=== PATIENT | male | born 1960 | race Caucasian/White ===

== ENCOUNTER 2024-06-21 00:39 | Emergency (ER) | payer OTHER ==
--- OUTSIDE RECORDS SUMMARY | 2024-06-21 00:50 | XMS REPORT | Continuity of Care Document ---
Author Name Unknown Address [address] [facility]. [address] [place] [address] [facility] thconnect Address [address] [facility] [place] [address] Care Team Providers Care Night Shift Supervisor Name Role Phone PCP, PATIENT DOES NOT HAVE A Primary Care Physic jeevan Unavailable EDDOC, GENERIC FOR EDM Attending Clinician Unaelizabeth Spain, Cardiology - Clear Attending Clinician Jeanna vaGURWINDER Prieto Attending Clinician Unavailable Papo Mcfarlane DO Attending Clinician [phone] Jorge SCALES, Rosario Attending Clinician + [phone] Gurwinder Bosch MD Attending Clinician [phone] JOLIE MARQUEZ Attending Clinician Unavailkelsea Clarke MD, Crow Doyle Attending Clinician [phone] Reynold Rodas MD Attending Clinician [phone] Jolie Marquez MD Attending Clinician [phone] BRIE ECHOLS Attending Clinician Unavailab BRIE Melton Attending Clinician UnavailRupesh Montes MD Attending Clinician [phone] Jesus SCALES, Sergio Pedroza Attendin g Clinician JU, BLANE SANTACRUZ Attending Clinician Unavail able Ju TALAMANTESBS, Blane Santacruz Attending Clinician [phone] [facility], [facility] Cardiology Attending Clinician [phone] Obey SCALES, Afaq Attending Clinician [phone] RUPESH ELAINE Attending Clinician Unavailable Emelina SCALES, Julisas Lockett Attending Clinician + LAZARA GUERRERO [facility] Attending Clinician Jeanna ANNIE Yusuf Attending Clinician Unavailable ANNIE FLETCHER Attending Clinician Unavailable Mary SCALES, Jaime Leos Attending Clinician [phone] [facility], TAREQ Attending Clinician [facility]availa core[facility] Attending Clinician Unavaila Geo Aguilar MD Attending Clinician [phone] SERGIO LEE Attending C linician Unavailable Florentino Damon MD Attending Clinician [phone] Da Kidd MD Attending Clinician [phone] Physician, No Primary or Family Admitting Clinic jeevan Unavailable ChristianMARCELA, TARANNE Admitting Clinician Unavaila corey Patel MD, Rosario Admitting Clinician [phone] REYNOLD RODAS Admitting Clinician Unavailable Stephani SCALES, Reynold Admitting Clinician [phone] YOKO HEMBRIE CALDWELL Admitting Clinician Unavailab le JU, BLANE SANTACRUZ Admitting Clinician Unavail able Ju GRIMES, Blane Santacruz Admitting Clinician [phone] JULISSA TARANGO Admitting Clinician Unav ailANNIE Mercado Admitting Clinician Unavailable SERGIO LEE Admitting C linician Unavailable Jesus SCALES, Sergio Pedroza Admittin g Clinician Florentino Damon MD Admitting Clinician [phone] Payers Payer Name Policy Type Policy Number Effective Date Expirati on Date Source Problems Condition Name Condition Details Condition Category Status Onset Date Resolution Date Last Treatment Date Treating Clinician Comments Source Other chest pain Other chest pain Disease Active 4-14 00:00: 00 [facility] Chest pain, unspecifie d type Chest pain, unspecifie d type Disease Active 1-29 00:00: 00 [facility] Rib pain Rib pain Disease Active 10-12 00:00: 00 [facility] Injury of left hand Injury of left hand Disease Active 10-12 00:00: 00 [facility] Obesity (BMI 30-39.9) Obesity (BMI 30-39.9) Disease Active 10-29 00:00: 00 [facility] Unstable angina Unstable angina Disease Active 4 00:00: 00 [facility] Chest pain at rest Chest pain at rest Disease Active 2013-09 0 00:00: 00 [facility] Chest pain Chest pain Disease Active 4 00:00: 00 [facility] Essential hypertensi on Essential hypertensi on Disease Active 03-09 00:00: 00 Overview: Formattin g of this note might be different from the original. 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 [facility] Allergies, Adverse Reactions, Alerts Allergy Name Allergy Type Status Severity Reaction(s) Onset Date Inactive Date Treating Clinician Comments Source Isosorbi de Mononitr ate Propensi ty to adverse reaction s Active Other - See comments 10-12 00:00: 00 headache [facility] ISOSORBI DE MONONITR ATE DRUG INGREDI Active Other-Cmnt 10-12 00:00: 00 [facility] ACETAMIN OPHEN DRUG INGREDI Active N/V 10-29 00:00: 00 [facility] Acetamin ophen Propensi ty to adverse reaction s Active Nausea and/or Vomiting 0 2-24 00:00: 00 [facility] IODINE AND IODIDE CONTAINI NG PRODUCTS Drug Class Active ITCHING 12-11 00:00: 00 [facility] Iodine And Iodide Containi ng Products Propensi ty to adverse reaction s Active Shortness of Breath 12-11 00:00: 00 [facility] Iodine And Iodide Containi ng Products Propensi ty to adverse reaction s Active Shortness of Breath 12-11 00:00: 00 [facility] Social History Social Habit Start Date Stop Date Quantity Comments Source [facility] History of tobacco use Snuff User [facility] History SDOH Social Connections Get Together [facility] History SDOH Social Connections Restorationism [facility] History SDOH Social Connections Membership [facility] History SDOH Social Connections Meetings [facility] History of Social function 2023-12-26 00:00:00 2023-12-26 00:00:00 [facility] Alcohol intake 2023-12-25 00:00:00 2023-12-25 00:00:00 Ex-drinker (finding) [facility] Exposure to SARS-CoV-2 (event) 2022-12-07 00:00:00 2022-12-17 20:03:00 Not sure [facility] History SDOH Transport Non-Med 2022-10-25 00:00:00 2022-10-25 00:00:00 2 [facility] History SDOH Alcohol Frequency 2022-10-25 00:00:00 2022-10-25 00:00:00 1 [facility] History SDOH Alcohol Std Drinks 2022-10-25 00:00:00 2022-10-25 00:00:00 0 [facility] History SDOH Alcohol Binge 2022-10-25 00:00:00 2022-10-25 00:00:00 1 [facility] History SDOH Social Connections Phone 2022-10-25 00:00:00 2022-10-25 00:00:00 5 [facility] History SDOH Social Connections Living 2022-10-25 00:00:00 2022-10-25 00:00:00 7 [facility] History SDOH Physical Activity DPW 2022-10-25 00:00:00 2022-10-25 00:00:00 5 [facility] History SDOH Physical Activity MPS 2022-10-25 00:00:00 2022-10-25 00:00:00 3 [facility] History SDOH Financial 2022-10-25 00:00:00 2022-10-25 00:00:00 5 [facility] History SDOH Food Worry 2022-10-25 00:00:00 2022-10-25 00:00:00 1 [facility] History SDOH Food Scarcity 2022-10-25 00:00:00 2022-10-25 00:00:00 1 [facility] History SDOH Transport Med 2022-10-25 00:00:00 2022-10-25 00:00:00 2 [facility] Cigarettes smoked current (pack per day) - Reported 2021-04-28 00:00:00 2021-04-28 00:00:00 [facility] Cigarette pack-years 2021-04-28 00:00:00 2021-04-28 00:00:00 [facility] Tobacco use and exposure 2021-04-28 00:00:00 2021-04-28 00:00:00 User of smokeless tobacco [facility] Alcohol Comment 2021-04-28 00:00:00 2021-04-28 00:00:00 Quit 6 years ago (prior to this had about 18-20 drinks/week) [facility] Education - What is the highest level of school you have completed or the highest degree you have received? 2021-04-04 00:00:00 2021-04-04 00:00:00 Some college, no degree [facility] Tobacco Comment 2014-11-14 00:00:00 2014-11-14 00:00:00 smokes 4 to 5 cigars/month, 1/2 pack every 2 weeks and chews tobacco for the past 5 years, prior to that he was smoking 1.5 ppd for 15 years prior to that on and off [facility] Sex Assigned At 1960 00:00:00 1960 00:00:00 [facility] Smoking Status Start Date Stop Date Source Ex-smoker 2021-04-28 00:00:00 2021-04-28 [facility]00[facility]00 [facility] Current every day smoker 2015-09-08 00:00:00 [facility] Medications Ordered Medication Name Filled Medication Name Start Date Stop Date Current Medication? Ordering Clinician Indication Dosage Frequency Signature (SIG) Comments Components Source naloxone (NARCAN) 4 mg/actuatio n nasal spray 12-28 14:07: 35 Yes 1{spray } Use 1 [place] in each nostril as needed (opioid intoxicati on). [facility] methocarbam oL 750 mg tablet 12-28 14:07: 35 Yes 750mg Take 1 tablet by mouth 4 (four) times daily as needed for Pain (scale 1-3). [facility] furosemide (LASIX) tablet 60 mg 12-28 14:00: 00 Yes 60mg 60 mg, Oral, QAM+PM, First dose on [place] 12/29/23 at 0900, Until Discontinu ed, Routine [facility] magnesium oxide (MAG-OX 400) tablet 400 mg 12-28 01:00: 00 Yes 400mg 400 mg, Oral, BID, First dose on Tue12/28/23 at 1999, Until Discontinu ed, Routine [facility] KCL (KLOR-CON M20) tablet 20 mEq 12-28 01:00: 00 Yes 20meq 20 mEq, Oral, BID, First dose on Tue12/28/23 at 1999, Until Discontinu ed, Routine [facility] furosemide 20 mg tablet 12-28 00:00: 00 Yes [id number] 00 60mg Take 3 tablets by mouth every morning and evening. [facility] KCL 20 mEq tablet 12-28 00:00: 00 Yes [id number] 00 40meq Take 2 tablets by mouth in the morning. [facility] magnesium oxide 420 mg Tab 12-28 00:00: 00 Yes [id number] 00 400mg Take 400 mg by mouth in the morning and 400 mg in the evening. [facility] ranolazine 500 mg 12 hr tablet 12-28 00:00: 00 Yes [id number] 500mg Take 1 tablet by mouth every 12 (twelve) hours. [facility] rosuvastati n 40 mg tablet 12-28 00:00: 00 Yes [id number] 40mg Take 1 tablet by mouth at bedtime. [facility] bumetanide (BUMEX) tablet 2 mg 12-27 22:00: 00 12-28 13:38 :35 No 2mg 2 mg, Oral, QAM+PM, First dose (after last modificati on) on Tue12/28/23 at 1700, Until Discontinu ed, Routine [facility] furosemide (LASIX) injection 40 mg 12-27 12:15: 00 12-27 17:51 :00 No 40mg 40 mg, Slow IV Push, Q6H, 2 doses, First dose on Tue12/28/23 at 0715, Last dose on Tue12/28/23 at 1200, Routine [facility] magnesium oxide (MAG-OX 400) tablet 400 mg 12-27 12:00: 00 12-27 13:45 :00 No 400mg 400 mg, Oral, ONCE, 1 dose, On Tue12/28/23 at 0700, Routine [facility] KCL (KLOR-CON M20) tablet 40 mEq 12-27 12:00: 00 12-27 13:45 :00 No 40meq 40 mEq, Oral, ONCE, 1 dose, On Tue12/28/23 at 0700, Routine [facility] ranolazine (RANEXA) 12 hr tablet 500 mg 12-27 01:00: 00 Yes 500mg 500 mg, Oral, Q12H, First dose on Tue12/27/23 at 2000, Until Discontinu ed, Routine [facility] furosemide (LASIX) injection 40 mg 12-26 19:00: 00 12-27 01:23 :00 No 40mg 40 mg, Slow IV Push, TID, 2 doses, First dose (after last modificati on) on Tue12/27/23 at 1400, Last dose on Tue12/27/23 at 2000, Routine [facility] KCL (KLOR-CON M20) tablet 40 mEq 12-26 12:30: 00 12-26 13:44 :00 No 40meq 40 mEq, Oral, ONCE, 1 dose, On Tue12/27/23 at 0730, Routine [facility] magnesium sulfate in water 2 gram/50 mL (4 %) infusion 2 g 12-26 12:30: 00 12-26 14:44 :00 No 2g 2 g, IV Piggyback, Administer over 60 Minutes, ONCE, 1 dose, On Tue12/27/23 at 0730, Routine [facility] furosemide (LASIX) injection 40 mg 12-25 19:00: 00 12-26 14:06 :10 No 40mg 40 mg, Slow IV Push, TID, First dose (after last modificati on) on Tue12/26/23 at 1400, Until Discontinu ed, Routine [facility] magnesium oxide (MAG-OX 400) tablet 400 mg 12-25 12:15: 00 12-25 13:51 :00 No 400mg 400 mg, Oral, ONCE, 1 dose, On Tue12/26/23 at 0715, Routine [facility] KCL (KLOR-CON M20) tablet 20 mEq 12-25 12:15: 00 12-25 13:51 :00 No 20meq 20 mEq, Oral, ONCE, 1 dose, On Tue12/26/23 at 0715, Routine [facility] rosuvastati n (CRESTOR) tablet 40 mg 12-25 02:00: 00 Yes 40mg 40 mg, Oral, QHS, First dose on Tue12/25/23 at 2100, Until Discontinu ed, Routine [facility] furosemide (LASIX) injection 40 mg 12-25 01:00: 00 12-25 16:04 :43 No 40mg 40 mg, Slow IV Push, Q12H, First dose on 12/25/23 at 2000, Until Discontinu ed, Routine [facility] perflutren lipid microsphere s (DEFINITY) injection 2 mL 12-24 16:45: 00 12-24 16:45 :00 No [id number] 2mL 2 mL, IV Push, ONCE, 1 dose, On 12/25/23 at 1145, Routine [facility] polyethylen e glycol 3350 powder 17 g 12-24 14:00: 00 Yes 17g 17 g, Oral, DAILY, First dose on 12/25/23 at 0900, Until Discontinu ed, Routine [facility] metoprolol succinate XL (TOPROL XL) tablet 25 mg 12-24 14:00: 00 Yes 25mg 25 mg, Oral, DAILY, First dose on 12/25/23 at 0900, Until Discontinu ed, Routine [facility] lisinopriL (PRINIVIL,Z ESTRIL) tablet 10 mg 12-24 14:00: 00 Yes 10mg 10 mg, Oral, DAILY, First dose on 12/25/23 at 0900, Until Discontinu ed, Routine [facility] clopidogreL (PLAVIX) 75 mg tablet 75 mg 12-24 14:00: 00 Yes 75mg 75 mg, Oral, DAILY, First dose on 12/25/23 at 0900, Until Discontinu ed, Routine [facility] aspirin chewable tablet 81 mg 12-24 14:00: 00 Yes 81mg 81 mg, Oral, DAILY, First dose on 12/25/23 at 0900, Until Discontinu ed, Routine [facility] amLODIPine (NORVASC) tablet 10 mg 12-24 14:00: 00 Yes 10mg 10 mg, Oral, QAM, First dose on 12/25/23 at 0900, Until Discontinu ed, Routine [facility] KCL (KLOR-CON M20) tablet 40 mEq 12-24 14:00: 00 12-24 14:01 :00 No 40meq 40 mEq, Oral, ONCE, 1 dose, On Tue12/25/23 at 0900, Routine [facility] aspirin chewable tablet 324 mg 12-24 14:00: 00 12-24 09:14 :47 No 324mg 324 mg, Oral, DAILY, First dose on Tue12/25/23 at 0900, Until Discontinu ed, Routine [facility] furosemide (LASIX) injection 80 mg 12-24 13:00: 00 12-24 14:36 :51 No 80mg 80 mg, IV Push, Q12H, First dose (after last reorder) on Tue12/25/23 at 0800, Until Discontinu ed, STEPHENIE [facility] traMADoL (ULTRAM) tablet 50 mg 12-24 11:40: 09 Yes 50mg 50 mg, Oral, Q6HPRN, Starting on Tue12/25/23 at 0640, Until Discontinu ed, Routine, Pain (scale 7-10) [facility] glucagon (GLUCAGEN DIAGNOSTIC KIT) injection 1 mg 12-24 09:10: 01 Yes 1mg 1 mg, Intramuscu lar, PRN, Starting on Tue12/25/23 at 0410, Until Discontinu ed, STEPHENIE, Blood Glucose < or = 70 mg/dL and patient is NPO, unable to swallow or has mental changes. [facility] dextrose 50 % in water (D50W) injection 25 mL 12-24 09:10: 01 Yes 25mL 25 mL, Slow IV Push, PRN, Starting on Tue12/25/23 at 0410, Until Discontinu ed, STEPHENIE, Blood Glucose < or = 70 mg/dL and patient is NPO, unable to swallow or has mental status changes. [facility] hydrOXYzine 25 mg tablet 12-24 09:04: 50 Yes 25mg Take 1 tablet by mouth at bedtime as needed for Anxiety (sleep). [facility] HEPARIN SODIUM (PORCINE) 1,000 UNIT/ML BOLUS ACS ORDER SET 12-24 07:30: 00 12-24 09:10 :00 No 4000U 4,000 Units, IV Push, ONCE, 1 dose, On Tue12/25/23 at 0230, STEPHENIE [facility] heparin 25,000 Units/250 mL (Premixed Bag) in 0.45 % NS 12-24 07:25: 51 12-26 12:06 :50 No 0U/h 0-2,750 Units/hr (0-27.5 mL/hr), IV Infusion, TITRATE, Parameters in Admin. Instr., Starting on Tue12/25/23 at 0225
In itiate dosing:&nb sp; & nbsp;&nbsp ; -Patient 83 kg or under: 1,000 Units/hr (Calculate d dose at 12 units/kg/h r) &n bsp; &nbs p; -Patient over 83 k,000 units/hr&n bsp;DO NOT Exceed the MAXIMUM 1,000 units/hr for initiation of heparin drip.&nbsp ; CAU TION - If LMWH given in ER, AVOID bolus and start next dose/drip 12 hrs after ER dosage.&nb sp; M ust program rate using programmab le infusion pump.&nbsp ; Elizabeth ck with the ordering provider first prior to any administra tion should the patient be on existing/a dditional anticoagul ant therapy. Rang e, Dosing and Testing: &nbs p;FOR [facility], [facility], AND [facility] ONLY &nbs p; - aPTT < 35: & nbsp;Bolus 5000 units, increase rate 300 units/hr&n bsp; - aPTT 35-44:&nbs p; Arjun beatriz 3000 units, increase rate 200 units/hr&n bsp; - aPTT 45-54:&nbs p; In crease rate 100 units/hr&n bsp; - aPTT 55-85:&nbs p; NO CHANGE&nbs p; - aPTT 86-95:&nbs p; De crease rate 100 units/hr&n bsp; - aPTT 96-120:&nb sp; H old 30 minutes, decrease rate 150 units/hr&n bsp; - aPTT > 120: Hold 60 minutes, decrease rate 200 units/hr&n bsp; Check aPTT 6 hours after initiation , then Q6H after every change, aPTT Q12H once therapeuti c levels are reached.&n bsp; &nbs p; __ &n bsp;FOR [facility] ONLY - aPTT < 40: & nbsp;Bolus 5000 units, increase rate 300 units/hr&n bsp; - aPTT 40-49:&nbs p; Arjun beatriz 3000 units, increase rate 200 units/hr&n bsp; - aPTT 50-59:&nbs p; In crease rate 100 units/hr&n bsp; - aPTT 60-85:&nbs p; NO CHANGE&nbs p; - aPTT 86-95:&nbs p; De crease rate 100 units/hr&n bsp; - aPTT 96-120:&nb sp; H old 30 minutes, decrease rate 150 units/hr&n bsp; - aPTT > 120: Hold 60 minutes, decrease rate 200 units/hr&n bsp; Check aPTT 6 hours after initiation , then Q6H after every change, aPTT Q12H once therapeuti c levels are reached.&n bsp;&n bsp; DO NOT ADJUST INITIAL BOLUS OR INITIAL INFUSION RATE.
[facility] furosemide (LASIX) injection 80 mg 12-24 07:00: 00 12-24 07:12 :00 No 80mg 80 mg, IV Push, ONCE, 1 dose, On Tue12/25/23 at 0200, STEPHENIE [facility] ondansetron (ZOFRAN (PF)) injection 4 mg 12-24 07:00: 00 12-24 06:50 :00 No 4mg 4 mg, Slow IV Push, ONCE, 1 dose, On Tue12/25/23 at 0200, STEPHENIE [facility] morpHINE (2 mg/mL) injection 4 mg 12-24 06:45: 00 12-24 06:50 :00 No 4mg 4 mg, Slow IV Push, ONCE, 1 dose, On Tue12/25/23 at 0145, STAT [facility] metoprolol succinate XL 50 mg 24 hr tablet 2022-09 00:00: 00 Yes 25mg Take 0.5 tablets by mouth in the morning. [facility] amLODIPine 5 mg tablet 03-03 00:00: 00 Yes 10mg Take 2 tablets by mouth every morning. [facility] aspirin 81 mg chewable tablet 03-03 00:00: 00 Yes 81mg Take 1 tablet by mouth in the morning. [facility] clopidogreL 75 mg tablet 03-03 00:00: 00 Yes 75mg Take 1 tablet by mouth in the morning. [facility] glipiZIDE 5 mg tablet 03-03 00:00: 00 Yes 2.5mg Take 0.5 tablets by mouth in the morning. [facility] insulin glargine (LANTUS U-100) injection 8 Units 12-20 02:00: 00 Yes 8U 8 Units, Subcutaneo us, QHS, First dose on Sun 23 at 2100, Until Discontinu ed, Routine [facility] aspirin 81 mg chewable tablet 12-20 00:00: 00 04-20 04:59 :00 No [id number] 81mg Take 1 tablet by mouth in the morning for 120 days. [facility] pantoprazol e (PROTONIX) EC tablet 40 mg 12-19 14:00: 00 Yes 40mg 40 mg, Oral, DAILY, First dose on 12/19/22 at 0900, Until Discontinu ed, Routine [facility] aspirin chewable tablet 81 mg 12-19 14:00: 00 Yes 81mg 81 mg, Oral, DAILY, First dose on Tue12/19/22 at 0900, Until Discontinu ed, Routine [facility] insulin lispro (human) (HumaLOG U-100) injection 5 Units 12-19 13:00: 00 Yes 5U 5 Units, Subcutaneo us, TID MEALS, First dose on Tue12/19/22 at 0800, Until Discontinu ed, Routine [facility] KCL (KLOR-CON M20) tablet 40 mEq 12-19 11:00: 00 12-19 14:32 :00 No 40meq 40 mEq, Oral, Q2H, 2 doses, First dose on Tue12/19/22 at 0600, Last dose on Tue12/19/22 at 0800, Routine [facility] magnesium sulfate in water 4 gram/50 mL (8 %) IV Piggyback 4 g 12-19 09:45: 00 12-19 19:02 :00 No 4g 4 g, IV Piggyback, at 25 mL/hr Administer over 120 Minutes, ONCE, 1 dose, On Tue12/19/22 at 0445, Routine [facility] potassium chloride in water (KCL) 20 mEq/100 mL RTU IVPB 20 mEq 12-19 09:45: 00 12-19 12:41 :00 No 20meq 20 mEq, IV Piggyback, ONCE, 1 dose, On 4/16/23 at 0445, 100 mL [facility] rosuvastati n (CRESTOR) tablet 40 mg 16 02:00: 00 Yes 40mg 40 mg, Oral, QHS, First dose on 12/18/22 at 2100, Until Discontinu ed, Routine [facility] ranolazine (RANEXA) 12 hr tablet 1,000 mg 12-19 01:00: 00 Yes 1000mg 1,000 mg, Oral, Q12H, First dose (after last modificati on) on 12/18/22 at 2000, Until Discontinu ed, Routine [facility] furosemide (LASIX) injection 80 mg 12-19 01:00: 00 Yes 80mg 80 mg, IV Push, Q12H, First dose (after last modificati on) on 12/18/22 at 2000, Until Discontinu ed, Routine [facility] amLODIPine 5 mg tablet 12-19 00:00: 00 04-19 04:59 :00 No [id number] 5mg Take 1 tablet by mouth in the morning and 1 tablet in the evening. Do all this for 120 days. [facility] ranolazine 1,000 mg tablet 12-19 00:00: 00 04-19 04:59 :00 No [id number] 1000mg Take 1 tablet by mouth every 12 (twelve) hours for 120 days. [facility] glipiZIDE 5 mg tablet 12-19 00:00: 00 04-19 04:59 :00 No [id number] 5mg Take 1 tablet by mouth in the morning for 120 days. [facility] bumetanide 2 mg tablet 12-19 00:00: 00 04-19 04:59 :00 No [id number] 2mg Take 1 tablet by mouth in the morning and 1 tablet in the evening. Do all this for 120 days. [facility] KCL 20 mEq tablet 12-19 00:00: 00 12-19 00:00 :00 No [id number] 40meq Take 2 tablets by mouth in the morning and 2 tablets in the evening. Do all this for 30 days. [facility] oxyCODONE immediate release tablet 10 mg 12-18 17:45: 43 Yes 10mg 10 mg, Oral, Q6HPRN, Starting on 12/18/22 at 1245, Until Discontinu ed, Routine, Pain (scale 7-10)
F aculty member approving Restricted medication : DARA EDWARD [facility] Sliding Scale Insulin - Lispro (HumaLOG) + Fsbg Testing 12-18 17:00: 00 Yes Subcutaneo us, TID MEALS+HS, First dose on 12/18/22 at 1200, Until Discontinu ed, Routine [facility] enoxaparin (LOVENOX) injection 40 mg 12-18 14:00: 00 Yes 40mg 40 mg, Subcutaneo us, DAILY, First dose on 12/18/22 at 0900, Until Discontinu ed, Routine [facility] spironolact one (ALDACTONE) tablet 25 mg 12-18 14:00: 00 Yes 25mg 25 mg, Oral, DAILY, First dose on 12/18/22 at 0900, Until Discontinu ed, Routine [facility] metoprolol succinate XL (TOPROL XL) tablet 25 mg 12-18 14:00: 00 Yes 25mg 25 mg, Oral, DAILY, First dose on 12/18/22 at 0900, Until Discontinu ed, Routine [facility] losartan (COZAAR) tablet 100 mg 12-18 14:00: 00 Yes 100mg 100 mg, Oral, DAILY, First dose on 12/18/22 at 0900, Until Discontinu ed, Routine [facility] clopidogreL (PLAVIX) 75 mg tablet 75 mg 12-18 14:00: 00 Yes 75mg 75 mg, Oral, DAILY, First dose on 12/18/22 at 0900, Until Discontinu ed, Routine [facility] amLODIPine (NORVASC) tablet 5 mg 12-18 14:00: 00 Yes 5mg 5 mg, Oral, DAILY, First dose on 12/18/22 at 0900, Until Discontinu ed, Routine [facility] aspirin tablet 325 mg 12-18 14:00: 00 12-19 12:51 :05 No 325mg 325 mg, Oral, DAILY, First dose on 12/18/22 at 0900, Until Discontinu ed, Routine [facility] dextrose 10% (D10W) bolus infusion 250 mL 12-18 13:14: 39 Yes 250mL 250 mL, IV Infusion, PRN - SEE INSTRUCTIO NS, Administer over 60 Minutes, Other, If blood glucose is < or = 70 mg/dL and patient is unable to swallow or has mental status changes, Starting on 12/18/22 at 0814
If blood glucose is < or = 70 mg/dL and patient is unable to swallow or has mental status changes (Give glucagon order if patient needs fluid restrictio n): IF IV access available: Dextrose 10%. 1. 125 mL (? bag) of D10W IV infusion - equivalent to 12.5 g dextrose 2. Blood glucose - draw blood glucose 15 minutes after D10W Administra tion. 3. If blood glucose is < 80 mg/dL, repeat.
[facility] glucagon (GLUCAGEN DIAGNOSTIC KIT) injection 1 mg 12-18 13:14: 37 Yes 1mg 1 mg, Intramuscu lar, PRN, Starting on 12/18/22 at 0814, Until Discontinu ed, STEPHENIE, Blood Glucose < or = 70 mg/dL and patient is NPO, unable to swallow or has mental changes. [facility] furosemide (LASIX) injection 40 mg 12-18 13:00: 00 12-18 17:43 :56 No 40mg 40 mg, IV Push, Q12H, First dose on [facility] 12/18/22 at 0800, Until Discontinu ed, Routine [facility] ranolazine (RANEXA) 12 hr tablet 500 mg 12-18 13:00: 00 12-18 17:43 :56 No 500mg 500 mg, Oral, Q12H, First dose on 12/18/22 at 0800, Until Discontinu ed, Routine [facility] magnesium sulfate in water 4 gram/50 mL (8 %) IV Piggyback 4 g 12-18 08:45: 00 12-18 11:04 :00 No 4g 4 g, IV Piggyback, at 25 mL/hr Administer over 120 Minutes, ONCE, 1 dose, On 12/18/22 at 0345, Routine [facility] KCL (KLOR-CON M20) tablet 40 mEq 12-18 08:45: 00 12-18 08:57 :00 No 40meq 40 mEq, Oral, ONCE, 1 dose, On 12/18/22 at 0345, Routine [facility] HYDROcodone -acetaminop hen (NORCO) 10-325 mg tablet 1 tablet 12-18 07:52: 13 12-18 17:46 :06 No 1{tbl} 1 tablet, Oral, Q6HPRN, Starting on 12/18/22 at 0252, Until 12/18/22 at 1246, Routine, Pain (scale 7-10) [facility] morpHINE (4 mg/mL) injection 4 mg 12-18 02:30: 00 12-18 01:42 :00 No 4mg 4 mg, Slow IV Push, ONCE, 1 dose, On Tue12/17/22 at 2130, Routine [facility] furosemide (LASIX) injection 40 mg 12-18 01:45: 00 12-18 01:42 :00 No 40mg 40 mg, IV Push, ONCE, 1 dose, On Tue12/17/22 at 2045, STEPHENIE [facility] nitroglycer in (NITROSTAT) sublingual tablet 0.4 mg 12-18 01:33: 43 Yes .4mg 0.4 mg, Sublingual , Q5MIN PRN, 3 doses, Starting on Tue12/17/22 at 2033, Until Discontinu ed, STEPHENIE, Chest pain [facility] spironolact one 25 mg tablet 10-28 00:00: 00 01-27 04:59 :00 No [id number] 25mg Take 1 tablet by mouth in the morning for 90 days. [facility] clopidogreL 75 mg tablet 10-28 00:00: 00 01-27 04:59 :00 No [id number] 75mg Take 1 tablet by mouth in the morning for 90 days. [facility] amLODIPine 5 mg tablet 10-28 00:00: 00 12-19 00:00 :00 No [id number] 5mg Take 1 tablet by mouth in the morning for 90 days. [facility] clopidogreL 75 mg tablet 10-27 14:44: 58 10-27 00:00 :00 No 75mg Take 75 mg by mouth. [facility] rosuvastati n 40 mg tablet 10-27 14:44: 58 10-27 00:00 :00 No 40mg Take 40 mg by mouth in the morning. [facility] rosuvastati n 40 mg tablet 10-27 00:00: 00 01-26 04:59 :00 No [id number] 40mg Take 1 tablet by mouth at bedtime for 90 days. [facility] metoprolol succinate XL 25 mg 24 hr tablet 10-27 00:00: 00 01-26 04:59 :00 No [id number] 25mg Take 1 tablet by mouth in the morning for 90 days. [facility] furosemide (LASIX) tablet 40 mg 10-26 18:00: 00 Yes 40mg 40 mg, Oral, BID, First dose (after last modificati on) on Tue10/26/22 at 1200, Until Discontinu ed, Routine [facility] magnesium oxide (MAG-OX 400) tablet 400 mg 10-26 13:45: 00 10-26 15:49 :00 No 400mg 400 mg, Oral, ONCE, 1 dose, On Tue10/26/22 at 0745, Routine [facility] ranolazine 500 mg 12 hr tablet 10-26 00:00: 00 01-25 04:59 :00 No [id number] 500mg Take 1 tablet by mouth every 12 (twelve) hours for 90 days. [facility] furosemide 40 mg tablet 10-26 00:00: 00 01-25 04:59 :00 No [id number] 40mg Take 1 tablet by mouth in the morning and 1 tablet in the evening. Do all this for 90 days. [facility] perflutren lipid microsphere s (DEFINITY) injection 2 mL 10-25 17:30: 00 10-25 17:07 :00 No [id number] 2mL 2 mL, IV Push, ONCE, 1 dose, On Tue10/25/22 at 1130, Routine [facility] ranolazine (RANEXA) 12 hr tablet 500 mg 10-25 16:15: 00 Yes 500mg 500 mg, Oral, Q12H, First dose on Tue10/25/22 at 1015, Until Discontinu ed, Routine [facility] KCL (KLOR-CON M20) tablet 20 mEq 10-25 14:00: 00 10-25 14:46 :00 No 20meq 20 mEq, Oral, ONCE, 1 dose, On Tue10/25/22 at 0800, Routine [facility] magnesium oxide (MAG-OX 400) tablet 800 mg 10-25 14:00: 00 10-25 14:48 :00 No 800mg 800 mg, Oral, ONCE, 1 dose, On Tue10/25/22 at 0800, Routine [facility] sennosides (SENOKOT) tablet 8.6 mg 10-24 15:00: 00 Yes 8.6mg 8.6 mg, Oral, DAILY, First dose on Tue10/24/22 at 0900, Until Discontinu ed, Routine [facility] magnesium oxide (MAG-OX 400) tablet 400 mg 10-24 14:15: 00 10-24 15:10 :00 No 400mg 400 mg, Oral, ONCE, 1 dose, On 10/24/22 at 0815, Routine [facility] KCL (KLOR-CON M20) tablet 20 mEq 10-24 14:00: 00 10-24 19:48 :00 No 20meq 20 mEq, Oral, Q2H, 2 doses, First dose on 10/24/22 at 0800, Last dose on 10/24/22 at 1000, Routine [facility] metoprolol tartrate (LOPRESSOR) tablet 12.5 mg 10-24 02:00: 00 Yes 12.5mg 12.5 mg, Oral, BID, First dose (after last modificati on) on 10/23/22 at 2000, Until Discontinu ed, Routine [facility] enoxaparin (LOVENOX) injection 40 mg 10-23 23:00: 00 Yes 40mg 40 mg, Subcutaneo us, DAILY, First dose on 10/23/22 at 1700, Until Discontinu ed, Rout[facility] 40 mg 10-23 20:00: 00 10-26 15:14 :42 No 40mg 40 mg, Slow IV Push, Q8H, First dose (after last modificati on) on 10/23/22 at 1400, Until Discontinu ed, Routine [facility] Sliding Scale Insulin-Reg ular + Fsbg Testing 10-23 17:30: 00 Yes Subcutaneo us, AC+HS, First dose on 10/23/22 at 1130, Until Discontinu ed, Routine [facility] morphine IR (MSIR) tablet 15 mg 10-23 15:39: 51 Yes 15mg 15 mg, Oral, Q4HPRN, Starting on 10/23/22 at 0939, Until Discontinu ed, Routine, Pain (scale 7-10) [facility] clopidogreL (PLAVIX) 75 mg tablet 75 mg 10-23 15:00: 00 Yes 75mg 75 mg, Oral, DAILY, First dose on 10/23/22 at 0900, Until Discontinu ed, Routine [facility] spironolact one (ALDACTONE) tablet 25 mg 10-23 15:00: 00 Yes 25mg 25 mg, Oral, DAILY, First dose on 10/23/22 at 0900, Until Discontinu ed, Routine [facility] rosuvastati n (CRESTOR) tablet 40 mg 10-23 15:00: 00 Yes 40mg 40 mg, Oral, DAILY, First dose on 10/23/22 at 0900, Until Discontinu ed, Routine [facility] losartan (COZAAR) tablet 100 mg 10-23 15:00: 00 Yes 100mg 100 mg, Oral, DAILY, First dose on 10/23/22 at 0900, Until Discontinu ed, Routine [facility] aspirin chewable tablet 81 mg 10-23 15:00: 00 Yes 81mg 81 mg, Oral, DAILY, First dose on 10/23/22 at 0900, Until Discontinu ed, Routine [facility] amLODIPine (NORVASC) tablet 5 mg 10-23 15:00: 00 Yes 5mg 5 mg, Oral, DAILY, First dose on 10/23/22 at 0900, Until Discontinu ed, Routine [facility] magnesium sulfate in water 2 gram/50 mL (4 %) infusion 2 g 10-23 14:00: 00 10-23 16:45 :00 No 2g 2 g, IV Piggyback, Administer over 60 Minutes, Q1H, 2 doses, First dose on 10/23/22 at 0800, Last dose on 10/23/22 at 0900, Routine [facility] glucagon (GLUCAGEN DIAGNOSTIC KIT) injection 1 mg 10-23 13:31: 08 Yes 1mg 1 mg, Intramuscu lar, PRN, Starting on 10/23/22 at 0731, Until Discontinu ed, STEPHENIE, Blood Glucose < or = 70 mg/dL and patient is NPO, unable to swallow or has mental changes. [facility] morpHINE (2 mg/mL) injection 2 mg 10-23 09:00: 00 10-23 08:21 :00 No 2mg 2 mg, Slow IV Push, ONCE, 1 dose, On 10/23/22 at 0300, Routine [facility] acetaminoph en (TYLENOL) tablet 650 mg 10-23 07:08: 32 Yes 650mg 650 mg, Oral, Q6HPRN, Starting on 10/23/22 at 0108, Until Discontinu ed, Routine, Pain (scale 1-3) [facility] HYDROcodone -acetaminop hen (NORCO 5) 5-325 mg tablet 1 tablet 10-23 07:08: 28 10-25 07:07 :28 No 1{tbl} 1 tablet, Oral, Q6HPRN, Starting on 10/23/22 at 0108, Until 10/25/22 at 0107, Routine, Pain (scale 4-6) [facility] nitroglycer in (NITROSTAT) sublingual tablet 0.4 mg 10-23 07:06: 43 Yes .4mg 0.4 mg, Sublingual , Q5MIN PRN, Starting on 10/23/22 at 0106, Until Discontinu ed, Routine, Chest pain [facility] furosemide (LASIX) injection 40 mg 10-23 06:30: 00 10-23 17:06 :48 No 40mg 40 mg, Slow IV Push, Q12H, First dose on 10/23/22 at 0030, Until Discontinu ed, Routine [facility] clonazePAM (KLONOPIN) tablet 1 mg 10-23 06:30: 00 10-23 05:35 :00 No 1mg 1 mg, Oral, ONCE, 1 dose, On 10/23/22 at 0030, STEPHENIE [facility] aspirin tablet 325 mg 10-23 03:15: 00 10-23 03:15 :00 No 325mg 325 mg, Oral, ONCE, 1 dose, On Tue10/22/22 at 2115, STAT [facility] sodium chloride (NS) injection 5 mL 10-23 03:10: 38 Yes 5mL 5 mL, Intravenou s, PRN, Starting on Tue10/22/22 at 2110, Until Discontinu ed, Routine, IV line flushing [facility] Oxycodone 10 mg Tab 10-05 00:00: 00 Yes TAKE 1 TABLET BY MOUTH EVERY 6 HOURS NEEDED [facility] aspirin 81 mg chewable tablet 10-05 00:00: 00 11-05 05:59 :00 No [id number] 81mg Take 1 tablet by mouth in the morning for 30 days. [facility] spironolact one (ALDACTONE) tablet 25 mg 10-04 15:00: 00 Yes 25mg 25 mg, Oral, DAILY, First dose on Tue10/04/22 at 0900, Until Discontinu ed, Routine [facility] clopidogreL 75 mg tablet 10-04 14:41: 23 Yes 75mg Take 75 mg by mouth. [facility] rosuvastati n 40 mg tablet 10-04 14:41: 23 Yes 40mg Take 40 mg by mouth in the morning. [facility] magnesium sulfate in water 2 gram/50 mL (4 %) infusion 2 g 10-04 14:15: 00 10-04 15:32 :00 No 2g 2 g, IV Piggyback, Administer over 60 Minutes, ONCE, 1 dose, On Tue10/04/22 at 0815, Routine [facility] KCL (KLOR-CON M20) tablet 40 mEq 10-04 14:15: 10-04 16:24 :00 No 40meq 40 mEq, Oral, ONCE, 1 dose, On Tue10/04/22 at 0815, Routine [facility] metoprolol tartrate (LOPRESSOR) tablet 12.5 mg 10-04 13:30: 00 Yes 12.5mg 12.5 mg, Oral, BID, First dose on Tue10/04/22 at 0730, Until Discontinu ed, Routine [facility] KCL 20 mEq/15 mL solution 40 mEq 10-04 12:30: 00 10-04 14:20 :00 No 40meq 40 mEq, Oral, ONCE, 1 dose, On 10/04/22 at 0630, Routine [facility] morphine ER (MS CONTIN) 12 hr tablet 30 mg 10-04 03:45: 00 Yes 30mg 30 mg, Oral, Q12H, First dose on 10/03/22 at 2145, Until Discontinu ed, Routine [facility] nitroglycer in 0.4 mg sublingual tablet 10-04 00:00: [address] 1 tablet under the tongue every 5 (five) minutes as needed for Chest pain. [facility] insulin glargine 100 unit/mL injection 10-04 00:00: 00 12-19 00:00 :00 No [id number] 10U inject 10 Units under the skin at bedtime. [facility] metFORMIN 500 mg tablet 10-04 00:00: 11-04 05:59 :00 No [id number] 500mg Take 1 tablet by mouth in the morning and 1 tablet in the evening. Take with meals. Do all this for 30 days. [facility] metoprolol tartrate 25 mg tablet 10-04 00:00: 00 11-04 05:59 :00 No [id number] 12.5mg Take 0.5 tablets by mouth in the morning and 0.5 tablets in the evening. Do all this for 30 days. [facility] furosemide 40 mg tablet 10-04 00:00: 00 11-04 05:59 :00 No [id number] 40mg Take 1 tablet by mouth every morning and evening for 30 days. [facility] Sliding Scale Insulin - Lispro (HumaLOG) + Fsbg Testing 10-03 23:00: 00 Yes Subcutaneo us, TID MEALS+HS, First dose on 10/03/22 at 1700, Until Discontinu ed, [facility] (4 mg/mL) injection 4 mg 10-03 21:30: 00 2023- 01-29 22:12 :00 No 4mg 4 mg, Slow IV Push, ONCE, 1 dose, On Tue10/03/22 at 1530, STAT [facility] HEPARIN SODIUM (PORCINE) 1,000 UNIT/ML BOLUS ACS ORDER SET 10-03 21:00: 00 10-03 22:39 :00 No 4000U 4,000 Units, IV Push, ONCE, 1 dose, On Tue10/03/22 at 1500, STEPHENIE [facility] heparin 25,000 Units/250 mL (Premixed Bag) in 0.45 % NS 10-03 20:51: 41 Yes 0U/h 0-2,750 Units/hr (0-27.5 mL/hr), IV Infusion, TITRATE, Parameters in Admin. Instr., Starting on Tue10/03/22 at 1451
In itiate infusion at 12 units/kg/h r calculated as: 1,000 Units/hr (Maximum initial rate: 1,000 Units/hr, then adjust dose as needed per aPTT).&nbs p; CA UTION - If LMWH given in ER, AVOID bolus and start next dose/drip 12 hrs after ER dosage.&nb sp; M ust program rate using programmab le infusion pump.&nbsp ; Elizabeth ck with the ordering provider first prior to any administra tion should the patient be on existing/a dditional anticoagul ant therapy. Rang e, Dosing and Testing: &nbs p;FOR [facility], [facility], AND [facility] ONLY &nbs p; - aPTT < 35: & nbsp;Bolus 5000 units, increase rate 300 units/hr&n bsp; - aPTT 35-44:&nbs p; Arjun beatriz 3000 units, increase rate 200 units/hr&n bsp; - aPTT 45-54:&nbs p; In crease rate 100 units/hr&n bsp; - aPTT 55-85:&nbs p; NO CHANGE&nbs p; - aPTT 86-95:&nbs p; De crease rate 100 units/hr&n bsp; - aPTT 96-120:&nb sp; H old 30 minutes, decrease rate 150 units/hr&n bsp; - aPTT > 120: Hold 60 minutes, decrease rate 200 units/hr&n bsp; Check aPTT 6 hours after initiation , then Q6H after every change, aPTT Q12H once therapeuti c levels are reached.&n bsp;
&nbs p;FOR [facility] ONLY - aPTT < 40: & nbsp;Bolus 5000 units, increase rate 300 units/hr&n bsp; - aPTT 40-49:&nbs p; Arjun beatriz 3000 units, increase rate 200 units/hr&n bsp; - aPTT 50-59:&nbs p; In crease rate 100 units/hr&n bsp; - aPTT 60-85:&nbs p; NO CHANGE&nbs p; - aPTT 86-95:&nbs p; De crease rate 100 units/hr&n bsp; - aPTT 96-120:&nb sp; H old 30 minutes, decrease rate 150 units/hr&n bsp; - aPTT > 120: Hold 60 minutes, decrease rate 200 units/hr&n bsp;&n bsp;Check aPTT 6 hours after initiation , then Q6H after every change, aPTT Q12H once therapeuti c levels are reached.&n bsp; DO NOT ADJUST INITIAL BOLUS OR INITIAL INFUSION RATE.
[facility] heparin (1,000 unit/mL, 10 mL vial) for Rebolusing 10-03 20:51: 23 Yes 3000U FOR REBOLUSING , Starting on Tue10/03/22 at 1451, Until Discontinu ed, Routine
Dosing based on aPPT testing parameters (refer to continuous heparin drip order).
[facility] dextrose 10% (D10W) bolus infusion 250 mL 10-03 19:44: 34 Yes 250mL 250 mL, IV Infusion, PRN - SEE INSTRUCTIO NS, Administer over 60 Minutes, Other, If blood glucose is < or = 70 mg/dL and patient is unable to swallow or has mental status changes, Starting on Tue10/03/22 at 1344
If blood glucose is < or = 70 mg/dL and patient is unable to swallow or has mental status changes (Give glucagon order if patient needs fluid restrictio n): IF IV access available: Dextrose 10%. 1. 125 mL (? bag) of D10W IV infusion - equivalent to 12.5 g dextrose 2. Blood glucose - draw blood glucose 15 minutes after D10W Administra tion. 3. If blood glucose is < 80 mg/dL, repeat.
[facility] glucagon (GLUCAGEN DIAGNOSTIC KIT) injection 1 mg 10-03 19:44: 29 Yes 1mg 1 mg, Intramuscu lar, PRN, Starting on Tue10/03/22 at 1344, Until Discontinu ed, STEPHENIE, Blood Glucose < or = 70 mg/dL and patient is NPO, unable to swallow or has mental changes. [facility] rosuvastati n (CRESTOR) tablet 40 mg 10-03 18:30: 00 Yes 40mg 40 mg, Oral, DAILY, First dose (after last modificati on) on Tue10/03/22 at 1230, Until Discontinu ed, Routine [facility] pantoprazol e (PROTONIX) EC tablet 40 mg 10-03 18:30: 00 Yes 40mg 40 mg, Oral, DAILY, First dose (after last modificati on) on 10/03/22 at 1230, Until Discontinu ed, Routine [facility] clopidogreL (PLAVIX) 75 mg tablet 75 mg 10-03 18:30: 00 Yes 75mg 75 mg, Oral, DAILY, First dose (after last modificati on) on 10/03/22 at 1230, Until Discontinu ed, Routine [facility] losartan (COZAAR) tablet 100 mg 10-03 18:30: 00 Yes 100mg 100 mg, Oral, DAILY, First dose (after last modificati on) on 10/03/22 at 1230, Until Discontinu ed, Routine [facility] furosemide (LASIX) injection 40 mg 10-03 18:15: 00 Yes 40mg 40 mg, Slow IV Push, Q12H, First dose on 10/03/22 at 1215, Until Discontinu ed, Routine [facility] aspirin chewable tablet 81 mg 10-03 18:15: 00 Yes 81mg 81 mg, Oral, DAILY, First dose on 10/03/22 at 1215, Until Discontinu ed, Routine [facility] metFORMIN (GLUCOPHAGE ) tablet 500 mg 10-03 15:45: 00 10-03 15:53 :00 No 500mg 500 mg, Oral, ONCE, 1 dose, On 10/03/22 at 0945, Routine [facility] morpHINE (4 mg/mL) injection 4 mg 10-03 15:30: 00 10-03 15:53 :00 No 4mg 4 mg, Slow IV Push, ONCE, 1 dose, On 10/03/22 at 0930, STAT [facility] clonazePAM (KLONOPIN) tablet 0.5 mg 10-03 15:00: 00 10-03 14:58 :00 No .5mg 0.5 mg, Oral, ONCE, 1 dose, On 10/03/22 at 0900, STEPHENIE [facility] furosemide (LASIX) injection 40 mg 10-03 14:30: 00 10-03 14:58 :00 No 40mg 40 mg, IV Push, ONCE, 1 dose, On 10/03/22 at 0830, STEPHENIE [facility] metformin HCl (METFORMIN ORAL) 10-03 12:07: 18 10-03 00:00 :00 No Take by mouth. [facility] lisinopriL 10 mg tablet 10-03 12:01: 32 10-03 00:00 :00 No 10mg Take 1 tablet by mouth in the morning. [facility] amLODIPine 5 mg tablet 06-03 00:00: 00 06-04 04:59 :00 No 5mg Take 5 mg by mouth. [facility] spironolact one 25 mg tablet 06-03 00:00: 00 06-04 04:59 :00 No 25mg Take 25 mg by mouth. [facility] losartan 100 mg tablet 06-03 00:00: 00 06-04 04:59 :00 No 100mg Take 1 tablet by mouth. [facility] nitroglycer in 0.4 mg sublingual tablet 06-02 00:00: 00 10-04 00:00 :[address] 0.4 mg under the tongue. [facility] furosemide 40 mg tablet 05-22 00:00: 00 10-04 00:00 :00 No 40mg Take 40 mg by mouth. [facility] ondansetron (ZOFRAN (PF)) injection 4 mg 03-29 04:30: 00 03-29 04:42 :00 No 4mg 4 mg, Slow IV Push, ONCE, 1 dose, On 03/28/22 at 2330, STEPHENIE [facility] morpHINE (2 mg/mL) injection 6 mg 03-29 04:30: 00 03-29 04:42 :00 No 6mg 6 mg, Slow IV Push, ONCE, 1 dose, On Sun 22 at 2330, Routine [facility] magnesium oxide (MAG-OX 400) tablet 400 mg 01-27 14:00: 00 Yes 400mg 400 mg, Oral, DAILY, First dose on Tue01/27/22 at 0900, Until Discontinu ed, Routine [facility] rosuvastati n (CRESTOR) tablet 40 mg 01-27 02:00: 00 Yes 40mg 40 mg, Oral, QHS, First dose on Tue01/26/22 at 2100, Until Discontinu ed, Routine [facility] aspirin 81 mg chewable tablet 01-27 00:00: 00 02-27 04:59 :00 No [id number] 81mg Take 1 tablet by mouth daily for 30 days. [facility] chlorthalid one 25 mg tablet 01-27 00:00: 00 02-27 04:59 :00 No [id number] 12.5mg Take 0.5 tablets by mouth daily for 30 days. [facility] clopidogreL 75 mg tablet 01-27 00:00: 00 02-27 04:59 :00 No [id number] 75mg Take 1 tablet by mouth daily for 30 days. [facility] ketorolac (TORADOL) tablet 10 mg 01-26 23:30: 00 01-26 23:14 :00 No 10mg 10 mg, Oral, ONCE, 1 dose, On Tue01/26/22 at 1830, Routine [facility] enoxaparin (LOVENOX) injection 40 mg 01-26 22:00: 00 Yes 40mg 40 mg, Subcutaneo us, DAILY, First dose on Tue01/26/22 at 1700, Until Discontinu ed, Routine [facility] lisinopriL 10 mg tablet 01-26 21:08: 45 Yes 10mg Take 10 mg by mouth daily. [facility] metformin HCl (METFORMIN ORAL) 01-26 21:08: 45 Yes Take by mouth. [facility] perflutren protein-A microsphr (OPTISON) injection 3 mL 01-26 19:45: 00 01-26 18:59 :00 No [id number] 3mL 3 mL, IV Push, ONCE, 1 dose, On Tue01/26/22 at 1445, Routine [facility] metoprolol succinate XL (TOPROL XL) tablet 100 mg 01-26 16:00: 00 Yes 100mg 100 mg, Oral, QAM, First dose (after last modificati on) on Tue01/26/22 at 1100, Until Discontinu ed, Routine [facility] chlorthalid one (HYGROTON) tablet 12.5 mg 01-26 15:45: 00 Yes 12.5mg 12.5 mg, Oral, DAILY, First dose on Tue01/26/22 at 1045, Until Discontinu ed, Routine [facility] clopidogreL (PLAVIX) 75 mg tablet 75 mg 01-26 14:00: 00 Yes 75mg 75 mg, Oral, DAILY, First dose on Tue01/26/22 at 0900, Until Discontinu ed, Routine [facility] aspirin chewable tablet 81 mg 01-26 14:00: 00 Yes 81mg 81 mg, Oral, DAILY, First dose on Tue01/26/22 at 0900, Until Discontinu ed, Routine [facility] lisinopriL (PRINIVIL,Z ESTRIL) tablet 10 mg 01-26 14:00: 00 Yes 10mg 10 mg, Oral, DAILY, First dose on Tue01/26/22 at 0900, Until Discontinu ed, Routine [facility] Sliding Scale Insulin - Lispro (HumaLOG) + Fsbg Testing 01-26 13:00: 00 Yes Subcutaneo us, TID MEALS+HS, First dose on Tue01/26/22 at 0800, Until Discontinu ed, Routine [facility] morphine ER (MS CONTIN) 12 hr tablet 30 mg 01-26 13:00: 00 Yes 30mg 30 mg, Oral, Q12H, First dose on Tue01/26/22 at 0800, Until Discontinu ed, Routine [facility] ranolazine (RANEXA) 12 hr tablet 500 mg 01-26 13:00: 00 01-26 15:32 :40 No 500mg 500 mg, Oral, Q12H, First dose on Tue01/26/22 at 0800, Until Discontinu ed, Routine [facility] furosemide (LASIX) injection 40 mg 01-26 12:45: 00 01-26 13:25 :00 No 40mg 40 mg, Slow IV Push, ONCE, 1 dose, On Tue01/26/22 at 0745, Routine [facility] nitroglycer in (NITROSTAT) sublingual tablet 0.4 mg 01-26 11:19: 07 Yes .4mg 0.4 mg, Sublingual , Q5MIN PRN, Starting on Tue01/26/22 at 0619, Until Discontinu ed, Routine, Chest pain [facility] glucagon (GLUCAGEN DIAGNOSTIC KIT) injection 1 mg 01-26 11:18: 19 Yes 1mg 1 mg, Intramuscu lar, PRN, Starting on Tue01/26/22 at 0618, Until Discontinu ed, STEPHENIE, Blood Glucose < or = 70 mg/dL and patient is unable to swallow or has mental changes. [facility] dextrose 50 % in water (D50W) injection 25 mL 01-26 11:18: 19 Yes 25mL 25 mL, Slow IV Push, PRN, Starting on Tue01/26/22 at 0618, Until Discontinu ed, STEPHENIE, Blood Glucose < or = 70 mg/dL and patient is unable to swallow or has mental status changes. [facility] morpHINE (4 mg/mL) injection 4 mg 01-26 11:00: 00 01-26 10:05 :00 No 4mg 4 mg, Slow IV Push, ONCE, 1 dose, On Tue01/26/22 at 0600, STAT [facility] LORazepam (ATIVAN) injection 1 mg 01-26 09:15: 00 01-26 08:16 :00 No 1mg 1 mg, Slow IV Push, ONCE, 1 dose, On Tue01/26/22 at 0415, STAT [facility] cloNIDine (CATAPRES) tablet 0.1 mg 01-26 08:15: 00 01-26 07:15 :00 No .1mg 0.1 mg, Oral, ONCE, 1 dose, On Tue01/26/22 at 0315, STAT [facility] morpHINE (4 mg/mL) injection 4 mg 01-26 08:15: 00 01-26 07:15 :00 No 4mg 4 mg, Slow IV Push, ONCE, 1 dose, On Tue01/26/22 at 0315, [place] rosuvastati n 40 mg tablet 01-26 00:00: 00 02-26 04:59 :00 No [id number] 40mg Take 1 tablet by mouth at bedtime for 30 days. [facility] Sliding Scale Insulin - Lispro (HumaLOG) + Fsbg Testing 12-02 17:00: 00 Yes Subcutaneo us, TID MEALS+HS, First dose on Tue12/02/21 at 1200, Until Discontinu ed, Routine [facility] dextrose 10% (D10W) bolus infusion 250 mL 12-02 13:15: 00 Yes 250mL 250 mL, IV Infusion, PRN - SEE INSTRUCTIO NS, hypoglycem ia tx, Starting on Tue12/02/21 at 0815
De xtrose 10% 250 mL bag contains:& nbsp;10 gm = 100 mL 20 gm = 200 mL 25 gm = 250 mL (whole bag) The maximum rate at which dextrose can be infused without producing glycosuria is 0.5 g/kg/hour. &nbs p;BUD: If wrapper is open bag is good for 30 days at room temperatur e. <b r> [facility] glucagon (GLUCAGEN DIAGNOSTIC KIT) injection 1 mg 12-02 13:14: 51 Yes 1mg 1 mg, Intramuscu lar, PRN, Starting on Tue12/02/21 at 0814, Until Discontinu ed, STEPHENIE, Blood Glucose < or = 70 mg/dL and patient is unable to swallow or has mental changes. [facility] melatonin (MELATIN) tablet 3 mg 12-02 02:00: 00 Yes 3mg 3 mg, Oral, QHS, First dose on Tue12/01/21 at 2100, Until Discontinu ed, Routine [facility] rosuvastati n (CRESTOR) tablet 40 mg 12-02 02:00: 00 Yes 40mg 40 mg, Oral, QHS, First dose on Tue12/01/21 at 2100, Until Discontinu ed, Routine [facility] loratadine (CLARITIN) tablet 10 mg 12-02 02:00: 00 12-02 02:10 :00 No 10mg 10 mg, Oral, ONCE NOW, 1 dose, On Tue12/01/21 at 2100, Routine [facility] morphine ER (MS CONTIN) 12 hr tablet 30 mg 12-02 01:00: 00 Yes 30mg 30 mg, Oral, Q12H, First dose on Tue12/01/21 at 2000, Until Discontinu ed, Routine [facility] ranolazine 500 mg 12 hr tablet 12-02 00:00: 00 10-03 00:00 :00 No [id number] 500mg Take 1 tablet by mouth every 12 (twelve) hours. [facility] empaglifloz in (JARDIANCE) 10 mg 12-02 00:00: 00 10-03 00:00 :00 No [id number] 10mg Take 1 tablet by mouth daily. [facility] nicotine polacrilex 2 mg gum 12-02 00:00: 00 10-03 00:00 :00 No [id number] 2mg Apply 1 Each as directed as needed (breakthro ugh cravings). [facility] predniSONE (DELTASONE) tablet 50 mg 12-01 23:00: 00 12-02 10:47 :00 No 50mg 50 mg, Oral, Q6H, 3 doses, First dose on Tue12/01/21 at 1800, Last dose on Tue12/02/21 at 0600, Routine [facility] morpHINE injection 4 mg 12-01 16:54: 20 Yes 4mg 4 mg, Slow IV Push, Q6HPRN, Starting on Tue12/01/21 at 1154, Until Discontinu ed, Routine, Pain (scale 7-10), breakthrou gh pain [facility] metoprolol tartrate (LOPRESSOR) tablet 25 mg 12-01 16:00: 00 Yes 25mg 25 mg, Oral, BID, First dose (after last modificati on) on Tue12/01/21 at 1100, Until Discontinu ed, Routine [facility] morpHINE injection 4 mg 12-01 15:57: 56 12-01 16:54 :34 No 4mg 4 mg, Slow IV Push, Q6HPRN, Starting on Tue12/01/21 at 1057, Until Tue12/01/21 at 1154, Routine, Pain (scale 7-10) [facility] diphenhydrA MINE (BENADRYL) tablet 50 mg 12-01 15:52: 43 Yes 50mg 50 mg, Oral, SEE-INSTRU CTIONS, 1 dose, Starting on Tue12/01/21 at 1052, Until Discontinu ed, Routine [facility] nitroglycer in (NITROSTAT) sublingual tablet 0.4 mg 12-01 15:49: 07 Yes .4mg 0.4 mg, Sublingual , Q5MIN PRN, Starting on Tue12/01/21 at 1049, Until Discontinu ed, Routine, Chest pain [facility] ranolazine (RANEXA) 12 hr tablet 500 mg 12-01 15:45: 00 Yes 500mg 500 mg, Oral, Q12H, First dose on Tue12/01/21 at 1045, Until Discontinu ed, Routine [facility] furosemide (LASIX) tablet 40 mg 12-01 14:00: 00 Yes 40mg 40 mg, Oral, QAM+PM, First dose on Tue12/01/21 at 0900, Until Discontinu ed, Routine [facility] aspirin tablet 325 mg 12-01 14:00: 00 Yes 325mg 325 mg, Oral, DAILY, First dose on Tue12/01/21 at 0900, Until Discontinu ed, Routine [facility] lisinopriL (PRINIVIL,Z ESTRIL) tablet 20 mg 12-01 14:00: 00 Yes 20mg 20 mg, Oral, DAILY, First dose on Tue12/01/21 at 0900, Until Discontinu ed, Routine [facility] clopidogreL (PLAVIX) 75 mg tablet 75 mg 12-01 14:00: 00 Yes 75mg 75 mg, Oral, DAILY, First dose on Tue12/01/21 at 0900, Until Discontinu ed, Routine [facility] nicotine polacrilex (NICORETTE) gum 2 mg 12-01 13:32: 45 Yes 2mg 2 mg, Mucous Membrane, PRN, Starting on Tue12/01/21 at 0832, Until Discontinu ed, Routine, Patient request [facility] heparin (porcine) injection 5,000 Units 12-01 13:00: 00 Yes 5000U 5,000 Units, Subcutaneo us, Q12H, First dose on Tue12/01/21 at 0800, Until Discontinu ed, [facility] in [facility] 2 gram/50 mL (4 %) infusion 2 g 12-01 11:00: 00 12-01 12:15 :00 No 2g 2 g, IV Piggyback, Administer over 60 Minutes, ONCE, 1 dose, On Tue12/01/21 at 0600, [facility]ine [facility] 4 mg 12-01 09:00: 00 12-01 09:24 :00 No 4mg 4 mg, Slow IV Push, ONCE, 1 dose, On Tue12/01/21 at 0400, Routine [facility] polyethylen e glycol 3350 powder 17 g 12-01 08:53: 32 Yes 17g 17 g, Oral, [id number], Starting on Tue12/01/21 at 0353, Until Discontinu ed, Routine, Constipati on [facility] NaCl 0.9% (NS) bolus infusion 500 mL 12-01 08:45: 00 12-01 09:24 :00 No 500mL at 999 mL/hr, 500 mL, IV Infusion, ONCE, 1 dose, On Tue12/01/21 at 0345, STEPHENIE [facility] sennosides- docusate sodium (SENOKOT-S) 8.6-50 mg per tablet 1 tablet 12-01 08:29: 54 Yes 1{tbl} 1 tablet, Oral, PRN, Starting on Tue12/01/21 at 0329, Until Discontinu ed, Routine, Constipati on [facility] morpHINE injection 4 mg 12-01 03:45: 00 12-01 04:26 :00 No 4mg 4 mg, Slow IV Push, ONCE, 1 dose, On Tue11/30/21 at 2245, STAT [facility] LORazepam (ATIVAN) injection 1 mg 12-01 01:15: 00 12-01 01:01 :00 No 1mg 1 mg, Slow IV Push, ONCE, 1 dose, On Tue11/30/21 at 2015, STAT [facility] ondansetron (ZOFRAN (PF)) injection 4 mg 12-01 00:45: 00 11-30 23:53 :00 No 4mg 4 mg, Slow IV Push, ONCE, 1 dose, On Tue11/30/21 at 1945, STEPHENIE [facility] morpHINE injection 4 mg 12-01 00:45: 00 11-30 23:53 :00 No 4mg 4 mg, Slow IV Push, ONCE, 1 dose, On Tue11/30/21 at 1945, STAT [facility] nitroglycer in (NITROSTAT) sublingual tablet 0.4 mg 12-01 00:30: 00 11-30 23:27 :00 No .4mg 0.4 mg, Sublingual , ONCE, 1 dose, On Tue11/30/21 at 1930, STEPHENIE [facility] aspirin chewable tablet 324 mg 11-30 23:45: 00 11-30 23:18 :00 No 324mg 324 mg, Oral, ONCE, 1 dose, On Tue11/30/21 at 1845, STEHPENIE [facility] metoprolol succinate XL 100 mg 24 hr tablet 11-10 00:00: 00 10-03 00:00 :00 No 100mg Take 100 mg by mouth every morning. [facility] rosuvastati n (CRESTOR) tablet 40 mg 10-15 03:00: 00 Yes 40mg 40 mg, Oral, QHS, First dose (after last modificati on) on Tue10/14/21 at 2100, Until Discontinu ed, Routine [facility] aspirin 325 mg tablet 10-14 11:55: 49 10-14 00:00 :00 No 325mg Take 325 mg by mouth. [facility] rosuvastati n 40 mg tablet 10-14 00:00: 00 01-13 04:59 :00 No [id number] 40mg Take 1 tablet by mouth at bedtime for 90 days. [facility] lisinopriL 20 mg tablet 10-14 00:00: 00 01-13 04:59 :00 No [id number] 20mg Take 1 tablet by mouth daily for 90 days. [facility] nitroglycer in 0.4 mg sublingual tablet 10-14 00:00: 00 01-13 04:59 :[id number] 1 tablet under the tongue every 5 (five) minutes as needed for Chest pain for up to 90 days. [facility] aspirin 325 mg tablet 10-14 00:00: 00 01-13 04:59 :00 No [id number] 325mg Take 1 tablet by mouth daily for 90 doses. [facility] clopidogreL 75 mg tablet 10-14 00:00: 00 01-13 04:59 :00 No [id number] 75mg Take 1 tablet by mouth daily for 90 doses. [facility] metoprolol tartrate 25 mg tablet 10-14 00:00: 00 01-13 04:59 :00 No [id number] 25mg Take 1 tablet by mouth 2 (two) times daily for 90 days. [facility] iopamidol (ISOVUE-370 ) injection 10-13 23:56: 53 10-13 23:56 :53 No Intravenou s, TITRATE - FOR PROCEDURE USE, 1 dose, Starting on Tue10/13/21 at 1756, Until Tue10/13/21 at 1756, Routine [facility] FENTanyl PF (SUBLIMAZE (PF)) injection 10-13 23:44: 02 10-13 23:44 :02 No Slow IV Push, TITRATE - FOR PROCEDURE USE, 1 dose, Starting on Tue10/13/21 at 1744, Until Tue10/13/21 at 1744, Routine [facility] FENTanyl PF (SUBLIMAZE (PF)) injection 10-13 23:39: 49 10-13 23:39 :49 No Slow IV Push, TITRATE - FOR PROCEDURE USE, 1 dose, Starting on Tue10/13/21 at 1739, Until Tue10/13/21 at 1739, Routine [facility] adenosine 6 mg/1000 mL INTRACORONA RY injection for [employer] 10-13 23:38: 35 10-13 23:38 :35 No Intra-ridge rial, TITRATE - FOR PROCEDURE USE, 1 dose, Starting on Tue10/13/21 at 1738, Until Tue10/13/21 at 1738, Routine [facility] adenosine diagnostic (ADENOSCAN) injection 10-13 23:16: 29 10-13 23:19 :08 No Intravenou s, CONTINUOUS PRN, Starting on Tue10/13/21 at 1716, Until 10/13/21 at 1719, Routine [facility] FENTanyl PF (SUBLIMAZE (PF)) injection 10-13 23:14: 52 10-13 23:14 :52 No Slow IV Push, TITRATE - FOR PROCEDURE USE, 1 dose, Starting on 10/13/21 at 1714, Until 10/13/21 at 1714, Routine [facility] midazolam (VERSED) injection 10-13 23:14: 47 10-13 23:14 :47 No IV Push, TITRATE - FOR PROCEDURE USE, 1 dose, Starting on 10/13/21 at 1714, Until 10/13/21 at 1714, Routine [facility] nitroglycer in (TRIDIL) 2 mg in 10 mL D5W for Cardiac Cath 10-13 23:14: 27 10-13 23:14 :27 No TITRATE - FOR PROCEDURE USE, 1 dose, Starting on 10/13/21 at 1714, Until 10/13/21 at 1714, Routine [facility] adenosine diagnostic (ADENOSCAN) injection 10-13 23:07: 39 10-13 23:08 :55 No Intravenou s, CONTINUOUS PRN, Starting on 10/13/21 at 1707, Until Discontinu ed, Routine [facility] heparin 1,000 unit/mL injection 10-13 23:05: 11 10-13 23:05 :11 No TITRATE - FOR PROCEDURE USE, 1 dose, Starting on 10/13/21 at 1705, Until 10/13/21 at 1705, [facility] nitroglycer in (TRIDIL) 2 mg in 10 mL D5W for Cardiac Cath 10-13 23:04: 18 10-13 23:04 :18 No TITRATE - FOR PROCEDURE USE, 1 dose, Starting on 10/13/21 at 1704, Until 10/13/21 at 1704, Routine [facility] heparin 1,000 unit/mL injection 10-13 22:54: 22 10-13 22:54 :22 No TITRATE - FOR PROCEDURE USE, 1 dose, Starting on Tue10/13/21 at 1654, Until Tue10/13/21 at 1654, Routine [facility] heparin 1,000 unit/mL injection 10-13 22:39: 56 10-13 22:39 :56 No TITRATE - FOR PROCEDURE USE, 1 dose, Starting on Tue10/13/21 at 1639, Until Tue10/13/21 at 1639, Routine [facility] NaCl 0.9% (NS) bolus infusion 10-13 22:23: 27 10-13 22:23 :27 No IV Infusion, CONTINUOUS PRN, Starting on Tue10/13/21 at 1623, Until Discontinu ed, STAT [facility] lidocaine 1% (PF) (XYLOCAINE) injection 10-13 21:57: 39 10-13 21:57 :39 No Infiltrati on, TITRATE - FOR PROCEDURE USE, 1 dose, Starting on Tue10/13/21 at 1557, Until Tue10/13/21 at 1557, Routine [facility] FENTanyl PF (SUBLIMAZE (PF)) injection 10-13 21:57: 30 10-13 21:57 :30 No Slow IV Push, TITRATE - FOR PROCEDURE USE, 1 dose, Starting on Tue10/13/21 at 1557, Until Tue10/13/21 at 1557, Routine [facility] midazolam (VERSED) injection 10-13 21:57: 26 10-13 21:57 :26 No IV Push, TITRATE - FOR PROCEDURE USE, 1 dose, Starting on Tue10/13/21 at 1557, Until Tu10/13/21 at 1557, Routine [facility] dexamethaso ne (DECADRON PHOSPHATE) injection 10-13 21:51: 51 10-13 21:51 :51 No IV Push, TITRATE - FOR PROCEDURE USE, 1 dose, Starting on 10/13/21 at 1551, Until 10/13/21 at 1551, Routine [facility] diphenhydrA MINE (BENADRYL) injection 10-13 21:43: 49 10-13 21:43 :49 No Slow IV Push, TITRATE - FOR PROCEDURE USE, 1 dose, Starting on 10/13/21 at 1543, Until 10/13/21 at 1543, Routine [facility] lidocaine 1% (PF) (XYLOCAINE) injection 10-13 21:42: 01 10-13 21:42 :01 No Infiltrati on, TITRATE - FOR PROCEDURE USE, 1 dose, Starting on 10/13/21 at 1542, Until 10/13/21 at 1542, Routine [facility] FENTanyl PF (SUBLIMAZE (PF)) injection 10-13 21:41: 06 10-13 21:41 :06 No Slow IV Push, TITRATE - FOR PROCEDURE USE, 1 dose, Starting on 10/13/21 at 1541, Until 10/13/21 at 1541, Routine [facility] midazolam (VERSED) injection 10-13 21:40: 59 10-13 21:40 :59 No IV Push, TITRATE - FOR PROCEDURE USE, 1 dose, Starting on 10/13/21 at 1540, Until 10/13/21 at 1540, Routine [facility] FENTanyl PF (SUBLIMAZE (PF)) injection 10-13 21:34: 08 10-13 21:34 :08 No Slow IV Push, TITRATE - FOR PROCEDURE USE, 1 dose, Starting on 10/13/21 at 1534, Until 10/13/21 at 1534, Routine [facility] midazolam (VERSED) injection 10-13 21:34: 03 10-13 21:34 :03 No IV Push, TITRATE - FOR PROCEDURE USE, 1 dose, Starting on 10/13/21 at 1534, Until 10/13/21 at 1534, Routine [facility] pantoprazol e (PROTONIX) EC tablet 40 mg 10-13 15:00: 00 Yes 40mg 40 mg, Oral, DAILY, First dose on Tue10/13/21 at 0900, Until Discontinu ed, Routine [facility] aspirin chewable tablet 81 mg 10-13 15:00: 00 Yes 81mg 81 mg, Oral, DAILY, First dose on Tue10/13/21 at 0900, Until Discontinu ed, Routine [facility] clopidogreL (PLAVIX) tablet 75 mg 10-13 15:00: 00 Yes 75mg 75 mg, Oral, DAILY, First dose on Tue10/13/21 at 0900, Until Discontinu ed, Routine [facility] ezetimibe (ZETIA) tablet 10 mg 10-13 15:00: 00 10-14 13:06 :24 No 10mg 10 mg, Oral, DAILY, First dose on Tue10/13/21 at 0900, Until Discontinu ed, Routine [facility] furosemide (LASIX) tablet 40 mg 10-13 14:00: 00 Yes 40mg 40 mg, Oral, BID, First dose on Tue10/13/21 at 0800, Until Discontinu ed, Routine [facility] aspirin tablet 325 mg 10-13 13:12: 35 Yes 325mg 325 mg, Oral, PRE-PROCED URE ONCE, 1 dose, Starting on Tue10/13/21 at 0712, Until Discontinu ed, Routine, Surgery/Pr ocedure [facility] Sliding Scale Insulin - Lispro (HumaLOG) + Fsbg Testing 10-13 10:45: 00 Yes Subcutaneo us, TID MEALS+HS, First dose on Tue10/13/21 at 0445, Until Discontinu ed, Routine [facility] magnesium sulfate in water 4 gram/50 mL (8 %) IV Piggyback 4 g 10-13 05:30: 00 10-13 05:41 :00 No 4g 4 g, IV Piggyback, ONCE, 1 dose, On Tue10/12/21 at 2330, Routine [facility] oxyCODONE immediate release tablet 10 mg 10-13 05:09: 09 Yes 10mg 10 mg, Oral, [id number], Starting on Tue10/12/21 at 2309, Until Discontinu ed, Routine, Pain (scale 7-10)
F aculty member approving Restricted medication : SERGIO LEE [facility] rosuvastati n (CRESTOR) tablet 20 mg 10-13 03:00: 00 10-14 13:00 :03 No 20mg 20 mg, Oral, QHS, First dose on Tue10/12/21 at 2100, Until Discontinu ed, Routine [facility] heparin (porcine) injection 5,000 Units 10-13 02:00: 00 Yes 5000U 5,000 Units, Subcutaneo us, Q12H, First dose on Tue10/12/21 at 2000, Until Discontinu ed, Routine [facility] morphine ER (MS CONTIN) 12 hr tablet 30 mg 10-13 02:00: 00 Yes 30mg 30 mg, Oral, Q12H, First dose on Tue10/12/21 at 2000, Until Discontinu ed, Routine [facility] metoprolol tartrate (LOPRESSOR) tablet 25 mg 10-13 02:00: 00 Yes 25mg 25 mg, Oral, BID, First dose on Tue10/12/21 at 2000, Until Discontinu ed, Routine [facility] furosemide (LASIX) injection 40 mg 10-13 02:00: 00 10-13 13:23 :02 No 40mg 40 mg, Slow IV Push, Q12H, First dose on Tue10/12/21 at 1999, Until Discontinu ed, Routine [facility] LORazepam (ATIVAN) tablet 0.5 mg 10-13 00:45: 00 10-13 01:13 :00 No .5mg 0.5 mg, Oral, ONCE, 1 dose, On Tue10/12/21 at 1845, STEPHENIE [facility] hydrOXYzine (ATARAX) tablet 10 mg 10-13 00:45: 00 10-13 03:15 :00 No 10mg 10 mg, Oral, ONCE, 1 dose, On Tue10/12/21 at 1845, Routine [facility] lisinopriL (PRINIVIL,Z ESTRIL) tablet 20 mg 10-13 00:00: 00 Yes 20mg 20 mg, Oral, DAILY, First dose (after last modificati on) on Tue10/12/21 at 1800, Until Discontinu ed, Routine [facility] predniSONE (DELTASONE) tablet 50 mg 10-13 00:00: 00 10-13 11:23 :00 No 50mg 50 mg, Oral, Q6H, 3 doses, First dose on Tue10/12/21 at 1800, Last dose on Tue10/13/21 at 0600, Routine [facility] sennosides- docusate sodium (SENOKOT-S) 8.6-50 mg per tablet 1 tablet 10-12 23:55: 11 Yes 1{tbl} 1 tablet, Oral, PRN, Starting on Tue10/12/21 at 1755, Until Discontinu ed, Routine, Constipati on [facility] diazePAM (VALIUM) tablet 5 mg 10-12 23:52: 57 Yes 5mg 5 mg, Oral, Q8HPRN, Starting on Tue10/12/21 at 1752, Until Discontinu ed, Routine, anxiety [facility] diphenhydrA MINE (BENADRYL) tablet 50 mg 10-12 23:50: 42 Yes 50mg 50 mg, Oral, SEE-INSTRU CTIONS, 1 dose, Starting on Tue10/12/21 at 1750, Until Discontinu ed, Routine [facility] ondansetron (ZOFRAN (PF)) injection 4 mg 10-12 23:30: 00 10-12 22:25 :00 No 4mg 4 mg, Slow IV Push, ONCE, 1 dose, On Tue10/12/21 at 1730, STEPHENIE [facility] FENTanyl PF (SUBLIMAZE (PF)) injection 50 mcg 10-12 23:30: 00 10-12 22:26 :00 No 50ug 50 mcg, Slow IV Push, ONCE, 1 dose, On Tue10/12/21 at 1730, Routine [facility] LORazepam (ATIVAN) injection 0.5 mg 10-12 20:15: 00 10-12 19:48 :00 No .5mg 0.5 mg, Slow IV Push, ONCE, 1 dose, On Tue10/12/21 at 1415, STAT [facility] ondansetron (ZOFRAN (PF)) injection 4 mg 10-12 20:00: 00 10-12 19:58 :00 No 4mg 4 mg, Slow IV Push, ONCE, 1 dose, On Tue10/12/21 at 1400, [facility] FENTanyl PF (SUBLIMAZE (PF)) injection 50 mcg 10-12 20:00: 00 10-12 19:48 :00 No 50ug 50 mcg, Slow IV Push, ONCE, 1 dose, On Tue10/12/21 at 1400, Routine [facility] aspirin tablet 325 mg 10-12 20:00: 00 10-12 19:49 :00 No 325mg 325 mg, Oral, ONCE, 1 dose, On Tue10/12/21 at 1400, STAT [facility] diazePAM 10 mg tablet 2020-09 00:00: 00 Yes 5mg Take 5 mg by mouth. [facility] morphine ER 30 mg 12 hr tablet 2020-09 00:00: 00 10-03 00:00 :00 No 30mg Take 30 mg by mouth. [facility] Oxycodone 10 mg Tab 2020-09 00:00: 00 Yes Take by mouth. [facility] nitroglycer in 0.4 mg sublingual tablet 2020-09 00:00: 00 10-14 00:00 :[address] 0.4 mg under the tongue. [facility] rosuvastati n 10 mg tablet 2020-09 00:00: 00 10-14 00:00 :00 No 10mg Take 10 mg by mouth. [facility] lisinopriL (PRINIVIL,Z ESTRIL) tablet 20 mg 05-01 14:00: 00 Yes 20mg 20 mg, Oral, DAILY, First dose (after last modificati on) on Tue05/01/21 at 0900, Until Discontinu ed, [facility] (LAS[facility] 40 mg 04-30 14:15: 00 Yes 40mg 40 mg, Oral, QAM+PM, First dose (after last modificati on) on Tue04/30/21 at 0915, Until Discontinu ed, Routine [facility] furosemide (LASIX) tablet 40 mg 04-30 14:00: 00 04-30 14:00 :13 No 40mg 40 mg, Oral, DAILY, First dose on Tue04/30/21 at 0900, Until Discontinu ed, Routine [facility] atorvastati n (LIPITOR) tablet 80 mg 04-30 02:00: 00 Yes 80mg 80 mg, Oral, QHS, First dose on Tue04/29/21 at 2100, Until Discontinu ed, Routine [facility] clonazePAM (KLONOPIN) tablet 2 mg 04-30 01:00: 00 Yes 2mg 2 mg, Oral, TID, First dose on Tue04/29/21 at 2000, Until Discontinu ed, Routine [facility] furosemide 40 mg tablet 04-30 00:00: 00 12-28 00:00 :00 No [id number] 40mg Take 1 tablet by mouth 2 (two) times daily as needed (swelling) . [facility] clonazePAM (KLONOPIN) 2 mg tablet 04-29 22:23: 44 04-29 00:00 :00 No 2mg Take 2 mg by mouth 3 (three) times daily. [facility] oxyCODONE 5 mg capsule 04-29 22:23: 44 04-29 00:00 :00 No 10mg Take 10 mg by mouth. [facility] morphine ER 30 mg 12 hr tablet 04-29 22:23: 44 04-29 00:00 :00 No 30mg Take 30 mg by mouth 2 (two) times daily. [facility] sulfur hexafluorid e microsphr (LUMASON) injection 5 mL 04-29 19:00: 00 04-29 19:00 :00 No [id number] 5mL 5 mL, Intravenou s, ONCE, 1 dose, Tue04/29/21 at 1400, Routine
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 Restricted medication : WILLIAM MEJIA [facility] tc 99m-tetrofo smin (MYOVIEW) injection 42.1 millicurie 04-29 17:00: 00 04-29 16:50 :00 No [id number] 42.1mCi 42.1 millicurie , Intravenou s, ONCE, 1 dose, Tue04/29/21 at 1200, Routine [facility] magnesium sulfate in water 2 gram/50 mL (4 %) infusion 2 g 04-29 15:15: 00 04-29 15:03 :00 No 2g 2 g, IV Piggyback, ONCE, 1 dose, Tue04/29/21 at 1015, Routine [facility] Potassium Bicarb-Citr ic Acid (EFFER-K) effervescen t tablet 40 mEq 04-29 14:15: 00 04-29 15:03 :00 No 40meq 40 mEq, Oral, Q4H, 2 doses, First dose on Tue04/29/21 at 0915, Last dose on Tue04/29/21 at 1200, Routine [facility] aspirin chewable tablet 81 mg 04-29 14:00: 00 Yes 81mg 81 mg, Oral, DAILY, First dose on Tue04/29/21 at 0900, Until Discontinu ed, Routine [facility] lisinopriL (PRINIVIL,Z ESTRIL) tablet 20 mg 04-29 14:00: 00 04-30 13:53 :36 No 20mg 20 mg, Oral, DAILY, First dose on Tue04/29/21 at 0900, Until Discontinu ed, Routine [facility] metoprolol tartrate (LOPRESSOR) tablet 25 mg 04-29 13:00: 00 Yes 25mg 25 mg, Oral, BID, First dose on Tue04/29/21 at 0800, Until Discontinu ed, Routine [facility] morphine ER (MS CONTIN) 12 hr tablet 30 mg 04-29 13:00: 00 Yes 30mg 30 mg, Oral, Q12H, First dose on Tue04/29/21 at 0800, Until Discontinu ed, Routine [facility] heparin 25,000 Units/250 mL (Premixed Bag) in 0.45 % NS 04-29 12:13: 21 04-30 11:50 :17 No 1000U/h 1,000 Units/hr (10 mL/hr), IV Infusion, TITRATE, Parameters in Admin. Instr., Starting Tue04/29/21 at 0713
CA UTION - If LMWH given in ER, AVOID bolus and start next dose/drip 12 hrs after ER dosage.&nb sp; M ust program rate using programmab le infusion pump.&nbsp ; Elizabeth ck with the ordering provider first prior to any administra tion should the patient be on existing/a dditional anticoagul ant therapy.&n bsp; Range, Dosing and Testing&nb sp; - aPTT < 40: & nbsp;Bolus 3000 units, increase rate 100 units/hr.& nbsp;- aPTT 40-49:&nbs p; In crease rate 50 units/hr. - aPTT 50-70:&nbs p; NO CHANGE.&nb sp;- aPTT 71-85:&nbs p; De crease rate 50 units/hr.& nbsp;- aPTT 86-100:&nb sp; H old 30 minutes, decrease rate 100 units/hr.& nbsp;- aPTT 101-150:&n bsp;&n bsp;Hold 60 minutes, decrease rate 150 units/hr.& nbsp;- aPTT > 150: Hold 60 minutes, decrease rate 300 units/hr.& nbsp;&nbsp ;Check aPTT 6 hours after initiation , then Q6H after every change, aPTT Q12H once therapeuti c levels are reached.&n bsp; DO NOT ADJUST INITIAL BOLUS OR INITIAL INFUSION RATE.
[facility] KCL (KLOR-CON M20) tablet 40 mEq 04-29 10:00: 00 04-29 15:03 :00 No 40meq 40 mEq, Oral, Q4H, 2 doses, First dose on Tue04/29/21 at 0500, Last dose on Tue04/29/21 at 0800, Routine [facility] morpHINE injection 2 mg 04-29 07:33: 21 Yes 2mg 2 mg, Slow IV Push, Q6HPRN, Starting Tue04/29/21 at 0233, Until Discontinu ed, Routine, breakthrou gh pain [facility] LORazepam (ATIVAN) injection 2 mg 04-29 07:00: 00 04-29 06:03 :00 No 2mg 2 mg, Slow IV Push, ONCE, 1 dose, Tue04/29/21 at 0200, Routine [facility] clopidogreL (PLAVIX) tablet 600 mg 04-29 07:00: 00 04-29 06:04 :00 No 600mg 600 mg, Oral, ONCE, 1 dose, Tue04/29/21 at 0200, Routine [facility] furosemide (LASIX) injection 40 mg 04-29 07:00: 00 04-29 06:04 :00 No 40mg 40 mg, Slow IV Push, ONCE, 1 dose, Tue04/29/21 at 0200, Routine [facility] metoclopram jeet HCl (REGLAN) 5 mg/5 mL solution 10 mg 04-29 06:00: 00 04-29 06:03 :00 No 10mg 10 mg, Oral, ONCE, 1 dose, Tue04/29/21 at 0100, Routine [facility] morpHINE injection 4 mg 04-29 04:52: 29 04-29 07:36 :54 No 4mg 4 mg, Slow IV Push, Q6HPRN, Starting Tue04/28/21 at 2352, Until Tue04/29/21 at 0236, Routine, CP [facility] acetaminoph en (TYLENOL) tablet 650 mg 04-29 04:46: 48 Yes 650mg 650 mg, Oral, Q6HPRN, Starting Tue04/28/21 at 2346, Until Discontinu ed, Routine, Pain (scale 1-3) [facility] morpHINE injection 4 mg 04-29 01:30: 00 04-29 00:23 :00 No 4mg 4 mg, Slow IV Push, ONCE, 1 dose, Tue04/28/21 at 2030, STAT [facility] atorvastati n 80 mg tablet 04-29 00:00: 00 Yes [id number] 80mg Take 1 tablet by mouth at bedtime. [facility] COVID-19 vaccine,mRN A,PF, injection 04-29 00:00: 00 04-30 04:59 :00 No [id number] .3mL 0.3 mL by Intramuscu lar route once now for 1 dose. [facility] furosemide 40 mg tablet 04-29 00:00: 00 04-30 00:00 :00 No [id number] 40mg Take 1 tablet by mouth daily. [facility] furosemide 80 mg tablet 04-29 00:00: 00 04-29 00:00 :00 No [id number] 80mg Take 1 tablet by mouth every morning and evening. [facility] lisinopril 20 mg tablet 04-09 19:03: 36 04-09 00:00 :00 No 20mg Take 20 mg by mouth daily. [facility] lisinopriL 20 mg tablet 04-09 00:00: 00 10-14 00:00 :00 No 20mg Take 1 tablet by mouth daily. [facility] metoprolol tartrate 25 mg tablet 04-09 00:00: 00 10-14 00:00 :00 No 12.5mg Take 0.5 tablets by mouth 2 (two) times daily. [facility] aspirin 81 mg chewable tablet 04-09 00:00: 00 10-12 00:00 :00 No 81mg Take 1 tablet by mouth daily. [facility] amLODIPine 10 mg tablet 04-09 00:00: 00 04-28 00:00 :00 No 10mg Take 1 tablet by mouth daily. [facility] lisinopril 20 mg tablet 04-07 20:50: 07 Yes 20mg Take 20 mg by mouth daily. [facility] clonazePAM (KLONOPIN) 2 mg tablet 04-07 20:50: 07 Yes 2mg Take 2 mg by mouth 3 (three) times daily. [facility] morphine ER 15 mg 12 hr tablet 04-07 19:41: 15 04-07 00:00 :00 No 15mg Take 15 mg by mouth every 12 (twelve) hours. [facility] magnesium oxide (MAG-OX 400) tablet 400 mg 04-07 13:00: 00 Yes 400mg 400 mg, Oral, BID, First dose on Tue04/07/21 at 0800, Until Discontinu ed, Routine [facility] KCL (KLOR-CON M20) tablet 40 mEq 04-07 13:00: 00 Yes 40meq 40 mEq, Oral, BID, First dose on Tue04/07/21 at 0800, Until Discontinu ed, Routine [facility] LORazepam (ATIVAN) injection 1 mg 04-07 04:00: 00 04-07 04:05 :00 No 1mg 1 mg, Slow IV Push, ONCE, 1 dose, Tue04/06/21 at 2300, Routine [facility] NaCl 0.9% (NS) IV infusion 250 mL 04-06 22:00: 00 Yes [id number] 250mL at 50 mL/hr, IV Infusion, CONTINUOUS , Starting Tue04/06/21 at 1700, Until Discontinu ed, Routine
To keep vein open
[facility] perflutren lipid microsphere s (DEFINITY) injection 2 mL 04-06 22:00: 00 04-06 21:01 :00 No [id number] 2mL 2 mL, IV Push, ONCE, 1 dose, Tue04/06/21 at 1700, Routine [facility] COVID-19 vaccine,mRN A(PF) (PFIZER (EUA)) 30 mcg/0.3 mL injection 0.3 mL 04-06 21:21: 37 Yes 1{each} 0.3 mL (1 Each), Intramuscu lar, ONCE-PRIOR TO DISCHARGE, 1 dose, Starting Tue04/06/21 at 1621, Until Discontinu ed, STEPHENIE, Give vaccine prior to discharge [facility] DOBUTamine (DOBUTREX) 500 mg in 250 mL (Fixed Dose) D5W infusion RTU 04-06 20:47: 11 Yes [id number] 5ug/kg/ min 5 mcg/kg/min ?103.2 kg (15.48 mL/hr), IV Infusion, TITRATE, MAP Goal > or = 65 mmHg, Titrate per admin instructio ns, Starting Tue04/06/21 at 1547
No te and document the precise time that this is 3. ac complished . Begin the count with the EKG system's DSE applicatio n program. This is time zero.&nbsp ; At 2 minutes and 30 seconds after beginning the initial dosing, acquire parasterna l long axis and parasterna l short axis view at papillary level, apical 4 chamber, 2 chamber and apical long axis view, and BP At the 3 minute interval, simultaneo usly obtain a 12 lead EKG, heart rate and 02 saturation and increase the Dobutamine infusion to 10 mcg/kg/min . At the 5 minutes and 30 second interval, acquire parasterna l long axis and parasterna l short&nbsp ;axis view at papillary level, apical 4 chamber, 2 chamber and apical long axis view and measure BP. At the 6 minute interval, simultaneo usly obtain a 12 lead EKG, heart rate and 02saturati on an d increase the Dobutamine infusion to 20 mcg/kg/min . At the 8 minutes and 30 second interval, acquire parasterna l long axis and parasterna l short&nbsp ;axis view at papillary level, apical 4 chamber, 2 chamber and apical long axis view and measure BP. At the 9 minute interval, simultaneo usly obtain a 12 lead EKG, heart rate and 02 saturation and increase the Dobutamine infusion to 30 mcg/kg/min . (see Adjunctive Therapy)&n bsp; At the 11 minutes and 30 second interval, acquire parasterna l long axis and parasterna l short&nbsp ;axis view at papillary level, apical 4 chamber, 2 chamber and apical long axis view and m easure BP. At the 12 minute interval, simultaneo usly obtain a 12 lead EKG, heart rate and 02 saturation and increase the Dobutamine infusion to 40 mcg/kg/min . (see Adjunctive Therapy&nb sp; At the 14 minutes and 30 second interval, acquire parasterna l long axis and parasterna l short&nbsp ;axis view at papillary level, apical 4 chamber, 2 chamber and apical long axis view and m easure BP. At the 15 minute interval, simultaneo usly obtain a 12 lead EKG, heart rate and 02 saturation and terminate the Dobutamine infusion. (see Adjunctive Therapy)<b r> [facility] tc 99m-albumin (DRAXIMAGE MAA) injection 4.8 millicurie 04-06 14:02: 00 04-06 14:02 :00 No [id number] 4.8mCi 4.8 millicurie , Intravenou s, ONCE, 1 dose, Tue04/06/21 at 0915, Routine [facility] LORazepam (ATIVAN) injection 1 mg 04-06 04:45: 00 04-06 05:08 :00 No 1mg 1 mg, Slow IV Push, ONCE, 1 dose, [place] 04/05/21 at 2345, Routine [facility] metoprolol succinate XL (TOPROL XL) tablet 12.5 mg 04-06 01:00: 00 04-06 14:38 :22 No 12.5mg 12.5 mg, Oral, BID, First dose on [place] 04/05/21 at 2000, Until Discontinu ed, Routine [facility] bisacodyL (DULCOLAX) tablet 5 mg 04-05 15:18: 04 Yes 5mg 5 mg, Oral, QDAILYPRN, Starting 04/05/21 at 1018, Until Discontinu ed, Routine, Constipati on [facility] aspirin chewable tablet 81 mg 04-05 14:00: 00 Yes 81mg 81 mg, Oral, DAILY, First dose on 04/05/21 at 0900, Until Discontinu ed, Routine [facility] amLODIPine (NORVASC) tablet 10 mg 04-05 14:00: 00 Yes 10mg 10 mg, Oral, DAILY, First dose on 04/05/21 at 0900, Until Discontinu ed, Routine [facility] atorvastati n (LIPITOR) tablet 80 mg 04-05 02:00: 00 Yes 80mg 80 mg, Oral, QHS, First dose on Tue04/04/21 at 2100, Until Discontinu ed, Routine [facility] heparin (porcine) injection 5,000 Units 8 01:00: 00 Yes 5000U 5,000 Units, Subcutaneo us, Q12H, First dose on [facility] 04/04/21 at 2000, Until Discontinu ed, Routine [facility] morphine ER (MS CONTIN) 12 hr tablet 15 mg 04-05 01:00: 00 Yes 15mg 15 mg, Oral, Q12H, First dose on [facility] 04/04/21 at 2000, Until Discontinu ed, Routine [facility] Sliding Scale Insulin - Lispro (HumaLOG) + Fsbg Testing 04-04 22:00: 00 Yes Subcutaneo us, TID MEALS+HS, First dose on [facility] 04/04/21 at 1700, Until Discontinu ed, Routine [facility] clonazePAM (KLONOPIN) tablet 2 mg 04-04 19:00: 00 Yes 2mg 2 mg, Oral, TID, First dose on [facility] 04/04/21 at 1400, Until Discontinu ed, Routine [facility] furosemide (LASIX) injection 40 mg 04-04 16:45: 00 Yes 40mg 40 mg, Slow IV Push, Q12H, First dose on [facility] 04/04/21 at 1145, Until Discontinu ed, Routine [facility] sennosides- docusate sodium (SENOKOT-S) 8.6-50 mg per tablet 1 tablet 04-04 16:21: 45 Yes 1{tbl} 1 tablet, Oral, PRN, Starting 04/04/21 at 1121, Until Discontinu ed, Routine, Constipati on [facility] nitroglycer in (NITROSTAT) sublingual tablet 0.4 mg 04-04 16:21: 30 Yes .4mg 0.4 mg, Sublingual , Q5MIN PRN, Starting 04/04/21 at 1121, Until Discontinu ed, Routine, Chest pain [facility] ondansetron (ZOFRAN (PF)) injection 4 mg 04-04 14:15: 00 04-04 13:35 :00 No 4mg 4 mg, Slow IV Push, ONCE, 1 dose, 04/04/21 at 0915, STEPHENIE [facility] morpHINE injection 4 mg 04-04 14:15: 00 04-04 13:35 :00 No 4mg 4 mg, Slow IV Push, ONCE, 1 dose, 04/04/21 at 0915, STAT [facility] amLODIPine 10 mg tablet 02-21 00:00: 00 Yes 10mg Take 10 mg by mouth. [facility] nitroglycer in 0.4 mg sublingual tablet 02-19 00:00: 00 04-30 00:00 :[address] 0.4 mg under the tongue. [facility] atorvastati n 40 mg tablet 02-19 00:00: 00 04-07 00:00 :00 No 40mg Take 40 mg by mouth. [facility] clopidogreL 75 mg tablet 01-20 00:00: 00 10-14 00:00 :00 No 75mg Take 75 mg by mouth. [facility] rosuvastati n (CRESTOR) tablet 40 mg 10-31 15:00: 00 Yes 40mg 40 mg, Oral, DAILY, First dose on Tue10/31/19 at 0900, Until Discontinu ed, Routine [facility] lisinopril 20 mg tablet 10-30 23:52: 38 Yes 20mg Take 20 mg by mouth daily. [facility] morphine ER 15 mg 12 hr tablet 10-30 23:52: 38 Yes 15mg Take 15 mg by mouth every 12 (twelve) hours. [facility] clonazePAM (KLONOPIN) 2 mg tablet 10-30 23:52: 38 Yes 2mg Take 2 mg by mouth 3 (three) times daily. [facility] Oxycodone 10 mg Tab 10-30 17:10: 41 10-30 00:00 :00 No 1{tbl} Take 1 tablet by mouth every 12 (twelve) hours as needed for Pain (scale 7-10). [facility] rosuvastati n (CRESTOR) 5 mg tablet 10-30 17:10: 41 10-30 00:00 :00 No 5mg Take 5 mg by mouth daily. [facility] clonazePAM (KLONOPIN) tablet 2 mg 10-30 16:38: 00 10-30 16:45 :00 No 2mg 2 mg, Oral, ONCE NOW, 1 dose, 10/30/19 at 1045, Routine [facility] FENTanyl PF (SUBLIMAZE (PF)) injection 10-30 15:06: 56 10-30 15:06 :56 No Slow IV Push, TITRATE - FOR PROCEDURE USE, 1 dose, Starting 10/30/19 at 0906, Until 10/30/19 at 0906, Routine [facility] midazolam (VERSED) injection 10-30 15:06: 51 10-30 15:06 :51 No IV Push, TITRATE - FOR PROCEDURE USE, 1 dose, Starting 10/30/19 at 0906, Until 10/30/19 at 0906, Routine [facility] aspirin chewable tablet 81 mg 10-30 15:00: 00 Yes 81mg 81 mg, Oral, DAILY, First dose on 10/30/19 at 0900, Until Discontinu ed, Routine [facility] FENTanyl PF (SUBLIMAZE (PF)) injection 10-30 14:53: 50 10-30 14:53 :50 No Slow IV Push, TITRATE - FOR PROCEDURE USE, 1 dose, Starting 10/30/19 at 0853, Until 10/30/19 at 0853, Routine [facility] midazolam (VERSED) injection 10-30 14:53: 42 10-30 14:53 :42 No IV Push, TITRATE - FOR PROCEDURE USE, 1 dose, Starting 10/30/19 at 0853, Until 10/30/19 at 0853, Routine [facility] FENTanyl PF (SUBLIMAZE (PF)) injection 10-30 14:30: 55 10-30 14:30 :55 No Slow IV Push, TITRATE - FOR PROCEDURE USE, 1 dose, Starting Tue10/30/19 at 0830, Until Tue10/30/19 at 0830, Routine [facility] midazolam (VERSED) injection 10-30 14:30: 44 10-30 14:30 :44 No IV Push, TITRATE - FOR PROCEDURE USE, 1 dose, Starting Tue10/30/19 at 0830, Until Tue10/30/19 at 0830, Routine [facility] Sliding Scale Insulin - Aspart (NOVOLOG) + Fsbg Testing 10-30 12:00: 00 Yes Subcutaneo us, Q6H, First dose on Tue10/30/19 at 0600, Until Discontinu ed, Routine [facility] ALPRAZolam (XANAX) tablet 1 mg 10-30 06:00: 00 10-30 06:11 :00 No 1mg 1 mg, Oral, ONCE, 1 dose, Tue10/30/19 at 0000, Routine [facility] metoprolol tartrate (LOPRESSOR) half tablet 12.5 mg 10-30 02:00: 00 Yes 12.5mg 12.5 mg, Oral, BID, First dose on Tue10/29/19 at 1999, Until Discontinu ed, Routine [facility] morphine ER (MS CONTIN) 12 hr tablet 15 mg 10-30 02:00: 00 10-30 22:32 :48 No 15mg 15 mg, Oral, Q12H, First dose on Tue10/29/19 at 1999, Until Discontinu ed, Routine [facility] rosuvastati n (CRESTOR) 5 mg tablet 10-30 00:00: 00 Yes 20mg Take 4 tablets by mouth daily. [facility] diphenhydrA MINE (BENADRYL) capsule 50 mg 10-30 00:00: 00 10-30 17:59 :00 No 50mg 50 mg, Oral, Q6H, 3 doses, First dose on Tue10/29/19 at 1800, Last dose on Tue10/30/19 at 0600, Routine [facility] predniSONE (DELTASONE) tablet 40 mg 10-30 00:00: 00 10-30 17:59 :00 No 40mg 40 mg, Oral, Q6H ABX, 3 doses, First dose on Tue10/29/19 at 1800, Last dose on Tue10/30/19 at 0600, Routine [facility] diphenhydrA MINE (BENADRYL) capsule 50 mg 10-29 22:04: 00 10-29 22:30 :00 No 50mg 50 mg, Oral, ONCE, 1 dose, Tue10/29/19 at 1615, Routine [facility] predniSONE (DELTASONE) tablet 40 mg 10-29 22:04: 10-29 22:30 :00 No 40mg 40 mg, Oral, DAILY, 1 dose, First dose on Tue10/29/19 at 1615, Routine [facility] heparin 25,000 unit/250 mL (Premixed Bag) in NaCl 0.45 % weight based dosing ACS protocol 10-29 20:45: 00 Yes 1000U/h 1,000 Units/hr (10 mL/hr), IV Infusion, CONTINUOUS , Starting Tue10/29/19 at 1445, Until Discontinu ed [facility] dextrose 10% (D10W) bolus infusion 250 mL 10-29 20:41: 05 Yes 250mL 250 mL, IV Infusion, PRN - SEE INSTRUCTIO NS, Hypoglycem ia Protocol, Starting Tue10/29/19 at 1441
De xtrose 10% 250 mL bag contains:& nbsp;10 gm = 100 mL 20 gm = 200 mL 25 gm = 250 mL (whole bag) The maximum rate at which dextrose can be infused without producing glycosuria is 0.5 g/kg/hour. &nbs p;BUD: If wrapper is open bag is good for 30 days at room temperatur e. <b r> [facility] glucagon (GLUCAGEN DIAGNOSTIC KIT) injection 1 mg 10-29 20:41: 02 Yes 1mg 1 mg, Intramuscu lar, PRN, Starting Tue10/29/19 at 1441, Until Discontinu ed, STEPHENIE, Blood Glucose < or = 70 mg/dL and patient is unable to swallow or has mental changes. [facility] clopidogreL (PLAVIX) tablet 75 mg 10-29 20:00: 00 10-30 17:06 :14 No 75mg 75 mg, Oral, DAILY, First dose on Tue10/29/19 at 1400, Until Discontinu ed, [facility] 2 gram/50 mL (4 %) infusion 2 g 10-29 20:00: 00 10-29 21:35 :00 No 2g 2 g, IV Piggyback, ONCE, 1 dose, Tue10/29/19 at 1415, [facility]ine [facility] mor[facility]INE [facility] 2 mg 10-29 19:53: 19 Yes 2mg 2 mg, Slow IV Push, Q4HPRN, Starting Tue10/29/19 at 1353, Until Discontinu ed, Routine, Pain (scale 7-10) [facility] rosuvastati n (CRESTOR) tablet 20 mg 10-29 19:45: 00 10-30 17:06 :14 No 20mg 20 mg, Oral, DAILY, First dose on Tue10/29/19 at 1345, Until Discontinu ed, Routine [facility] heparin 1000 unit/mL injection Soln 4,000 Units 10-29 19:45: 00 10-29 21:33 :00 No 4000U 4,000 Units, IV Push, ONCE, 1 dose, Tue10/29/19 at 1345, [facility]ine [facility] nitroglycer in (NITROSTAT) sublingual tablet 0.4 mg 10-29 19:44: 14 Yes .4mg 0.4 mg, Sublingual , Q5MIN PRN, Starting Tue10/29/19 at 1344, Until Discontinu ed, Routine, Chest pain [facility] heparin (1,000 unit/mL, 10 mL vial) for Rebolusing 10-29 19:43: 14 Yes 3000U FOR REBOLUSING , Starting Tue10/29/19 at 1343, Until Discontinu ed, Routine
Dosing based on aPTT testing parameters (refer to continuous heparin drip order).
[facility] HYDROcodone -acetaminop hen (NORCO) 10-325 mg tablet 10-29 19:33: 05 10-29 00:00 :00 No 1{tbl} Take 1 Tab by mouth every 6 (six) hours as needed for Pain (scale 4-6). [facility] tc 99m-albumin (DRAXIMAGE MAA) injection 4 millicurie 10-29 18:00: 00 10-29 18:00 :00 No 4mCi 4 millicurie , Intravenou s, ONCE, 1 dose, Tue10/29/19 at 1200, Routine [facility] xenon - 133 (XENON) inhalation 20 millicurie 10-29 17:45: 00 10-29 17:40 :00 No 20mCi 20 millicurie , Inhalation , ONCE, 1 dose, Tue10/29/19 at 1145, Routine [facility] morpHINE injection 4 mg 10-29 16:30: 00 10-29 15:41 :00 No 4mg 4 mg, Slow IV Push, ONCE, 1 dose, Tue10/29/19 at 1030, STAT [facility] NaCl 0.9% (NS) bolus infusion 1,000 mL 10-29 15:15: 00 10-29 14:35 :00 No 1000mL at 999 mL/hr, 1,000 mL, IV Infusion, ONCE, 1 dose, Tue10/29/19 at 0915, STAT [facility] morpHINE injection 4 mg 10-29 12:30: 00 10-29 11:37 :00 No 4mg 4 mg, Slow IV Push, ONCE, 1 dose, Tue10/29/19 at 0630, STAT [facility] aspirin tablet 325 mg 10-29 12:30: 10-29 20:09 :00 No 325mg 325 mg, Oral, ONCE, 1 dose, Tue10/29/19 at 0630, STAT [facility] sennosides- docusate sodium (SENOKOT S) 8.6-50 mg per tablet 12-15 00:00: 00 10-03 00:00 :00 No 1{tbl} Take 1 Tab by mouth as needed for Constipati on. [facility] metoprolol tartrate (LOPRESSOR) 25 mg tablet 12-15 00:00: 00 04-09 00:00 :00 No 12.5mg Take 0.5 Tabs by mouth 2 (two) times daily. [facility] clopidogrel (PLAVIX) 75 mg tablet 12-15 00:00: 00 10-30 00:00 :00 No 75mg Take 1 Tab by mouth daily. [facility] atorvastati n (LIPITOR) 80 mg tablet 12-15 00:00: 10-29 00:00 :00 No 80mg Take 1 Tab by mouth at bedtime. [facility] enalapril (VASOTEC) 5 mg tablet 12-15 00:00: 00 10-29 00:00 :00 No 5mg Take 1 Tab by mouth 2 (two) times daily. [facility] acetaminoph en-codeine (TYLENOL #3) 300-30 mg tablet 12-15 00:00: 00 10-29 00:00 :00 No 1{tbl} Take 1 Tab by mouth every 4 (four) hours as needed for Pain (scale 4-6) or Pain (scale 7-10). [facility] nitroglycer in (NITROSTAT) 0.4 mg sublingual tablet 09-09 00:00: [address] 1 Tab under the tongue every 5 (five) minutes as needed for Chest pain. [facility] amLODIPine (NORVASC) 10 mg tablet 09-09 00:00: 00 10-29 00:00 :00 No 10mg Take 1 Tab by mouth daily. [facility] gemfibrozil (LOPID) 600 mg tablet 2016-0 1-05 00:00: 00 10-29 00:00 :00 No 600mg Take 1 Tab by mouth 2 (two) times daily before breakfast and dinner. [facility] aspirin 81 mg chewable tablet 4-16 00:00: 00 04-09 00:00 :00 No 81mg Take 1 Tab by mouth daily. [facility] Immunizations Ordered Immunization Name Filled Immunization Name Date Status Comments Source TDAP 2021-10-12 00:00:00 Completed [facility] TDAP 2021-10-12 00:00:00 Completed [facility] TDAP 2021-10-12 00:00:00 Completed [facility] TDAP 2021-10-12 00:00:00 Completed [facility] TDAP 2021-10-12 00:00:00 Completed [facility] TDAP 2021-10-12 00:00:00 Completed [facility] TDAP 2021-10-12 00:00:00 Completed [facility] TDAP 2021-10-12 00:00:00 Completed [facility] TDAP 2021-10-12 00:00:00 Completed [facility] TDAP 2021-10-12 00:00:00 Completed [facility] TDAP 2021-10-12 00:00:00 Completed [facility] TDAP 2021-10-12 00:00:00 Completed [facility] SARS-COV-2 COVID-19 PFIZER VACCINE 2021-04-30 00:00:00 Completed [facility] SARS-COV-2 COVID-19 PFIZER VACCINE 2021-04-30 00:00:00 Completed [facility] SARS-COV-2 COVID-19 PFIZER VACCINE 2021-04-30 00:00:00 Completed [facility] SARS-COV-2 COVID-19 PFIZER VACCINE 2021-04-30 00:00:00 Completed [facility] SARS-COV-2 COVID-19 PFIZER VACCINE 2021-04-30 00:00:00 Completed [facility] SARS-COV-2 COVID-19 PFIZER VACCINE 2021-04-30 00:00:00 Completed [facility] SARS-COV-2 COVID-19 PFIZER VACCINE 2021-04-30 00:00:00 Completed [facility] SARS-COV-2 COVID-19 PFIZER VACCINE 2021-04-30 00:00:00 Completed [facility] SARS-COV-2 COVID-19 PFIZER VACCINE 2021-04-30 00:00:00 Completed [facility] SARS-COV-2 COVID-19 PFIZER VACCINE 2021-04-30 00:00:00 Completed [facility] SARS-COV-2 COVID-19 PFIZER VACCINE 2021-04-30 00:00:00 Completed [facility] SARS-COV-2 COVID-19 PFIZER VACCINE 2021-04-30 00:00:00 Completed [facility] SARS-COV-2 COVID-19 PFIZER VACCINE 2021-04-30 00:00:00 Completed [facility] Pfizer COVID-19 Vaccine Pfizer COVID-19 Vaccine 2021-04-30 00:00:00 Completed SARS-COV-2 COVID-19 PFIZER VACCINE Unknown Completed [facility] TDAP Unknown Completed [facility] SARS-COV-2 COVID-19 PFIZER VACCINE Unknown Completed [facility] TDAP Unknown Completed [facility] Vital Signs Vital Name Observation Time Observation Value Comments S ource Systolic blood pressure 2023-12-29 13:36:00 124 mm[Hg] [facility] Diastolic blood pressure 2023-12-29 13:36:00 71 mm[Hg] [facility] Heart rate 2023-12-29 13:36:00 50 /min [facility] Body temperature 2023-12-29 13:36:00 36.22 Caro [facility] Respiratory rate 2023-12-29 13:36:00 16 /min [facility] Oxygen saturation in Arterial blood by Pulse oximetry 2023-12-29 13:36:00 96 /min [facility] Body weight 2023-12-29 12:00:00 106.414 kg [facility] BMI 2023-12-29 12:00:00 36.73 kg/m2 [facility] Body height 2023-12-25 10:35:00 170.2 cm [facility] Systolic blood pressure 2022-12-19 20:44:00 137 mm[Hg] [facility] Diastolic blood pressure 2022-12-19 20:44:00 113 mm[Hg] [facility] Heart rate 2022-12-19 20:44:00 88 /min [facility] Body temperature 2022-12-19 20:44:00 37 Caro [facility] Respiratory rate 2022-12-19 20:44:00 16 /min [facility] Oxygen saturation in Arterial blood by Pulse oximetry 2022-12-19 20:44:00 96 /min [facility] Body weight 2022-12-18 03:28:00 103.874 kg [facility] BMI 2022-12-18 03:28:00 35.87 kg/m2 [facility] Systolic blood pressure 2022-10-27 17:47:00 106 mm[Hg] [facility] Diastolic blood pressure 2022-10-27 17:47:00 71 mm[Hg] [facility] Heart rate 2022-10-27 17:47:00 71 /min [facility] Body temperature 2022-10-27 17:47:00 36.83 Caro [facility] Respiratory rate 2022-10-27 17:47:00 18 /min [facility] Oxygen saturation in Arterial blood by Pulse oximetry 2022-10-27 17:47:00 96 /min [facility] Body weight 2022-10-27 09:52:00 104.237 kg [facility] BMI 2022-10-27 09:52:00 35.99 kg/m2 [facility] Body height 2022-10-26 11:54:00 170.2 cm [facility] Systolic blood pressure 2022-10-04 18:16:00 125 mm[Hg] [facility] Diastolic blood pressure 2022-10-04 18:16:00 64 mm[Hg] [facility] Heart rate 2022-10-04 18:16:00 60 /min [facility] Body temperature 2022-10-04 18:16:00 35.94 Caro [facility] Respiratory rate 2022-10-04 18:16:00 18 /min [facility] Oxygen saturation in Arterial blood by Pulse oximetry 2022-10-04 18:16:00 97 /min [facility] Body height 2022-10-04 01:30:00 170.2 cm [facility] Body weight 2022-10-04 01:30:00 108.727 kg actual wt on the regular scale [facility] BMI 2022-10-04 01:30:00 37.54 kg/m2 [facility] Systolic blood pressure 2022-03-29 06:00:00 141 mm[Hg] [facility] Diastolic blood pressure 2022-03-29 06:00:00 84 mm[Hg] [facility] Heart rate 2022-03-29 06:00:00 54 /min [facility] Respiratory rate 2022-03-29 06:00:00 23 /min [facility] Oxygen saturation in Arterial blood by Pulse oximetry 2022-03-29 06:00:00 98 /min [facility] Body temperature 2022-03-29 02:42:00 36.83 Caro [facility] Body weight 2022-03-29 02:42:00 108.863 kg [facility] BMI 2022-03-29 02:42:00 36.49 kg/m2 [facility] Systolic blood pressure 2022-01-26 22:17:00 149 mm[Hg] [facility] Diastolic blood pressure 2022-01-26 22:17:00 95 mm[Hg] [facility] Heart rate 2022-01-26 22:17:00 68 /min [facility] Respiratory rate 2022-01-26 20:21:00 18 /min [facility] Oxygen saturation in Arterial blood by Pulse oximetry 2022-01-26 20:21:00 97 /min [facility] Body height 2022-01-26 19:32:00 172.7 cm [facility] Body weight 2022-01-26 19:32:00 108.41 kg [facility] BMI 2022-01-26 19:32:00 36.34 kg/m2 [facility] Body temperature 2022-01-26 12:17:00 36.06 Caro [facility] Systolic blood pressure 2021-12-02 12:21:00 136 mm[Hg] [facility] Diastolic blood pressure 2021-12-02 12:21:00 71 mm[Hg] [facility] Heart rate 2021-12-02 12:21:00 74 /min [facility] Body temperature 2021-12-02 12:21:00 36.78 Caro [facility] Respiratory rate 2021-12-02 12:21:00 17 /min [facility] Oxygen saturation in Arterial blood by Pulse oximetry 2021-12-02 12:21:00 95 /min [facility] Body weight 2021-12-02 10:17:00 103.828 kg [facility] BMI 2021-12-02 10:17:00 35.85 kg/m2 [facility] Heart rate 2021-10-14 18:44:00 76 /min [facility] Respiratory rate 2021-10-14 18:44:00 20 /min [facility] Oxygen saturation in Arterial blood by Pulse oximetry 2021-10-14 18:44:00 98 /min [facility] Systolic blood pressure 2021-10-14 17:25:00 156 mm[Hg] [facility] Diastolic blood pressure 2021-10-14 17:25:00 90 mm[Hg] [facility] Body temperature 2021-10-14 17:25:00 36.44 Caro [facility] Body weight 2021-10-14 11:37:00 105.28 kg [facility] BMI 2021-10-14 11:37:00 36.35 kg/m2 [facility] Systolic blood pressure 2021-04-30 16:47:00 160 mm[Hg] [facility] Diastolic blood pressure 2021-04-30 16:47:00 91 mm[Hg] [facility] Heart rate 2021-04-30 16:47:00 67 /min [facility] Body temperature 2021-04-30 16:47:00 35.83 Caro [facility] Respiratory rate 2021-04-30 16:47:00 18 /min [facility] Oxygen saturation in Arterial blood by Pulse oximetry 2021-04-30 16:47:00 99 /min [facility] Body height 2021-04-29 05:11:00 170.2 cm [facility] Body weight 2021-04-29 05:11:00 106.369 kg [facility] BMI 2021-04-29 05:11:00 36.73 kg/m2 [facility] Body temperature 2021-04-07 12:43:00 35.61 Caro [facility] Systolic blood pressure 2021-04-07 12:42:00 114 mm[Hg] [facility] Diastolic blood pressure 2021-04-07 12:42:00 72 mm[Hg] [facility] Heart rate 2021-04-07 12:42:00 73 /min [facility] Respiratory rate 2021-04-07 12:42:00 18 /min [facility] Oxygen saturation in Arterial blood by Pulse oximetry 2021-04-07 12:42:00 99 /min [facility] Body weight 2021-04-07 09:55:00 102.74 kg [facility] BMI 2021-04-07 09:55:00 35.47 kg/m2 [facility] Body height 2021-04-06 20:43:00 170.2 cm [facility] Systolic blood pressure 2019-10-30 18:21:00 127 mm[Hg] [facility] Diastolic blood pressure 2019-10-30 18:21:00 75 mm[Hg] [facility] Heart rate 2019-10-30 18:21:00 70 /min [facility] Body temperature 2019-10-30 18:21:00 35.39 Caro [facility] Respiratory rate 2019-10-30 18:21:00 18 /min [facility] Oxygen saturation in Arterial blood by Pulse oximetry 2019-10-30 18:21:00 94 /min [facility] Body height 2019-10-30 13:55:00 167.6 cm [facility] Body weight 2019-10-30 13:55:00 99.791 kg [facility] BMI 2019-10-30 13:55:00 35.51 kg/m2 [facility] Procedures Procedure Date / Time Performed Performing Clinician Source POCT GLUCOSE (AUTOMATED) 2023-12-29 13:38:00 Antonio eddy [facility] MAGNESIUM 2023-12-29 09:22:[address] [facility] BASIC METABOLIC PANEL (NA, K, CL, CO2, GLUCOSE, BUN, CREATININE, CA) 2023-12-29 09:22:[address] [facility] CBC WITHOUT DIFF 2023-12-29 09:22:[address] [facility] POCT GLUCOSE (AUTOMATED) 2023-12-28 17:16:00 Abu-Hanna eddy [facility] POCT GLUCOSE (AUTOMATED) 2023-12-28 13:40:00 Antonio eddy [facility] MAGNESIUM 2023-12-28 09:33:[address] [facility] BASIC METABOLIC PANEL (NA, K, CL, CO2, GLUCOSE, BUN, CREATININE, CA) 2023-12-28 09:33:[address] [facility] CBC WITHOUT DIFF 2023-12-28 09:33:[address] [facility] POCT GLUCOSE (AUTOMATED) 2023-12-28 01:23:00 Charline-Hanna eddy [facility] POCT GLUCOSE (AUTOMATED) 2023-12-27 20:16:00 Charline-Hanna eddy [facility] POCT GLUCOSE (AUTOMATED) 2023-12-27 16:12:00 Antonio eddy [facility] HB ECG ROUTINE & RHYTHM STRIP 2023-12-27 13:13:41 Sanam Mckeon [facility] POCT GLUCOSE (AUTOMATED) 2023-12-27 12:33:00 Abu-Hanna eddy [facility] MAGNESIUM 2023-12-27 10:01:[address] [facility] BASIC METABOLIC PANEL (NA, K, CL, CO2, GLUCOSE, BUN, CREATININE, CA) 2023-12-27 10:01:[address] [facility] CBC WITHOUT DIFF 2023-12-27 10:01:[address] [facility] PROTHROMBIN TIME / INR 2023-12-27 10:01:[address] [facility] ACTIVATED PARTIAL THRMPLAS HENNY 2023-12-27 10:01:00 Denys [facility] ACTIVATED PARTIAL THRMPLAS HENNY 2023-12-27 03:46:00 Denys [facility] ACTIVATED PARTIAL THRMPLAS HENNY 2023-12-26 20:54:00 Papo Mcfarlane [facility] HB ECG ROUTINE & RHYTHM STRIP 2023-12-26 13:14:14 Sanam Mckeon [facility] MAGNESIUM 2023-12-26 09:31:00 Sanam Mckeon [facility] BASIC METABOLIC PANEL (NA, K, CL, CO2, GLUCOSE, BUN, CREATININE, CA) 2023-12-26 09:31:00 Sanam Mckeon [facility] CBC WITH DIFF 2023-12-26 09:31:00 Sanam Mckeon [facility] ACTIVATED PARTIAL THRMPLAS HENNY 2023-12-26 09:31:00 Denys [facility] ACTIVATED PARTIAL THRMPLAS HENNY 2023-12-26 01:42:00 Denys [facility] POCT GLUCOSE (AUTOMATED) 2023-12-26 01:41:00 Abu-Hanna salinas [facility] POCT GLUCOSE (AUTOMATED) 2023-12-25 22:03:00 Abu-Hanna eddy [facility] TRANSTHORACIC ECHO (TTE) COMPLETE W/ CONTRAST 2023-12-25 16:30:02 Sanam Mckeon [facility] TROPONIN I 2023-12-25 12:36:00 Sanam Mckeon [facility] ACTIVATED PARTIAL THRMPLAS HENNY 2023-12-25 12:36:00 Denys [facility] URINE DRUG (IMMUNOASSAY) - COMPREHENSIVE DRUG SCREEN 2023-12-25 09:50:00 Sanam Mckeon [facility] URINALYSIS 2023-12-25 09:50:00 Sanam Mckeon [facility] EKG-12 LEAD 2023-12-25 09:40:01 Papo Mcfarlane [facility] ACTIVATED PARTIAL THRMPLAS HENNY 2023-12-25 07:47:00 [facility] 2023-12-25 07:47:00 [facility]W 2023-12-25 06:54:00 Papo Mcfarlane [facility] MAGNESIUM 2023-12-25 06:40:00 Sanam Mckeon [facility] TROPONIN I 2023-12-25 06:40:00 Papo Mcfarlane [facility] THYROID STIMULATING HORMONE 2023-12-25 06:40:00 Sanam Mckeon [facility] COMP. METABOLIC PANEL (35741) 2023-12-25 06:40:00 [facility] LIPID PANEL ([id number])(TOTAL CHOLESTEROL, TRIGLYCERIDES, HDL) 2023-12-25 06:40:00 Sanam Mckeon [facility] CBC WITH DIFF 2023-12-25 06:40:[address] [facility] GLYCOSYLATED HEMOGLOBIN (A1C) 2023-12-25 06:40:00 Sanam Mckeon [facility] N-TERMINAL PRO-BNP 2023-12-25 06:40:00 Papo Mcfarlane [facility] POCT GLUCOSE (AUTOMATED) 2022-12-19 17:25:00 Anusha Rodas [facility] POCT GLUCOSE (AUTOMATED) 2022-12-19 16:29:00 Stephani, Anusha [facility] POCT GLUCOSE (AUTOMATED) 2022-12-19 14:26:00 Anusha Rodas [facility] MAGNESIUM 2022-12-19 08:12:00 Serena Sutton [facility] TROPONIN I 2022-12-19 08:12:00 Nigel Aguirre [facility] BASIC METABOLIC PANEL (NA, K, CL, CO2, GLUCOSE, BUN, CREATININE, CA) 2022-12-19 08:12:00 Serena Sutton [facility] POCT GLUCOSE (AUTOMATED) 2022-12-19 03:42:00 Anusha Rodas [facility] TROPONIN I 2022-12-18 23:49:00 Carla [facility] POCT GLUCOSE (AUTOMATED) 2022-12-18 23:20:00 Stephani Anusha [facility] POCT GLUCOSE (AUTOMATED) 2022-12-18 21:27:00 Stephani Anusha [facility] POCT GLUCOSE (AUTOMATED) 2022-12-18 18:17:00 Stephani Anusha [facility] MAGNESIUM 2022-12-18 06:14:00 [facility]22-12-18 06:14:00 Serena Sutton [facility] TROPONIN I 2022-12-18 06:14:00 [facility]IC MET[facility]OLIC PANEL (NA, K, CL, CO2, GLUCOSE, BUN, CREATININE, CA) 2022-12-18 06:14:00 Carla [facility] LIPID PANEL ([id number])(TOTAL CHOLESTEROL, TRIGLYCERIDES, HDL) 2022-12-18 06:14:00 Carla [facility] CBC WITH DIFF 2022-12-18 06:14:00 [facility] 2022-12-18 02:09:12 [facility] 2022-12-18 01:42:00 Crow Clarke [facility] THYROID STIMULATING HORMONE 2022-12-18 01:42:00 Carla [facility] COMP. METABOLIC PANEL ([id number]) 2022-12-18 01:42:00 Crow Clarke [facility] IRON PANEL 2022-12-18 01:42:00 Serena Sutton [facility] CBC WITH DIFF 2022-12-18 01:42:00 Crow [facility] GLYCOSYLATED HEMOGLOBIN (A1C) 2022-12-18 01:42:00 Nigel Aguirre [facility] N-TERMINAL PRO-BNP 2022-12-18 01:42:00 Crow Clarke [facility] CONSENT/REFUSAL FOR DIAGNOSIS AND TREATMENT 2022-12-18 00:55:57 Doctor Unassigned, Ciales [facility] POCT GLUCOSE (AUTOMATED) 2022-10-27 17:45:00 Brie Weber i [facility] POCT GLUCOSE (AUTOMATED) 2022-10-27 14:34:00 Brie Weber i [facility] MAGNESIUM 2022-10-27 10:03:00 Oscar Vega [facility] BASIC METABOLIC PANEL (NA, K, CL, CO2, GLUCOSE, BUN, CREATININE, CA) 2022-10-27 10:03:00 [facility] CBC WITH DIFF 2022-10-27 10:03:00 Oscar Vega [facility] POCT GLUCOSE (AUTOMATED) 2022-10-27 03:03:00 Brie Weber i [facility] POCT GLUCOSE (AUTOMATED) 2022-10-26 23:21:00 [facility] POCT GLUCOSE (AUTOMATED) 2022-10-26 19:35:00 Sergio Catherine [facility] POCT GLUCOSE (AUTOMATED) 2022-10-26 15:31:00 Sergio Catherine [facility] MAGNESIUM 2022-10-26 10:33:00 Greta Craft [facility] BASIC METABOLIC PANEL (NA, K, CL, CO2, GLUCOSE, BUN, CREATININE, CA) 2022-10-26 10:33:00 [facility] POCT GLUCOSE (AUTOMATED) 2022-10-26 03:22:00 Sergio Catherine [facility] POCT GLUCOSE (AUTOMATED) 2022-10-25 22:12:00 Yossi ojeda ga Andry Leonardopat [facility] POCT GLUCOSE (AUTOMATED) 2022-10-25 18:32:00 Sergio Catherine [facility] TRANSTHORACIC ECHO (TTE) COMPLETE W/ CONTRAST 2022-10-25 17:09:00 Farrukh Dennis [facility] POCT GLUCOSE (AUTOMATED) 2022-10-25 14:51:00 Sergio Catherine [facility] MAGNESIUM 2022-10-25 09:52:00 Venancio [facility] BASIC METABOLIC PANEL (NA, K, CL, CO2, GLUCOSE, BUN, CREATININE, CA) 2022-10-25 09:52:00 Venancio [facility] POCT GLUCOSE (AUTOMATED) 2022-10-25 03:12:00 Sergio Catherine pat [facility] POCT GLUCOSE (AUTOMATED) 2022-10-25 00:43:00 Sergio Catherine pat [facility] POCT GLUCOSE (AUTOMATED) 2022-10-24 23:24:00 Sergio Catherine pat [facility] POCT GLUCOSE (AUTOMATED) 2022-10-24 19:42:00 Sergio Catherine pat [facility] POCT GLUCOSE (AUTOMATED) 2022-10-24 15:03:00 Sergio Catherine [facility] MAGNESIUM 2022-10-24 08:46:00 Venancio [facility] BASIC METABOLIC PANEL (NA, K, CL, CO2, GLUCOSE, BUN, CREATININE, CA) 2022-10-24 08:46:00 Venancio [facility] POCT GLUCOSE (AUTOMATED) 2022-10-24 03:17:00 Sergio Catherine [facility] POCT GLUCOSE (AUTOMATED) 2022-10-23 23:16:00 Sergio Catherine Ahmed [facility] POCT GLUCOSE (AUTOMATED) 2022-10-23 18:27:00 Yossi ojeda Sergio Vazquez [facility] DUPLEX VENOUS LEGS BILATERAL - BY VASCULAR LAB 2022-10-23 17:47:00 Jeannie [facility] TROPONIN I 2022-10-23 15:47:00 Farrukh Dennis [facility] POCT GLUCOSE (AUTOMATED) 2022-10-23 14:40:00 Yossi ojedaMostga Vazquez [facility] COVID-19 (ID NOW RAPID TESTING) 2022-10-23 08:30:00 Mandie [facility] LAB ONLY COVID INTERPRETATION 2022-10-23 08:30:[address] [facility] MAGNESIUM 2022-10-23 08:10:00 Farrukh Dennis [facility] TROPONIN I 2022-10-23 08:10:00 Farrukh Dennis [facility] BASIC METABOLIC PANEL (NA, K, CL, CO2, GLUCOSE, BUN, CREATININE, CA) 2022-10-23 08:10:00 Jeannie [facility] LIPID PANEL ([id number])(TOTAL CHOLESTEROL, TRIGLYCERIDES, HDL) 2022-10-23 08:10:00 Jeannie [facility] CBC WITH DIFF 2022-10-23 08:10:00 Farrukh Dennis [facility] GLYCOSYLATED HEMOGLOBIN (A1C) 2022-10-23 08:10:00 Jeannie [facility] EKG-12 LEAD 2022-10-23 06:23:02 [facility] 2022-10-23 04:30:00 Edmond Sandra [facility] TROPONIN I 2022-10-23 04:30:00 [facility] COMP. METABOLIC PANEL ([id number]) 2022-10-23 04:30:00 Edmond Sandra [facility] CBC WITH DIFF 2022-10-23 04:30:00 Edmond Sandra [facility] N-TERMINAL PRO-BNP 2022-10-23 04:30:00 Kenan Elaine [facility] POCT GLUCOSE (AUTOMATED) 2022-10-23 04:11:00 Rupesh Elaine [facility] XR CHEST 2 VW 2022-10-23 03:35:00 Edmond Sandra [facility] CONSENT/REFUSAL FOR DIAGNOSIS AND TREATMENT 2022-10-23 02:17:00 Doctor Unassigned, Ciales [facility] POCT GLUCOSE (AUTOMATED) 2022-10-04 18:17:00 Ju[facility] THRMPLAS HENNY 2022-10-04 17:38[facility] 2022-10-04 14:30:00 Ju[facility] 2022-10-04 10:11:00 [facility] MET[facility]OLIC PANEL (NA, K, CL, CO2, GLUCOSE, BUN, CREATININE, CA) 2022-10-04 10:11:00 Kell [facility] CBC WITH DIFF 2022-10-04 10:11:00 [facility]22-10-04 04:20[facility]00 [facility] PARTIAL THRMPLAS HENNY 2022-10-04 04:20:00 Kell [facility] POCT GLUCOSE (AUTOMATED) 2022-10-04 02:19:00 Ju[facility] PO[facility] GLUCOSE (AUTOMATED) 2022-10-03 23:10:00 Ju, Yara [facility] TROPONIN I 2022-10-03 22:11:00 [facility]IV[facility] PARTIAL THRMPLAS HENNY 2022-10-03 22:11:00 [facility] VENOUS BLOOD GAS 2022-10-03 15:53:00 Argentina [facility] XR CHEST 1 VW 2022-10-03 14:37:00 Rupesh Elaine [facility] MAGNESIUM 2022-10-03 14:22:00 Argentina [facility] BETA HYDROXY-BUTYRATE 2022-10-03 14:22:00 Rafaela Elaine [facility] TROPONIN I 2022-10-03 14:22:00 Argentina [facility] THYROID STIMULATING HORMONE 2022-10-03 14:22:00 Kell [facility] COMP. METABOLIC PANEL (72682) 2022-10-03 14:22:00 Argentina [facility] LIPID PANEL ([id number])(TOTAL CHOLESTEROL, TRIGLYCERIDES, HDL) 2022-10-03 14:22:00 Kell [facility] CBC WITH DIFF 2022-10-03 14:22:00 Rupesh Elaine [facility] GLYCOSYLATED HEMOGLOBIN (A1C) 2022-10-03 14:22:00 Argentina [facility] PROTHROMBIN TIME / INR 2022-10-03 14:22:00 Kelly Elaine [facility] D-DIMER 2022-10-03 14:22:00 Argentina [facility] N-TERMINAL PRO-BNP 2022-10-03 14:22:00 Kenan Elaine [facility] COVID-19 (ID NOW RAPID TESTING) 2022-10-03 14:22:00 Argentina [facility] LAB ONLY COVID INTERPRETATION 2022-10-03 14:22:00 Argentina [facility] HB ECG ROUTINE & RHYTHM STRIP 2022-10-03 13:39:56 Argentina [facility] CBC WITH DIFF 2022-03-29 04:43:00 Julissa Tarango [facility] TROPONIN I 2022-03-29 04:09:00 Julissa Tarango [facility] COMP. METABOLIC PANEL ([id number]) 2022-03-29 04:09:00 Julissa Tarango [facility] N-TERMINAL PRO-BNP 2022-03-29 04:09:00 Julissa Gregg [facility] EXTRA TUBE LAV 2022-03-29 04:09:00 Julissa Tarango [facility] EXTRA TUBE ORANGE 2022-03-29 04:09:00 Julissa Sen [facility] XR CHEST 2 VW 2022-03-29 03:33:00 Julissa Tarango [facility] CONSENT/REFUSAL FOR DIAGNOSIS AND TREATMENT 2022-03-29 02:44:09 Doctor Unassigned, Ciales [facility] POCT GLUCOSE (AUTOMATED) 2022-01-26 23:18:00 Annie Fletcher [facility] POCT GLUCOSE (AUTOMATED) 2022-01-26 19:34:00 Annie Fletcher [facility] TRANSTHORACIC ECHO (TTE) COMPLETE W/ CONTRAST 2022-01-26 19:03:00 Markus Byrnes [facility] POCT GLUCOSE (AUTOMATED) 2022-01-26 14:56:00 Annie Fletcher [facility] PROTHROMBIN TIME / INR 2022-01-26 09:23:00 Noé Hernandez am [facility] D-DIMER 2022-01-26 09:23:00 Sweta Mccurdy [facility] ACTIVATED PARTIAL THRMPLAS HENNY 2022-01-26 09:23:00 Jaime Hernandez [facility] XR CHEST 2 VW 2022-01-26 08:39:00 Jaime Hernandez [facility] PHOSPHORUS 2022-01-26 07:11:00 Jaime Hernandez [facility] MAGNESIUM 2022-01-26 07:11:00 Jaime Hernandez [facility] TROPONIN I 2022-01-26 07:11:00 Jaime Hernandez [facility] COMP. METABOLIC PANEL ([id number]) 2022-01-26 07:11:00 Jaime Hernandez [facility] CBC WITH DIFF 2022-01-26 07:11:00 Jaime Hernandez [facility] N-TERMINAL PRO-BNP 2022-01-26 07:11:00 Jaime Hernandez [facility] CONSENT/REFUSAL FOR DIAGNOSIS AND TREATMENT 2022-01-26 06:54:46 Doctor Unassigned, Ciales [facility] POCT GLUCOSE (AUTOMATED) 2021-12-02 12:33:00 Antonio eddy [facility] PHOSPHORUS 2021-12-02 10:46:00 Clement [facility] MAGNESIUM 2021-12-02 10:46:00 Clement [facility] BASIC METABOLIC PANEL (NA, K, CL, CO2, GLUCOSE, BUN, CREATININE, CA) 2021-12-02 10:46:00 Clement [facility] CBC WITH DIFF 2021-12-02 10:46:00 Solomon Vaughan [facility] POCT GLUCOSE (AUTOMATED) 2021-12-01 22:56:00 [facility] MAGNESIUM 2021-12-01 09:31:[address] [facility] BASIC METABOLIC PANEL (NA, K, CL, CO2, GLUCOSE, BUN, CREATININE, CA) 2021-12-01 09:31:[address] [facility] PROTHROMBIN TIME / INR 2021-12-01 09:31:[address] [facility] ACTIVATED PARTIAL THRMPLAS HENNY 2021-12-01 09:31:[address] [facility] EKG-12 LEAD 2021-12-01 07:48:32 Sammy Cleveland [facility] TROPONIN I 2021-12-01 06:00:00 Geo Valdez [facility] TROPONIN I 2021-12-01 01:53:00 Geo Valdez [facility] COVID-19 (ID NOW RAPID TESTING) 2021-11-30 23:52:00 Sammy Cleveland [facility] LAB ONLY COVID INTERPRETATION 2021-11-30 23:52:00 Sammy Cleveland [facility] TROPONIN I 2021-11-30 23:18:00 Sammy Cleveland [facility] COMP. METABOLIC PANEL ([id number]) 2021-11-30 23:18:00 Sammy Cleveland [facility] CBC WITH DIFF 2021-11-30 23:18:00 Sammy Cleveland [facility] N-TERMINAL PRO-BNP 2021-11-30 23:18:00 Sammy Cleveland [facility] XR CHEST 2 VW 2021-11-30 23:03:00 Sammy Cleveland [facility] CONSENT/REFUSAL FOR DIAGNOSIS AND TREATMENT 2021-11-30 22:57:23 Doctor Unassigned, Ciales [facility] POCT GLUCOSE (AUTOMATED) 2021-10-14 17:11:00 [facility] POCT GLUCOSE (AUTOMATED) 2021-10-14 14:34:00 Sergio Catherine [facility] MAGNESIUM 2021-10-14 11:29:00 Joanna Walker [facility] BASIC METABOLIC PANEL (NA, K, CL, CO2, GLUCOSE, BUN, CREATININE, CA) 2021-10-14 11:29:00 [facility] 2021-10-14 11:29:00 Joanna Walker [facility] POCT GLUCOSE (AUTOMATED) 2021-10-14 02:18:00 Sergio Catherine [facility] POCT ACT LOW RANGE 2021-10-13 22:55:00 Sergio Lee [facility] POCT GLUCOSE (AUTOMATED) 2021-10-13 19:23:00 Sergio Catherine [facility] POCT GLUCOSE (AUTOMATED) 2021-10-13 15:36:00 Sergio Catherine [facility] POCT GLUCOSE (AUTOMATED) 2021-10-13 14:28:00 Sergio Catherine [facility] POCT GLUCOSE (AUTOMATED) 2021-10-13 11:12:00 Sergio Catherine [facility] MAGNESIUM 2021-10-13 09:40:00 Blake Foster [facility] TROPONIN I 2021-10-13 09:40:00 Blake Foster [facility] BASIC METABOLIC PANEL (NA, K, CL, CO2, GLUCOSE, BUN, CREATININE, CA) 2021-10-13 09:40:00 Blake Foster [facility] LIPID PANEL ([id number])(TOTAL CHOLESTEROL, TRIGLYCERIDES, HDL) 2021-10-13 09:40:00 Blake Foster [facility] TROPONIN I 2021-10-13 01:02:00 Blake Foster [facility] PROTHROMBIN TIME / INR 2021-10-13 01:02:00 Yuniel Foster [facility] ACTIVATED PARTIAL THRMPLAS HENNY 2021-10-13 01:02:00 Blake Foster [facility] XR HAND 3+ VW LEFT 2021-10-13 00:31:00 Lance Foster [facility] XR RIBS 3 VW LEFT 2021-10-13 00:31:00 Blake Foster [facility] XR WRIST 3+ VW LEFT 2021-10-13 00:31:00 Shorty Foster [facility] COVID-19 (ID NOW RAPID TESTING) 2021-10-12 23:13:00 Zachary Saucedo [facility] LAB ONLY COVID INTERPRETATION 2021-10-12 23:13:00 Zachary Saucedo [facility] XR CHEST 2 VW 2021-10-12 19:31:00 Julissa Tarango [facility] MAGNESIUM 2021-10-12 18:59:00 Blake Fosetr [facility] TROPONIN I 2021-10-12 18:59:00 Julissa Tarango [facility] THYROID STIMULATING HORMONE 2021-10-12 18:59:00 Blake Foster [facility] COMP. METABOLIC PANEL ([id number]) 2021-10-12 18:59:00 Julissa Tarango [facility] CBC WITH DIFF 2021-10-12 18:59:00 Julissa Tarango [facility] GLYCOSYLATED HEMOGLOBIN (A1C) 2021-10-12 18:59:00 Blake Foster [facility] N-TERMINAL PRO-BNP 2021-10-12 18:59:00 Julissa Gregg [facility] HB ECG ROUTINE & RHYTHM STRIP 2021-10-12 18:41:00 Julissa Tarango [facility] CONSENT/REFUSAL FOR DIAGNOSIS AND TREATMENT 2021-10-12 18:34:27 Doctor Unassigned, Ciales [facility] GLYCOSYLATED HEMOGLOBIN (A1C) 2021-04-30 13:12:00 Lazara Mercedes [facility] BASIC METABOLIC PANEL (NA, K, CL, CO2, GLUCOSE, BUN, CREATININE, CA) 2021-04-30 13:05:00 Lazara Mercedes [facility] ACTIVATED PARTIAL THRMPLAS HENNY 2021-04-30 02:25:00 Kapil Sharma [facility] ACTIVATED PARTIAL THRMPLAS HENNY 2021-04-29 19:20:00 [facility] COMPLETE W/ CONTRAST 2021-04-29 19:05:00 Kapil Sharma [facility] NM MYOCARDIUM PERFUSION STRESS ONLY 2021-04-29 17:38:43 Jim Nj [facility] MAGNESIUM 2021-04-29 08:03:00 [facility] 2021-04-29 08:03:00 [facility] BASIC METABOLIC PANEL (NA, K, CL, CO2, GLUCOSE, BUN, CREATININE, CA) 2021-04-29 08:03:00 Kapil Sharma [facility] XR CHEST 2 VW 2021-04-29 00:57:38 [facility] 2021-04-29 00:23:00 Crow Clarke Uni [facility] THYROID STIMULATING HORMONE 2021-04-29 00:23:00 Kapil Sharma [facility] COMP. METABOLIC PANEL (34402) 2021-04-29 00:23:00 Crow Clarke [facility] CBC WITH DIFF 2021-04-29 00:23:00 Crow [facility] N-TERMINAL PRO-BNP 2021-04-29 00:23:00 Crow Clarke [facility] COVID-19 (ID NOW RAPID TESTING) 2021-04-29 00:23:00 Crow Clarke [facility] LAB ONLY COVID INTERPRETATION 2021-04-29 00:23:00 Crow Clarke [facility] CONSENT/REFUSAL FOR DIAGNOSIS AND TREATMENT 2021-04-29 00:02:08 Doctor Unassigned, Ciales [facility] POCT GLUCOSE (AUTOMATED) 2021-04-07 14:41:00 JuYara [facility] MAGNESIUM 2021-04-07 09:38:00 Allen Mccoy [facility] BASIC METABOLIC PANEL (NA, K, CL, CO2, GLUCOSE, BUN, CREATININE, CA) 2021-04-07 09:38:00 Allen Mccoy [facility] CBC WITH DIFF 2021-04-07 09:38:00 Heidi Giles [facility] PROTHROMBIN TIME / INR 2021-04-07 09:38:00 Sa deyvi Giles [facility] POCT GLUCOSE (AUTOMATED) 2021-04-07 01:58:00 Yara Martinez Chava [facility] POCT GLUCOSE (AUTOMATED) 2021-04-06 22:34:00 Yara Martinez [facility] COMPLETE ECHOCARDIOGRAM DOBUTAMINE STRESS TEST W CONTRAST 2021-04-06 21:40:00 Dara Kong [facility] POCT GLUCOSE (AUTOMATED) 2021-04-06 18:26:00 [facility]UNG VENTILATION AND PERFUSION 2021-04-06 14:26:47 Da Kidd [facility] HB ECG ROUTINE & RHYTHM STRIP 2021-04-06 12:25:39 Chan [facility] MAGNESIUM 2021-04-06 10:14:00 [facility] TROPONIN I 2021-04-06 10:14:00 [facility] BASIC METABOLIC PANEL (NA, K, CL, CO2, GLUCOSE, BUN, CREATININE, CA) 2021-04-06 10:14:00 [facility] POCT GLUCOSE (AUTOMATED) 2021-04-05 23:29:00 Ju, Yara [facility] TROPONIN I 2021-04-05 22:05:00 [facility] HB ECG ROUTINE & RHYTHM STRIP 2021-04-05 21:49:58 Buzz [facility] POCT GLUCOSE (AUTOMATED) 2021-04-05 17:56:00 Ju, [facility] POCT GLUCOSE (AUTOMATED) 2021-04-05 13:54:00 Ju, Yara [facility] HB ECG ROUTINE & RHYTHM STRIP 2021-04-05 12:48:17 Chan [facility] TROPONIN I 2021-04-05 08:57:00 [facility]idi [facility]iles [facility] BASIC METABOLIC PANEL (NA, K, CL, CO2, GLUCOSE, BUN, CREATININE, CA) 2021-04-05 08:57:00 Chan [facility] LIPID PANEL (00860)(TOTAL CHOLESTEROL, TRIGLYCERIDES, HDL) 2021-04-05 08:57:00 Chan [facility] CBC WITH DIFF 2021-04-05 08:57:00 Chan [facility] URINE DRUG (IMMUNOASSAY) - COMPREHENSIVE DRUG SCREEN 2021-04-05 02:38:00 Da Kidd [facility] URINE DRUG (LCMSMS) - SYNTHETIC OPIATES PANEL 2021-04-05 02:38:00 Da Kidd [facility] POCT GLUCOSE (AUTOMATED) 2021-04-05 02:05:00 Yara Martinez [facility] TROPONIN I 2021-04-04 22:50:00 Heidi Giles [facility] POCT GLUCOSE (AUTOMATED) 2021-04-04 22:38:00 Yara Martinez [facility] XR CHEST 2 VW 2021-04-04 12:46:40 Sergio [facility] LIPASE 2021-04-04 11:54:00 Sergio Paredes [facility] TROPONIN I 2021-04-04 11:54:00 Sergio Paredes [facility] COMP. METABOLIC PANEL (75301) 2021-04-04 11:54:00 Sergio Paredes [facility] ETHANOL 2021-04-04 11:54:00 Da Kidd [facility] CBC WITH DIFF 2021-04-04 11:54:00 Sergio Paredes [facility] GLYCOSYLATED HEMOGLOBIN (A1C) 2021-04-04 11:54:00 Heidi Giles [facility] PROTHROMBIN TIME / INR 2021-04-04 11:54:00 Indra Paredes [facility] D-DIMER 2021-04-04 11:54:00 Da Kidd [facility] ACTIVATED PARTIAL THRMPLAS HENNY 2021-04-04 11:54:00 Sergio Paredes [facility] N-TERMINAL PRO-BNP 2021-04-04 11:54:00 [facility] (ID NOW RAPID TESTING) 2021-04-04 11:54:00 Sergio Paredes [facility] LAB ONLY COVID INTERPRETATION 2021-04-04 11:54:00 Sergio Paredes [facility] EKG-12 LEAD 2021-04-04 11:35:54 Doctor Unass igned, Ciales [facility] CONSENT/REFUSAL FOR DIAGNOSIS AND TREATMENT 2021-04-04 11:27:50 Doctor Unassigned, Ciales [facility] POCT GLUCOSE (AUTOMATED) 2019-10-30 18:22:00 Abu-Hanna rita, [facility] POCT GLUCOSE (AUTOMATED) 2019-10-30 14:11:00 Abu-Hanna rita, [facility] POCT GLUCOSE (AUTOMATED) 2019-10-30 12:00:00 Abu-Hanna rita [facility] MAGNESIUM 2019-10-30 11:49:00 [facility] BASIC METABOLIC PANEL (NA, K, CL, CO2, GLUCOSE, BUN, CREATININE, CA) 2019-10-30 11:49:00 Tyler Armstrong [facility] CBC WITH DIFFERENTIAL 2019-10-30 11:49:00 Avinash stevens [facility] ACTIVATED PARTIAL THRMPLAS HENNY 2019-10-30 11:49:00 [facility] POCT GLUCOSE (AUTOMATED) 2019-10-30 06:19:00 Abu-Hanna salinas [facility] ACTIVATED PARTIAL THRMPLAS HENNY 2019-10-30 03:48:00 [facility] GALV/CLC ONLY - URINE DRUG (IMMUNOASSAY) - COMPREHENSIVE DRUG SCREEN 2019-10-30 02:07:00 Shayan [facility] URINALYSIS 2019-10-30 02:07:00 Ermelinda Dowenyjoyce [facility] POCT GLUCOSE (AUTOMATED) 2019-10-30 01:59:00 Abu-Hanna salinas [facility] TROPONIN I 2019-10-29 21:32:00 Shayan [facility] THYROID STIMULATING HORMONE 2019-10-29 21:32:00 Shayan [facility] LIPID PANEL (99993)(TOTAL CHOLESTEROL, TRIGLYCERIDES, HDL) 2019-10-29 21:32:00 Shayan [facility] PROTHROMBIN TIME / INR 2019-10-29 21:32:00 Srika nthan, Jeyanthan [facility] ACTIVATED PARTIAL THRMPLAS HENNY 2019-10-29 21:32:00 Ermelinda Downeyjoyce [facility] POCT GLUCOSE (AUTOMATED) 2019-10-29 18:55:00 Rosario Anderson [facility] NM LUNG VENTILATION AND PERFUSION 2019-10-29 18:40:39 Jaime Hernandez [facility] LIPASE 2019-10-29 15:23:00 [facility] TROPONIN I 2019-10-29 15:23:00 Da Kidd [facility] THYROID STIMULATING HORMONE 2019-10-29 15:23:00 Tyler Armstrong [facility] LIPID PANEL (11331)(TOTAL CHOLESTEROL, TRIGLYCERIDES, HDL) 2019-10-29 15:23:00 Shayan cindyjoyce [facility] N-TERMINAL PRO-BNP 2019-10-29 15:23:00 Mylene kuhn [facility] PROTHROMBIN TIME / INR 2019-10-29 12:26:00 Flores Armstrong [facility] D-DIMER 2019-10-29 12:26:00 Jaime [facility] XR CHEST 2 VW 2019-10-29 11:55:26 Jaime Hernandez [facility] PHOSPHORUS 2019-10-29 11:32:00 Jaime Hernandez [facility] MAGNESIUM 2019-10-29 11:32:00 Jaime Hernandez [facility] TROPONIN I 2019-10-29 11:32:00 Jaime Hernandez [facility] COMP. METABOLIC PANEL (96790) 2019-10-29 11:32:00 Jaime Hernandez [facility] CBC WITH DIFFERENTIAL 2019-10-29 11:32:00 Abhinav Hernandez [facility] GLYCOSYLATED HEMOGLOBIN (A1C) 2019-10-29 11:32:00 [facility] E[facility]-12 LEAD 2019-10-29 11:30:16 Jaime Hernandez [facility] EKG-12 LEAD 2019-10-29 11:21:10 Jaime [facility] Encounters Start Date/Time End Date/Time Encounter Type Admission Type Attending Clinicians Care Facility Care Department Encounter ID Source 2022-01-27 12:11:00 Inpatient EM EDDOC, GENERIC HCAMN MICHEL [id number] 20 [facility] 2024-01-03 00:00:00 2024-01-03 00:00:00 Letter (Out) [place], [facility] MEDICAL OFFICE BUILDING 1.2.840.114 350.1.13.10 4.2.7.2.686 [id number] [id number] [facility] 2023-12-25 01:20:00 2023-12-29 13:40:00 Inpatient X [facility] [id number] [facility] 2023-12-25 01:20:00 2023-12-29 13:40:00 Hospital Encounter Papo Mcfarlane[facility] 1..840.114 350.1.13.10 4.2.7.2.686 [id number] [facility] 2022-12-17 20:08:00 2022-12-19 18:22:00 Outpatient X JOLIE MARQUEZ [facility] [id number] [facility] 2022-12-17 20:08:00 2022-12-19 18:22:00 Emergency Crow Clarke [facility] 1..840.114 350.1.13.10 4.2.7.2.686 [id number] [facility] 2022-10-22 20:50:00 2022-10-27 15:02:00 Outpatient X BRIE ECHOLS BASHAR [facility] [id number] [facility] 2022-10-22 20:50:00 2022-10-27 15:02:00 [facility] 1.2.840.114 350.1.13.10 4.2.7.2.686 [id number] [facility] 2022-10-03 07:40:00 2022-10-04 14:05:00 [facility] [id number] [facility] 2022-10-03 07:40:00 2022-10-04 14:05:00 [facility] 1.2.840.114 350.1.13.10 4.2.7.2.686 [id number] [facility] 2022-06-14 00:00:00 2022-06-14 00:00:00 Letter (Out) Clinic, [facility] Cardiology [facility] MEDICAL OFFICE BUILDING 1.2.840.114 350.1.13.10 4.2.7.2.686 [id number] [facility] 2022-06-14 00:00:00 2022-06-14 00:00:00 Telephone Obey, Yeyo [facility] MEDICAL OFFICE BUILDING 1.2.840.114 350.1.13.10 4.2.7.2.686 [id number] [facility] 2022-03-28 21:50:00 2022-03-29 02:33:00 Emergency X RUPESH ELAINE CHARLES [facility] ERT [id number] [facility] 2022-03-28 21:50:00 2022-03-29 02:33:00 Emergency AuJulissa van [facility] 1.2.840.114 350.1.13.10 4.2.7.2.686 [id number] [facility] 2022-02-10 00:00:00 2022-02-10 00:00:00 Letter (Out) [facility] MEDICAL OFFICE BUILDING 1.2.840.114 350.1.13.10 4.2.7.2.686 [id number] [facility] 2022-02-09 00:00:00 2022-02-09 00:00:00 Telephone [facility] 1.2.840.114 350.1.13.10 4.2.7.2.686 [id number] [facility] 2022-01-27 12:44:00 2022-01-27 15:03:00 Emergency E LAZARA GUERRERO [facility] 2022-01-26 01:55:00 2022-01-26 21:07:00 [facility] [id number] [facility] 2022-01-26 01:55:00 2022-01-26 21:07:00 [facility] 1.2.840.114 350.1.13.10 4.2.7.2.686 [id number] [facility] 2022-01-25 00:00:00 2022-01-25 00:00:00 Telephone [facility] 1.2.840.114 350.1.13.10 4.2.7.2.686 [id number] [facility] 2021-11-30 17:39:00 2021-12-02 13:31:00 Outpatient X ROSARIO HANNON TAREQ [facility] [id number] [facility] 2021-11-30 17:39:00 2021-12-02 13:31:00 Emergency Geo Valdez, [facility] 1.2.840.114 350.1.13.10 4.2.7.2.686 [id number] [facility] 2021-10-12 12:48:00 2021-10-14 13:47:00 Outpatient X SERGIO LEE [facility] [id number] [facility] 2021-10-12 12:48:00 2021-10-14 13:47:[address] [facility] Andry Ah[facility] 1.2.840.114 350.1.13.10 4.2.7.2.686 [id number] [facility] 2021-04-28 19:06:00 2021-04-30 14:06:00 Emergency Crow Clarke [facility] 1.2.840.114 350.1.13.10 4.2.7.2.686 [id number] [facility] 2021-04-30 00:00:00 2021-04-30 00:00:00 Outpatient GCCOVIDV GCCOVIDV [id number] [facility] V 2021-04-28 18:59:00 2021-04-28 18:59:00 Emergency X [facility] [id number] [facility] 2021-04-09 00:00:00 2021-04-09 00:00:00 Telephone Ju [facility] 1.2.840.114 350.1.13.10 4.2.7.2.686 [id number] [facility] 2021-04-04 06:28:00 2021-04-07 12:27:00 Emergency Da Kidd [facility] 1.2.840.114 350.1.13.10 4.2.7.2.686 [id number] [facility] 2021-04-04 06:24:00 2021-04-04 06:24:00 Emergency X [facility] ERT [id number] [facility] 2019-10-29 05:17:40 2019-10-30 17:00:00 Emergency [facility] 1.2.840.114 350.1.13.10 4.2.7.2.686 [id number] [facility] 2019-10-29 05:17:40 2019-10-30 17:00:00 Outpatient X CHARLINE-ERICIFE H, ROSARIO [facility]BU[facility]SHAR[facility], [facility] [id number] [facility] Results Test Description Test Time Test Comments Results Result Co mments Source [facility] (NA, K, CL, CO2, GLUCOSE, BUN, CREATININE, CA)2023-12-29 10:27:42* Test Item Value Reference Range Interpretation Comme nts NA (test code = 5995123045) 131 mmol/L 135-145 L K (test code = 3294435420) 4.3 mmol/L 3.5-5.0 CL (test code = 8228355233) 98 mmol/L 98-108 CO2 TOTAL (test code = 5586070543) 29 mmol/L 23-31 AGAP (test code = 0791119402) 4 2-16 BUN (test code = 7600581378) 28 mg/dL 7-23 H GLUCOSE (test code = 8314974466) 125 mg/dL 70-110 H CREATININE (test code = 2160-0) 1.00 mg/dL 0.60-1.25 CALCIUM (test code = 2117449580) 8.5 mg/dL 8.6-10.6 L eGFR (test code = 32490-1) 85.1 mL/min/1.73m2 CKD-EPI eGFR (2020). Assuming creatinine has been stable day-to-day for at least three months, the eGFR indicates Category G2 (60 - 89 mL/min/1.73 m2) Lab Interpretation (test code = 54275-2) Abnormal [facility] 10:27:42* Test Item Value Reference Range Interpretation Comme nts MAGNESIUM (test code = 8854905040) 2.0 mg/dL 1.7-2.4 Lab Interpretation (test cod e = 79840-1) Normal [facility] without [id number] 10:00:40* Test Item Value Reference Range Interpretation Comme nts WBC (test code = 6690-2) 9.31 4.20-10.70 RBC (test code = 789-8) 4.54 4.26-5.52 HGB (test code = 718-7) 13.5 g/dL 12.2-16.4 HCT (test code = 4544-3) 38.7 % 38.4-49.3 MCH (test code = 785-6) 29.7 pg 26.1-32.7 MCV (test code = 787-2) 85.2 fL 81.7-95.6 MCHC (test code = 786-4) 34.9 g/dL 31.2-35.0 PLT (test code = 777-3) 158 150-328 MPV (test code = 21313-1) 10.3 fL 9.8-13.0 RDW-CV (test code = 788-0) 12.6 % 12.1-15.4 RDW-SD (test code = 16459-3) 38.5 fL 38.5-51.6 NRBC x10^3 (test code = 9517729154) See_Comment [Automated me ssage] The system which generated this result transmitted reference range: 10*3/?L. The reference range was not used to interpret this result as normal/abnormal. NRBC/100 WBC (test code = 5217291847) 0.0 0.0-10.0 IPF % (test code = 4977487843) [facility] GLUCOSE (AUTOMATED)2023-12-28 17:17:34* Test Item Value Reference Range Interpretation Comme nts POCT GLU (test code = 6991690341) 148 mg/dL 70-110 H Lab Interpretation (test cod e = 62976-4) Abnormal [facility] GLUCOSE (AUTOMATED)2023-12-28 13:41:22* Test Item Value Reference Range Interpretation Comme nts POCT GLU (test code = 9814579839) 165 mg/dL 70-110 H Lab Interpretation (test cod e = 62101-5) Abnormal [facility] Metabolic Panel (NA, K, CL, CO2, GLUCOSE, BUN, CREATININE, CA)2023-12-28 10:40:24* Test Item Value Reference Range Interpretation Comme nts NA (test code = 7638366130) 131 mmol/L 135-145 L K (test code = 3616625897) 3.8 mmol/L 3.5-5.0 CL (test code = 8299097170) 99 mmol/L 98-108 CO2 TOTAL (test code = 2389392759) 27 mmol/L 23-31 AGAP (test code = 8450086529) 5 2-16 BUN (test code = 2599375650) 23 mg/dL 7-23 GLUCOSE (test code = 0700442665) 149 mg/dL 70-110 H CREATININE (test code = 2160-0) 1.06 mg/dL 0.60-1.25 CALCIUM (test code = 7104138211) 8.8 mg/dL 8.6-10.6 eGFR (test code = 03111-0) 79.4 mL/min/1.73m2 CKD-EPI eGFR (2020). Assuming creatinine has been stable day-to-day for at least three months, the eGFR indicates Category G2 (60 - 89 mL/min/1.73 m2) Lab Interpretation (test code = 78692-3) Abnormal [facility] 10:40:24* Test Item Value Reference Range Interpretation Comme nts MAGNESIUM (test code = 1966886969) 1.9 mg/dL 1.7-2.4 Lab Interpretation (test cod e = 20383-8) Normal [facility] without [id number] 10:23:23* Test Item Value Reference Range Interpretation Comme nts WBC (test code = 6690-2) 7.93 4.20-10.70 RBC (test code = 789-8) 4.74 4.26-5.52 HGB (test code = 718-7) 13.9 g/dL 12.2-16.4 HCT (test code = 4544-3) 40.1 % 38.4-49.3 MCH (test code = 785-6) 29.3 pg 26.1-32.7 MCV (test code = 787-2) 84.6 fL 81.7-95.6 MCHC (test code = 786-4) 34.7 g/dL 31.2-35.0 PLT (test code = 777-3) 175 150-328 MPV (test code = 38771-8) 10.8 fL 9.8-13.0 RDW-CV (test code = 788-0) 12.6 % 12.1-15.4 RDW-SD (test code = 87795-6) 38.7 fL 38.5-51.6 NRBC x10^3 (test code = 5328420532) See_Comment [Automated me ssage] The system which generated this result transmitted reference range: 10*3/?L. The reference range was not used to interpret this result as normal/abnormal. NRBC/100 WBC (test code = 9892107735) 0.0 0.0-10.0 IPF % (test code = 6287046797) [facility] GLUCOSE (AUTOMATED)2023-12-28 01:24:25* Test Item Value Reference Range Interpretation Comme nts POCT GLU (test code = 1472681077) 148 mg/dL 70-110 H Lab Interpretation (test cod e = 18177-1) Abnormal [facility] GLUCOSE (AUTOMATED)2023-12-27 20:17:47* Test Item Value Reference Range Interpretation Comme nts POCT GLU (test code = 1924891257) 143 mg/dL 70-110 H Notified Provide r Lab Interpretation (test code = 81458-0) Abnormal [facility] GLUCOSE (AUTOMATED)2023-12-27 16:14:00* Test Item Value Reference Range Interpretation Comme nts POCT GLU (test code = 1398062651) 165 mg/dL 70-110 H Notified Provide r Lab Interpretation (test code = 15749-3) Abnormal [facility] GLUCOSE (AUTOMATED)2023-12-27 12:34:34* Test Item Value Reference Range Interpretation Comme nts POCT GLU (test code = 6157872203) 150 mg/dL 70-110 H Notified Provide r Lab Interpretation (test code = 11193-6) Abnormal [facility] 11:26:47* Test Item Value Reference Range Interpretation Comme [facility] MAGNESIUM (test code = 2776056818) 1.8 mg/dL 1.7-2.4 Lab Interpretation (test cod e = 33063-9) [facility] (NA, K, CL, CO2, GLUCOSE, BUN, CREATININE, CA)2023-12-27 11:26:47* Test Item Value Reference Range Interpretation Comme [facility] NA (test code = 1740590622) 133 mmol/L 135-145 L K (test code = 4987171348) 3.6 mmol/L 3.5-5.0 CL (test code = 6098913140) 101 mmol/L 98-108 CO2 TOTAL (test code = 3623754019) 26 mmol/L 23-31 AGAP (test code = 1987540396) 6 2-16 BUN (test code = 8872100739) 18 mg/dL 7-23 GLUCOSE (test code = 7207334185) 137 mg/dL 70-110 H CREATININE (test code = 2160-0) 0.97 mg/dL 0.60-1.25 CALCIUM (test code = 9346938213) 8.2 mg/dL 8.6-10.6 L eGFR (test code = 43375-1) 88.3 mL/min/1.73m2 CKD-EPI eGFR (2020). Assuming creatinine has been stable day-to-day for at least three months, the eGFR indicates Category G2 (60 - 89 mL/min/1.73 m2) Lab Interpretation (test code = 06304-6) Abnormal [facility] use with [facility]arin Infusion)2023-12-27 10:27:20* Test Item Value Reference Range Interpretation Comme [facility] APTT Patient (test code = 3173-2) 52 26-36 H Lab Interpretation (test cod e = 29203-4) Abnormal [facility] / [id number] 10:27:20* Test Item Value Reference Range Interpretation Comme nts PROTIME PATIENT (test code = 5964-2) 11.8 10.1-12.6 INR (test code = 6301-6) 1.1 Normal INR <1.1; Warfarin Therapeutic range 2.0 to 3.0 or 2.5 to 3.5, depending upon the indications. Lab Interpretation (test code = 19219-1) Normal [facility] without [id number] 10:22:40* Test Item Value Reference Range Interpretation Comme [facility] WBC (test code = 6690-2) 8.95 4.20-10.70 RBC (test code = 789-8) 4.28 4.26-5.52 HGB (test code = 718-7) 12.7 g/dL 12.2-16.4 HCT (test code = 4544-3) 36.8 % 38.4-49.3 L MCH (test code = 785-6) 29.7 pg 26.1-32.7 MCV (test code = 787-2) 86.0 fL 81.7-95.6 MCHC (test code = 786-4) 34.5 g/dL 31.2-35.0 PLT (test code = 777-3) 156 150-328 MPV (test code = 21520-7) 10.5 fL 9.8-13.0 RDW-CV (test code = 788-0) 12.5 % 12.1-15.4 RDW-SD (test code = 61181-4) 39.0 fL 38.5-51.6 NRBC x10^3 (test code = 5021360219) See_Comment [Automated [employer] ge] The system which generated this result transmitted reference range: 10*3/?L. The reference range was not used to interpret this result as normal/abnormal. NRBC/100 WBC (test code = 5090507692) 0.0 0.0-10.0 IPF % (test code = 0118634051) Lab Interpretation (test code = 30782-8) Abnormal [facility] Infusion[facility]2023-12-27 04:02:45* Test Item Value Reference Range Interpretation Comme [facility] APTT Patient (test code = 3173-2) 47 26-36 H Lab Interpretation (test cod e = 47188-2) Abnormal [facility]fusion[facility]2023-12-26 21:16:00* Test Item Value Reference Range Interpretation Comme nts APTT Patient (test code = 3173-2) 50 26-36 H Lab Interpretation (test cod e = 50530-2) Abnormal [facility] Metabolic Panel (NA, K, CL, CO2, GLUCOSE, BUN, CREATININE, CA)2023-12-26 10:25:41* Test Item Value Reference Range Interpretation Comme nts NA (test code = 8748236332) 133 mmol/L 135-145 L K (test code = 5922470785) 3.9 mmol/L 3.5-5.0 CL (test code = 5696202928) 101 mmol/L 98-108 CO2 TOTAL (test code = 0419703348) 29 mmol/L 23-31 AGAP (test code = 6787199360) 3 2-16 BUN (test code = 4572564756) 18 mg/dL 7-23 GLUCOSE (test code = 0830362211) 136 mg/dL 70-110 H CREATININE (test code = 2160-0) 1.06 mg/dL 0.60-1.25 CALCIUM (test code = 0826153457) 8.4 mg/dL 8.6-10.6 L eGFR (test code = 06245-8) 79.4 mL/min/1.73m2 CKD-EPI eGFR (2020). Assuming creatinine has been stable day-to-day for at least three months, the eGFR indicates Category G2 (60 - 89 mL/min/1.73 m2) Lab Interpretation (test code = 32971-1) [facility]* Test Item Value Reference Range Interpretation Comme nts MAGNESIUM (test code = 0660447642) 1.8 mg/dL 1.7-2.4 Lab Interpretation (test cod e = 99981-4) [facility]2023-12-26 10:00:42* Test Item Value Reference Range Interpretation Comme [facility] Patient (test code = 3173-2) 55 26-36 H Lab Interpretation (test cod e = 06250-9) Abnormal [facility] with Osqolyoavqye1787-45-06 09:55:02* Test Item Value Reference Range Interpretation Comme nts WBC (test code = 6690-2) 8.77 4.20-10.70 RBC (test code = 789-8) 4.55 4.26-5.52 HGB (test code = 718-7) 13.4 g/dL 12.2-16.4 HCT (test code = 4544-3) 38.9 % 38.4-49.3 MCV (test code = 787-2) 85.5 fL 81.7-95.6 MCH (test code = 785-6) 29.5 pg 26.1-32.7 MCHC (test code = 786-4) 34.4 g/dL 31.2-35.0 RDW-SD (test code = 26943-7) 39.5 fL 38.5-51.6 RDW-CV (test code = 788-0) 12.8 % 12.1-15.4 PLT (test code = 777-3) 163 150-328 MPV (test code = 72021-9) 10.3 fL 9.8-13.0 NRBC/100 WBC (test code = 8420927829) 0.0 0.0-10.0 NRBC x10^3 (test code = 9446993389) See_Comment [Automated me ssage] The system which generated this result transmitted reference range: 10*3/?L. The reference range was not used to interpret this result as normal/abnormal. GRAN MAT (NEUT) % (test code = 770-8) 58.8 % IMM GRAN % (test code = 4478226789) 0.50 % LYMPH % (test code = 736-9) 30.1 % MONO % (test code = 5905-5) 6.6 % EOS % (test code = 713-8) 3.2 % BASO % (test code = 706-2) 0.8 % GRAN MAT x10^3(ANC) (test code = 2421636707) 5.16 10*3/uL 1.99-6.95 IMM GRAN x10^3 (test code = 6928003229) 0.04 10*3/uL 0.00-0.06 LYMPH x10^3 (test code = 731-0) 2.64 10*3/uL 1.09-3.23 MONO x10^3 (test code = 742-7) 0.58 10*3/uL 0.36-1.02 EOS x10^3 (test code = 711-2) 0.28 10*3/uL 0.06-0.53 BASO x10^3 (test code = 704-7) 0.07 10*3/uL 0.01-0.09 [facility] 03:52:46* Test Item Value Reference Range Interpretation Comme nts Height (test code = 3166982626) 67 in Weight (test code = 9689267445) 240 lbs Systolic BP (test code = 4385378332) 123 mmHg Diastolic BP (test code = 1081342026) 69 mmHg Heart Rate (test code = 1043221914) 64 bpm BSA (test code = 3155021532) 2.18 m2 LVOT diameter (test code = 5137122407) 2.15 cm LVOT area (test code = 0627167808) 3.60 cm2 Ao root diam (test code = 2545771669) 2.80 cm Aortic root (test code = 7944691568) 2.8 cm Ao root annulus (test code = 4240388383) 2.8 cm LA size (test code = 7547145292) 3.1 cm E wave decelartion time (test code = 5035216620) 0.20 s MV Peak A Delisa (test code = 6193509433) 59.7 cm/s MV Peak E Delisa (test code = 3873723635) 70.7 cm/s E/A ratio (test code = 8870030517) 1.18 ratio MV Prop V (test code = 8119820469) 58.00 cm/s LAV(MOD-sp4) (test code = 2785005218) 49.70 mL Tapse (test code = 7134309271) 1.78 cm LVOT stroke volume (test code = 8122489128) 70.50 cm3 LVOT peak delisa (test code = 1492914972) 88.0 cm/s LVOT mn grad (test code = 9858539486) 1.6 mmHg AV LVOT peak gradient (test code = 5640443003) 3.1 mmHg LVOT peak VTI (test code = 6749244244) 19.4 cm LV V1 mean (test code = 3843782327) 59.30 cm/s LA Volume Index (BP) (test code = 3811763720) 23.8 mL/m2 LA volume (BP) (test code = 0432399475) 52.0 mL LAV(MOD-sp2) (test code = 3580298351) 49.70 mL LVIDD (test code = 2954398263) 3.70 cm Left Ventricular End Diastolic Volume by Teichholz Method (test code = 3727264) 59.8 mL IVS (test code = 0399288039) 0.86 cm Interventricular Septum Diastolic Thickness by 2D (test code = 2696835) 0.86 cm LVPWD (test code = 4725048293) 0.85 cm PW (test code = 8933748585) 0.85 cm 0.6-1.1 EF(Teich) (test code = 1853515566) 50.20 % LVIDS (test code = 7732693303) 2.80 cm Left Ventricular End Systolic Volume by Teichholz Method (test code = 7979091) 29.8 mL FS (test code = 2625590119) 25 % EF - 2D (test code = 73360432) 50.20 % Radiology Study observation (narrative) (test code = 22650-4) NATANAEL (test code = NATANAEL) ?Left?Ventricle: Left ventricle size is normal. Normal wall thickness. Normal wall motion. Normal systolic function with a visually estimated EF of 55 - 60%. Normal diastolic function. ?Right?Ventricle: Right ventricle size is normal. Normal systolic function. ?Left?Atrium: Left atrium size is normal. Left atrium volume index is 23.8 mL/m2. ?Tricuspid?Valve: There is trivial tricuspid regurgitation.RA pressure is 0-5 mmHg. Left VentricleLeft ventricle size is normal. Normal wall thickness. Normal wall motion. Normal systolic function with a visually estimated EF of 55 - 60%. Normal diastolic function.Right VentricleRight ventricle size is normal. Normal systolic function.Left AtriumLeft atrium size is normal. Left atrium volume index is 23.8 mL/m2.Right AtriumRight atrium size is normal.IVC/SVCIVC was not well visualized.Mitral ValveMild mitral annular calcification.Tricusp id ValveTricuspid valve structure is normal. There is trivial tricuspid regurgitation.RA pressure is 0-5 mmHg.Aortic ValveAortic valve structure is normal.Pulmonic ValveNot well visualized.Ascending AortaNormal sized sinus of Valsalva.PericardiumT he pericardium is normal. No pericardial effusion.Study DetailsA complete echocardiogram was performed using 2D, color flow Doppler and spectral Doppler. 2 mL of Definity ultrasound enhancing agent used. [facility]26 02:11:43* Test Item Value Reference Range Interpretation Comme nts APTT Patient (test code = 3173-2) 50 26-36 H Lab Interpretation (test cod e = 49114-6) Abnormal [facility] GLUCOSE (AUTOMATED)2023-12-26 01:43:23* Test Item Value Reference Range Interpretation Comme [facility] POCT GLU (test code = 5502987510) 159 mg/dL 70-110 H Lab Interpretation (test cod e = 73395-1) Abnormal [facility] GLUCOSE (AUTOMATED)2023-12-25 22:05:51* Test Item Value Reference Range Interpretation Comme [facility] POCT GLU (test code = 0519909497) 128 mg/dL 70-110 H Lab Interpretation (test cod e = 54312-9) Abnormal [facility] HospitalTroponin [id number] 13:33:01* Test Item Value Reference Range Interpretation Comme [facility] TROPONIN I (test code = 9973627450) 0.004 ng/mL <=0.034 NATANAEL (test code = NATANAEL) Reference (Normal) Range (defined by the 99th percentile reference limit): <= 0.034 ng/mL Note: Cardiac troponin begins to rise 3-4 hours after the onset of ischemia. Repeat in 4-6 hours if the sample was drawn within 3-4 hours of the onset of the symptom and found normal. Diagnosis of myocardial injury is made with acute changes in cTn concentrations with at least one serial sample above the 99th percentile upper reference limit (URL), taken together with the patient's clinical presentation. Biotin has been reported to cause a negative bias, interpret results relative to patient's use of biotin. Lab Interpretation (test code = 56736-6) Normal [facility]2023-12-25 13:07:07* Test Item Value Reference Range Interpretation Comme [facility] APTT Patient (test code = 3173-2) 70 26-36 H Lab Interpretation (test cod e = 93164-5) Abnormal [facility] HospitalThyroid Stimulating Lbjgnoy0224-10-20 10:17:30 * Test Item Value Reference Range Interpretation Comme nts TSH (test code = 8854524114) 3.88 0.45-4.70 Lab Interpretation (test cod e = 91488-5) Normal [facility] HospitalGlycosylated Hemoglobin [id number] 10:01:05 * Test Item Value Reference Range Interpretation Comme [facility] HGB A1C (test code = 4548-4) 7.7 % 4.0-5.7 H NATANAEL (test code = NATANAEL) Reference RangesNormal: <5.7%Prediabetes: 5.7 - 6.4%Diabetes: > 6.5% Lab Interpretation (test code = 98321-6) Abnormal [facility] HospitalLip[facility](48514)(Total Cholesterol, Triglycerides, HDL)2023-12-25 09:44:11* Test Item Value Reference Range Interpretation Comme nts CHOL (test code = 8427102923) 142 mg/dL 120-200 HDL (test code = 7890968397) 27 mg/dL >=40 L HDLC RATIO (test code = 7115273890) 5.3 <=5.0 H TRIG (test code = 0349106593) 214 mg/dL 30-170 H LDL CHOL (test code = 26101-9) 72 mg/dL <=160 VLDL (test code = 3677038928) 43 mg/dL 5-60 Lab Interpretation (test cod e = 64131-3) Abnormal [facility]Magnesium2024-04-21 09:44:11* Test Item Value Reference Range Interpretation Comme [facility] MAGNESIUM (test code = 0829163308) 1.8 mg/dL 1.7-2.4 Lab Interpretation (test cod e = 85371-8) Normal [facility] HospitalProthrombin Time (PT) / [id number] 08:00:24 * Test Item Value Reference Range Interpretation Comme [facility] PROTIME PATIENT (test code = 5964-2) 11.0 10.1-12.6 INR (test code = 6301-6) 1.0 Normal INR <1.1; Warfarin Therapeutic range 2.0 to 3.0 or 2.5 to 3.5, depending upon the indications. Lab Interpretation (test code = 27964-9) Normal [facility]2024-[facility] 08:00:24* Test Item Value Reference Range Interpretation Comme [facility] APTT Patient (test code = 3173-2) 21 26-36 L Lab Interpretation (test cod e = 33559-8) Abnormal [facility] HospitalXR CHEST 2 [id number] 07:37:32ORDERING PHYSICIAN: PALLAVI MCFARLANE CLINICAL HISTORY: Chest pain TECHNIQUE: Two views of the chest COMPARISON: 12/17/2022 FINDINGS: The cardiac silhouette is within normal limits. Lungs are clear. Osseous structures are normal.[facility] HospitalN-TERMINAL [id number] 07:21:02* Test Item Value Reference Range Interpretation Comme [facility] NT-proBNP (test code = 68756-6) <=125 Lab Interpretation (test cod e = 31431-8) Normal [facility] HospitalTROPONIN [id number] 07:14:41* Test Item Value Reference Range Interpretation Comme [facility] TROPONIN I (test code = 2988761409) 0.004 ng/mL <=0.034 NATANAEL (test code = NATANAEL) Reference (Normal) Range (defined by the 99th percentile reference limit): <= 0.034 ng/mL Note: Cardiac troponin begins to rise 3-4 hours after the onset of ischemia. Repeat in 4-6 hours if the sample was drawn within 3-4 hours of the onset of the symptom and found normal. Diagnosis of myocardial injury is made with acute changes in cTn concentrations with at least one serial sample above the 99th percentile upper reference limit (URL), taken together with the patient's clinical presentation. Biotin has been reported to cause a negative bias, interpret results relative to patient's use of biotin. Lab Interpretation (test code = 73750-2) Normal [facility]COMP[facility] METABOLIC PANEL (25290)2023-12-25 07:02:59* Test Item Value Reference Range Interpretation Comme nts NA (test code = 7808471164) 136 mmol/L 135-145 K (test code = 5806361482) 3.8 mmol/L 3.5-5.0 CL (test code = 9715149148) 103 mmol/L 98-108 CO2 TOTAL (test code = 3671449412) 27 mmol/L 23-31 AGAP (test code = 4914599005) 6 2-16 BUN (test code = 2468951386) 10 mg/dL 7-23 GLUCOSE (test code = 2659386589) 138 mg/dL 70-110 H CREATININE (test code = 2160-0) 0.88 mg/dL 0.60-1.25 TOTAL BILI (test code = 3120030208) 0.7 mg/dL 0.1-1.1 CALCIUM (test code = 8347221315) 8.8 mg/dL 8.6-10.6 T PROTEIN (test code = 3590195981) 6.6 g/dL 6.3-8.2 ALBUMIN (test code = 4195844951) 4.0 g/dL 3.5-5.0 ALK PHOS (test code = 7031196566) 67 U/L 34-122 ALTv (test code = 1742-6) 18 U/L 5-50 AST(SGOT) (test code = 5380636175) 22 U/L 13-40 eGFR (test code = 27922-9) 97.2 mL/min/1.73m2 CKD-EPI eGFR (2020). Assuming creatinine has been stable day-to-day for at least three months, the eGFR indicates Category G1 (>= 90 mL/min/1.73 m2) Lab Interpretation (test code = 17000-8) Abnormal [facility] WITH [id number] 06:52:41* Test Item Value Reference Range Interpretation Comme nts WBC (test code = 6690-2) 8.20 4.20-10.70 RBC (test code = 789-8) 4.53 4.26-5.52 HGB (test code = 718-7) 13.5 g/dL 12.2-16.4 HCT (test code = 4544-3) 38.3 % 38.4-49.3 L MCV (test code = 787-2) 84.5 fL 81.7-95.6 MCH (test code = 785-6) 29.8 pg 26.1-32.7 MCHC (test code = 786-4) 35.2 g/dL 31.2-35.0 H RDW-SD (test code = 53379-4) 38.3 fL 38.5-51.6 L RDW-CV (test code = 788-0) 12.7 % 12.1-15.4 PLT (test code = 777-3) 167 150-328 MPV (test code = 36414-6) 10.1 fL 9.8-13.0 NRBC/100 WBC (test code = 3733326708) 0.0 0.0-10.0 NRBC x10^3 (test code = 6876006240) See_Comment [Automated messa ge] The system which generated this result transmitted reference range: 10*3/?L. The reference range was not used to interpret this result as normal/abnormal. GRAN MAT (NEUT) % (test code = 770-8) 53.1 % IMM GRAN % (test code = 4397681640) 0.20 % LYMPH % (test code = 736-9) 35.1 % MONO % (test code = 5905-5) 8.3 % EOS % (test code = 713-8) 2.4 % BASO % (test code = 706-2) 0.9 % GRAN MAT x10^3(ANC) (test code = 8646914319) 4.35 10*3/uL 1.99-6.95 IMM GRAN x10^3 (test code = 5334584199) 0.00-0.06 LYMPH x10^3 (test code = 731-0) 2.88 10*3/uL 1.09-3.23 MONO x10^3 (test code = 742-7) 0.68 10*3/uL 0.36-1.02 EOS x10^3 (test code = 711-2) 0.20 10*3/uL 0.06-0.53 BASO x10^3 (test code = 704-7) 0.07 10*3/uL 0.01-0.09 Lab Interpretation (test code = 31302-0) Abnormal [facility] GLUCOSE (AUTOMATED)2022-12-19 17:26:46* Test Item Value Reference Range Interpretation Comme nts POCT GLU (test code = 0088425130) 286 mg/dL 70-110 H Lab Interpretation (test cod e = 58810-8) Abnormal [facility] GLUCOSE (AUTOMATED)2022-12-19 16:30:27* Test Item Value Reference Range Interpretation Comme nts POCT GLU (test code = 2467664098) 300 mg/dL 70-110 H Lab Interpretation (test cod e = 39203-9) Abnormal [facility] GLUCOSE (AUTOMATED)2022-12-19 14:28:07* Test Item Value Reference Range Interpretation Comme nts POCT GLU (test code = 2174382472) 207 mg/dL 70-110 H Lab Interpretation (test cod e = 68839-9) Abnormal [facility] GLUCOSE (AUTOMATED)2022-12-19 03:43:36* Test Item Value Reference Range Interpretation Comme nts POCT GLU (test code = 4723566073) 273 mg/dL 70-110 H Lab Interpretation (test cod e = 78021-6) Abnormal [facility] GLUCOSE (AUTOMATED)2022-12-18 23:21:29* Test Item Value Reference Range Interpretation Comme nts POCT GLU (test code = 2674335347) 269 mg/dL 70-110 H Lab Interpretation (test cod e = 35109-7) Abnormal [facility] HospitalIRON [id number] 22:51:28* Test Item Value Reference Range Interpretation Comme nts IRON (test code = 5314457032) 61 ug/dL 50-160 TIBC (test code = 5562021557) 353 ug/dL 250-410 % FE SAT (test code = 2061025507) 17 % 20-50 L Lab Interpretation (test cod e = 24717-7) Abnormal [facility] HospitalFERRITIN [id number] 22:46:46* Test Item Value Reference Range Interpretation Comme nts FERRITIN (test code = 9627292011) 105.0 ng/mL 18.0-464.0 NATANAEL (test code = NATANAEL) Biotin has been reported to cause a negative bias, interpret results relative to patient's use of biotin. Lab Interpretation (test code = 06810-6) Normal [facility] GLUCOSE (AUTOMATED)2022-12-18 21:27:59* Test Item Value Reference Range Interpretation Comme nts POCT GLU (test code = 6651516282) 304 mg/dL 70-110 H Lab Interpretation (test cod e = 01305-7) Abnormal [facility] GLUCOSE (AUTOMATED)2022-12-18 18:18:00* Test Item Value Reference Range Interpretation Comme nts POCT GLU (test code = 8019896502) 396 mg/dL 70-110 H Lab Interpretation (test cod e = 47355-4) Abnormal [facility] HospitalTroponin [id number] 06:52:09* Test Item Value Reference Range Interpretation Comme nts TROPONIN I (test code = 0064093751) 0.004 ng/mL <=0.034 NATANAEL (test code = NATANAEL) Reference (Normal) Range (defined by the 99th percentile reference limit): <= 0.034 ng/mL Note: Cardiac troponin begins to rise 3-4 hours after the onset of ischemia. Repeat in 4-6 hours if the sample was drawn within 3-4 hours of the onset of the symptom and found normal. Diagnosis of myocardial injury is made with acute changes in cTn concentrations with at least one serial sample above the 99th percentile upper reference limit (URL), taken together with the patient's clinical presentation. Biotin has been reported to cause a negative bias, interpret results relative to patient's use of biotin. Lab Interpretation (test code = 48824-3) Normal [facility] Metabolic Panel (NA, K, CL, CO2, GLUCOSE, BUN, CREATININE, CA)2022-12-18 06:37:27* Test Item Value Reference Range Interpretation Comme nts NA (test code = 1788197831) 132 mmol/L 135-145 L K (test code = 4889366089) 3.5 mmol/L 3.5-5.0 CL (test code = 4786182211) 99 mmol/L 98-108 CO2 TOTAL (test code = 6719429609) 27 mmol/L 23-31 AGAP (test code = 6166111961) 6 2-16 BUN (test code = 1721391742) 9 mg/dL 7-23 GLUCOSE (test code = 9475246165) 303 mg/dL 70-110 H CREATININE (test code = 8494656915) 0.77 mg/dL 0.60-1.25 CALCIUM (test code = 0058459693) 8.2 mg/dL 8.6-10.6 L eGFR (test code = 7408005035) 102.7 mL/min/1.73m2 NATANAEL (test code = NATANAEL) Association of Glomerular Filtration Rate (GFR) and Staging of Kidney Disease* + --+ --+ ------+| GFR (mL/min/1.73 m2) ?| With Kidney Damage ?| ?Without Kidney Damage+ --------+ --------+ +| ?>90 ?| ?Stage one ?| ? Normal ?+ ---+ ---+ -------+| ?60-89 ?| ?Stage two ?| ? Decreased GFR ? + --+ --+ ------+| ?30-59 ?| ?Stage three ?| ? Stage three ? + --+ --+ ------+| ?15-29 ?| ?Stage four ? | ? Stage four ?+ ---+ ---+ -------+| ?<15 (or dialysis) ? ?| ?Stage five ? | ? Stage five ?+ ---+ ---+ -------+ *Each stage assumes the associated GFR level has been in effect for at least three months. ?Stages 1 to 5, with or without kidney disease, indicate chronic kidney disease. Notes: Determination of stages one and two (with eGFR >59mL/min/1.73 m2) requires estimation of kidney damage for at least three months as defined by structural or functional abnormalities of the kidney, manifested by either:Pathological abnormalities or Markers of kidney damage (including abnormalities in the composition of the blood or urine or abnormalities in imaging tests). Lab Interpretation (test code = 53851-2) Abnormal [facility] HospitalMagnesium [id number] 06:37:27* Test Item Value Reference Range Interpretation Comme nts MAGNESIUM (test code = 6384008531) 1.7 mg/dL 1.7-2.4 Lab Interpretation (test cod e = 96706-3) Normal [facility] (Total Cholesterol, Triglycerides, HDL)2022-12-18 06:37:27* Test Item Value Reference Range Interpretation Comme nts CHOL (test code = 3851478802) 141 mg/dL 120-200 HDL (test code = 5717629191) 22 mg/dL >=40 L HDLC RATIO (test code = 4314451424) 6.4 <=5.0 H TRIG (test code = 8966050823) 237 mg/dL 30-170 H LDL CHOL (test code = 00744-4) 72 mg/dL <=160 VLDL (test code = 0817526063) 47 mg/dL 5-60 Lab Interpretation (test cod e = 24165-4) Abnormal [facility] with [id number] 06:31:45* Test Item Value Reference Range Interpretation Comme nts WBC (test code = 6690-2) 9.75 See_Comment [Automated [employer]] The system which generated this result transmitted reference range: 4.20 - 10.70 10*3/?L. The reference range was not used to interpret this result as normal/abnormal. RBC (test code = 789-8) 4.38 See_Comment [Automated [employer]] The system which generated this result transmitted reference range: 4.26 - 5.52 10*6/?L. The reference range was not used to interpret this result as normal/abnormal. HGB (test code = 718-7) 12.8 g/dL 12.2-16.4 HCT (test code = 4544-3) 35.8 % 38.4-49.3 L MCV (test code = 787-2) 81.7 fL 81.7-95.6 MCH (test code = 785-6) 29.2 pg 26.1-32.7 MCHC (test code = 786-4) 35.8 g/dL 31.2-35.0 H RDW-SD (test code = 74431-0) 38.7 fL 38.5-51.6 RDW-CV (test code = 788-0) 13.1 % 12.1-15.4 PLT (test code = 777-3) 183 See_Comment [Automated [employer]] The system which generated this result transmitted reference range: 150 - 328 10*3/?L. The reference range was not used to interpret this result as normal/abnormal. MPV (test code = 62148-6) 10.3 fL 9.8-13.0 NRBC/100 WBC (test code = 1360393890) 0.0 See_Comment [Automated me ssage] The system which generated this result transmitted reference range: 0.0 - 10.0 /100 WBCs. The reference range was not used to interpret this result as normal/abnormal. NRBC x10^3 (test code = 8982599258) See_Comment [Automated messa ge] The system which generated this result transmitted reference range: 10*3/?L. The reference range was not used to interpret this result as normal/abnormal. GRAN MAT (NEUT) % (test code = 770-8) 56.2 % IMM GRAN % (test code = 0011692884) 0.50 % LYMPH % (test code = 736-9) 32.7 % MONO % (test code = 5905-5) 6.3 % EOS % (test code = 713-8) 3.1 % BASO % (test code = 706-2) 1.2 % GRAN MAT x10^3(ANC) (test code = 6502801926) 5.48 10*3/uL 1.99-6.95 IMM GRAN x10^3 (test code = 3423339953) 0.05 10*3/uL 0.00-0.06 LYMPH x10^3 (test code = 731-0) 3.19 10*3/uL 1.09-3.23 MONO x10^3 (test code = 742-7) 0.61 10*3/uL 0.36-1.02 EOS x10^3 (test code = 711-2) 0.30 10*3/uL 0.06-0.53 BASO x10^3 (test code = 704-7) 0.12 10*3/uL 0.01-0.09 H Lab Interpretation (test code = 79893-0) Abnormal [facility] HospitalGlycosylated Hemoglobin (A1C)2022-12-18 06:29:54* Test Item Value Reference Range Interpretation Comme nts HGB A1C (test code = 4548-4) 8.9 % 4.0-5.7 H NATANAEL (test code = NATANAEL) Reference RangesNormal: <5.7%Prediabetes: 5.7 - 6.4%Diabetes: > 6.5% Lab Interpretation (test code = 99919-2) Abnormal [facility] HospitalThyroid Stimulating Hormone (TSH)2022-12-18 04:22:58* Test Item Value Reference Range Interpretation Comme nts TSH (test code = 3018255280) 1.27 See_Comment Biotin has been reported to cause a negative bias, interpret results relative to patient's use of biotin. [Automated message] The system which generated this result transmitted reference range: 0.45 - 4.70 mIU/L. The reference range was not used to interpret this result as normal/abnormal. Lab Interpretation (test code = 24990-7) Normal [facility]TROP[facility]IN [id number] 02:20:00* Test Item Value Reference Range Interpretation Comme nts TROPONIN I (test code = 8506822016) 0.004 ng/mL <=0.034 NATANAEL (test code = NATANAEL) Reference (Normal) Range (defined by the 99th percentile reference limit): <= 0.034 ng/mL Note: Cardiac troponin begins to rise 3-4 hours after the onset of ischemia. Repeat in 4-6 hours if the sample was drawn within 3-4 hours of the onset of the symptom and found normal. Diagnosis of myocardial injury is made with acute changes in cTn concentrations with at least one serial sample above the 99th percentile upper reference limit (URL), taken together with the patient's clinical presentation. Biotin has been reported to cause a negative bias, interpret results relative to patient's use of biotin. Lab Interpretation (test code = 38050-0) Normal [facility]MINAL [id number] 02:20:00* Test Item Value Reference Range Interpretation Comme nts NT-proBNP (test code = 9296710891) 23 pg/mL <=125 NATANAEL (test code = NATANAEL) Biotin has been reported to cause a negative bias, interpret results relative to patient's use of biotin. Lab Interpretation (test code = 90882-1) Normal [facility]OLIC PANEL (84823)2022-12-18 02:07:36* Test Item Value Reference Range Interpretation Comme nts NA (test code = 6753424396) 132 mmol/L 135-145 L K (test code = 9901794838) 4.0 mmol/L 3.5-5.0 CL (test code = 3193897208) 99 mmol/L 98-108 CO2 TOTAL (test code = 9502717564) 26 mmol/L 23-31 AGAP (test code = 1246076639) 7 2-16 BUN (test code = 4150871131) 9 mg/dL 7-23 GLUCOSE (test code = 6380578023) 369 mg/dL 70-110 H CREATININE (test code = 3541001837) 0.73 mg/dL 0.60-1.25 TOTAL BILI (test code = 8143652936) 0.4 mg/dL 0.1-1.1 CALCIUM (test code = 0502069500) 8.6 mg/dL 8.6-10.6 T PROTEIN (test code = 4212514002) 6.3 g/dL 6.3-8.2 ALBUMIN (test code = 2372821788) 3.8 g/dL 3.5-5.0 ALK PHOS (test code = 1622030743) 80 U/L 34-122 ALTv (test code = 1742-6) 24 U/L 5-50 AST(SGOT) (test code = 4743171892) 25 U/L 13-40 eGFR (test code = 4489548256) 109.2 mL/min/1.73m2 NATANAEL (test code = NATANAEL) Association of Glomerular Filtration Rate (GFR) and Staging of Kidney Disease* + --+ --+ ------+| GFR (mL/min/1.73 m2) ?| With Kidney Damage ?| ?Without Kidney Damage+ --------+ --------+ +| ?>90 ?| ?Stage one ?| ? Normal ?+ ---+ ---+ -------+| ?60-89 ?| ?Stage two ?| ? Decreased GFR ? + --+ --+ ------+| ?30-59 ?| ?Stage three ?| ? Stage three ? + --+ --+ ------+| ?15-29 ?| ?Stage four ? | ? Stage four ?+ ---+ ---+ -------+| ?<15 (or dialysis) ? ?| ?Stage five ? | ? Stage five ?+ ---+ ---+ -------+ *Each stage assumes the associated GFR level has been in effect for at least three months. ?Stages 1 to 5, with or without kidney disease, indicate chronic kidney disease. Notes: Determination of stages one and two (with eGFR >59mL/min/1.73 m2) requires estimation of kidney damage for at least three months as defined by structural or functional abnormalities of the kidney, manifested by either:Pathological abnormalities or Markers of kidney damage (including abnormalities in the composition of the blood or urine or abnormalities in imaging tests). Lab Interpretation (test code = 45345-4) Abnormal [facility] WITH [id number] 01:55:56* Test Item Value Reference Range Interpretation Comme nts WBC (test code = 6690-2) 8.85 See_Comment [Automated [employer]] The system which generated this result transmitted reference range: 4.20 - 10.70 10*3/?L. The reference range was not used to interpret this result as normal/abnormal. RBC (test code = 789-8) 4.46 See_Comment [Automated [employer]] The system which generated this result transmitted reference range: 4.26 - 5.52 10*6/?L. The reference range was not used to interpret this result as normal/abnormal. HGB (test code = 718-7) 13.0 g/dL 12.2-16.4 HCT (test code = 4544-3) 36.6 % 38.4-49.3 L MCV (test code = 787-2) 82.1 fL 81.7-95.6 MCH (test code = 785-6) 29.1 pg 26.1-32.7 MCHC (test code = 786-4) 35.5 g/dL 31.2-35.0 H RDW-SD (test code = 66881-0) 38.8 fL 38.5-51.6 RDW-CV (test code = 788-0) 13.0 % 12.1-15.4 PLT (test code = 777-3) 187 See_Comment [Automated [employer]] The system which generated this result transmitted reference range: 150 - 328 10*3/?L. The reference range was not used to interpret this result as normal/abnormal. MPV (test code = 64376-0) 10.5 fL 9.8-13.0 NRBC/100 WBC (test code = 7501268092) 0.0 See_Comment [Automated me ssage] The system which generated this result transmitted reference range: 0.0 - 10.0 /100 WBCs. The reference range was not used to interpret this result as normal/abnormal. NRBC x10^3 (test code = 7714579347) See_Comment [Automated messa ge] The system which generated this result transmitted reference range: 10*3/?L. The reference range was not used to interpret this result as normal/abnormal. GRAN MAT (NEUT) % (test code = 770-8) 62.6 % IMM GRAN % (test code = 8893327882) 0.70 % LYMPH % (test code = 736-9) 28.2 % MONO % (test code = 5905-5) 5.8 % EOS % (test code = 713-8) 2.0 % BASO % (test code = 706-2) 0.7 % GRAN MAT x10^3(ANC) (test code = 3279606558) 5.54 10*3/uL 1.99-6.95 IMM GRAN x10^3 (test code = 2721876165) 0.06 10*3/uL 0.00-0.06 LYMPH x10^3 (test code = 731-0) 2.50 10*3/uL 1.09-3.23 MONO x10^3 (test code = 742-7) 0.51 10*3/uL 0.36-1.02 EOS x10^3 (test code = 711-2) 0.18 10*3/uL 0.06-0.53 BASO x10^3 (test code = 704-7) 0.06 10*3/uL 0.01-0.09 Lab Interpretation (test code = 79285-0) Abnormal [facility] GLUCOSE (AUTOMATED)2022-10-27 18:01:52* Test Item Value Reference Range Interpretation Comme nts POCT GLU (test code = 9699215274) 251 mg/dL 70-110 H Lab Interpretation (test cod e = 38844-9) Abnormal [facility] GLUCOSE (AUTOMATED)2022-10-27 14:35:24* Test Item Value Reference Range Interpretation Comme nts POCT GLU (test code = 6972342773) 205 mg/dL 70-110 H Lab Interpretation (test cod e = 84082-6) Abnormal [facility] GLUCOSE (AUTOMATED)2022-10-27 03:04:29* Test Item Value Reference Range Interpretation Comme nts POCT GLU (test code = 4608844680) 178 mg/dL 70-110 H Lab Interpretation (test cod e = 17922-1) Abnormal [facility] GLUCOSE (AUTOMATED)2022-10-26 23:23:05* Test Item Value Reference Range Interpretation Comme nts POCT GLU (test code = 8854891207) 178 mg/dL 70-110 H Lab Interpretation (test cod e = 47532-3) Abnormal [facility] GLUCOSE (AUTOMATED)2022-10-26 19:37:45* Test Item Value Reference Range Interpretation Comme nts POCT GLU (test code = 5774082597) 196 mg/dL 70-110 H Lab Interpretation (test cod e = 06080-8) Abnormal [facility] GLUCOSE (AUTOMATED)2022-10-26 15:41:33* Test Item Value Reference Range Interpretation Comme nts POCT GLU (test code = 0261100136) 185 mg/dL 70-110 H Lab Interpretation (test cod e = 31755-3) Abnormal [facility] GLUCOSE (AUTOMATED)2022-10-26 03:23:14* Test Item Value Reference Range Interpretation Comme nts POCT GLU (test code = 8106736145) 186 mg/dL 70-110 H Lab Interpretation (test cod e = 90145-3) Abnormal [facility] GLUCOSE (AUTOMATED)2022-10-25 22:13:59* Test Item Value Reference Range Interpretation Comme nts POCT GLU (test code = 5367411459) 196 mg/dL 70-110 H Lab Interpretation (test cod e = 27856-6) Abnormal [facility] GLUCOSE (AUTOMATED)2022-10-25 18:34:25* Test Item Value Reference Range Interpretation Comme nts POCT GLU (test code = 5396103791) 241 mg/dL 70-110 H Lab Interpretation (test cod e = 45396-8) Abnormal [facility] GLUCOSE (AUTOMATED)2022-10-25 15:02:07* Test Item Value Reference Range Interpretation Comme nts POCT GLU (test code = 1293544085) 340 mg/dL 70-110 H Lab Interpretation (test cod e = 01637-5) [facility] 03:13:54* Test Item Value Reference Range Interpretation Comme nts POCT GLU (test code = 5281230778) 209 mg/dL 70-110 H Lab Interpretation (test cod e = 09023-0) [facility] 00:47:11* Test Item Value Reference Range Interpretation Comme nts POCT GLU (test code = 4756715533) 228 mg/dL 70-110 H Lab Interpretation (test cod e = 62166-4) Abnormal [facility] GLUCOSE (AUTOMATED)2022-10-24 23:24:54* Test Item Value Reference Range Interpretation Comme nts POCT GLU (test code = 6201853243) 218 mg/dL 70-110 H Lab Interpretation (test cod e = 52683-9) Abnormal [facility] GLUCOSE (AUTOMATED)2022-10-24 19:43:42* Test Item Value Reference Range Interpretation Comme nts POCT GLU (test code = 0012848811) 226 mg/dL 70-110 H Lab Interpretation (test cod e = 39488-3) Abnormal [facility] GLUCOSE (AUTOMATED)2022-10-24 15:05:19* Test Item Value Reference Range Interpretation Comme nts POCT GLU (test code = 2196225474) 214 mg/dL 70-110 H Lab Interpretation (test cod e = 89395-0) Abnormal [facility] GLUCOSE (AUTOMATED)2022-10-24 03:18:49* Test Item Value Reference Range Interpretation Comme nts POCT GLU (test code = 7401407481) 251 mg/dL 70-110 H Lab Interpretation (test cod e = 69428-1) Abnormal [facility] GLUCOSE (AUTOMATED)2022-10-23 23:23:01* Test Item Value Reference Range Interpretation Comme nts POCT GLU (test code = 2392534308) 229 mg/dL 70-110 H Lab Interpretation (test cod e = 41892-3) Abnormal [facility] GLUCOSE (AUTOMATED)2022-10-23 18:28:23* Test Item Value Reference Range Interpretation Comme nts POCT GLU (test code = 3702892529) 167 mg/dL 70-110 H Lab Interpretation (test cod e = 29465-1) Abnormal [facility] GLUCOSE (AUTOMATED)2022-10-23 14:51:51* Test Item Value Reference Range Interpretation Comme nts POCT GLU (test code = 4264094622) 176 mg/dL 70-110 H Lab Interpretation (test cod e = 02213-5) [id number]:09:24* Test Item Value Reference Range Interpretation Comme nts TROPONIN I (test code = 3620627387) 0.001 ng/mL <=0.034 NATANAEL (test code = NATANAEL) Reference (Normal) Range (defined by the 99th percentile reference limit): <= 0.034 ng/mL Note: Cardiac troponin begins to rise 3-4 hours after the onset of ischemia. Repeat in 4-6 hours if the sample was drawn within 3-4 hours of the onset of the symptom and found normal. Diagnosis of myocardial injury is made with acute changes in cTn concentrations with at least one serial sample above the 99th percentile upper reference limit (URL), taken together with the patient's clinical presentation. Biotin has been reported to cause a negative bias, interpret results relative to patient's use of biotin. Lab Interpretation (test code = 13496-5) [id number] 05:05:43* Test Item Value Reference Range Interpretation Comme nts NT-proBNP (test code = 9715044422) 142 pg/mL <=125 H NATANAEL (test code = NATANAEL) Biotin has been reported to cause a negative bias, interpret results relative to patient's use of biotin. Lab Interpretation (test code = 37230-5) [facility] [id number] 04:58:12* Test Item Value Reference Range Interpretation Comme nts LIPASE (test code = 7490877089) 0-220 Lab Interpretation (test cod e = 35894-6) [facility] (27097)2022-10-23 04:57:06* Test Item Value Reference Range Interpretation Comme nts NA (test code = 4374708663) 137 mmol/L 135-145 K (test code = 0882763979) 3.9 mmol/L 3.5-5.0 CL (test code = 6082777970) 103 mmol/L 98-108 CO2 TOTAL (test code = 5153583835) 30 mmol/L 23-31 AGAP (test code = 6343200050) 4 2-16 BUN (test code = 6924588974) 11 mg/dL 7-23 GLUCOSE (test code = 3628600437) 217 mg/dL 70-110 H CREATININE (test code = 8422017486) 0.86 mg/dL 0.60-1.25 TOTAL BILI (test code = 8803820509) 0.3 mg/dL 0.1-1.1 CALCIUM (test code = 8796835970) 8.5 mg/dL 8.6-10.6 L T PROTEIN (test code = 7794847938) 6.1 g/dL 6.3-8.2 L ALBUMIN (test code = 4745697004) 3.7 g/dL 3.5-5.0 ALK PHOS (test code = 1510672695) 80 U/L 34-122 ALTv (test code = 1742-6) 21 U/L 5-50 AST(SGOT) (test code = 5158776217) 20 U/L 13-40 eGFR (test code = 0766452240) 90.4 mL/min/1.73m2 NATANAEL (test code = NATANAEL) Association of Glomerular Filtration Rate (GFR) and Staging of Kidney Disease* + --+ --+ ------+| GFR (mL/min/1.73 m2) ?| With Kidney Damage ?| ?Without Kidney Damage+ --------+ --------+ +| ?>90 ?| ?Stage one ?| ? Normal ?+ ---+ ---+ -------+| ?60-89 ?| ?Stage two ?| ? Decreased GFR ? + --+ --+ ------+| ?30-59 ?| ?Stage three ?| ? Stage three ? + --+ --+ ------+| ?15-29 ?| ?Stage four ? | ? Stage four ?+ ---+ ---+ -------+| ?<15 (or dialysis) ? ?| ?Stage five ? | ? Stage five ?+ ---+ ---+ -------+ *Each stage assumes the associated GFR level has been in effect for at least three months. ?Stages 1 to 5, with or without kidney disease, indicate chronic kidney disease. Notes: Determination of stages one and two (with eGFR >59mL/min/1.73 m2) requires estimation of kidney damage for at least three months as defined by structural or functional abnormalities of the kidney, manifested by either:Pathological abnormalities or Markers of kidney damage (including abnormalities in the composition of the blood or urine or abnormalities in imaging tests). Lab Interpretation (test code = 66672-0) Abnormal [facility] WITH [id number] 04:50:02* Test Item Value Reference Range Interpretation Comme nts WBC (test code = 6690-2) 9.75 See_Comment [[employer]] The system which generated this result transmitted reference range: 4.20 - 10.70 10*3/?L. The reference range was not used to interpret this result as normal/abnormal. RBC (test code = 789-8) 4.76 See_Comment [[employer]] The system which generated this result transmitted reference range: 4.26 - 5.52 10*6/?L. The reference range was not used to interpret this result as normal/abnormal. HGB (test code = 718-7) 13.8 g/dL 12.2-16.4 HCT (test code = 4544-3) 39.2 % 38.4-49.3 MCV (test code = 787-2) 82.4 fL 81.7-95.6 MCH (test code = 785-6) 29.0 pg 26.1-32.7 MCHC (test code = 786-4) 35.2 g/dL 31.2-35.0 H RDW-SD (test code = 97855-3) 37.4 fL 38.5-51.6 L RDW-CV (test code = 788-0) 12.5 % 12.1-15.4 PLT (test code = 777-3) 166 See_Comment [Automated messa ge] The system which generated this result transmitted reference range: 150 - 328 10*3/?L. The reference range was not used to interpret this result as normal/abnormal. MPV (test code = 48244-8) 10.6 fL 9.8-13.0 NRBC/100 WBC (test code = 3519096341) 0.0 See_Comment [Automated me ssage] The system which generated this result transmitted reference range: 0.0 - 10.0 /100 WBCs. The reference range was not used to interpret this result as normal/abnormal. NRBC x10^3 (test code = 7060891800) See_Comment [Automated messa ge] The system which generated this result transmitted reference range: 10*3/?L. The reference range was not used to interpret this result as normal/abnormal. GRAN MAT (NEUT) % (test code = 770-8) 61.0 % IMM GRAN % (test code = 1649488229) 0.30 % LYMPH % (test code = 736-9) 28.9 % MONO % (test code = 5905-5) 6.5 % EOS % (test code = 713-8) 2.5 % BASO % (test code = 706-2) 0.8 % GRAN MAT x10^3(ANC) (test code = 3825878118) 5.95 10*3/uL 1.99-6.95 IMM GRAN x10^3 (test code = 8440496608) 0.03 10*3/uL 0.00-0.06 LYMPH x10^3 (test code = 731-0) 2.82 10*3/uL 1.09-3.23 MONO x10^3 (test code = 742-7) 0.63 10*3/uL 0.36-1.02 EOS x10^3 (test code = 711-2) 0.24 10*3/uL 0.06-0.53 BASO x10^3 (test code = 704-7) 0.08 10*3/uL 0.01-0.09 Lab Interpretation (test code = 65930-7) Abnormal [facility] GLUCOSE (AUTOMATED)2022-10-23 04:13:01* Test Item Value Reference Range Interpretation Comme nts POCT GLU (test code = 5581576924) 216 mg/dL 70-110 H Lab Interpretation (test cod e = 90615-7) Abnormal [facility] GLUCOSE (AUTOMATED)2022-10-04 18:34:25* Test Item Value Reference Range Interpretation Comme nts POCT GLU (test code = 6841411276) 233 mg/dL 70-110 H Lab Interpretation (test cod e = 73246-3) Abnormal [facility] GLUCOSE (AUTOMATED)2022-10-04 14:41:39* Test Item Value Reference Range Interpretation Comme nts POCT GLU (test code = 1300341163) 228 mg/dL 70-110 H Lab Interpretation (test cod e = 65516-3) Abnormal [facility] GLUCOSE (AUTOMATED)2022-10-04 02:29:46* Test Item Value Reference Range Interpretation Comme nts POCT GLU (test code = 9849895048) 211 mg/dL 70-110 H Lab Interpretation (test cod e = 59756-5) Abnormal [facility] GLUCOSE (AUTOMATED)2022-10-03 23:11:18* Test Item Value Reference Range Interpretation Comme nts POCT GLU (test code = 4072528225) 227 mg/dL 70-110 H Lab Interpretation (test cod e = 24443-5) [facility] [id number] 22:55:18* Test Item Value Reference Range Interpretation Comments TROPONIN I (test code = 7209910908) 0.002 ng/mL See_Comment [Automated message] The system which generated this result transmitted reference range: <=0.034. The reference range was not used to interpret this result as normal/abnormal. NATANAEL (test code = NATANAEL) Reference (Normal) Range (defined by the 99th percentile reference limit): <= 0.034 ng/mL Note: Cardiac troponin begins to rise 3-4 hours after the onset of ischemia. Repeat in 4-6 hours if the sample was drawn within 3-4 hours of the onset of the symptom and found normal. Diagnosis of myocardial injury is made with acute changes in cTn concentrations with at least one serial sample above the 99th percentile upper reference limit (URL), taken together with the patient's clinical presentation. Biotin has been reported to cause a negative bias, interpret results relative to patient's use of biotin. Lab Interpretation (test code = 72884-8) [facility] 22:39:32* Test Item Value Reference Range Interpretation Comme nts APTT Patient (test code = 3173-2) See_Comment [Automated [employer]] The system which generated this result transmitted reference range: 26 - 36 Seconds. The reference range was not used to interpret this result as normal/abnormal. Lab Interpretation (test code = 05430-9) Normal [facility]yroid [facility]ulating Hormone (TSH)2022-10-03 18:19:37* Test Item Value Reference Range Interpretation Comme nts TSH (test code = 6033829791) See_Comment Biotin has been reported to cause a negative bias, interpret results relative to patient's use of biotin. [Automated message] The system which generated this result transmitted reference range: 0.45 - 4.70 mIU/L. The reference range was not used to interpret this result as normal/abnormal. Lab Interpretation (test code = 58338-3) Normal [facility] (Total Cholesterol, Triglycerides, HDL)2022-10-03 17:39:04* Test Item Value Reference Range Interpretation Comme nts CHOL (test code = 1221599643) 157 mg/dL 120-200 HDL (test code = 1628792852) 31 mg/dL See_Comment L [Automated [employer]] The system which generated this result transmitted reference range: >=40. The reference range was not used to interpret this result as normal/abnormal. HDLC RATIO (test code = 9152804418) See_Comment H [Automated [employer]] The system which generated this result transmitted reference range: <=5.0. The reference range was not used to interpret this result as normal/abnormal. TRIG (test code = 0639718308) 233 mg/dL 30-170 H LDL CHOL (test code = 80191-5) 79 mg/dL See_Comment [Automated messa ge] The system which generated this result transmitted reference range: <=160. The reference range was not used to interpret this result as normal/abnormal. VLDL (test code = 2839189810) 47 mg/dL 5-60 Lab Interpretation (test code = 16776-9) Abnormal [facility]ATED [facility]EM[facility]GLOBIN (A1C)2022-10-03 17:00:46* Test Item Value Reference Range Interpretation Comme nts HGB A1C (test code = 4548-4) 8.7 % 4.0-5.7 H NATANAEL (test code = NATANAEL) Reference RangesNormal: <5.7%Prediabetes: 5.7 - 6.4%Diabetes: > 6.5% Lab Interpretation (test code = 38271-7) Abnormal [facility]D-[id number] 16:17:37* Test Item Value Reference Range Interpretation Comments D-DIMER (test code = 0124450995) See_Comment H [Automated message] The system which generated this result transmitted reference range: <0.50 ?g/mL (FEU). The reference range was not used to interpret this result as normal/abnormal. NATANAEL (test code = NATANAEL) This test may be used in conjunction with a clinical pretest probability (PTP) assessment model to exclude venous thromboembolism (VTE) in patients suspected of deep venous thrombosis (DVT) and pulmonary embolism (PE) A D-Dimer value less than 0.50 ?g/ml (FEU) has a negative predicative value of 96 to 100% (95% CI)and 97 to 100% (95% CI) as an aid in the diagnosis of deep vein thrombosis (DVT) and pulmonary embolism when there is low or moderate pretest probability of PE or DVT. D-Dimer values are expressed in initial fibrinogen equivalent units (FEU)" The assay results should be used with other information, including the clinical context, in forming a diagnosis. Lab Interpretation (test code = 63595-9) Abnormal [facility] CARE VENOUS BLOOD [id number] 16:13:55 * Test Item Value Reference Range Interpretation Comme nts PH (test code = 3091278838) 7.32-7.42 PCO2 TAZ (test code = 2157051200) See_Comment [Automated [employer]] The system which generated this result transmitted reference range: 41 - 51 mmHg. The reference range was not used to interpret this result as normal/abnormal. PO2 TAZ (test code = 3905905622) See_Comment [Automated [employer]] The system which generated this result transmitted reference range: 25 - 40 mmHg. The reference range was not used to interpret this result as normal/abnormal. HCO3 TAZ (test code = 6759490323) See_Comment [Automated messa ge] The system which generated this result transmitted reference range: 24 - 28 mEq/L. The reference range was not used to interpret this result as normal/abnormal. AC VBE(BEAKER) (test code = 9240067337) mEq/L [facility]ETA [id number] 15:21:56* Test Item Value Reference Range Interpretation Comme nts BOH (test code = 7701066905) 0.1 mmol/L NATANAEL (test code = NATANAEL) Normal Ranges: ? ? Nonfasting ? Less than 0.1 mmol/L ? ? Overnight Fast ? ? ? Less than 0.4 mmol/L ? ? Fasting (1-2 weeks) ?6-8 mmol/L Test developed and characteristics determined by [facility] Services. [facility]TROP[facility]IN [id number] 15:00:34* Test Item Value Reference Range Interpretation Comments TROPONIN I (test code = 0920024610) 0.001 ng/mL See_Comment [Automated message] The system which generated this result transmitted reference range: <=0.034. The reference range was not used to interpret this result as normal/abnormal. NATANAEL (test code = NATANAEL) Reference (Normal) Range (defined by the 99th percentile reference limit): <= 0.034 ng/mL Note: Cardiac troponin begins to rise 3-4 hours after the onset of ischemia. Repeat in 4-6 hours if the sample was drawn within 3-4 hours of the onset of the symptom and found normal. Diagnosis of myocardial injury is made with acute changes in cTn concentrations with at least one serial sample above the 99th percentile upper reference limit (URL), taken together with the patient's clinical presentation. Biotin has been reported to cause a negative bias, interpret results relative to patient's use of biotin. Lab Interpretation (test code = 70973-4) Normal [facility]AL [id number] 15:00:34* Test Item Value Reference Range Interpretation Comme nts NT-proBNP (test code = 2365726334) 39 pg/mL See_Comment [Automated message] The system which generated this result transmitted reference range: <=125. The reference range was not used to interpret this result as normal/abnormal. NATANAEL (test code = NATANAEL) Biotin has been reported to cause a negative bias, interpret results relative to patient's use of biotin. Lab Interpretation (test code = 10525-5) Normal [facility] METABOLIC PANEL (34952)2022-10-03 14:48:59* Test Item Value Reference Range Interpretation Comme nts NA (test code = 1389568543) 135 mmol/L 135-145 K (test code = 1545595819) 4.0 mmol/L 3.5-5.0 CL (test code = 5191680565) 103 mmol/L 98-108 CO2 TOTAL (test code = 7540546646) 26 mmol/L 23-31 AGAP (test code = 0937086496) 2-16 BUN (test code = 6555739133) 6 mg/dL 7-23 L GLUCOSE (test code = 7297247008) 326 mg/dL 70-110 H CREATININE (test code = 4544217745) 0.80 mg/dL 0.60-1.25 TOTAL BILI (test code = 4810567141) 0.5 mg/dL 0.1-1.1 CALCIUM (test code = 9946855564) 8.2 mg/dL 8.6-10.6 L T PROTEIN (test code = 0946568147) 6.2 g/dL 6.3-8.2 L ALBUMIN (test code = 4189658204) 3.7 g/dL 3.5-5.0 ALK PHOS (test code = 7099446835) 93 U/L 34-122 ALTv (test code = 1742-6) 22 U/L 5-50 AST(SGOT) (test code = 0518762696) 23 U/L 13-40 eGFR (test code = 6821234996) mL/min/1.73m2 NATANAEL (test code = NATANAEL) Association of Glomerular Filtration Rate (GFR) and Staging of Kidney Disease* + --+ --+ ------+| GFR (mL/min/1.73 m2) ?| With Kidney Damage ?| ?Without Kidney Damage+ --------+ --------+ +| ?>90 ?| ?Stage one ?| ? Normal ?+ ---+ ---+ -------+| ?60-89 ?| ?Stage two ?| ? Decreased GFR ? + --+ --+ ------+| ?30-59 ?| ?Stage three ?| ? Stage three ? + --+ --+ ------+| ?15-29 ?| ?Stage four ? | ? Stage four ?+ ---+ ---+ -------+| ?<15 (or dialysis) ? ?| ?Stage five ? | ? Stage five ?+ ---+ ---+ -------+ *Each stage assumes the associated GFR level has been in effect for at least three months. ?Stages 1 to 5, with or without kidney disease, indicate chronic kidney disease. Notes: Determination of stages one and two (with eGFR >59mL/min/1.73 m2) requires estimation of kidney damage for at least three months as defined by structural or functional abnormalities of the kidney, manifested by either:Pathological abnormalities or Markers of kidney damage (including abnormalities in the composition of the blood or urine or abnormalities in imaging tests). Lab Interpretation (test code = 09120-3) [facility]normal [facility] 14:48:59* Test Item Value Reference Range Interpretation Comme nts MAGNESIUM (test code = 5540971142) 1.8 mg/dL 1.7-2.4 Lab Interpretation (test cod e = 05766-4) Normal [facility] HospitalPROTHROMBIN [facility] / [id number] 14:48:38* Test Item Value Reference Range Interpretation Comme nts PROTIME PATIENT (test code = 5964-2) See_Comment [iWOPI] The system which generated this result transmitted reference range: 10.1 - 12.6 Seconds. The reference range was not used to interpret this result as normal/abnormal. INR (test code = 6301-6) Normal INR <1.1; Warfarin Therapeutic range 2.0 to 3.0 or 2.5 to 3.5, depending upon the indications. Lab Interpretation (test code = 01809-3) Normal [facility] HospitalCB WITH [id number] 14:42:36* Test Item Value Reference Range Interpretation Comme nts WBC (test code = 6690-2) See_Comment [iWOPI] The system which generated this result transmitted reference range: 4.20 - 10.70 10*3/?L. The reference range was not used to interpret this result as normal/abnormal. RBC (test code = 789-8) See_Comment [Automated [employer]] The system which generated this result transmitted reference range: 4.26 - 5.52 10*6/?L. The reference range was not used to interpret this result as normal/abnormal. HGB (test code = 718-7) 13.5 g/dL 12.2-16.4 HCT (test code = 4544-3) 39.6 % 38.4-49.3 MCV (test code = 787-2) 84.3 fL 81.7-95.6 MCH (test code = 785-6) 28.7 pg 26.1-32.7 MCHC (test code = 786-4) 34.1 g/dL 31.2-35.0 RDW-SD (test code = 07740-0) 40.4 fL 38.5-51.6 RDW-CV (test code = 788-0) 13.1 % 12.1-15.4 PLT (test code = 777-3) See_Comment [Automated [employer]] The system which generated this result transmitted reference range: 150 - 328 10*3/?L. The reference range was not used to interpret this result as normal/abnormal. MPV (test code = 40963-4) 10.5 fL 9.8-13.0 NRBC/100 WBC (test code = 0077122552) See_Comment [Automated [employer] ssage] The system which generated this result transmitted reference range: 0.0 - 10.0 /100 WBCs. The reference range was not used to interpret this result as normal/abnormal. NRBC x10^3 (test code = 3274486887) See_Comment [Automated [employer] ssage] The system which generated this result transmitted reference range: 10*3/?L. The reference range was not used to interpret this result as normal/abnormal. GRAN MAT (NEUT) % (test code = 770-8) 59.4 % IMM GRAN % (test code = 6826752008) 0.40 % LYMPH % (test code = 736-9) 27.1 % MONO % (test code = 5905-5) 8.0 % EOS % (test code = 713-8) 4.3 % BASO % (test code = 706-2) 0.8 % GRAN MAT x10^3(ANC) (test code = 2969957753) 3.03 10*3/uL 1.99-6.95 IMM GRAN x10^3 (test code = 5384457581) 0.00-0.06 LYMPH x10^3 (test code = 731-0) 1.38 10*3/uL 1.09-3.23 MONO x10^3 (test code = 742-7) 0.41 10*3/uL 0.36-1.02 EOS x10^3 (test code = 711-2) 0.22 10*3/uL 0.06-0.53 BASO x10^3 (test code = 704-7) 0.04 10*3/uL 0.01-0.09 [facility] WITH [id number] 05:26:50* Test Item Value Reference Range Interpretation Comme nts WBC (test code = 6690-2) See_Comment [Automated messa ge] The system which generated this result transmitted reference range: 4.20 - 10.70 10*3/?L. The reference range was not used to interpret this result as normal/abnormal. RBC (test code = 789-8) See_Comment [Automated messa ge] The system which generated this result transmitted reference range: 4.26 - 5.52 10*6/?L. The reference range was not used to interpret this result as normal/abnormal. HGB (test code = 718-7) 13.8 g/dL 12.2-16.4 HCT (test code = 4544-3) 39.9 % 38.4-49.3 MCV (test code = 787-2) 85.3 fL 81.7-95.6 MCH (test code = 785-6) 29.5 pg 26.1-32.7 MCHC (test code = 786-4) 34.6 g/dL 31.2-35 RDW-SD (test code = 79369-8) 38.1 fL 38.5-51.6 L RDW-CV (test code = 788-0) 12.4 % 12.1-15.4 PLT (test code = 777-3) See_Comment [Automated messa ge] The system which generated this result transmitted reference range: 150 - 328 10*3/?L. The reference range was not used to interpret this result as normal/abnormal. MPV (test code = 04185-7) 10.6 fL 9.8-13 NRBC/100 WBC (test code = 0714525405) See_Comment [Automated [employer] ssage] The system which generated this result transmitted reference range: 0.0 - 10.0 /100 WBCs. The reference range was not used to interpret this result as normal/abnormal. NRBC x10^3 (test code = 1172521215) See_Comment [Automated [employer] ge] The system which generated this result transmitted reference range: 10*3/?L. The reference range was not used to interpret this result as normal/abnormal. GRAN MAT (NEUT) % (test code = 770-8) 52.6 % IMM GRAN % (test code = 7403196326) 0.70 % LYMPH % (test code = 736-9) 32.5 % MONO % (test code = 5905-5) 7.7 % EOS % (test code = 713-8) 5.5 % BASO % (test code = 706-2) 1.0 % GRAN MAT x10^3(ANC) (test code = 5521193006) 4.00 10*3/uL 1.99-6.95 IMM GRAN x10^3 (test code = 0850846816) 0.05 10*3/uL 0-0.06 LYMPH x10^3 (test code = 731-0) 2.48 10*3/uL 1.09-3.23 MONO x10^3 (test code = 742-7) 0.59 10*3/uL 0.36-1.02 EOS x10^3 (test code = 711-2) 0.42 10*3/uL 0.06-0.53 BASO x10^3 (test code = 704-7) 0.08 10*3/uL 0.01-0.09 Lab Interpretation (test code = 08089-2) [id number] 04:49:27* Test Item Value Reference Range Interpretation Comme nts NT-proBNP (test code = 6475205600) 56 pg/mL See_Comment [Automated message] The system which generated this result transmitted reference range: <=125. The reference range was not used to interpret this result as normal/abnormal. NATANAEL (test code = NATANAEL) Biotin has been reported to cause a negative bias, interpret results relative to patient's use of biotin. Lab Interpretation (test code = 53336-5) [facility] [id number] 04:49:27* Test Item Value Reference Range Interpretation Comments TROPONIN I (test code = 7323101807) 0.002 ng/mL See_Comment [Automated message] The system which generated this result transmitted reference range: <=0.034. The reference range was not used to interpret this result as normal/abnormal. NATANAEL (test code = NATANAEL) Reference (Normal) Range (defined by the 99th percentile reference limit): <= 0.034 ng/mL Note: Cardiac troponin begins to rise 3-4 hours after the onset of ischemia. Repeat in 4-6 hours if the sample was drawn within 3-4 hours of the onset of the symptom and found normal. Diagnosis of myocardial injury is made with acute changes in cTn concentrations with at least one serial sample above the 99th percentile upper reference limit (URL), taken together with the patient's clinical presentation. Biotin has been reported to cause a negative bias, interpret results relative to patient's use of biotin. Lab Interpretation (test code = 70603-2) Normal [facility] METABOLIC PANEL ([id number])2022-03-29 04:34:44* Test Item Value Reference Range Interpretation Comme nts NA (test code = 1153592394) 136 mmol/L 135-145 K (test code = 7326213519) 4.8 mmol/L 3.5-5 CL (test code = 3800286223) 103 mmol/L 98-108 CO2 TOTAL (test code = 9302194718) 25 mmol/L 23-31 AGAP (test code = 3591762523) 2-16 BUN (test code = 8279683028) 23 mg/dL 7-23 GLUCOSE (test code = 1989395789) 235 mg/dL 70-110 H CREATININE (test code = 8358388931) 1.17 mg/dL 0.6-1.25 TOTAL BILI (test code = 6731986249) 0.5 mg/dL 0.1-1.1 CALCIUM (test code = 1683017833) 8.8 mg/dL 8.6-10.6 T PROTEIN (test code = 5871996429) 7.0 g/dL 6.3-8.2 ALBUMIN (test code = 0456834637) 4.0 g/dL 3.5-5 ALK PHOS (test code = 4713979616) 69 U/L 34-122 ALTv (test code = 1742-6) 25 U/L 5-50 AST(SGOT) (test code = 7404767968) 27 U/L 13-40 eGFR (test code = 5840939456) mL/min/1.73m2 NATANAEL (test code = NATANAEL) Association of Glomerular Filtration Rate (GFR) and Staging of Kidney Disease* + --+ --+ ------+| GFR (mL/min/1.73 m2) ?| With Kidney Damage ?| ?Without Kidney Damage+ --------+ --------+ +| ?>90 ?| ?Stage one ?| ? Normal ?+ ---+ ---+ -------+| ?60-89 ?| ?Stage two ?| ? Decreased GFR ? + --+ --+ ------+| ?30-59 ?| ?Stage three ?| ? Stage three ? + --+ --+ ------+| ?15-29 ?| ?Stage four ? | ? Stage four ?+ ---+ ---+ -------+| ?<15 (or dialysis) ? ?| ?Stage five ? | ? Stage five ?+ ---+ ---+ -------+ *Each stage assumes the associated GFR level has been in effect for at least three months. ?Stages 1 to 5, with or without kidney disease, indicate chronic kidney disease. Notes: Determination of stages one and two (with eGFR >59mL/min/1.73 m2) requires estimation of kidney damage for at least three months as defined by structural or functional abnormalities of the kidney, manifested by either:Pathological abnormalities or Markers of kidney damage (including abnormalities in the composition of the blood or urine or abnormalities in imaging tests). Lab Interpretation (test code = 21390-0) [facility] 00:07:25* Test Item Value Reference Range Interpretation Comme nts LVOT stroke volume (test code = 9133705343) 80.40 cm3 EF(Teich) (test code = 9589723073) 66.60 % LVIDD (test code = 0275064963) 4.20 cm LVIDS (test code = 7856472561) 2.70 cm IVS (test code = 3481534567) 1.00 cm LVPWD (test code = 7885887542) 1.02 cm LVOT diameter (test code = 6214646792) 2.11 cm FS (test code = 5100473593) 37 % MV Peak E Delisa (test code = 4445265276) 56.1 cm/s MV Peak A Delisa (test code = 8845698047) 64.3 cm/s E/A ratio (test code = 8409857250) ratio E wave decelartion time (test code = 1842191254) 0.27 s LA Volume Index (BP) (test code = 0698616740) 24.9 mL/m2 LA volume (BP) (test code = 9693824076) 54.8 mL LVOT peak delisa (test code = 0120911850) 105.4 cm/s LVOT mn grad (test code = 6020132426) mmHg LA size (test code = 2344290234) 3.1 cm LAV(MOD-sp2) (test code = 8163599532) 52.00 mL LAV(MOD-sp4) (test code = 6197741098) 55.00 mL Tapse (test code = 5013570152) 1.47 cm Ao peak delisa (test code = 0644006733) 114.0 cm/s AV LVOT peak gradient (test code = 0461036134) mmHg LVOT peak VTI (test code = 0725793284) 23.0 cm AV area peak delisa (test code = 9542603647) 3.2 cm2 LV V1 mean (test code = 3572073354) 82.80 cm/s Ao max PG (test code = 3594595822) 5.20 mm[Hg] MV Prop V (test code = 8809168440) 53.00 cm/s Ao root annulus (test code = 3860427934) 3.3 cm Ao root diam (test code = 1600979765) 3.30 cm AV peak gradient (test code = 8497138897) mmHg Aortic root (test code = 2749751991) 3.3 cm PW (test code = 6238344725) 1.02 cm 0.6-1.1 EF - 2D (test code = 54171397) 66.60 % Interventricular Septum Diastolic Thickness by 2D (test code = 3919389) 1.00 cm Radiology Study observation (narrative) (test code = 99339-1) NATANAEL (test code = NATANAEL) ?Left?Ventricle: Left ventricle size is normal. There is concentric remodeling. Normal wall motion. Hyperdynamic systolic function with a visually estimated EF of greater than 65%. Normal diastolic function. ?Right?Ventricle: Right ventricle is normal in size and function. ?Tricuspid?Valve: Insufficient regurgant jet to estimate RVSP. Yaron Guerrero DO [facility] Weight BSA (Calculated - sq m) BP Pulse 5' 8" (1.727 m) 239 lb (108.4 kg) 2.28 sq meters 135/80 66 [facility] GLUCOSE (AUTOMATED)2022-01-26 23:20:02* Test Item Value Reference Range Interpretation Comme nts POCT GLU (test code = 8638636887) 228 mg/dL 70-110 H Lab Interpretation (test cod e = 55098-0) Abnormal [facility] GLUCOSE (AUTOMATED)2022-01-26 19:37:06* Test Item Value Reference Range Interpretation Comme nts POCT GLU (test code = 3800018436) 216 mg/dL 70-110 H Lab Interpretation (test cod e = 94600-4) Abnormal [facility] GLUCOSE (AUTOMATED)2022-01-26 15:00:13* Test Item Value Reference Range Interpretation Comme nts POCT GLU (test code = 5510875329) 192 mg/dL 70-110 H Lab Interpretation (test cod e = 55397-3) Abnormal [id number] 10:30:52* Test Item Value Reference Range Interpretation Comments D-DIMER (test code = 1690830472) See_Comment H [Automated message] The system which generated this result transmitted reference range: <0.50 ?g/mL (FEU). The reference range was not used to interpret this result as normal/abnormal. NATANAEL (test code = NATANAEL) This test may be used in conjunction with a clinical pretest probability (PTP) assessment model to exclude venous thromboembolism (VTE) in patients suspected of deep venous thrombosis (DVT) and pulmonary embolism (PE) A D-Dimer value less than 0.50 ?g/ml (FEU) has a negative predicative value of 96 to 100% (95% CI)and 97 to 100% (95% CI) as an aid in the diagnosis of deep vein thrombosis (DVT) and pulmonary embolism when there is low or moderate pretest probability of PE or DVT. D-Dimer values are expressed in initial fibrinogen equivalent units (FEU)" The assay results should be used with other information, including the clinical context, in forming a diagnosis. Lab Interpretation (test code = 56560-1) Abnormal [facility] ([facility] / [id number] 09:49:52* Test Item Value Reference Range Interpretation Comme [facility] PROTIME PATIENT (test code = 5964-2) See_Comment [iWOPI] The system which generated this result transmitted reference range: 10.1 - 12.6 Seconds. The reference range was not used to interpret this result as normal/abnormal. INR (test code = 6301-6) Normal INR <1.1; Warfarin Therapeutic range 2.0 to 3.0 or 2.5 to 3.5, depending upon the indications. Lab Interpretation (test code = 97383-7) Normal [facility] THRMPLAS [id number] 09:49:52* Test Item Value Reference Range Interpretation Comme [facility] APTT Patient (test code = 3173-2) See_Comment [Automated [employer]] The system which generated this result transmitted reference range: 26 - 36 Seconds. The reference range was not used to interpret this result as normal/abnormal. Lab Interpretation (test code = 86070-8) [facility] [id number] 08:02:58* Test Item Value Reference Range Interpretation Comments TROPONIN I (test code = 7353589523) 0.004 ng/mL See_Comment [Automated message] The system which generated this result transmitted reference range: <=0.034. The reference range was not used to interpret this result as normal/abnormal. NATANAEL (test code = NATANAEL) Reference (Normal) Range (defined by the 99th percentile reference limit): <= 0.034 ng/mL Note: Cardiac troponin begins to rise 3-4 hours after the onset of ischemia. Repeat in 4-6 hours if the sample was drawn within 3-4 hours of the onset of the symptom and found normal. Diagnosis of myocardial injury is made with acute changes in cTn concentrations with at least one serial sample above the 99th percentile upper reference limit (URL), taken together with the patient's clinical presentation. Biotin has been reported to cause a negative bias, interpret results relative to patient's use of biotin. Lab Interpretation (test code = 12391-5) Normal [facility]AL [id number] 08:02:58* Test Item Value Reference Range Interpretation Comme nts NT-proBNP (test code = 9374051053) 73 pg/mL See_Comment [Automated message] The system which generated this result transmitted reference range: <=125. The reference range was not used to interpret this result as normal/abnormal. NATANAEL (test code = NATANAEL) Biotin has been reported to cause a negative bias, interpret results relative to patient's use of biotin. Lab Interpretation (test code = 41265-2) [facility]. METABOLIC PANEL (49022)2022-01-26 07:46:33* Test Item Value Reference Range Interpretation Comme nts NA (test code = 5416481151) 137 mmol/L 135-145 K (test code = 9639823653) 4.5 mmol/L 3.5-5.0 CL (test code = 2655050956) 105 mmol/L 98-108 CO2 TOTAL (test code = 7611804364) 22 mmol/L 23-31 L AGAP (test code = 9586319174) 2-16 BUN (test code = 2310746601) 19 mg/dL 7-23 GLUCOSE (test code = 7643458578) 190 mg/dL 70-110 H CREATININE (test code = 8953534796) 1.01 mg/dL 0.60-1.25 TOTAL BILI (test code = 1438148492) 0.5 mg/dL 0.1-1.1 CALCIUM (test code = 8670707651) 8.9 mg/dL 8.6-10.6 T PROTEIN (test code = 9751232776) 6.9 g/dL 6.3-8.2 ALBUMIN (test code = 8832924909) 4.2 g/dL 3.5-5.0 ALK PHOS (test code = 4750343924) 67 U/L 34-122 ALTv (test code = 1742-6) 23 U/L 5-50 AST(SGOT) (test code = 8902749360) 28 U/L 13-40 eGFR (test code = 8768743860) mL/min/1.73m2 NATANAEL (test code = NATANAEL) Association of Glomerular Filtration Rate (GFR) and Staging of Kidney Disease* + --+ --+ ------+| GFR (mL/min/1.73 m2) ?| With Kidney Damage ?| ?Without Kidney Damage+ --------+ --------+ +| ?>90 ?| ?Stage one ?| ? Normal ?+ ---+ ---+ -------+| ?60-89 ?| ?Stage two ?| ? Decreased GFR ? + --+ --+ ------+| ?30-59 ?| ?Stage three ?| ? Stage three ? + --+ --+ ------+| ?15-29 ?| ?Stage four ? | ? Stage four ?+ ---+ ---+ -------+| ?<15 (or dialysis) ? ?| ?Stage five ? | ? Stage five ?+ ---+ ---+ -------+ *Each stage assumes the associated GFR level has been in effect for at least three months. ?Stages 1 to 5, with or without kidney disease, indicate chronic kidney disease. Notes: Determination of stages one and two (with eGFR >59mL/min/1.73 m2) requires estimation of kidney damage for at least three months as defined by structural or functional abnormalities of the kidney, manifested by either:Pathological abnormalities or Markers of kidney damage (including abnormalities in the composition of the blood or urine or abnormalities in imaging tests). Lab Interpretation (test code = 96922-8) Abnormal [facility]2022-[facility] 07:46:33* Test Item Value Reference Range Interpretation Comme nts PHOSPHORUS (test code = 3848387959) 3.4 mg/dL 2.5-5.0 Lab Interpretation (test cod e = 32589-3) Normal [facility]2022-[facility]-24 07:46:33* Test Item Value Reference Range Interpretation Comme nts MAGNESIUM (test code = 3495629395) 1.8 mg/dL 1.7-2.4 Lab Interpretation (test cod e = 80124-9) Normal [facility] HospitalCB WITH [id number] 07:28:49* Test Item Value Reference Range Interpretation Comme nts WBC (test code = 6690-2) See_Comment [Automated messa ge] The system which generated this result transmitted reference range: 4.20 - 10.70 10*3/?L. The reference range was not used to interpret this result as normal/abnormal. RBC (test code = 789-8) See_Comment [Automated messa ge] The system which generated this result transmitted reference range: 4.26 - 5.52 10*6/?L. The reference range was not used to interpret this result as normal/abnormal. HGB (test code = 718-7) 14.9 g/dL 12.2-16.4 HCT (test code = 4544-3) 41.0 % 38.4-49.3 MCV (test code = 787-2) 81.7 fL 81.7-95.6 MCH (test code = 785-6) 29.7 pg 26.1-32.7 MCHC (test code = 786-4) 36.3 g/dL 31.2-35.0 H RDW-SD (test code = 73669-2) 38.1 fL 38.5-51.6 L RDW-CV (test code = 788-0) 12.8 % 12.1-15.4 PLT (test code = 777-3) See_Comment [Automated messa ge] The system which generated this result transmitted reference range: 150 - 328 10*3/?L. The reference range was not used to interpret this result as normal/abnormal. MPV (test code = 59101-7) 10.5 fL 9.8-13.0 NRBC/100 WBC (test code = 6956617331) See_Comment [Automated [employer] ssage] The system which generated this result transmitted reference range: 0.0 - 10.0 /100 WBCs. The reference range was not used to interpret this result as normal/abnormal. NRBC x10^3 (test code = 8639894360) <0.01 See_Comment [Automated messa ge] The system which generated this result transmitted reference range: 10*3/?L. The reference range was not used to interpret this result as normal/abnormal. GRAN MAT (NEUT) % (test code = 770-8) 63.8 % IMM GRAN % (test code = 7485410958) 0.80 % LYMPH % (test code = 736-9) 26.2 % MONO % (test code = 5905-5) 6.2 % EOS % (test code = 713-8) 2.4 % BASO % (test code = 706-2) 0.6 % GRAN MAT x10^3(ANC) (test code = 2902463556) 5.93 10*3/uL 1.99-6.95 IMM GRAN x10^3 (test code = 6475052477) 0.07 10*3/uL 0.00-0.06 H LYMPH x10^3 (test code = 731-0) 2.43 10*3/uL 1.09-3.23 MONO x10^3 (test code = 742-7) 0.58 10*3/uL 0.36-1.02 EOS x10^3 (test code = 711-2) 0.22 10*3/uL 0.06-0.53 BASO x10^3 (test code = 704-7) 0.06 10*3/uL 0.01-0.09 Lab Interpretation (test code = 25086-7) [facility]2021-12-02 12:36:39* Test Item Value Reference Range Interpretation Comme nts POCT GLU (test code = 8659232724) 348 mg/dL 70-110 H Lab Interpretation (test cod e = 40678-0) Abnormal [facility] METABOLIC PANEL (NA, K, CL, CO2, GLUCOSE, BUN, CREATININE, CA)2021-12-02 12:04:28* Test Item Value Reference Range Interpretation Comme nts NA (test code = 6657105058) 130 mmol/L 135-145 L K (test code = 5694444381) 5.0 mmol/L 3.5-5.0 CL (test code = 7432532699) 99 mmol/L 98-108 CO2 TOTAL (test code = 5318353902) 21 mmol/L 23-31 L AGAP (test code = 9623626668) 2-16 BUN (test code = 7535774432) 26 mg/dL 7-23 H GLUCOSE (test code = 0821395575) 318 mg/dL 70-110 H CREATININE (test code = 9006034345) 1.15 mg/dL 0.60-1.25 CALCIUM (test code = 1494135647) 8.8 mg/dL 8.6-10.6 eGFR (test code = 1558058843) mL/min/1.73m2 NATANAEL (test code = NATANAEL) Association of Glomerular Filtration Rate (GFR) and Staging of Kidney Disease* + --+ --+ ------+| GFR (mL/min/1.73 m2) ?| With Kidney Damage ?| ?Without Kidney Damage+ --------+ --------+ +| ?>90 ?| ?Stage one ?| ? Normal ?+ ---+ ---+ -------+| ?60-89 ?| ?Stage two ?| ? Decreased GFR ? + --+ --+ ------+| ?30-59 ?| ?Stage three ?| ? Stage three ? + --+ --+ ------+| ?15-29 ?| ?Stage four ? | ? Stage four ?+ ---+ ---+ -------+| ?<15 (or dialysis) ? ?| ?Stage five ? | ? Stage five ?+ ---+ ---+ -------+ *Each stage assumes the associated GFR level has been in effect for at least three months. ?Stages 1 to 5, with or without kidney disease, indicate chronic kidney disease. Notes: Determination of stages one and two (with eGFR >59mL/min/1.73 m2) requires estimation of kidney damage for at least three months as defined by structural or functional abnormalities of the kidney, manifested by either:Pathological abnormalities or Markers of kidney damage (including abnormalities in the composition of the blood or urine or abnormalities in imaging tests). Lab Interpretation (test code = 25811-9) [facility] 12:04:28* Test Item Value Reference Range Interpretation Comme nts MAGNESIUM (test code = 4894095840) 2.0 mg/dL 1.7-2.4 Lab Interpretation (test cod e = 04645-9) [facility] 12:04:28* Test Item Value Reference Range Interpretation Comme nts PHOSPHORUS (test code = 0183962310) 2.4 mg/dL 2.5-5.0 L Lab Interpretation (test cod e = 83352-9) [facility] WITH [id number] 11:05:18* Test Item Value Reference Range Interpretation Comme nts WBC (test code = 6690-2) See_Comment H [Automated [employer]] The system which generated this result transmitted reference range: 4.20 - 10.70 10*3/?L. The reference range was not used to interpret this result as normal/abnormal. RBC (test code = 789-8) See_Comment [Automated [employer]] The system which generated this result transmitted reference range: 4.26 - 5.52 10*6/?L. The reference range was not used to interpret this result as normal/abnormal. HGB (test code = 718-7) 14.7 g/dL 12.2-16.4 HCT (test code = 4544-3) 42.9 % 38.4-49.3 MCV (test code = 787-2) 82.5 fL 81.7-95.6 MCH (test code = 785-6) 28.3 pg 26.1-32.7 MCHC (test code = 786-4) 34.3 g/dL 31.2-35.0 RDW-SD (test code = 71458-1) 38.4 fL 38.5-51.6 L RDW-CV (test code = 788-0) 12.8 % 12.1-15.4 PLT (test code = 777-3) See_Comment [Automated [employer]] The system which generated this result transmitted reference range: 150 - 328 10*3/?L. The reference range was not used to interpret this result as normal/abnormal. MPV (test code = 41631-7) 10.9 fL 9.8-13.0 NRBC/100 WBC (test code = 8481826697) See_Comment [Automated me ssage] The system which generated this result transmitted reference range: 0.0 - 10.0 /100 WBCs. The reference range was not used to interpret this result as normal/abnormal. NRBC x10^3 (test code = 3572848604) <0.01 See_Comment [Automated messa ge] The system which generated this result transmitted reference range: 10*3/?L. The reference range was not used to interpret this result as normal/abnormal. GRAN MAT (NEUT) % (test code = 770-8) 88.3 % IMM GRAN % (test code = 2466558689) 0.50 % LYMPH % (test code = 736-9) 9.6 % MONO % (test code = 5905-5) 1.5 % EOS % (test code = 713-8) 0.0 % BASO % (test code = 706-2) 0.1 % GRAN MAT x10^3(ANC) (test code = 8575069624) 9.65 10*3/uL 1.99-6.95 H IMM GRAN x10^3 (test code = 6804398299) 0.06 10*3/uL 0.00-0.06 LYMPH x10^3 (test code = 731-0) 1.05 10*3/uL 1.09-3.23 L MONO x10^3 (test code = 742-7) 0.16 10*3/uL 0.36-1.02 L EOS x10^3 (test code = 711-2) <0.03 0.06-0.53 L BASO x10^3 (test code = 704-7) <0.03 0.01-0.09 Lab Interpretation (test code = 14923-0) [facility]21-[facility] 22:57:16* Test Item Value Reference Range Interpretation Comme nts POCT GLU (test code = 9705976562) 145 mg/dL 70-110 H Lab Interpretation (test cod e = 85111-0) Abnormal [facility] Metabolic Panel (NA, K, CL, CO2, GLUCOSE, BUN, CREATININE, CA)2021-12-01 10:26:10* Test Item Value Reference Range Interpretation Comme nts NA (test code = 7991810630) 135 mmol/L 135-145 K (test code = 6218129818) 4.3 mmol/L 3.5-5.0 CL (test code = 5848712098) 103 mmol/L 98-108 CO2 TOTAL (test code = 0895376848) 26 mmol/L 23-31 AGAP (test code = 7188407320) 2-16 BUN (test code = 1083234491) 18 mg/dL 7-23 GLUCOSE (test code = 9996721873) 178 mg/dL 70-110 H CREATININE (test code = 8537824895) 1.02 mg/dL 0.60-1.25 CALCIUM (test code = 0555729801) 8.6 mg/dL 8.6-10.6 eGFR (test code = 5549756529) mL/min/1.73m2 NATANAEL (test code = NATANAEL) Association of Glomerular Filtration Rate (GFR) and Staging of Kidney Disease* + --+ --+ ------+| GFR (mL/min/1.73 m2) ?| With Kidney Damage ?| ?Without Kidney Damage+ --------+ --------+ +| ?>90 ?| ?Stage one ?| ? Normal ?+ ---+ ---+ -------+| ?60-89 ?| ?Stage two ?| ? Decreased GFR ? + --+ --+ ------+| ?30-59 ?| ?Stage three ?| ? Stage three ? + --+ --+ ------+| ?15-29 ?| ?Stage four ? | ? Stage four ?+ ---+ ---+ -------+| ?<15 (or dialysis) ? ?| ?Stage five ? | ? Stage five ?+ ---+ ---+ -------+ *Each stage assumes the associated GFR level has been in effect for at least three months. ?Stages 1 to 5, with or without kidney disease, indicate chronic kidney disease. Notes: Determination of stages one and two (with eGFR >59mL/min/1.73 m2) requires estimation of kidney damage for at least three months as defined by structural or functional abnormalities of the kidney, manifested by either:Pathological abnormalities or Markers of kidney damage (including abnormalities in the composition of the blood or urine or abnormalities in imaging tests). Lab Interpretation (test code = 69051-2) [facility] [id number] 10:26:10* Test Item Value Reference Range Interpretation Comme [facility] MAGNESIUM (test code = 6610042446) 1.8 mg/dL 1.7-2.4 Lab Interpretation (test cod e = 10470-5) [facility] 09:57:07* Test Item Value Reference Range Interpretation Comme nts APTT Patient (test code = 3173-2) See_Comment [Automated [employer]] The system which generated this result transmitted reference range: 26 - 36 Seconds. The reference range was not used to interpret this result as normal/abnormal. Lab Interpretation (test code = 69191-9) [facility] / [id number] 09:57:07* Test Item Value Reference Range Interpretation Comme [facility] PROTIME PATIENT (test code = 5964-2) See_Comment [Automated [employer]] The system which generated this result transmitted reference range: 10.1 - 12.6 Seconds. The reference range was not used to interpret this result as normal/abnormal. INR (test code = 6301-6) Normal INR <1.1; Warfarin Therapeutic range 2.0 to 3.0 or 2.5 to 3.5, depending upon the indications. Lab Interpretation (test code = 82081-8) [facility] [id number] 07:15:45* Test Item Value Reference Range Interpretation Comments TROPONIN I (test code = 7640364218) 0.003 ng/mL See_Comment [Automated message] The system which generated this result transmitted reference range: <=0.034. The reference range was not used to interpret this result as normal/abnormal. NATANAEL (test code = NATANAEL) Reference (Normal) Range (defined by the 99th percentile reference limit): <= 0.034 ng/mL Note: Cardiac troponin begins to rise 3-4 hours after the onset of ischemia. Repeat in 4-6 hours if the sample was drawn within 3-4 hours of the onset of the symptom and found normal. Diagnosis of myocardial injury is made with acute changes in cTn concentrations with at least one serial sample above the 99th percentile upper reference limit (URL), taken together with the patient's clinical presentation. Biotin has been reported to cause a negative bias, interpret results relative to patient's use of biotin. Lab Interpretation (test code = 25864-8) Normal [facility]SALMA [id number] 02:53:14* Test Item Value Reference Range Interpretation Comments TROPONIN I (test code = 4878216698) 0.000 ng/mL See_Comment [Automated message] The system which generated this result transmitted reference range: <=0.034. The reference range was not used to interpret this result as normal/abnormal. NATANAEL (test code = NATANAEL) Reference (Normal) Range (defined by the 99th percentile reference limit): <= 0.034 ng/mL Note: Cardiac troponin begins to rise 3-4 hours after the onset of ischemia. Repeat in 4-6 hours if the sample was drawn within 3-4 hours of the onset of the symptom and found normal. Diagnosis of myocardial injury is made with acute changes in cTn concentrations with at least one serial sample above the 99th percentile upper reference limit (URL), taken together with the patient's clinical presentation. Biotin has been reported to cause a negative bias, interpret results relative to patient's use of biotin. Lab Interpretation (test code = 21077-9) Normal [facility] GLUCOSE (AUTOMATED)2021-10-14 17:13:28* Test Item Value Reference Range Interpretation Comme [facility] POCT GLU (test code = 0723279841) 316 mg/dL 70-110 H Lab Interpretation (test cod e = 40998-9) Abnormal [facility] GLUCOSE (AUTOMATED)2021-10-14 14:41:58* Test Item Value Reference Range Interpretation Comme [facility] POCT GLU (test code = 5506037330) 474 mg/dL 70-110 HH Lab Interpretation (test cod e = 65435-6) Abnormal [facility] METABOLIC PANEL (NA, K, CL, CO2, GLUCOSE, BUN, CREATININE, CA)2021-10-14 12:25:01* Test Item Value Reference Range Interpretation Comme [facility] NA (test code = 1640423563) 132 mmol/L 135-145 L K (test code = 6314031843) 4.7 mmol/L 3.5-5.0 CL (test code = 8961280747) 104 mmol/L 98-108 CO2 TOTAL (test code = 1828805092) 23 mmol/L 23-31 AGAP (test code = 3841313476) 2-16 BUN (test code = 1610104144) 24 mg/dL 7-23 H GLUCOSE (test code = 0516050770) 334 mg/dL 70-110 H CREATININE (test code = 3646366388) 1.09 mg/dL 0.60-1.25 CALCIUM (test code = 4361973815) 7.9 mg/dL 8.6-10.6 L eGFR (test code = 4097856270) mL/min/1.73m2 NATANAEL (test code = NATANAEL) Association of Glomerular Filtration Rate (GFR) and Staging of Kidney Disease* + --+ --+ ------+| GFR (mL/min/1.73 m2) ?| With Kidney Damage ?| ?Without Kidney Damage+ --------+ --------+ +| ?>90 ?| ?Stage one ?| ? Normal ?+ ---+ ---+ -------+| ?60-89 ?| ?Stage two ?| ? Decreased GFR ? + --+ --+ ------+| ?30-59 ?| ?Stage three ?| ? Stage three ? + --+ --+ ------+| ?15-29 ?| ?Stage four ? | ? Stage four ?+ ---+ ---+ -------+| ?<15 (or dialysis) ? ?| ?Stage five ? | ? Stage five ?+ ---+ ---+ -------+ *Each stage assumes the associated GFR level has been in effect for at least three months. ?Stages 1 to 5, with or without kidney disease, indicate chronic kidney disease. Notes: Determination of stages one and two (with eGFR >59mL/min/1.73 m2) requires estimation of kidney damage for at least three months as defined by structural or functional abnormalities of the kidney, manifested by either:Pathological abnormalities or Markers of kidney damage (including abnormalities in the composition of the blood or urine or abnormalities in imaging tests). Lab Interpretation (test code = 65646-7) [facility] 12:25[facility]* Test Item Value Reference Range Interpretation Comme nts MAGNESIUM (test code = 6283812023) 2.2 mg/dL 1.7-2.4 Lab Interpretation (test cod e = 35327-8) Normal [facility] WITH [id number] 11:53:49* Test Item Value Reference Range Interpretation Comme nts WBC (test code = 6690-2) See_Comment H [Automated message] The system which generated this result transmitted reference range: 4.20 - 10.70 10*3/?L. The reference range was not used to interpret this result as normal/abnormal. RBC (test code = 789-8) See_Comment [Automated message] The system which generated this result transmitted reference range: 4.26 - 5.52 10*6/?L. The reference range was not used to interpret this result as normal/abnormal. HGB (test code = 718-7) 12.7 g/dL 12.2-16.4 HCT (test code = 4544-3) 36.6 % 38.4-49.3 L MCV (test code = 787-2) 83.4 fL 81.7-95.6 MCH (test code = 785-6) 28.9 pg 26.1-32.7 MCHC (test code = 786-4) 34.7 g/dL 31.2-35.0 RDW-SD (test code = 81955-3) 39.0 fL 38.5-51.6 RDW-CV (test code = 788-0) 12.9 % 12.1-15.4 PLT (test code = 777-3) See_Comment [Automated message] The system which generated this result transmitted reference range: 150 - 328 10*3/?L. The reference range was not used to interpret this result as normal/abnormal. MPV (test code = 79528-0) 10.9 fL 9.8-13.0 NRBC/100 WBC (test code = 8151509140) See_Comment [Automated message] The system which generated this result transmitted reference range: 0.0 - 10.0 /100 WBCs. The reference range was not used to interpret this result as normal/abnormal. NRBC x10^3 (test code = 8927886076) <0.01 See_Comment [Automated message] The system which generated this result transmitted reference range: 10*3/?L. The reference range was not used to interpret this result as normal/abnormal. GRAN MAT (NEUT) % (test code = 770-8) 87.5 % IMM GRAN % (test code = 3474404099) 0.70 % LYMPH % (test code = 736-9) 8.2 % MONO % (test code = 5905-5) 3.5 % EOS % (test code = 713-8) 0.0 % BASO % (test code = 706-2) 0.1 % GRAN MAT x10^3(ANC) (test code = 1337213075) 13.23 10*3/uL 1.99-6.95 H IMM GRAN x10^3 (test code = 7356232613) 0.10 10*3/uL 0.00-0.06 H LYMPH x10^3 (test code = 731-0) 1.24 10*3/uL 1.09-3.23 MONO x10^3 (test code = 742-7) 0.53 10*3/uL 0.36-1.02 EOS x10^3 (test code = 711-2) <0.03 0.06-0.53 L BASO x10^3 (test code = 704-7) <0.03 0.01-0.09 Lab Interpretation (test code = 76454-3) Abnormal [facility] GLUCOSE (AUTOMATED)2021-10-14 02:18:49* Test Item Value Reference Range Interpretation Comme nts POCT GLU (test code = 4535942357) 324 mg/dL 70-110 H Lab Interpretation (test cod e = 58770-4) Abnormal [facility] ACT LOW [id number] 23:04:24* Test Item Value Reference Range Interpretation Comme nts ACTLR (test code = 1862040112) See_Comment H [Automated messa ge] The system which generated this result transmitted reference range: 89 - 169 Seconds. The reference range was not used to interpret this result as normal/abnormal. Lab Interpretation (test code = 40375-7) Abnormal [facility] GLUCOSE (AUTOMATED)2021-10-13 19:25:15* Test Item Value Reference Range Interpretation Comme nts POCT GLU (test code = 1520032616) 288 mg/dL 70-110 H Lab Interpretation (test cod e = 85434-0) Abnormal [facility] GLUCOSE (AUTOMATED)2021-10-13 15:38:40* Test Item Value Reference Range Interpretation Comme nts POCT GLU (test code = 7955116669) 270 mg/dL 70-110 H Lab Interpretation (test cod e = 45068-2) Abnormal [facility] GLUCOSE (AUTOMATED)2021-10-13 14:29:37* Test Item Value Reference Range Interpretation Comme nts POCT GLU (test code = 0846169020) 316 mg/dL 70-110 H Lab Interpretation (test cod e = 08616-0) [facility] [id number] 11:36:47* Test Item Value Reference Range Interpretation Comments TROPONIN I (test code = 9701692107) 0.002 ng/mL See_Comment [Automated message] The system which generated this result transmitted reference range: <=0.034. The reference range was not used to interpret this result as normal/abnormal. NATANAEL (test code = NATANAEL) Reference (Normal) Range (defined by the 99th percentile reference limit): <= 0.034 ng/mL Note: Cardiac troponin begins to rise 3-4 hours after the onset of ischemia. Repeat in 4-6 hours if the sample was drawn within 3-4 hours of the onset of the symptom and found normal. Diagnosis of myocardial injury is made with acute changes in cTn concentrations with at least one serial sample above the 99th percentile upper reference limit (URL), taken together with the patient's clinical presentation. Biotin has been reported to cause a negative bias, interpret results relative to patient's use of biotin. Lab Interpretation (test code = 37133-6) Normal [facility] GLUCOSE (AUTOMATED)2021-10-13 11:16:25* Test Item Value Reference Range Interpretation Comme nts POCT GLU (test code = 4793447186) 281 mg/dL 70-110 H Lab Interpretation (test cod e = 16984-3) Abnormal [facility] HospitalLIPID PANEL (85092)(TOTAL CHOLESTEROL, TRIGLYCERIDES, HDL)2021-10-13 10:23:37* Test Item Value Reference Range Interpretation Comme nts CHOL (test code = 9486595487) 185 mg/dL 120-200 HDL (test code = 4684262536) 37 mg/dL >40 L HDLC RATIO (test code = 0702665886) See_Comment [[employer]] The system which generated this result transmitted reference range: <=5.0. The reference range was not used to interpret this result as normal/abnormal. TRIG (test code = 6197392705) 112 mg/dL 30-170 LDL CHOL (test code = 25869-8) 126 mg/dL See_Comment [[employer]] The system which generated this result transmitted reference range: <=160. The reference range was not used to interpret this result as normal/abnormal. VLDL (test code = 2636747413) 22 mg/dL 5-60 Lab Interpretation (test code = 40823-7) Abnormal [facility] Metabolic Panel (NA, K, CL, CO2, GLUCOSE, BUN, CREATININE, CA)2021-10-13 10:23:37* Test Item Value Reference Range Interpretation Comme nts NA (test code = 4542990109) 136 mmol/L 135-145 K (test code = 6532905268) 4.8 mmol/L 3.5-5.0 CL (test code = 2873238687) 103 mmol/L 98-108 CO2 TOTAL (test code = 0563870404) 24 mmol/L 23-31 AGAP (test code = 5757078095) 2-16 BUN (test code = 6277402041) 16 mg/dL 7-23 GLUCOSE (test code = 5573236554) 316 mg/dL 70-110 H CREATININE (test code = 8699583311) 1.15 mg/dL 0.60-1.25 CALCIUM (test code = 0017261130) 8.7 mg/dL 8.6-10.6 eGFR (test code = 9245940267) mL/min/1.73m2 NATANAEL (test code = NATANAEL) Association of Glomerular Filtration Rate (GFR) and Staging of Kidney Disease* + --+ --+ ------+| GFR (mL/min/1.73 m2) ?| With Kidney Damage ?| ?Without Kidney Damage+ --------+ --------+ +| ?>90 ?| ?Stage one ?| ? Normal ?+ ---+ ---+ -------+| ?60-89 ?| ?Stage two ?| ? Decreased GFR ? + --+ --+ ------+| ?30-59 ?| ?Stage three ?| ? Stage three ? + --+ --+ ------+| ?15-29 ?| ?Stage four ? | ? Stage four ?+ ---+ ---+ -------+| ?<15 (or dialysis) ? ?| ?Stage five ? | ? Stage five ?+ ---+ ---+ -------+ *Each stage assumes the associated GFR level has been in effect for at least three months. ?Stages 1 to 5, with or without kidney disease, indicate chronic kidney disease. Notes: Determination of stages one and two (with eGFR >59mL/min/1.73 m2) requires estimation of kidney damage for at least three months as defined by structural or functional abnormalities of the kidney, manifested by either:Pathological abnormalities or Markers of kidney damage (including abnormalities in the composition of the blood or urine or abnormalities in imaging tests). Lab Interpretation (test code = 38095-2) [facility] [id number] 10:23:37* Test Item Value Reference Range Interpretation Comme nts MAGNESIUM (test code = 7964705867) 2.8 mg/dL 1.7-2.4 H Lab Interpretation (test cod e = 36339-9) [facility]normal [facility] [id number] 01:56:15* Test Item Value Reference Range Interpretation Comments TROPONIN I (test code = 1329881940) 0.006 ng/mL See_Comment [Automated message] The system which generated this result transmitted reference range: <=0.034. The reference range was not used to interpret this result as normal/abnormal. NATANAEL (test code = NATANAEL) Reference (Normal) Range (defined by the 99th percentile reference limit): <= 0.034 ng/mL Note: Cardiac troponin begins to rise 3-4 hours after the onset of ischemia. Repeat in 4-6 hours if the sample was drawn within 3-4 hours of the onset of the symptom and found normal. Diagnosis of myocardial injury is made with acute changes in cTn concentrations with at least one serial sample above the 99th percentile upper reference limit (URL), taken together with the patient's clinical presentation. Biotin has been reported to cause a negative bias, interpret results relative to patient's use of biotin. Lab Interpretation (test code = 20154-6) Normal [facility] HospitalPROTHROMBIN TIME / [id number] 01:34:11* Test Item Value Reference Range Interpretation Comme nts PROTIME PATIENT (test code = 5964-2) See_Comment [Automated [employer]] The system which generated this result transmitted reference range: 10.1 - 12.6 Seconds. The reference range was not used to interpret this result as normal/abnormal. INR (test code = 6301-6) Normal INR <1.1; Warfarin Therapeutic range 2.0 to 3.0 or 2.5 to 3.5, depending upon the indications. Lab Interpretation (test code = 03149-8) Normal [facility]ACT[facility]IAL THRMPLAS [id number] 01:34:11* Test Item Value Reference Range Interpretation Comme [facility] APTT Patient (test code = 3173-2) See_Comment [Automated [employer]] The system which generated this result transmitted reference range: 26 - 36 Seconds. The reference range was not used to interpret this result as normal/abnormal. Lab Interpretation (test code = 12166-4) Normal [facility] HospitalThyroid Stimulating Hormone (TSH)2021-10-13 01:27:32* Test Item Value Reference Range Interpretation Comme [facility] TSH (test code = 0131017167) See_Comment [Automated [employer]] The system which generated this result transmitted reference range: 0.45 - 4.70 mIU/L. The reference range was not used to interpret this result as normal/abnormal. Lab Interpretation (test code = 35146-3) [facility]2022-[facility] 00:52:59* Test Item Value Reference Range Interpretation Comme [facility] MAGNESIUM (test code = 2831763690) 1.6 mg/dL 1.7-2.4 L Lab Interpretation (test cod e = 71608-0) Abnormal [facility]GLYCOSYLATED HEMOGLOBIN (A1C)2021-10-13 00:48:00* Test Item Value Reference Range Interpretation Comme [facility] HGB A1C (test code = 4548-4) 7.3 % 4.0-5.7 H NATANAEL (test code = NATANAEL) Reference RangesNormal: <5.7%Prediabetes: 5.7 - 6.4%Diabetes: > 6.5% Lab Interpretation (test code = 16379-5) [facility]normal [facility]TR[facility] [id number] 19:42:01* Test Item Value Reference Range Interpretation Comments TROPONIN I (test code = 6176412399) 0.002 ng/mL See_Comment [Automated message] The system which generated this result transmitted reference range: <=0.034. The reference range was not used to interpret this result as normal/abnormal. NATANAEL (test code = NATANAEL) Reference (Normal) Range (defined by the 99th percentile reference limit): <= 0.034 ng/mL Note: Cardiac troponin begins to rise 3-4 hours after the onset of ischemia. Repeat in 4-6 hours if the sample was drawn within 3-4 hours of the onset of the symptom and found normal. Diagnosis of myocardial injury is made with acute changes in cTn concentrations with at least one serial sample above the 99th percentile upper reference limit (URL), taken together with the patient's clinical presentation. Biotin has been reported to cause a negative bias, interpret results relative to patient's use of biotin. Lab Interpretation (test code = 30143-6) Normal [facility] Hospital[facility]-TERMINAL [id number] 19:42:01* Test Item Value Reference Range Interpretation Comme nts NT-proBNP (test code = 6047299100) 66 pg/mL See_Comment [Automated message] The system which generated this result transmitted reference range: <=125. The reference range was not used to interpret this result as normal/abnormal. NATANAEL (test code = NATANAEL) Biotin has been reported to cause a negative bias, interpret results relative to patient's use of biotin. Lab Interpretation (test code = 18689-0) [facility] METABOLIC PANEL (27149)2021-10-12 19:28:38* Test Item Value Reference Range Interpretation Comme nts NA (test code = 3045025215) 136 mmol/L 135-145 K (test code = 6182460749) 4.5 mmol/L 3.5-5.0 CL (test code = 8602404810) 104 mmol/L 98-108 CO2 TOTAL (test code = 3653429856) 24 mmol/L 23-31 AGAP (test code = 7190315708) 2-16 BUN (test code = 4009579442) 15 mg/dL 7-23 GLUCOSE (test code = 1341787029) 224 mg/dL 70-110 H CREATININE (test code = 4015858839) 0.99 mg/dL 0.60-1.25 TOTAL BILI (test code = 0287684875) 0.3 mg/dL 0.1-1.1 CALCIUM (test code = 6490928711) 8.5 mg/dL 8.6-10.6 L T PROTEIN (test code = 8699554039) 6.6 g/dL 6.3-8.2 ALBUMIN (test code = 2819057204) 3.8 g/dL 3.5-5.0 ALK PHOS (test code = 0585200702) 71 U/L 34-122 ALTv (test code = 1742-6) 20 U/L 5-50 AST(SGOT) (test code = 2689263759) 25 U/L 13-40 eGFR (test code = 4740636740) mL/min/1.73m2 NATANAEL (test code = NATANAEL) Association of Glomerular Filtration Rate (GFR) and Staging of Kidney Disease* + --+ --+ ------+| GFR (mL/min/1.73 m2) ?| With Kidney Damage ?| ?Without Kidney Damage+ --------+ --------+ +| ?>90 ?| ?Stage one ?| ? Normal ?+ ---+ ---+ -------+| ?60-89 ?| ?Stage two ?| ? Decreased GFR ? + --+ --+ ------+| ?30-59 ?| ?Stage three ?| ? Stage three ? + --+ --+ ------+| ?15-29 ?| ?Stage four ? | ? Stage four ?+ ---+ ---+ -------+| ?<15 (or dialysis) ? ?| ?Stage five ? | ? Stage five ?+ ---+ ---+ -------+ *Each stage assumes the associated GFR level has been in effect for at least three months. ?Stages 1 to 5, with or without kidney disease, indicate chronic kidney disease. Notes: Determination of stages one and two (with eGFR >59mL/min/1.73 m2) requires estimation of kidney damage for at least three months as defined by structural or functional abnormalities of the kidney, manifested by either:Pathological abnormalities or Markers of kidney damage (including abnormalities in the composition of the blood or urine or abnormalities in imaging tests). Lab Interpretation (test code = 12352-8) Abnormal [facility] WITH [id number] 19:13:57* Test Item Value Reference Range Interpretation Comme nts WBC (test code = 6690-2) See_Comment [Automated [employer]] The system which generated this result transmitted reference range: 4.20 - 10.70 10*3/?L. The reference range was not used to interpret this result as normal/abnormal. RBC (test code = 789-8) See_Comment [Automated [employer]] The system which generated this result transmitted reference range: 4.26 - 5.52 10*6/?L. The reference range was not used to interpret this result as normal/abnormal. HGB (test code = 718-7) 13.8 g/dL 12.2-16.4 HCT (test code = 4544-3) 39.3 % 38.4-49.3 MCV (test code = 787-2) 82.9 fL 81.7-95.6 MCH (test code = 785-6) 29.1 pg 26.1-32.7 MCHC (test code = 786-4) 35.1 g/dL 31.2-35.0 H RDW-SD (test code = 57284-6) 38.2 fL 38.5-51.6 L RDW-CV (test code = 788-0) 12.7 % 12.1-15.4 PLT (test code = 777-3) See_Comment [Automated [employer]] The system which generated this result transmitted reference range: 150 - 328 10*3/?L. The reference range was not used to interpret this result as normal/abnormal. MPV (test code = 09059-7) 10.4 fL 9.8-13.0 NRBC/100 WBC (test code = 8147643017) See_Comment [Automated [employer]] The system which generated this result transmitted reference range: 0.0 - 10.0 /100 WBCs. The reference range was not used to interpret this result as normal/abnormal. NRBC x10^3 (test code = 0168784806) <0.01 See_Comment [Automated messa ge] The system which generated this result transmitted reference range: 10*3/?L. The reference range was not used to interpret this result as normal/abnormal. GRAN MAT (NEUT) % (test code = 770-8) 62.6 % IMM GRAN % (test code = 1859294238) 0.50 % LYMPH % (test code = 736-9) 26.5 % MONO % (test code = 5905-5) 6.5 % EOS % (test code = 713-8) 3.0 % BASO % (test code = 706-2) 0.9 % GRAN MAT x10^3(ANC) (test code = 5849210065) 4.13 10*3/uL 1.99-6.95 IMM GRAN x10^3 (test code = 5621146692) 0.03 10*3/uL 0.00-0.06 LYMPH x10^3 (test code = 731-0) 1.75 10*3/uL 1.09-3.23 MONO x10^3 (test code = 742-7) 0.43 10*3/uL 0.36-1.02 EOS x10^3 (test code = 711-2) 0.20 10*3/uL 0.06-0.53 BASO x10^3 (test code = 704-7) 0.06 10*3/uL 0.01-0.09 Lab Interpretation (test code = 45228-8) [facility]normal [facility] (A1C)2021-04-30 13:58:15* Test Item Value Reference Range Interpretation Comme nts HGB A1C (test code = 4548-4) 6.6 % 4.0-5.7 H NATANAEL (test code = NATANAEL) Reference RangesNormal: <5.7%Prediabetes: 5.7 - 6.4%Diabetes: > 6.5% Lab Interpretation (test code = 58585-2) Abnormal [facility] (A1C)2021-04-30 13:58:15* Test Item Value Reference Range Interpretation Comme nts HGB A1C (test code = 4548-4) 6.6 % 4.0-5.7 H NATANAEL (test code = NATANAEL) Lab Interpretation (test cod e = 95434-8) Abnormal [facility] METABOLIC PANEL (NA, K, CL, CO2, GLUCOSE, BUN, CREATININE, CA)2021-04-30 13:53:30* Test Item Value Reference Range Interpretation Comme nts NA (test code = 5223434001) 134 mmol/L 135-145 L K (test code = 9896658982) 4.3 mmol/L 3.5-5.0 CL (test code = 1652397797) 104 mmol/L 98-108 CO2 TOTAL (test code = 9887350304) 27 mmol/L 23-31 AGAP (test code = 1395123272) 2-16 BUN (test code = 8925678308) 14 mg/dL 7-23 GLUCOSE (test code = 1873107213) 170 mg/dL 70-110 H CREATININE (test code = 8794083268) 0.83 mg/dL 0.60-1.25 CALCIUM (test code = 3787129834) 7.9 mg/dL 8.6-10.6 L eGFR (test code = 8601345709) mL/min/1.73m2 NATANAEL (test code = NATANAEL) Association of Glomerular Filtration Rate (GFR) and Staging of Kidney Disease* + --+ --+ ------+| GFR (mL/min/1.73 m2) ?| With Kidney Damage ?| ?Without Kidney Damage+ --------+ --------+ +| ?>90 ?| ?Stage one ?| ? Normal ?+ ---+ ---+ -------+| ?60-89 ?| ?Stage two ?| ? Decreased GFR ? + --+ --+ ------+| ?30-59 ?| ?Stage three ?| ? Stage three ? + --+ --+ ------+| ?15-29 ?| ?Stage four ? | ? Stage four ?+ ---+ ---+ -------+| ?<15 (or dialysis) ? ?| ?Stage five ? | ? Stage five ?+ ---+ ---+ -------+ *Each stage assumes the associated GFR level has been in effect for at least three months. ?Stages 1 to 5, with or without kidney disease, indicate chronic kidney disease. Notes: Determination of stages one and two (with eGFR >59mL/min/1.73 m2) requires estimation of kidney damage for at least three months as defined by structural or functional abnormalities of the kidney, manifested by either:Pathological abnormalities or Markers of kidney damage (including abnormalities in the composition of the blood or urine or abnormalities in imaging tests). Lab Interpretation (test code = 11933-1) Abnormal [facility] METABOLIC PANEL (NA, K, CL, CO2, GLUCOSE, BUN, CREATININE, CA)2021-04-30 13:53:30* Test Item Value Reference Range Interpretation Comme [facility] NA (test code = 0524954782) 134 mmol/L 135-145 L K (test code = 2260603251) 4.3 mmol/L 3.5-5.0 CL (test code = 8786097699) 104 mmol/L 98-108 CO2 TOTAL (test code = 8992173026) 27 mmol/L 23-31 AGAP (test code = 2590351220) 2-16 BUN (test code = 2218539302) 14 mg/dL 7-23 GLUCOSE (test code = 6538024694) 170 mg/dL 70-110 H CREATININE (test code = 5548442292) 0.83 mg/dL 0.60-1.25 CALCIUM (test code = 2043897433) 7.9 mg/dL 8.6-10.6 L eGFR (test code = 3562137122) mL/min/1.73m2 NATANAEL (test code = NATANAEL) Lab Interpretation (test cod e = 72018-4) Abnormal [facility] (for use with Heparin Drip)2021-04-30 02:44:55* Test Item Value Reference Range Interpretation Comme [facility] APTT Patient (test code = 3173-2) See_Comment H [Automated [employer] ge] The system which generated this result transmitted reference range: 26 - 36 Seconds. The reference range was not used to interpret this result as normal/abnormal. Lab Interpretation (test code = 09073-0) Abnormal [facility] (for use with Heparin Drip)2021-04-30 02:44:55* Test Item Value Reference Range Interpretation Comme nts APTT Patient (test code = 3173-2) See_Comment H [Automated [employer] ge] The system which generated this result transmitted reference range: 26 - 36 Seconds. The reference range was not used to interpret this result as normal/abnormal. Lab Interpretation (test code = 45181-4) Abnormal [facility] ONLY COVID [id number] 22:28:35COVID DMT InterpretationInterpretation/Recommendations:Molecular NAAT Tests for Active Infection with the SARS-CoV-2 Virus:The patient has currently tested negative for the SARS-CoV-2 virus that causes COVID-19 illness. This most likely indicates that the patient does not have an active infection with the SARS-CoV-2 virus. However, infection is not completely ruled out as the false negative rate for molecular NAAT testing using a nasopharyngeal sample can be up to 30%, mostly dependent on the timing of sample collection in relation to illness onset and any deficiencies in sampling techniques.If the patient has symptoms concerning for COVID-19 illness, a repeat NAAT test (PCR, Rapid ID Now, etc.) should be performed, at which time the SARS-CoV-2 virus if present may have reached adetectable viral load (usually peaking by the end of the first week of symptoms). Tests for IgM and/or IgG Antibodies to the SARS-CoV-2 Virus:Testing for IgM and IgG antibodies approximately 3 weeks after illness onset will likely indicate if the patient has produced antibodies to the SARS-CoV-2 virus. However, some patients may take longer to develop detectable antibodies, while others infected with SARS-CoV-2 may never develop antibodies, particularly those who have had mild or asymptomatic illness. Of note, if the patient has been vaccinated earlier than 1-2 weeks prior to antibody testing, any positive SARS-CoV-2 IgG antibody result is likely due to vaccination. The specific duration and strength of immunity from SARS-CoV-2 IgG antibodies is highly variable between individuals and is dependent on a variety of factors, including infection vs. vaccination response, initial infection severity, the strength of the patient's own immune system, and the variants to which the patient has been exposed. ? Interpretation Result Comments:These interpretation comments are based upon all COVID-19 testing the patient has had at [facility], including molecular NAAT testing (more commonly known as PCR testing and Rapid ID Nowtesting) and antibody testing. It does not take into account any testing that a patient has had outs jeet of the [facility] medical record. [facility] LABORATORY SERVICESCOVID DmmafxmPAJA-PmN-4 Rapid ID NOW (no units) ? ? Date ? Value ? 04/28/2021 ? Not Detected ? ? ? 04/04/2021 ? Not Detected ? [facility] [id number] 22:28:35COVID DMT InterpretationInterpretation/Recommendations:Molecular NAAT Tests for Active Infection with the SARS-CoV-2 Virus:The patient has currently tested negative for the SARS-CoV-2 virus that causes COVID-19 illness. This most likely indicates that the patient does not have an active infection with the SARS-CoV-2 virus. However, infection is not completely ruled out as the false negative rate for molecular NAAT testing using a nasopharyngeal sample can be up to 30%, mostly dependent on the timing of sample collection in relation to illness onset and any deficiencies in sampling techniques.If the patient has symptoms concerning for COVID-19 illness, a repeat NAAT test (PCR, Rapid ID Now,etc.) should be performed, at which time the SARS-CoV-2 virus if present may have reached adetectable viral load (usually peaking by the end of the first week of symptoms). Tests for IgM and/or IgG Antibodies to the SARS-CoV-2 Virus:Testing for IgM and IgG antibodies approximately 3 weeks after illness onset will likely indicate if the patient has produced antibodies to the SARS-CoV-2 virus. However, some patients may take longer to develop detectable antibodies, while others infected with SARS-CoV-2 may never develop antibodies, particularly those who have had mild or asymptomatic illness. Of note, if the patient has been vaccinated earlier than 1-2 weeks prior to antibody testing, any positive SARS-CoV-2 IgG antibody result is likely due to vaccination. The specific duration and strength of immunity from SARS-CoV-2 IgG antibodies is highly variable between individuals and is dependent on a variety of factors, including infection vs. vaccination response, initial infection severity, the strength of the patient's own immune system, and the variants to which the patient has been exposed. ? Interpretation Result Comments:These interpretation comments are based upon all COVID-19 testing the patient has had at [facility], including molecular NAAT testing (more commonly known as PCR testing and Rapid ID Nowtesting) and antibody testing. It does not take into account any testing that a patient has had outs jeet of the [facility] medical record. [facility] LABORATORY SERVICESCOVID RvkgrnjKHRL-JpU-1 Rapid ID NOW (no units) ? ? Date ? Value ? 04/28/2021 ? Not Detected ? ? ? 04/04/2021 ? Not Detected ? [facility] with Heparin Drip[facility]2021-04-29 19:54:57* Test Item Value Reference Range Interpretation Comme [facility] APTT Patient (test code = 3173-2) See_Comment H [Automated [employer]] The system which generated this result transmitted reference range: 26 - 36 Seconds. The reference range was not used to interpret this result as normal/abnormal. Lab Interpretation (test code = 92858-1) [facility]2021-04-29 19:54:57* Test Item Value Reference Range Interpretation Comme [facility] APTT Patient (test code = 3173-2) See_Comment H [Automated [employer]] The system which generated this result transmitted reference range: 26 - 36 Seconds. The reference range was not used to interpret this result as normal/abnormal. Lab Interpretation (test code = 91586-7) [facility] [id number] 15:10:51Mild pulmonary vascular congestion with left basilar atelectasis. Preliminary Report Dictated by Resident: Alverto Oliver MD., have reviewed this study and agree with theabove report.EXAM: XR CHEST 2 VW CLINICAL INDICATION: cp COMPARISON: 04/04/2021 FINDINGS: The lungs are well-expanded and clear without focal consolidation, pleuraleffusion, or pneumothorax. Streaky atelectatic changes are seen at the leftlung base. Mild pulmonary vascular congestion. The cardiac silhouette is normal in size. No acute osseous abnormality. Remote left third posterior rib fracture. [facility], Radiant Results Inft User - 04/29/2021 10:12 AM CDT EXAM: XR CHEST 2 VWCLINICAL INDICATION: cp COMPARISON: 04/04/2021FINDINGS:The lungs are well-expanded and clear without focal consolidation, pleuraleffusion, or pneumothorax. Streaky atelectatic changes are seen at the leftlung base. Mild pulmonary vascular congestion.The cardiac silhouette is normal in size. No acute osseous abnormality. Remote left third posterior rib fracture.IMPRESSIONMild pulmonary vascular congestion with left basilar atelectasis.Preliminary Report Dictated by Resident: Alverto Marie MD., have reviewed this study and agree with theabove report.[facility] [id number] 15:10:51Mild pulmonary vascular congestion with left basilar atelectasis. Preliminary Report Dictated by Resident: Alverto Oliver MD., have reviewed this study and agree with theabove r eport.EXAM: XR CHEST 2 VW CLINICAL INDICATION: cp COMPARISON: 04/04/2021 FINDINGS: The lungs are well-expanded and clear without focal consolidation, pleuraleffusion, or pneumothorax. Streaky atelectatic changes are seen at the leftlung base. Mild pulmonary vascular congestion. The cardiac silhouette is normal in size. No acute osseous abnormality. Remote left third posterior rib fracture. [facility], Radiant Results Inft User - 04/29/2021 10:12 AM CDT EXAM: XR CHEST 2 VWCLINICAL INDICATION: cp COMPARISON: 04/04/2021FINDINGS:The lungs are well-expanded and clear without focal consolidation, pleuraleffusion, or pneumothorax. Streaky atelectatic changes are seen at the leftlung base. Mild pulmonary vascular congestion.The cardiac silhouette is normal in size. No acute osseous abnormality. Remote left third posterior rib fracture.IMPRESSIONMild pulmonary vascular congestion with left basilar atelectasis.Preliminary Report Dictated by Resident: Geo Alberto, Alverto Connolly MD., have reviewed this study and agree with theabove report.[facility] I 2021-04-29 09:18:42* Test Item Value Reference Range Interpretation Comments TROPONIN I (test code = 1374848430) 0.003 ng/mL See_Comment [Automated message] The system which generated this result transmitted reference range: <=0.034. The reference range was not used to interpret this result as normal/abnormal. NATANAEL (test code = NATANAEL) Reference (Normal) Range (defined by the 99th percentile reference limit): <= 0.034 ng/mL Note: Cardiac troponin begins to rise 3-4 hours after the onset of ischemia. Repeat in 4-6 hours if the sample was drawn within 3-4 hours of the onset of the symptom and found normal. Diagnosis of myocardial injury is made with acute changes in cTn concentrations with at least one serial sample above the 99th percentile upper reference limit (URL), taken together with the patient's clinical presentation. Biotin has been reported to cause a negative bias, interpret results relative to patient's use of biotin. Lab Interpretation (test code = 10303-5) Normal [facility] [id number] 09:18:42* Test Item Value Reference Range Interpretation Comme nts TROPONIN I (test code = 0559488658) 0.003 ng/mL See_Comment [Automated [employer]] The system which generated this result transmitted reference range: <=0.034. The reference range was not used to interpret this result as normal/abnormal. NATANAEL (test code = NATANAEL) Lab Interpretation (test code = 85342-8) [facility] (NA, K, CL, CO2, GLUCOSE, BUN, CREATININE, CA)2021-04-29 09:02:38* Test Item Value Reference Range Interpretation Comme nts NA (test code = 9770949640) 138 mmol/L 135-145 K (test code = 6839052517) 3.4 mmol/L 3.5-5.0 L CL (test code = 2558735098) 106 mmol/L 98-108 CO2 TOTAL (test code = 0014927038) 24 mmol/L 23-31 AGAP (test code = 6491870947) 2-16 BUN (test code = 4099899420) 12 mg/dL 7-23 GLUCOSE (test code = 0077053683) 187 mg/dL 70-110 H CREATININE (test code = 1490297778) 0.86 mg/dL 0.60-1.25 CALCIUM (test code = 8147274091) 8.7 mg/dL 8.6-10.6 eGFR (test code = 0885171148) mL/min/1.73m2 NATANAEL (test code = NATANAEL) Association of Glomerular Filtration Rate (GFR) and Staging of Kidney Disease* + --+ --+ ------+| GFR (mL/min/1.73 m2) ?| With Kidney Damage ?| ?Without Kidney Damage+ --------+ --------+ +| ?>90 ?| ?Stage one ?| ? Normal ?+ ---+ ---+ -------+| ?60-89 ?| ?Stage two ?| ? Decreased GFR ? + --+ --+ ------+| ?30-59 ?| ?Stage three ?| ? Stage three ? + --+ --+ ------+| ?15-29 ?| ?Stage four ? | ? Stage four ?+ ---+ ---+ -------+| ?<15 (or dialysis) ? ?| ?Stage five ? | ? Stage five ?+ ---+ ---+ -------+ *Each stage assumes the associated GFR level has been in effect for at least three months. ?Stages 1 to 5, with or without kidney disease, indicate chronic kidney disease. Notes: Determination of stages one and two (with eGFR >59mL/min/1.73 m2) requires estimation of kidney damage for at least three months as defined by structural or functional abnormalities of the kidney, manifested by either:Pathological abnormalities or Markers of kidney damage (including abnormalities in the composition of the blood or urine or abnormalities in imaging tests). Lab Interpretation (test code = 31020-0) Abnormal [facility] [id number] 09:02:38* Test Item Value Reference Range Interpretation Comme nts MAGNESIUM (test code = 7683070930) 1.8 mg/dL 1.7-2.4 Lab Interpretation (test cod e = 28399-0) Normal [facility] Metabolic Panel (NA, K, CL, CO2, GLUCOSE, BUN, CREATININE, CA)2021-04-29 09:02:38* Test Item Value Reference Range Interpretation Comme nts NA (test code = 3027712118) 138 mmol/L 135-145 K (test code = 4015388697) 3.4 mmol/L 3.5-5.0 L CL (test code = 4398301664) 106 mmol/L 98-108 CO2 TOTAL (test code = 7909062529) 24 mmol/L 23-31 AGAP (test code = 7523428901) 2-16 BUN (test code = 4589221371) 12 mg/dL 7-23 GLUCOSE (test code = 9419368851) 187 mg/dL 70-110 H CREATININE (test code = 8591565628) 0.86 mg/dL 0.60-1.25 CALCIUM (test code = 3195705372) 8.7 mg/dL 8.6-10.6 eGFR (test code = 5070674720) mL/min/1.73m2 NATANAEL (test code = NATANAEL) Lab Interpretation (test cod e = 04167-7) Abnormal [facility] [id number] 09:02:38* Test Item Value Reference Range Interpretation Comme nts MAGNESIUM (test code = 6143021569) 1.8 mg/dL 1.7-2.4 Lab Interpretation (test cod e = 37449-7) [facility] [id number] 08:38:18 * Test Item Value Reference Range Interpretation Comme nts TSH (test code = 6678635545) See_Comment Biotin has been reported to cause a negative bias, interpret results relative to patient's use of biotin. [Automated message] The system which generated this result transmitted reference range: 0.45 - 4.70 mIU/L. The reference range was not used to interpret this result as normal/abnormal. Lab Interpretation (test code = 76087-5) Normal [facility] [id number] 08:38:18 * Test Item Value Reference Range Interpretation Comme nts TSH (test code = 5217687012) See_Comment [Automated messa ge] The system which generated this result transmitted reference range: 0.45 - 4.70 mIU/L. The reference range was not used to interpret this result as normal/abnormal. Lab Interpretation (test code = 76217-9) Normal [facility] [id number] 01:06:50* Test Item Value Reference Range Interpretation Comments TROPONIN I (test code = 2921935458) 0.002 ng/mL See_Comment [Automated message] The system which generated this result transmitted reference range: <=0.034. The reference range was not used to interpret this result as normal/abnormal. NATANAEL (test code = NATANAEL) Reference (Normal) Range (defined by the 99th percentile reference limit): <= 0.034 ng/mL Note: Cardiac troponin begins to rise 3-4 hours after the onset of ischemia. Repeat in 4-6 hours if the sample was drawn within 3-4 hours of the onset of the symptom and found normal. Diagnosis of myocardial injury is made with acute changes in cTn concentrations with at least one serial sample above the 99th percentile upper reference limit (URL), taken together with the patient's clinical presentation. Biotin has been reported to cause a negative bias, interpret results relative to patient's use of biotin. Lab Interpretation (test code = 44634-8) Normal [facility]AL [id number] 01:06:50* Test Item Value Reference Range Interpretation Comme nts NT-proBNP (test code = 0124787809) 193 pg/mL See_Comment H [Automated message] The system which generated this result transmitted reference range: <=125. The reference range was not used to interpret this result as normal/abnormal. NATANAEL (test code = NATANAEL) Biotin has been reported to cause a negative bias, interpret results relative to patient's use of biotin. Lab Interpretation (test code = 06935-6) Abnormal [facility] [id number] 01:06:50* Test Item Value Reference Range Interpretation Comme nts TROPONIN I (test code = 6726783008) 0.002 ng/mL See_Comment [Automated messa ge] The system which generated this result transmitted reference range: <=0.034. The reference range was not used to interpret this result as normal/abnormal. NATANAEL (test code = NATANAEL) Lab Interpretation (test code = 73248-2) Normal [facility]AL [id number] 01:06:50* Test Item Value Reference Range Interpretation Comme nts NT-proBNP (test code = 4220998539) 193 pg/mL See_Comment H [Automated messa [employer]] The system which generated this result transmitted reference range: <=125. The reference range was not used to interpret this result as normal/abnormal. NATANAEL (test code = NATANAEL) Lab Interpretation (test code = 21277-1) Abnormal [facility] METABOLIC PAN[facility] (56381)2021-04-29 00:52:13* Test Item Value Reference Range Interpretation Comme nts NA (test code = 2987365132) 138 mmol/L 135-145 K (test code = 8491222177) 4.2 mmol/L 3.5-5.0 CL (test code = 2875827600) 106 mmol/L 98-108 CO2 TOTAL (test code = 0825214451) 25 mmol/L 23-31 AGAP (test code = 1108982214) 2-16 BUN (test code = 9921574423) 12 mg/dL 7-23 GLUCOSE (test code = 1733902732) 123 mg/dL 70-110 H CREATININE (test code = 2593858272) 0.92 mg/dL 0.60-1.25 TOTAL BILI (test code = 0655847951) 0.2 mg/dL 0.1-1.1 CALCIUM (test code = 0322165212) 9.1 mg/dL 8.6-10.6 T PROTEIN (test code = 3649983272) 6.6 g/dL 6.3-8.2 ALBUMIN (test code = 7770824849) 3.8 g/dL 3.5-5.0 ALK PHOS (test code = 0347045927) 66 U/L 34-122 ALTv (test code = 1742-6) 25 U/L 5-50 AST(SGOT) (test code = 4051455613) 25 U/L 13-40 eGFR (test code = 0618487120) mL/min/1.73m2 NATANAEL (test code = NATANAEL) Association of Glomerular Filtration Rate (GFR) and Staging of Kidney Disease* + --+ --+ ------+| GFR (mL/min/1.73 m2) ?| With Kidney Damage ?| ?Without Kidney Damage+ --------+ --------+ +| ?>90 ?| ?Stage one ?| ? Normal ?+ ---+ ---+ -------+| ?60-89 ?| ?Stage two ?| ? Decreased GFR ? + --+ --+ ------+| ?30-59 ?| ?Stage three ?| ? Stage three ? + --+ --+ ------+| ?15-29 ?| ?Stage four ? | ? Stage four ?+ ---+ ---+ -------+| ?<15 (or dialysis) ? ?| ?Stage five ? | ? Stage five ?+ ---+ ---+ -------+ *Each stage assumes the associated GFR level has been in effect for at least three months. ?Stages 1 to 5, with or without kidney disease, indicate chronic kidney disease. Notes: Determination of stages one and two (with eGFR >59mL/min/1.73 m2) requires estimation of kidney damage for at least three months as defined by structural or functional abnormalities of the kidney, manifested by either:Pathological abnormalities or Markers of kidney damage (including abnormalities in the composition of the blood or urine or abnormalities in imaging tests). Lab Interpretation (test code = 88155-3) Abnormal [facility] METABOLIC PANEL (62015)2021-04-29 00:52:13* Test Item Value Reference Range Interpretation Comme nts NA (test code = 3756072775) 138 mmol/L 135-145 K (test code = 3359108205) 4.2 mmol/L 3.5-5.0 CL (test code = 4439319270) 106 mmol/L 98-108 CO2 TOTAL (test code = 6592150403) 25 mmol/L 23-31 AGAP (test code = 5289612054) 2-16 BUN (test code = 8992859582) 12 mg/dL 7-23 GLUCOSE (test code = 4826939063) 123 mg/dL 70-110 H CREATININE (test code = 8498111776) 0.92 mg/dL 0.60-1.25 TOTAL BILI (test code = 1844146067) 0.2 mg/dL 0.1-1.1 CALCIUM (test code = 1469245242) 9.1 mg/dL 8.6-10.6 T PROTEIN (test code = 7300867192) 6.6 g/dL 6.3-8.2 ALBUMIN (test code = 6636790672) 3.8 g/dL 3.5-5.0 ALK PHOS (test code = 3554043257) 66 U/L 34-122 ALTv (test code = 1742-6) 25 U/L 5-50 AST(SGOT) (test code = 2756394014) 25 U/L 13-40 eGFR (test code = 1312330176) mL/min/1.73m2 NATANAEL (test code = NATANAEL) Lab Interpretation (test cod e = 91137-2) [facility]normal [facility]ID NOW RAPID TESTING)2021-04-29 00:50:47* Test Item Value Reference Range Interpretation Comme nts SARS-CoV-2 Rapid ID NOW (test code = 01074-3) Not Detected Not Detected NATANAEL (test code = NATANAEL) ID NOW COVID-19 As say is an isothermal nucleic acid amplification test intended for the qualitative detection of nucleic acid from SARS-CoV-2 viral RNA in nasopharyngeal (COMPUTER SCIENCES PROFESSOR) specimens. It is used under Emergency Use Authorization (EUA) by FDA. The limit of detection (LOD) of the assay is 125 Genome Equivalents/mL. A positive result is indicative of the presence of SARS-CoV-2 RNA. ?Clinical correlation with patient history and other diagnostic information is necessary to determine patient infection status. A negative (Not Detected) result does not preclude SARS-CoV-2 infection. In patients with clinical symptoms and other tests that are consistent with SARS-CoV-2 infection, negative results should be treated as presumptive negative and a new specimen should be tested with alternative PCR molecular test. Invalid: Please collect a new specimen for repeat patient testing if clinically indicated. Lab Interpretation (test code = 55471-5) Normal [facility] RAPID TESTING)2021-04-29 00:50:47* Test Item Value Reference Range Interpretation Comme nts SARS-CoV-2 Rapid ID NOW (linnea t code = 93272-0) Not Detected Not Detected NATANAEL (test code = NATANAEL) Lab Interpretation (test cod e = 19550-8) Normal [facility] WITH [id number] 00:35:47* Test Item Value Reference Range Interpretation Comme nts WBC (test code = 6690-2) See_Comment [Automated [employer]] The system which generated this result transmitted reference range: 4.20 - 10.70 10*3/?L. The reference range was not used to interpret this result as normal/abnormal. RBC (test code = 789-8) See_Comment [Automated [employer]] The system which generated this result transmitted reference range: 4.26 - 5.52 10*6/?L. The reference range was not used to interpret this result as normal/abnormal. HGB (test code = 718-7) 13.3 g/dL 12.2-16.4 HCT (test code = 4544-3) 38.3 % 38.4-49.3 L MCV (test code = 787-2) 85.1 fL 81.7-95.6 MCH (test code = 785-6) 29.6 pg 26.1-32.7 MCHC (test code = 786-4) 34.7 g/dL 31.2-35.0 RDW-SD (test code = 55921-2) 38.2 fL 38.5-51.6 L RDW-CV (test code = 788-0) 12.4 % 12.1-15.4 PLT (test code = 777-3) See_Comment [Automated [employer] ge] The system which generated this result transmitted reference range: 150 - 328 10*3/?L. The reference range was not used to interpret this result as normal/abnormal. MPV (test code = 62146-9) 10.6 fL 9.8-13.0 NRBC/100 WBC (test code = 6811493249) See_Comment [Automated [employer] ssage] The system which generated this result transmitted reference range: 0.0 - 10.0 /100 WBCs. The reference range was not used to interpret this result as normal/abnormal. NRBC x10^3 (test code = 8278725766) <0.01 See_Comment [Automated messa ge] The system which generated this result transmitted reference range: 10*3/?L. The reference range was not used to interpret this result as normal/abnormal. GRAN MAT (NEUT) % (test code = 770-8) 69.4 % IMM GRAN % (test code = 9946797923) 0.40 % LYMPH % (test code = 736-9) 21.7 % MONO % (test code = 5905-5) 6.1 % EOS % (test code = 713-8) 1.8 % BASO % (test code = 706-2) 0.6 % GRAN MAT x10^3(ANC) (test code = 0054891918) 7.02 10*3/uL 1.99-6.95 H IMM GRAN x10^3 (test code = 2505425713) 0.04 10*3/uL 0.00-0.06 LYMPH x10^3 (test code = 731-0) 2.19 10*3/uL 1.09-3.23 MONO x10^3 (test code = 742-7) 0.62 10*3/uL 0.36-1.02 EOS x10^3 (test code = 711-2) 0.18 10*3/uL 0.06-0.53 BASO x10^3 (test code = 704-7) 0.06 10*3/uL 0.01-0.09 Lab Interpretation (test code = 48884-0) Abnormal [facility] WITH [id number] 00:35:47* Test Item Value Reference Range Interpretation Comme nts WBC (test code = 6690-2) See_Comment [Automated messa ge] The system which generated this result transmitted reference range: 4.20 - 10.70 10*3/?L. The reference range was not used to interpret this result as normal/abnormal. RBC (test code = 789-8) See_Comment [Automated messa ge] The system which generated this result transmitted reference range: 4.26 - 5.52 10*6/?L. The reference range was not used to interpret this result as normal/abnormal. HGB (test code = 718-7) 13.3 g/dL 12.2-16.4 HCT (test code = 4544-3) 38.3 % 38.4-49.3 L MCV (test code = 787-2) 85.1 fL 81.7-95.6 MCH (test code = 785-6) 29.6 pg 26.1-32.7 MCHC (test code = 786-4) 34.7 g/dL 31.2-35.0 RDW-SD (test code = 09069-9) 38.2 fL 38.5-51.6 L RDW-CV (test code = 788-0) 12.4 % 12.1-15.4 PLT (test code = 777-3) See_Comment [Automated [employer] ge] The system which generated this result transmitted reference range: 150 - 328 10*3/?L. The reference range was not used to interpret this result as normal/abnormal. MPV (test code = 84863-6) 10.6 fL 9.8-13.0 NRBC/100 WBC (test code = 3023954323) See_Comment [Automated [employer] ssage] The system which generated this result transmitted reference range: 0.0 - 10.0 /100 WBCs. The reference range was not used to interpret this result as normal/abnormal. NRBC x10^3 (test code = 0672064833) <0.01 See_Comment [Automated [employer] ge] The system which generated this result transmitted reference range: 10*3/?L. The reference range was not used to interpret this result as normal/abnormal. GRAN MAT (NEUT) % (test code = 770-8) 69.4 % IMM GRAN % (test code = 4994194543) 0.40 % LYMPH % (test code = 736-9) 21.7 % MONO % (test code = 5905-5) 6.1 % EOS % (test code = 713-8) 1.8 % BASO % (test code = 706-2) 0.6 % GRAN MAT x10^3(ANC) (test code = 8900737154) 7.02 10*3/uL 1.99-6.95 H IMM GRAN x10^3 (test code = 2807906605) 0.04 10*3/uL 0.00-0.06 LYMPH x10^3 (test code = 731-0) 2.19 10*3/uL 1.09-3.23 MONO x10^3 (test code = 742-7) 0.62 10*3/uL 0.36-1.02 EOS x10^3 (test code = 711-2) 0.18 10*3/uL 0.06-0.53 BASO x10^3 (test code = 704-7) 0.06 10*3/uL 0.01-0.09 Lab Interpretation (test code = 86357-3) [facility] [id number] 18:22:21* Test Item Value Reference Range Interpretation Comme nts Morphine-LCMS (test code = 3085510511) 869 ng/mL <50 H Morphine-Creatinine Normalized (test code = 4735290004) 7759 ng/mg Morphine-Interpretatio n (test code = 7852791110) Positive Negative A Codeine-Interpretation (test code = 9146986557) Negative Negative Hydrocodon-Interpretat ion (test code = 8048495432) Negative Negative Hydromorph-Interpretat ion (test code = 5561365432) Negative Negative Norhydrocod-Interpreta tion (test code = 6663492733) Negative Negative Oxycodone-Interpretati on (test code = 1790337187) Negative Negative Oxymorph-Interpretatio n (test code = 6996594346) Negative Negative Noroxycod-Interpretati on (test code = 1018148055) Negative Negative 6-VERONA(Heroin)-Interpre tation (test code = 7669770781) Negative Negative CREAT U (test code = 2325333085) 11.2 mg/dL NATANAEL (test code = NATANAEL) Test developed and characteristics determined by [facility] Services. Lab Interpretation (test code = 55985-0) [facility] SYNTHETIC OPIATES PANEL 2021-04-07 18:21:34* Test Item Value Reference Range Interpretation Comme nts Tramadol-Interpret ation (test code = 1949517584) Negative Negative Propoxyph-Interpre tation (test code = 8998181575) Negative Negative Normeperid-Interpr etation (test code = 7178118184) Negative Negative Meperidine-Interpr etation (test code = 8430168929) Negative Negative Methadone-Interpre tation (test code = 4097079223) Negative Negative EDDP-Interpretatio n (test code = 0789414011) Negative Negative CREAT U (test code = 5456527606) 11.2 mg/dL Norfentan-Interpre tation (test code = 4121113158) Negative Negative Fentanyl-Interpret ation (test code = 4835410087) Negative Negative Buprenorph-Interpr etation (test code = 1307705610) Negative Negative Norbupren-Interpre tation (test code = 3759376958) Negative Negative Carisopro-Interpre tation (test code = 6472621813) Negative Negative Meprobamat-Interpr etation (test code = 7233472015) Negative Negative NATANAEL (test code = NATANAEL) Test developed and characteristics determined by [facility] Laboratory Services. [facility] 14:43:39* Test Item Value Reference Range Interpretation Comme [facility] POCT GLU (test code = 9833149396) 215 mg/dL 70-110 H Lab Interpretation (test cod e = 73085-0) Abnormal [facility] METABOLIC PANEL (NA, K, CL, CO2, GLUCOSE, BUN, CREATININE, CA)2021-04-07 10:38:55* Test Item Value Reference Range Interpretation Comme nts NA (test code = 4082852608) 135 mmol/L 135-145 K (test code = 0186807271) 3.4 mmol/L 3.5-5.0 L CL (test code = 2336735408) 99 mmol/L 98-108 CO2 TOTAL (test code = 4421066157) 27 mmol/L 23-31 AGAP (test code = 2051078350) 2-16 BUN (test code = 0266325034) 16 mg/dL 7-23 GLUCOSE (test code = 2150386648) 227 mg/dL 70-110 H CREATININE (test code = 5219778815) 0.90 mg/dL 0.60-1.25 CALCIUM (test code = 5806159476) 8.6 mg/dL 8.6-10.6 eGFR (test code = 2103226337) mL/min/1.73m2 NATANAEL (test code = NATANAEL) Association of Glomerular Filtration Rate (GFR) and Staging of Kidney Disease* + --+ --+ ------+| GFR (mL/min/1.73 m2) ?| With Kidney Damage ?| ?Without Kidney Damage+ --------+ --------+ +| ?>90 ?| ?Stage one ?| ? Normal ?+ ---+ ---+ -------+| ?60-89 ?| ?Stage two ?| ? Decreased GFR ? + --+ --+ ------+| ?30-59 ?| ?Stage three ?| ? Stage three ? + --+ --+ ------+| ?15-29 ?| ?Stage four ? | ? Stage four ?+ ---+ ---+ -------+| ?<15 (or dialysis) ? ?| ?Stage five ? | ? Stage five ?+ ---+ ---+ -------+ *Each stage assumes the associated GFR level has been in effect for at least three months. ?Stages 1 to 5, with or without kidney disease, indicate chronic kidney disease. Notes: Determination of stages one and two (with eGFR >59mL/min/1.73 m2) requires estimation of kidney damage for at least three months as defined by structural or functional abnormalities of the kidney, manifested by either:Pathological abnormalities or Markers of kidney damage (including abnormalities in the composition of the blood or urine or abnormalities in imaging tests). Lab Interpretation (test code = 98028-5) [facility] 10:20:17* Test Item Value Reference Range Interpretation Comme [facility] MAGNESIUM (test code = 0661443920) 1.9 mg/dL 1.7-2.4 Lab Interpretation (test cod e = 69139-0) [facility] [id number] 09:57:53* Test Item Value Reference Range Interpretation Comme [facility] PROTIME PATIENT (test code = 5964-2) See_Comment H [Automated messa ge] The system which generated this result transmitted reference range: 10.1 - 12.6 Seconds. The reference range was not used to interpret this result as normal/abnormal. INR (test code = 6301-6) Normal INR <1.1; Warfarin Therapeutic range 2.0 to 3.0 or 2.5 to 3.5, depending upon the indications. Lab Interpretation (test code = 33141-4) Abnormal [facility] WITH [id number] 09:56:16* Test Item Value Reference Range Interpretation Comme nts WBC (test code = 6690-2) See_Comment [Automated messa ge] The system which generated this result transmitted reference range: 4.20 - 10.70 10*3/?L. The reference range was not used to interpret this result as normal/abnormal. RBC (test code = 789-8) See_Comment [Automated messa ge] The system which generated this result transmitted reference range: 4.26 - 5.52 10*6/?L. The reference range was not used to interpret this result as normal/abnormal. HGB (test code = 718-7) 13.6 g/dL 12.2-16.4 HCT (test code = 4544-3) 38.7 % 38.4-49.3 MCV (test code = 787-2) 84.3 fL 81.7-95.6 MCH (test code = 785-6) 29.6 pg 26.1-32.7 MCHC (test code = 786-4) 35.1 g/dL 31.2-35.0 H RDW-SD (test code = 55197-3) 38.7 fL 38.5-51.6 RDW-CV (test code = 788-0) 12.8 % 12.1-15.4 PLT (test code = 777-3) See_Comment [Automated messa ge] The system which generated this result transmitted reference range: 150 - 328 10*3/?L. The reference range was not used to interpret this result as normal/abnormal. MPV (test code = 48255-4) 11.1 fL 9.8-13.0 NRBC/100 WBC (test code = 0277285401) See_Comment [Automated me ssage] The system which generated this result transmitted reference range: 0.0 - 10.0 /100 WBCs. The reference range was not used to interpret this result as normal/abnormal. NRBC x10^3 (test code = 5821719841) <0.01 See_Comment [Automated messa ge] The system which generated this result transmitted reference range: 10*3/?L. The reference range was not used to interpret this result as normal/abnormal. GRAN MAT (NEUT) % (test code = 770-8) 61.7 % IMM GRAN % (test code = 4529309226) 0.40 % LYMPH % (test code = 736-9) 26.6 % MONO % (test code = 5905-5) 7.4 % EOS % (test code = 713-8) 3.0 % BASO % (test code = 706-2) 0.9 % GRAN MAT x10^3(ANC) (test code = 0553387631) 5.26 10*3/uL 1.99-6.95 IMM GRAN x10^3 (test code = 7688602263) 0.03 10*3/uL 0.00-0.06 LYMPH x10^3 (test code = 731-0) 2.27 10*3/uL 1.09-3.23 MONO x10^3 (test code = 742-7) 0.63 10*3/uL 0.36-1.02 EOS x10^3 (test code = 711-2) 0.26 10*3/uL 0.06-0.53 BASO x10^3 (test code = 704-7) 0.08 10*3/uL 0.01-0.09 Lab Interpretation (test code = 83264-2) Abnormal [facility] GLUCOSE (AUTOMATED)2021-04-07 02:00:19* Test Item Value Reference Range Interpretation Comme nts POCT GLU (test code = 9209206247) 182 mg/dL 70-110 H Lab Interpretation (test cod e = 10507-3) Abnormal [facility] GLUCOSE (AUTOMATED)2021-04-06 22:35:54* Test Item Value Reference Range Interpretation Comme nts POCT GLU (test code = 3008472462) 151 mg/dL 70-110 H Lab Interpretation (test cod e = 42093-4) [facility] 18:28:11* Test Item Value Reference Range Interpretation Comme nts POCT GLU (test code = 0960262440) 155 mg/dL 70-110 H Lab Interpretation (test cod e = 11631-0) [facility] AND [id number] 16:04:37No evidence of pulmonary embolism. Preliminary Report Dictated by Resident: William Crowley ?MD Liss., have reviewed this study and agree withthe above report.PULMONARY PERFUSION SCAN HISTORY: 61 years old Male with Chest pain, nonspecific PE suspected, highpretest prob TECHNIQUE: Ventilation imaging was not performed due to coronavirusprecautions. The patient received an intravenous injection of 4.8 mCi [id number] MAA, and planar images were subsequently acquired in the anterior,posterior, right anterior oblique, left anterior oblique, left posterioroblique, and right posterior oblique projections. Interpretation wasperformed taking into account multiple criteria, including those describedin the modified PIOPED II and PISAPED trials. Comparison made with chest imaging from chest x-ray 04/04/2021. Other studies for comparison: None. FINDINGS:Normal lung perfusion exam.Nosegmental or subsegmental perfusion defect identified. [facility], Radiant Results Inft User - 111:05 AM CDT PULMONARY PERFUSION SCANHISTORY: 61 years old Male with Chest pain, nonspecific PE suspected, highpretest prob TECHNIQUE: Ventilation imaging was not performed due to coronavirusprecautions. The patient received an intravenous injection of 4.8 mCi [id number] MAA, and planar images were subsequently acquired in the anterior,posterior, right anterior oblique, left anterior oblique, left posterioroblique, and right posterior oblique projections. Interpretation wasperformed taking into account multiple criteria, including thosedescribedin the modified PIOPED II and PISAPED trials.Comparison made with chest imaging from chestx-ray 04/04/2021.Other studies for comparison: None.FINDINGS:Normal lung perfusion exam.No segmentalor subsegmental perfusion defect identified.IMPRESSIONNo evidence of pulmonary embolism.PreliminaryReport Dictated by Resident: Hasan A KhanI, William Leija MD., have reviewed this study and agree withthe above report.[facility] TROPONIN [id number] 11:14:22* Test Item Value Reference Range Interpretation Comments TROPONIN I (test code = 9526639337) 0.003 ng/mL See_Comment [Automated message] The system which generated this result transmitted reference range: <=0.034. The reference range was not used to interpret this result as normal/abnormal. NATANAEL (test code = NATANAEL) Reference (Normal) Range (defined by the 99th percentile reference limit): <= 0.034 ng/mL Note: Cardiac troponin begins to rise 3-4 hours after the onset of ischemia. Repeat in 4-6 hours if the sample was drawn within 3-4 hours of the onset of the symptom and found normal. Diagnosis of myocardial injury is made with acute changes in cTn concentrations with at least one serial sample above the 99th percentile upper reference limit (URL), taken together with the patient's clinical presentation. Biotin has been reported to cause a negative bias, interpret results relative to patient's use of biotin. Lab Interpretation (test code = 96956-7) [facility] (NA, K, CL, CO2, GLUCOSE, BUN, CREATININE, CA)2021-04-06 11:00:39* Test Item Value Reference Range Interpretation Comme nts NA (test code = 8623394450) 137 mmol/L 135-145 K (test code = 2433822699) 4.1 mmol/L 3.5-5.0 Slight hemolysis CL (test code = 6820433228) 101 mmol/L 98-108 CO2 TOTAL (test code = 5214079838) 28 mmol/L 23-31 AGAP (test code = 3929687771) 2-16 BUN (test code = 9818553577) 19 mg/dL 7-23 Slight hemolysis GLUCOSE (test code = 5556784661) 134 mg/dL 70-110 H CREATININE (test code = 4975873083) 0.85 mg/dL 0.60-1.25 CALCIUM (test code = 6935615927) 9.0 mg/dL 8.6-10.6 eGFR (test code = 2166925099) mL/min/1.73m2 NATANAEL (test code = NATANAEL) Association of Glomerular Filtration Rate (GFR) and Staging of Kidney Disease* + -----+ --------+ +| GFR (mL/min/1.73 m2) ?| With Kidney Damage ?| ?Without Kidney Damage+ +------- +---- --+| ?>90 ?| ?Stage one ?| ? Normal ?+ ------+ ---------+--------- +| ?60-89 ?| ?Stage two ?| ? Decreased GFR ? + -----+ --------+ +| ?30-59 ?| ?Stage three ?| ? Stage three ? + -----+ --------+ +| ?15-29 ?| ?Stage four ? | ? Stage four ?+ ------+ ---------+--------- +| ?<15 (or dialysis) ? ?| ?Stage five ? | ? Stage five ?+ ------+ ---------+--------- + *Each stage assumes the associated GFR level has been in effect for at least three months. ?Stages 1 to 5, with or without kidney disease, indicate chronic kidney disease. Notes: Determination of stages one and two (with eGFR >59mL/min/1.73 m2) requires estimation of kidney damage for at least three months as defined by structural or functional abnormalities of the kidney, manifested by either:Pathological abnormalities or Markers of kidney damage (including abnormalities in the composition of the blood or urine or abnormalities in imaging tests). Lab Interpretation (test code = 10197-2) [facility] 11:00:39* Test Item Value Reference Range Interpretation Comme [facility] MAGNESIUM (test code = 8715101778) 1.9 mg/dL 1.7-2.4 Lab Interpretation (test cod e = 87680-8) [facility]2021-04-05 23:31:05* Test Item Value Reference Range Interpretation Comme [facility] POCT GLU (test code = 6209926304) 135 mg/dL 70-110 H Lab Interpretation (test cod e = 22455-8) [facility] [id number] 22:35:36* Test Item Value Reference Range Interpretation Comments TROPONIN I (test code = 1132943723) 0.004 ng/mL See_Comment [Automated message] The system which generated this result transmitted reference range: <=0.034. The reference range was not used to interpret this result as normal/abnormal. NATANAEL (test code = NATANAEL) Reference (Normal) Range (defined by the 99th percentile reference limit): <= 0.034 ng/mL Note: Cardiac troponin begins to rise 3-4 hours after the onset of ischemia. Repeat in 4-6 hours if the sample was drawn within 3-4 hours of the onset of the symptom and found normal. Diagnosis of myocardial injury is made with acute changes in cTn concentrations with at least one serial sample above the 99th percentile upper reference limit (URL), taken together with the patient's clinical presentation. Biotin has been reported to cause a negative bias, interpret results relative to patient's use of biotin. Lab Interpretation (test code = 52643-8) Normal [facility] GLUCOSE (AUTOMATED)2021-04-05 17:57:29* Test Item Value Reference Range Interpretation Comme nts POCT GLU (test code = 5005750484) 122 mg/dL 70-110 H Lab Interpretation (test cod e = 22011-9) Abnormal [facility] GLUCOSE (AUTOMATED)2021-04-05 13:56:16* Test Item Value Reference Range Interpretation Comme nts POCT GLU (test code = 2441507302) 153 mg/dL 70-110 H Lab Interpretation (test cod e = 74785-7) [facility]normal [facility] [id number] 10:20:15* Test Item Value Reference Range Interpretation Comments TROPONIN I (test code = 5124739976) 0.004 ng/mL See_Comment [Automated message] The system which generated this result transmitted reference range: <=0.034. The reference range was not used to interpret this result as normal/abnormal. NATANAEL (test code = NATANAEL) Reference (Normal) Range (defined by the 99th percentile reference limit): <= 0.034 ng/mL Note: Cardiac troponin begins to rise 3-4 hours after the onset of ischemia. Repeat in 4-6 hours if the sample was drawn within 3-4 hours of the onset of the symptom and found normal. Diagnosis of myocardial injury is made with acute changes in cTn concentrations with at least one serial sample above the 99th percentile upper reference limit (URL), taken together with the patient's clinical presentation. Biotin has been reported to cause a negative bias, interpret results relative to patient's use of biotin. Lab Interpretation (test code = 08548-2) Normal [facility] Metabolic Panel (NA, K, CL, CO2, GLUCOSE, BUN, CREATININE, CA)2021-04-05 10:06:13* Test Item Value Reference Range Interpretation Comme nts NA (test code = 2645805803) 136 mmol/L 135-145 K (test code = 0341632076) 3.9 mmol/L 3.5-5.0 Slight hemolysis CL (test code = 9041705919) 103 mmol/L 98-108 CO2 TOTAL (test code = 3080226816) 26 mmol/L 23-31 AGAP (test code = 2103583671) 2-16 BUN (test code = 9451089412) 19 mg/dL 7-23 Slight hemolysis GLUCOSE (test code = 5731929569) 132 mg/dL 70-110 H CREATININE (test code = 8437803957) 0.96 mg/dL 0.60-1.25 CALCIUM (test code = 8382746241) 8.5 mg/dL 8.6-10.6 L eGFR (test code = 9468560245) mL/min/1.73m2 NATANAEL (test code = NATANAEL) Association of Glomerular Filtration Rate (GFR) and Staging of Kidney Disease* + -----+ --------+ +| GFR (mL/min/1.73 m2) ?| With Kidney Damage ?| ?Without Kidney Damage+ +------- +---- --+| ?>90 ?| ?Stage one ?| ? Normal ?+ ------+ ---------+--------- +| ?60-89 ?| ?Stage two ?| ? Decreased GFR ? + -----+ --------+ +| ?30-59 ?| ?Stage three ?| ? Stage three ? + -----+ --------+ +| ?15-29 ?| ?Stage four ? | ? Stage four ?+ ------+ ---------+--------- +| ?<15 (or dialysis) ? ?| ?Stage five ? | ? Stage five ?+ ------+ ---------+--------- + *Each stage assumes the associated GFR level has been in effect for at least three months. ?Stages 1 to 5, with or without kidney disease, indicate chronic kidney disease. Notes: Determination of stages one and two (with eGFR >59mL/min/1.73 m2) requires estimation of kidney damage for at least three months as defined by structural or functional abnormalities of the kidney, manifested by either:Pathological abnormalities or Markers of kidney damage (including abnormalities in the composition of the blood or urine or abnormalities in imaging tests). Lab Interpretation (test code = 27758-7) [facility]normal [facility] (13084)(TOTAL CHOLESTEROL, TRIGLYCERIDES, HDL)2021-04-05 10:06:13* Test Item Value Reference Range Interpretation Comme nts CHOL (test code = 5214123653) 134 mg/dL 120-200 HDL (test code = 3544375728) 19 mg/dL >40 L HDLC RATIO (test code = 7370654605) See_Comment H [Automated messa ge] The system which generated this result transmitted reference range: <=5.0. The reference range was not used to interpret this result as normal/abnormal. TRIG (test code = 3585972102) 154 mg/dL 30-170 LDL CHOL (test code = 44185-0) 84 mg/dL See_Comment [Automated messa ge] The system which generated this result transmitted reference range: <=160. The reference range was not used to interpret this result as normal/abnormal. VLDL (test code = 5529182775) 31 mg/dL 5-60 Lab Interpretation (test code = 12959-7) [facility] [id number] 09:44:12* Test Item Value Reference Range Interpretation Comme nts WBC (test code = 6690-2) See_Comment [Automated messa ge] The system which generated this result transmitted reference range: 4.20 - 10.70 10*3/?L. The reference range was not used to interpret this result as normal/abnormal. RBC (test code = 789-8) See_Comment [Automated messa ge] The system which generated this result transmitted reference range: 4.26 - 5.52 10*6/?L. The reference range was not used to interpret this result as normal/abnormal. HGB (test code = 718-7) 13.7 g/dL 12.2-16.4 HCT (test code = 4544-3) 39.1 % 38.4-49.3 MCV (test code = 787-2) 84.4 fL 81.7-95.6 MCH (test code = 785-6) 29.6 pg 26.1-32.7 MCHC (test code = 786-4) 35.0 g/dL 31.2-35.0 RDW-SD (test code = 64148-2) 39.2 fL 38.5-51.6 RDW-CV (test code = 788-0) 12.8 % 12.1-15.4 PLT (test code = 777-3) See_Comment [Automated messa ge] The system which generated this result transmitted reference range: 150 - 328 10*3/?L. The reference range was not used to interpret this result as normal/abnormal. MPV (test code = 35248-7) 11.1 fL 9.8-13.0 NRBC/100 WBC (test code = 2409910492) See_Comment [Automated me ssage] The system which generated this result transmitted reference range: 0.0 - 10.0 /100 WBCs. The reference range was not used to interpret this result as normal/abnormal. NRBC x10^3 (test code = 0430543396) <0.01 See_Comment [Automated me ssage] The system which generated this result transmitted reference range: 10*3/?L. The reference range was not used to interpret this result as normal/abnormal. GRAN MAT (NEUT) % (test code = 770-8) 66.5 % IMM GRAN % (test code = 5553071060) 0.30 % LYMPH % (test code = 736-9) 21.0 % MONO % (test code = 5905-5) 8.0 % EOS % (test code = 713-8) 3.3 % BASO % (test code = 706-2) 0.9 % GRAN MAT x10^3(ANC) (test code = 0196207345) 5.87 10*3/uL 1.99-6.95 IMM GRAN x10^3 (test code = 0042515902) 0.03 10*3/uL 0.00-0.06 LYMPH x10^3 (test code = 731-0) 1.86 10*3/uL 1.09-3.23 MONO x10^3 (test code = 742-7) 0.71 10*3/uL 0.36-1.02 EOS x10^3 (test code = 711-2) 0.29 10*3/uL 0.06-0.53 BASO x10^3 (test code = 704-7) 0.08 10*3/uL 0.01-0.09 [facility] - COMPREHENSIVE DRUG [id number] 03:41:43* Test Item Value Reference Range Interpretation Comme nts AMPHET (test code = 6658965590) Negative Negative LEO U (test code = 3662708472) Negative Negative BENZO U (test code = 4536270234) Negative Negative Cocaine Metabolite (test code = 9674896383) Negative Negative METHADONE (test code = 6311151114) Negative Negative OPIATES (test code = 3091064874) Presumptive Positive Negative A PCP (test code = 1673130979) Negative Negative THC (test code = 5339366494) Negative Negative NATANAEL (test code = NATANAEL) Urine Drug Cutoff Ranges Cocaine: ? 150 ng/mLBenzodiazepines: ? ? 200 ng/mLMethadone: ? 300 ng/mLAmphetamine: ? 1,000 ng/mLOpiates: ? 300 ng/mLCannabinoids: ?50 ng/mLPhencyclidine: ? ? ? 25 ng/mLBarbiturates: ?200 ng/mL The results are to be used only for medical (i.e., treatment) purposes. Unconfirmed screening results must not be used for non-medical purposes (e.g., employment testing, legal testing). Lab Interpretation (test code = 48830-0) [facility]normal [facility]21-[facility] 02:09:43* Test Item Value Reference Range Interpretation Comme nts POCT GLU (test code = 8664495934) 139 mg/dL 70-110 H Lab Interpretation (test cod e = 01551-8) Abnormal [facility] HospitalTroponin [id number] 23:17:29* Test Item Value Reference Range Interpretation Comments TROPONIN I (test code = 9141876784) 0.003 ng/mL See_Comment [Automated message] The system which generated this result transmitted reference range: <=0.034. The reference range was not used to interpret this result as normal/abnormal. NATANAEL (test code = NATANAEL) Reference (Normal) Range (defined by the 99th percentile reference limit): <= 0.034 ng/mL Note: Cardiac troponin begins to rise 3-4 hours after the onset of ischemia. Repeat in 4-6 hours if the sample was drawn within 3-4 hours of the onset of the symptom and found normal. Diagnosis of myocardial injury is made with acute changes in cTn concentrations with at least one serial sample above the 99th percentile upper reference limit (URL), taken together with the patient's clinical presentation. Biotin has been reported to cause a negative bias, interpret results relative to patient's use of biotin. Lab Interpretation (test code = 69809-1) Normal [facility]2021-04-04 22:39:36* Test Item Value Reference Range Interpretation Comme nts POCT GLU (test code = 9452134419) 200 mg/dL 70-110 H Lab Interpretation (test cod e = 91132-5) Abnormal [facility] ONLY COVID [id number] 21:19:16COVID DMT InterpretationInterpretation/Recommendations:Molecular NAAT Tests for Active Infection with the SARS-CoV-2 Virus:The patient has currently tested negative for the SARS-CoV-2 virus that causes COVID-19 illness. This most likely indicates that the patient does not have an active infection with the SARS-CoV-2 virus. However, infection is not completely ruled out as the false negative rate for molecular NAAT testing using a nasopharyngeal sample can be up to 30%, mostly dependent on the timing of sample collection in relation to illness onset and any deficiencies in sampling techniques.If the patient has symptoms concerning for COVID-19 illness, a repeat NAAT test (PCR, Rapid ID Now, etc.) should be performed, at which time the SARS-CoV-2 virus - if present - may have reached a detectable viral load (usually peaking by the end of the first week of symptoms). Tests for IgM and/or IgG Antibodies to the SARS-CoV-2 Virus:Testing for IgM and IgG antibodies approximately 3 weeks after illness onset will likely indicate if the patient has produced antibodies to the SARS-CoV-2 virus.However, some patients may take longer to develop detectable antibodies, while others infected [id number] may never develop antibodies, particularly those who have had mild or asymptomatic illness. Of note, if the patient has been vaccinated earlier than 1-2 weeks prior to antibody testing, any positive SARS-CoV-2 IgG antibody result is likely due to vaccination. The specific duration and strength of immunity from SARS-CoV-2 IgG antibodies is highly variable between individuals and is dependent on a variety of factors, including infection vs. vaccination response, initial infection severity, the strength of the patient's own immune system, and the variants to which the patient has beenexposed. ? Interpretation Result Comments:These interpretation comments are based upon all COVID-19 testing the patient has had at [facility], including molecular NAAT testing (more commonly known as PCR testing and Rapid ID Now testing) and antibody testing. It does not take into account any testing that a patient has had outsideof the [facility] medical record. [facility] LABORATORY SERVICESCOVID KotyoylKUFL-AkT-3 Rapid ID NOW (no units)? ? Date ? Value ? 04/04/2021 ? Not Detected ? [facility] LABORATORY SERVICESUnHouston [facility] West HospitalGLYCOSYLATED HEMOGLOBIN (A1C) 2021-04-04 18:30:40* Test Item Value Reference Range Interpretation Comme nts HGB A1C (test code = 4548-4) 6.6 % 4.0-5.7 H NATANAEL (test code = NATANAEL) Reference RangesNormal: <5.7%Prediabetes: 5.7 - 6.4%Diabetes: > 6.5% Lab Interpretation (test code = 48443-0) Abnormal [facility] HospitalN-TERMINAL [id number] 18:08:54* Test Item Value Reference Range Interpretation Comme nts NT-proBNP (test code = 5324802817) 89 pg/mL See_Comment [Automated message] The system which generated this result transmitted reference range: <=125. The reference range was not used to interpret this result as normal/abnormal. NATANAEL (test code = NATANAEL) Biotin has been reported to cause a negative bias, interpret results relative to patient's use of biotin. Lab Interpretation (test code = 90333-6) Normal [facility] HospitalXR CHEST 2 [id number] 15:08:34Mild pulmonary vascular congestion. Preliminary Report Dictated by Resident: William Andersen MD., have reviewed this study and agree withthe above report.EXAM: XR CHEST 2 VW 04/04/2021 7:38 AM HISTORY: 61 years-old Male with chest pain . TECHNIQUE: PA and lateral chest radiographs. COMPARISON: CXR 10/29/2019. FINDINGS: Cardiomediastinal: The cardiomediastinal silhouette is unremarkable. Lungs and pleura: The pulmonary hilar vascular markings are mildlyprominent, largely similar to prior. Strandy atelectasis at the left lungbase. The lungs are otherwise clear. No focal consolidation, pneumothorax,or pleural effusion is seen. Included osseous structures show no acuteabnormality. [facility], Radiant Results Inft User - 04/04/2021 10:09 AM CDTFormatting of this note mightbe different from the original.EXAM: XR CHEST 2 VW 04/04/2021 7:38 AMHISTORY: 61 years-old Male withchest pain .TECHNIQUE: PA and lateral chest radiographs.COMPARISON: CXR 10/29/2019.FINDINGS:Cardiomediastinal: The cardiomediastinal silhouette is unremarkable.Lungs and pleura: The pulmonary hilar vascular markings are mildlyprominent, largely similar to prior. Strandy atelectasis at the left lungbase. The lungs are otherwise clear. No focal consolidation, pneumothorax,or pleural effusion is seen.Included osseous structures show no acute abnormality.IMPRESSIONMild pulmonary vascular congestion.Preliminary Report Dictated by Resident: William Gregorio MD., have reviewed this study and agree withthe above report. [facility] HospitalETHANOL2021-07-31 14:24:43* Test Item Value Reference Range Interpretation Comme nts ALCOHOL (test code = 8048472259) <10 mg/dL NATANAEL (test code = NATANAEL) Toxic Greater than or equal to 80 mg/dL. NOTE: Whole blood values are approximately 10% to 15% lower than serum and plasma. [facility] HospitalD-[id number] 13:24:18* Test Item Value Reference Range Interpretation Comments D-DIMER (test code = 8179592599) See_Comment H [Automated message] The system which generated this result transmitted reference range: <0.50 ?g/mL (FEU). The reference range was not used to interpret this result as normal/abnormal. NATANAEL (test code = NATANAEL) This test may be used in conjunction with a clinical pretest probability (PTP) assessment model to exclude venous thromboembolism (VTE) in patients suspected of deep venous thrombosis (DVT) and pulmonary embolism (PE) A D-Dimer value less than 0.50 ?g/ml (FEU) has a negative predicative value of 96 to 100% (95% CI)and 97 to 100% (95% CI) as an aid in the diagnosis of deep vein thrombosis (DVT) and pulmonary embolism when there is low or moderate pretest probability of PE or DVT. D-Dimer values are expressed in initial fibrinogen equivalent units (FEU)" The assay results should be used with other information, including the clinical context, in forming a diagnosis. Lab Interpretation (test code = 11886-1) Abnormal [facility] HospitalLIPASE2021-07-31 13:01:40* Test Item Value Reference Range Interpretation Comme nts LIPASE (test code = 1720329498) <10 0-220 Lab Interpretation (test cod e = 23083-9) Normal [facility] HospitalTROPONIN [id number] 12:37:57* Test Item Value Reference Range Interpretation Comments TROPONIN I (test code = 3848569550) 0.007 ng/mL See_Comment [Automated message] The system which generated this result transmitted reference range: <=0.034. The reference range was not used to interpret this result as normal/abnormal. NATANAEL (test code = NATANAEL) Reference (Normal) Range (defined by the 99th percentile reference limit): <= 0.034 ng/mL Note: Cardiac troponin begins to rise 3-4 hours after the onset of ischemia. Repeat in 4-6 hours if the sample was drawn within 3-4 hours of the onset of the symptom and found normal. Diagnosis of myocardial injury is made with acute changes in cTn concentrations with at least one serial sample above the 99th percentile upper reference limit (URL), taken together with the patient's clinical presentation. Biotin has been reported to cause a negative bias, interpret results relative to patient's use of biotin. Lab Interpretation (test code = 53700-0) Normal [facility] HospitalCOM. METABOLIC PANEL (22965)2021-04-04 12:25:56* Test Item Value Reference Range Interpretation Comme nts NA (test code = 5070212489) 134 mmol/L 135-145 L K (test code = 8764286386) 4.3 mmol/L 3.5-5.0 Slight hemolysis CL (test code = 0272251020) 104 mmol/L 98-108 CO2 TOTAL (test code = 7907551054) 20 mmol/L 23-31 L AGAP (test code = 4861111158) 2-16 BUN (test code = 0879890855) 17 mg/dL 7-23 Slight hemolysis GLUCOSE (test code = 9851376523) 194 mg/dL 70-110 H CREATININE (test code = 4539560554) 0.89 mg/dL 0.60-1.25 TOTAL BILI (test code = 3528258897) 0.7 mg/dL 0.1-1.1 CALCIUM (test code = 5143830705) 8.5 mg/dL 8.6-10.6 L T PROTEIN (test code = 8931901964) 6.3 g/dL 6.3-8.2 ALBUMIN (test code = 6955677814) 3.6 g/dL 3.5-5.0 ALK PHOS (test code = 2610068738) 58 U/L 34-122 Slight hemolysis ALTv (test code = 1742-6) 22 U/L 5-50 AST(SGOT) (test code = 3830540756) 33 U/L 13-40 Slight hemolysis eGFR (test code = 2289477502) mL/min/1.73m2 NATANAEL (test code = NATANAEL) Association of Glomerular Filtration Rate (GFR) and Staging of Kidney Disease* + -----+ --------+ +| GFR (mL/min/1.73 m2) ?| With Kidney Damage ?| ?Without Kidney Damage+ +------- +---- --+| ?>90 ?| ?Stage one ?| ? Normal ?+ ------+ ---------+--------- +| ?60-89 ?| ?Stage two ?| ? Decreased GFR ? + -----+ --------+ +| ?30-59 ?| ?Stage three ?| ? Stage three ? + -----+ --------+ +| ?15-29 ?| ?Stage four ? | ? Stage four ?+ ------+ ---------+--------- +| ?<15 (or dialysis) ? ?| ?Stage five ? | ? Stage five ?+ ------+ ---------+--------- + *Each stage assumes the associated GFR level has been in effect for at least three months. ?Stages 1 to 5, with or without kidney disease, indicate chronic kidney disease. Notes: Determination of stages one and two (with eGFR >59mL/min/1.73 m2) requires estimation of kidney damage for at least three months as defined by structural or functional abnormalities of the kidney, manifested by either:Pathological abnormalities or Markers of kidney damage (including abnormalities in the composition of the blood or urine or abnormalities in imaging tests). Lab Interpretation (test code = 88326-8) Abnormal [facility] HospitalCOVID-[facility] (ID NOW RAPID TESTING)2021-04-04 12:23:39* Test Item Value Reference Range Interpretation Comme nts SARS-CoV-2 Rapid ID NOW (test code = 90706-0) Not Detected Not Detected NATANAEL (test code = NATANAEL) ID NOW COVID-19 As say is an isothermal nucleic acid amplification test intended for the qualitative detection of nucleic acid from SARS-CoV-2 viral RNA in nasopharyngeal (COMPUTER SCIENCES PROFESSOR) specimens. It is used under Emergency Use Authorization (EUA) by FDA. The limit of detection (LOD) of the assay is 125 Genome Equivalents/mL. A positive result is indicative of the presence of SARS-CoV-2 RNA. ?Clinical correlation with patient history and other diagnostic information is necessary to determine patient infection status. A negative (Not Detected) result does not preclude SARS-CoV-2 infection. In patients with clinical symptoms and other tests that are consistent with SARS-CoV-2 infection, negative results should be treated as presumptive negative and a new specimen should be tested with alternative PCR molecular test. Invalid: Please collect a new specimen for repeat patient testing if clinically indicated. Lab Interpretation (test code = 81622-2) Normal [facility] HospitalACTIVATED PARTIAL THRMPLAS [id number] 12:17:17* Test Item Value Reference Range Interpretation Comme [facility] APTT Patient (test code = 3173-2) See_Comment [Automated [employer] ge] The system which generated this result transmitted reference range: 26 - 36 Seconds. The reference range was not used to interpret this result as normal/abnormal. Lab Interpretation (test code = 17655-0) Normal [facility] HospitalPROTHROMBIN TIME / [id number] 12:17:17* Test Item Value Reference Range Interpretation Comme [facility] PROTIME PATIENT (test code = 5964-2) See_Comment [Automated [employer]] The system which generated this result transmitted reference range: 10.1 - 12.6 Seconds. The reference range was not used to interpret this result as normal/abnormal. INR (test code = 6301-6) Normal INR <1.1; Warfarin Therapeutic range 2.0 to 3.0 or 2.5 to 3.5, depending upon the indications. Lab Interpretation (test code = 12373-8) Normal [facility] HospitalCBC WITH [id number] 12:09:40* Test Item Value Reference Range Interpretation Comme [facility] WBC (test code = 6690-2) See_Comment [Automated [employer] ge] The system which generated this result transmitted reference range: 4.20 - 10.70 10*3/?L. The reference range was not used to interpret this result as normal/abnormal. RBC (test code = 789-8) See_Comment [Automated [employer] ge] The system which generated this result transmitted reference range: 4.26 - 5.52 10*6/?L. The reference range was not used to interpret this result as normal/abnormal. HGB (test code = 718-7) 12.6 g/dL 12.2-16.4 HCT (test code = 4544-3) 36.0 % 38.4-49.3 L MCV (test code = 787-2) 83.7 fL 81.7-95.6 MCH (test code = 785-6) 29.3 pg 26.1-32.7 MCHC (test code = 786-4) 35.0 g/dL 31.2-35.0 RDW-SD (test code = 10338-5) 38.8 fL 38.5-51.6 RDW-CV (test code = 788-0) 12.9 % 12.1-15.4 PLT (test code = 777-3) See_Comment [Automated messa ge] The system which generated this result transmitted reference range: 150 - 328 10*3/?L. The reference range was not used to interpret this result as normal/abnormal. MPV (test code = 50663-7) 11.0 fL 9.8-13.0 NRBC/100 WBC (test code = 6992470393) See_Comment [Automated [employer] ssage] The system which generated this result transmitted reference range: 0.0 - 10.0 /100 WBCs. The reference range was not used to interpret this result as normal/abnormal. NRBC x10^3 (test code = 3329998474) <0.01 See_Comment [Automated messa ge] The system which generated this result transmitted reference range: 10*3/?L. The reference range was not used to interpret this result as normal/abnormal. GRAN MAT (NEUT) % (test code = 770-8) 59.7 % IMM GRAN % (test code = 5368506720) 0.40 % LYMPH % (test code = 736-9) 27.8 % MONO % (test code = 5905-5) 6.9 % EOS % (test code = 713-8) 4.4 % BASO % (test code = 706-2) 0.8 % GRAN MAT x10^3(ANC) (test code = 3058256290) 4.22 10*3/uL 1.99-6.95 IMM GRAN x10^3 (test code = 3811259611) 0.03 10*3/uL 0.00-0.06 LYMPH x10^3 (test code = 731-0) 1.97 10*3/uL 1.09-3.23 MONO x10^3 (test code = 742-7) 0.49 10*3/uL 0.36-1.02 EOS x10^3 (test code = 711-2) 0.31 10*3/uL 0.06-0.53 BASO x10^3 (test code = 704-7) 0.06 10*3/uL 0.01-0.09 Lab Interpretation (test code = 52350-9) Abnormal [facility] GLUCOSE (AUTOMATED)2019-10-30 20:10:00* Test Item Value Reference Range Interpretation Comme [facility] POCT GLU (test code = 8545307086) 185 mg/dL 70-110 H Lab Interpretation (test cod e = 88559-8) Abnormal [facility] GLUCOSE (AUTOMATED)2019-10-30 18:39:00* Test Item Value Reference Range Interpretation Comme [facility] POCT GLU (test code = 1171410581) 243 mg/dL 70-110 H Lab Interpretation (test cod e = 97420-4) Abnormal [facility] LUNG VENTILATION AND [id number] 15:49:05No pulmonary embolism. Preliminary Report Dictated by Resident: William Lombardi ?MD Liss., have reviewed this study and agree withthe above report.VENTILATION/PERFUSION (VQ) SCANHISTORY: PE suspected, intermediate prob, positive D-dimer TECHNIQUE: After the administration of 20.4 mCi Xe-133 gas, first-breath,equilibrium, and washout images were gathered. ?Then the patient receivedan intravenous injection of 4 mCi of Tc99m MAA and a 6-view lung perfusionscan was obtained. ?The V/Q scan images were interpreted with a recentchest x-ray. FINDINGS: The distribution of lung ventilation is normal. ?The lung perfusion isslightly heterogeneous; however, no segmental or subsegmental perfusiondefects were seen. [facility], Radiant Results Inft User - 10/30/2019 9:50 AM CSTVENTILATION/PERFUSION (VQ) SCANHISTORY: PE suspected, intermediate prob, positive D-dimer TECHNIQUE: After the administration of 20.4 mCi Xe-133 gas, first-breath,equilibrium, and washout images were gathered. Then the patient receivedan intravenous injection of 4 mCi of Tc99m MAA and a 6-view lung perfusionscan was obtained. The V/Q scan images were interpreted with a recentchest x-ray.FINDINGS:The distribution of lung ventilation is normal. The lung perfusion isslightly heterogeneous; however, no segmental or subsegmental perfusiondefects were seen.IMPRESSIONNo pulmonary embolism.Preliminary Report Dictated by Resident: Geo Stephens, William Leija MD., have reviewed this study and agree withthe above report.[facility]Ba[facility] Met[facility] (NA, K, CL, CO2, GLUCOSE, BUN, CREATININE, CA) 2019-10-30 12:35:00* Test Item Value Reference Range Interpretation Comme nts NA (test code = 9223623919) 136 mmol/L 135-145 K (test code = 7405946682) 4.7 mmol/L 3.5-5 Slight hemolysis CL (test code = 6905083707) 104 mmol/L 98-108 CO2 TOTAL (test code = 6788813811) 24 mmol/L 23-31 AGAP (test code = 7186083378) 2-16 BUN (test code = 5893615249) 20 mg/dL 7-23 Slight hemolysis GLUCOSE (test code = 8616012906) 192 mg/dL 70-110 H CREATININE (test code = 7197588644) 0.97 mg/dL 0.6-1.25 CALCIUM (test code = 2856401279) 8.5 mg/dL 8.6-10.6 L eGFR Calculation (Non-) (test code = 1189728301) mL/min/1.73m2 eGFR Calculation () (test code = 6167849013) mL/min/1.73m2 NATANAEL (test code = NATANAEL) Association of Glomerular Filtration Rate (GFR) and Staging of Kidney Disease* + -----+ --------+ +| GFR (mL/min/1.73 m2) ?| With Kidney Damage ?| ?Without Kidney Damage+ +------- +---- --+| ?>90 ?| ?Stage one ?| ? Normal ?+ ------+ ---------+--------- +| ?60-89 ?| ?Stage two ?| ? Decreased GFR ? + -----+ --------+ +| ?30-59 ?| ?Stage three ?| ? Stage three ? + -----+ --------+ +| ?15-29 ?| ?Stage four ? | ? Stage four ?+ ------+ ---------+--------- +| ?<15 (or dialysis) ? ?| ?Stage five ? | ? Stage five ?+ ------+ ---------+--------- + *Each stage assumes the associated GFR level has been in effect for at least three months. ?Stages 1 to 5, with or without kidney disease, indicate chronic kidney disease. Notes: Determination of stages one and two (with eGFR >59mL/min/1.73 m2) requires estimation of kidney damage for at least three months as defined by structural or functional abnormalities of the kidney, manifested by either:Pathological abnormalities or Markers of kidney damage (including abnormalities in the composition of the blood or urine or abnormalities in imaging tests). Lab Interpretation (test code = 43773-0) Abnormal [facility] HospitalMagnesium [id number] 12:35:00* Test Item Value Reference Range Interpretation Comme [facility] MAGNESIUM (test code = 0678240198) 2.0 mg/dL 1.7-2.4 Lab Interpretation (test cod e = 08758-1) Normal [facility] HospitalaPTT (for use with Heparin Practice Guideline). Note: Draw and Send all Lab STAT.2019-10-30 12:15:00* Test Item Value Reference Range Interpretation Comme nts APTT Patient (test code = 3173-2) See_Comment H [Automated [employer] ge] The system which generated this result transmitted reference range: 26 - 36 Seconds. The reference range was not used to interpret this result as normal/abnormal. Lab Interpretation (test code = 45250-0) Abnormal [facility] HospitalCB WITH [id number] 12:10:00* Test Item Value Reference Range Interpretation Comme nts WBC (test code = 6690-2) See_Comment [Automated [employer] ge] The system which generated this result transmitted reference range: 4.20 - 10.70 10*3/?L. The reference range was not used to interpret this result as normal/abnormal. RBC (test code = 789-8) See_Comment [Automated [employer] ge] The system which generated this result transmitted reference range: 4.26 - 5.52 10*6/?L. The reference range was not used to interpret this result as normal/abnormal. HGB (test code = 718-7) 13.0 g/dL 12.2-16.4 HCT (test code = 4544-3) 38.7 % 38.4-49.3 MCV (test code = 787-2) 90.0 fL 81.7-95.6 MCH (test code = 785-6) 30.2 pg 26.1-32.7 MCHC (test code = 786-4) 33.6 g/dL 31.2-35 RDW-SD (test code = 73384-5) 41.0 fL 38.5-51.6 RDW-CV (test code = 788-0) 12.6 % 12.1-15.4 PLT (test code = 777-3) See_Comment L [Automated messa ge] The system which generated this result transmitted reference range: 150 - 328 10*3/?L. The reference range was not used to interpret this result as normal/abnormal. MPV (test code = 97964-7) 10.6 fL 9.8-13 NRBC/100 WBC (test code = 9607259895) See_Comment [Automated [employer] ssage] The system which generated this result transmitted reference range: 0.0 - 10.0 /100 WBCs. The reference range was not used to interpret this result as normal/abnormal. NRBC x10^3 (test code = 7892599517) <0.01 See_Comment [Automated messa ge] The system which generated this result transmitted reference range: 10*3/?L. The reference range was not used to interpret this result as normal/abnormal. GRAN MAT (NEUT) % (test code = 770-8) 82.8 % IMM GRAN % (test code = 2555620166) 1.00 % LYMPH % (test code = 736-9) 13.4 % MONO % (test code = 5905-5) 2.6 % EOS % (test code = 713-8) 0.0 % BASO % (test code = 706-2) 0.2 % GRAN MAT x10^3(ANC) (test code = 4882985749) 7.74 10*3/uL 1.99-6.95 H IMM GRAN x10^3 (test code = 7093939761) 0.09 10*3/uL 0-0.06 H LYMPH x10^3 (test code = 731-0) 1.25 10*3/uL 1.09-3.23 MONO x10^3 (test code = 742-7) 0.24 10*3/uL 0.36-1.02 L EOS x10^3 (test code = 711-2) <0.03 0.06-0.53 L BASO x10^3 (test code = 704-7) <0.03 0.01-0.09 Lab Interpretation (test code = 77417-4) [facility] 12:04:00* Test Item Value Reference Range Interpretation Comme nts POCT GLU (test code = 3692148498) 189 mg/dL 70-110 H Lab Interpretation (test cod e = 06559-2) [facility] - URINE DRUG (IMMUNOASSAY) - COMPREHENSIVE DRUG [id number] 06:47:00* Test Item Value Reference Range Interpretation Comme nts AMPHET (test code = 3993698677) Negative Negative LEO U (test code = 4809934877) Negative Negative BENZO U (test code = 3528231638) Presumptive Positive Negative A Cocaine Metabolite (test code = 3121578676) Negative Negative METHADONE (test code = 5230714292) Negative Negative OPIATES (test code = 0447987506) Presumptive Positive Negative A PCP (test code = 4165954739) Negative Negative THC (test code = 2409737821) Presumptive Positive Negative A NATANAEL (test code = NATANAEL) Urine Drug Cutoff Ranges Cocaine: ? 150 ng/mLBenzodiazepines: ? ? 200 ng/mLMethadone: ? 300 ng/mLAmphetamine: ? 1,000 ng/mLOpiates: ? 300 ng/mLCannabinoids: ?50 ng/mLPhencyclidine: ? ? ? 25 ng/mLBarbiturates: ?200 ng/mL The results are to be used only for medical (i.e., treatment) purposes. Unconfirmed screening results must not be used for non-medical purposes (e.g., employment testing, legal testing). Lab Interpretation (test code = 30335-6) [facility] 06:21:00* Test Item Value Reference Range Interpretation Comme nts POCT GLU (test code = 9519513477) 250 mg/dL 70-110 H Lab Interpretation (test cod e = 06674-4) [facility]normal [facility]aP[facility] (for use with Heparin Practice Guideline). Note: Draw and Send all Lab STAT.2019-10-30 04:24:00* Test Item Value Reference Range Interpretation Comme nts APTT Patient (test code = 3173-2) See_Comment HH [Automated [employer] ge] The system which generated this result transmitted reference range: 26 - 36 Seconds. The reference range was not used to interpret this result as normal/abnormal. Lab Interpretation (test code = 90875-4) [facility]2020-[facility] 03:32:00* Test Item Value Reference Range Interpretation Comme nts APPEARANCE (test code = 8999438357) Clear Clear COLOR (test code = 0915684249) Yellow Yellow PH (test code = 5702424484) 4.8-8.0 SP GRAVITY (test code = 4070531912) 1.003-1.030 GLU U QUAL (test code = 0833006268) Normal Normal BLOOD (test code = 0160392470) Negative Negative KETONES (test code = 5821985079) Negative Negative PROTEIN (test code = 2887-8) Negative Negative UROBILIN (test code = 3177608047) Normal Normal BILIRUBIN (test code = 4103104189) Negative Negative NITRITE (test code = 7313082701) Negative Negative LEUK DIA (test code = 3661102604) Negative Negative RBC/HPF (test code = 1903002484) See_Comment [Automated messa ge] The system which generated this result transmitted reference range: 0 - 3 HPF. The reference range was not used to interpret this result as normal/abnormal. WBC/HPF (test code = 7231928095) See_Comment [Automated messa ge] The system which generated this result transmitted reference range: 0 - 5 HPF. The reference range was not used to interpret this result as normal/abnormal. BACTERIA (test code = 6839072518) Negative Negative HYAL CAST (test code = 2035589514) See_Comment [Automated messa ge] The system which generated this result transmitted reference range: <=2 LPF. The reference range was not used to interpret this result as normal/abnormal. Lab Interpretation (test code = 36865-7) [facility]2019-10-30 02:10:00* Test Item Value Reference Range Interpretation Comme nts POCT GLU (test code = 1915810295) 151 mg/dL 70-110 H Lab Interpretation (test cod e = 60348-9) Abnormal [facility] HospitalThyroid Stimulating Hormone (TSH)2019-10-29 22:30:00* Test Item Value Reference Range Interpretation Comme nts TSH (test code = 2259435745) See_Comment [Automated [employer] ge] The system which generated this result transmitted reference range: 0.45 - 4.70 mIU/L. The reference range was not used to interpret this result as normal/abnormal. Lab Interpretation (test code = 21020-8) Normal [facility] HospitalLipid Panel (Total Cholesterol, Triglycerides, HDL)2019-10-29 22:24:00* Test Item Value Reference Range Interpretation Comme nts CHOL (test code = 6001015086) 129 mg/dL 120-200 HDL (test code = 8052215671) 24 mg/dL >40 L HDLC RATIO (test code = 2410932433) See_Comment H [Automated messa ge] The system which generated this result transmitted reference range: <=5.0. The reference range was not used to interpret this result as normal/abnormal. TRIG (test code = 4760470181) 169 mg/dL 30-170 LDL CHOL (test code = 73164-8) 71 mg/dL See_Comment [Automated messa ge] The system which generated this result transmitted reference range: <=160. The reference range was not used to interpret this result as normal/abnormal. VLDL (test code = 7038660406) 34 mg/dL 5-60 Lab Interpretation (test code = 73174-6) Abnormal [facility] HospitalTROPONIN [id number] 22:11:00* Test Item Value Reference Range Interpretation Comme nts TROPONIN I (test code = 0736034961) 0.001 ng/mL See_Comment [Automated message] The system which generated this result transmitted reference range: <=0.034. The reference range was not used to interpret this result as normal/abnormal. NATANAEL (test code = NATANAEL) Equal or Less than 0.034 ng/ml---Normal ?Note: Cardiac troponin begins to rise 3-4 hours after the onset of ischemia. Repeat in 4-6 hours if the sample was drawn within 3-4 hours of the onset of the symptom and found normal. Between 0.035 and 0.120 ng/mL--- Borderline. Questionable myocardial injury or necrosis ? ?Note: Serial measurement may be necessary to confirm or exclude the diagnosis of myocardial injury or necrosis; Clinical correlation (symptoms, EKGs, imaging studies, and others) required; Repeat in 4-6 hours if clinically indicated. ? Equal or Higher than 0.121 ng/mL---Abnormal. Myocardial Injury or Necrosis Likely ? Biotin has been reported to cause a negative bias, interpret results relative to patient's use of biotin. ? Lab Interpretation (test code = 70711-3) Normal [facility]aPTT2020-02-[facility] 22:09:00* Test Item Value Reference Range Interpretation Comme [facility] APTT Patient (test code = 3173-2) See_Comment L [[employer]] The system which generated this result transmitted reference range: 26 - 36 Seconds. The reference range was not used to interpret this result as normal/abnormal. Lab Interpretation (test code = 51512-7) Abnormal [facility] HospitalPROTHROMBIN TIME / [id number] 22:09:00* Test Item Value Reference Range Interpretation Comme [facility] PROTIME PATIENT (test code = 5964-2) See_Comment [Automated [employer]] The system which generated this result transmitted reference range: 10.1 - 12.6 Seconds. The reference range was not used to interpret this result as normal/abnormal. INR (test code = 6301-6) Normal INR <1.1; Warfarin Therapeutic range 2.0 to 3.0 or 2.5 to 3.5, depending upon the indications. Lab Interpretation (test code = 59185-7) Normal [facility] HospitalThyroid Stimulating Hormone (TSH)2019-10-29 20:32:00* Test Item Value Reference Range Interpretation Comme nts TSH (test code = 2055871639) See_Comment [Automated [employer] ge] The system which generated this result transmitted reference range: 0.45 - 4.70 mIU/L. The reference range was not used to interpret this result as normal/abnormal. Lab Interpretation (test code = 70481-4) Normal [facility] HospitalGlycosylated Hemoglobin (A1C)2019-10-29 20:24:00* Test Item Value Reference Range Interpretation Comme nts HGB A1C (test code = 4548-4) 6.6 % 4-6 H Lab Interpretation (test cod e = 57449-3) Abnormal [facility] HospitalN-TERMINAL [id number] 20:11:00* Test Item Value Reference Range Interpretation Comme nts NT-proBNP (test code = 9213791871) 42 pg/mL See_Comment [Automated message] The system which generated this result transmitted reference range: <=125. The reference range was not used to interpret this result as normal/abnormal. NATANAEL (test code = NATANAEL) Biotin has been reported to cause a negative bias, interpret results relative to patient's use of biotin. Lab Interpretation (test code = 47152-5) Normal [facility] HospitalLIPASE2020-02-24 20:02:00* Test Item Value Reference Range Interpretation Comme nts LIPASE (test code = 3241247316) <10 0-220 Lab Interpretation (test cod e = 63484-6) Normal [facility] HospitalLipid Panel (Total Cholesterol, Triglycerides, HDL)2019-10-29 19:59:00* Test Item Value Reference Range Interpretation Comme nts CHOL (test code = 6742136654) 119 mg/dL 120-200 L HDL (test code = 8346614061) 23 mg/dL >40 L HDLC RATIO (test code = 2952187485) See_Comment H [Automated [employer]] The system which generated this result transmitted reference range: <=5.0. The reference range was not used to interpret this result as normal/abnormal. TRIG (test code = 5532244574) 182 mg/dL 30-170 H LDL CHOL (test code = 51628-3) 60 mg/dL See_Comment [Automated messa ge] The system which generated this result transmitted reference range: <=160. The reference range was not used to interpret this result as normal/abnormal. VLDL (test code = 1496060847) 36 mg/dL 5-60 Lab Interpretation (test code = 64858-2) Abnormal [facility] HospitalProthrombin Time / [id number] 19:36:00* Test Item Value Reference Range Interpretation Comme [facility] PROTIME PATIENT (test code = 5964-2) See_Comment [Automated [employer]] The system which generated this result transmitted reference range: 10.1 - 12.6 Seconds. The reference range was not used to interpret this result as normal/abnormal. INR (test code = 6301-6) Normal INR <1.1; Warfarin Therapeutic range 2.0 to 3.0 or 2.5 to 3.5, depending upon the indications. Lab Interpretation (test code = 84034-4) Normal [facility]PO[facility])2019-10-29 19:07:00* Test Item Value Reference Range Interpretation Comme [facility] POCT GLU (test code = 0203148405) 164 mg/dL 70-110 H Lab Interpretation (test cod e = 68860-1) Abnormal [facility] HospitalTROPONIN [id number] 15:56:00* Test Item Value Reference Range Interpretation Comme [facility] TROPONIN I (test code = 4481624618) 0.002 ng/mL See_Comment [Automated message] The system which generated this result transmitted reference range: <=0.034. The reference range was not used to interpret this result as normal/abnormal. NATANAEL (test code = NATANAEL) Equal or Less than 0.034 ng/ml---Normal ?Note: Cardiac troponin begins to rise 3-4 hours after the onset of ischemia. Repeat in 4-6 hours if the sample was drawn within 3-4 hours of the onset of the symptom and found normal. Between 0.035 and 0.120 ng/mL--- Borderline. Questionable myocardial injury or necrosis ? ?Note: Serial measurement may be necessary to confirm or exclude the diagnosis of myocardial injury or necrosis; Clinical correlation (symptoms, EKGs, imaging studies, and others) required; Repeat in 4-6 hours if clinically indicated. ? Equal or Higher than 0.121 ng/mL---Abnormal. Myocardial Injury or Necrosis Likely ? Biotin has been reported to cause a negative bias, interpret results relative to patient's use of biotin. ? Lab Interpretation (test code = 02379-2) Normal [facility] HospitalXR CHEST 2 [id number] 14:35:46No acute cardiopulmonary abnormality. Preliminary Report Dictated by Resident: William El MD., have reviewed this study and agree withthe above report.XR CHEST 2 VW Comparison: 12/11/2015 History: chest pain Findings: The lungs are clear. No pleural effusion or pneumothorax. The heart is normal in size. Old left fourth posterior rib fracture. Noacute osseous abnormality is detected. [facility], Radiant Results Inft User - 10/29/2019 8:36 AM CSTXR CHEST 2 VWComparison: 12/11/2015History: chest pain Findings:The lungs are clear.No pleural effusion or pneumothorax.The heart is normal in size. Old left fourth posterior rib fracture. Noacute osseous abnormality is detected.IMPRESSIONNo acute cardiopulmonary abnormality. Preliminary Report Dictated by Resident: William Max MD., have reviewed this study and agree withthe above report.[facility] HospitalD-[id number] 12:54:00* Test Item Value Reference Range Interpretation Comments D-DIMER (test code = 9921238147) See_Comment H [Automated message] The system which generated this result transmitted reference range: <0.50 ?g/mL (FEU). The reference range was not used to interpret this result as normal/abnormal. NATANAEL (test code = NATANAEL) This test may be used in conjunction with a clinical pretest probability (PTP) assessment model to exclude venous thromboembolism (VTE) in patients suspected of deep venous thrombosis (DVT) and pulmonary embolism (PE) A D-Dimer value less than 0.50 ?g/ml (FEU) has a negative predicative value of 96 to 100% (95% CI)and 97 to 100% (95% CI) as an aid in the diagnosis of deep vein thrombosis (DVT) and pulmonary embolism when there is low or moderate pretest probability of PE or DVT. D-Dimer values are expressed in initial fibrinogen equivalent units (FEU)" The assay results should be used with other information, including the clinical context, in forming a diagnosis. Lab Interpretation (test code = 00080-0) Abnormal [facility] HospitalTROPONIN [id number] 12:17:00* Test Item Value Reference Range Interpretation Comme nts TROPONIN I (test code = 7783506691) 0.001 ng/mL See_Comment [Automated message] The system which generated this result transmitted reference range: <=0.034. The reference range was not used to interpret this result as normal/abnormal. NATANAEL (test code = NATANAEL) Equal or Less than 0.034 ng/ml---Normal ?Note: Cardiac troponin begins to rise 3-4 hours after the onset of ischemia. Repeat in 4-6 hours if the sample was drawn within 3-4 hours of the onset of the symptom and found normal. Between 0.035 and 0.120 ng/mL--- Borderline. Questionable myocardial injury or necrosis ? ?Note: Serial measurement may be necessary to confirm or exclude the diagnosis of myocardial injury or necrosis; Clinical correlation (symptoms, EKGs, imaging studies, and others) required; Repeat in 4-6 hours if clinically indicated. ? Equal or Higher than 0.121 ng/mL---Abnormal. Myocardial Injury or Necrosis Likely ? Biotin has been reported to cause a negative bias, interpret results relative to patient's use of biotin. ? Lab Interpretation (test code = 81120-1) Normal [facility] HospitalCOMP. METABOLIC PANEL (33064)2019-10-29 12:08:00* Test Item Value Reference Range Interpretation Comme nts NA (test code = 1648609691) 138 mmol/L 135-145 K (test code = 3369001155) 4.0 mmol/L 3.5-5 CL (test code = 4942244631) 105 mmol/L 98-108 CO2 TOTAL (test code = 2057974048) 23 mmol/L 23-31 AGAP (test code = 5096801564) 2-16 BUN (test code = 6505237388) 13 mg/dL 7-23 GLUCOSE (test code = 6749509123) 148 mg/dL 70-110 H CREATININE (test code = 1730113861) 1.12 mg/dL 0.6-1.25 TOTAL BILI (test code = 5462042109) 0.5 mg/dL 0.1-1.1 CALCIUM (test code = 6928295589) 9.1 mg/dL 8.6-10.6 T PROTEIN (test code = 6941729701) 6.9 g/dL 6.3-8.2 ALBUMIN (test code = 9489406333) 4.0 g/dL 3.5-5 ALK PHOS (test code = 3227554359) 54 U/L 34-122 ALTv (test code = 1742-6) 26 U/L 5-50 AST(SGOT) (test code = 8714493752) 33 U/L 13-40 eGFR Calculation (Non-) (test code = 2385489489) mL/min/1.73m2 eGFR Calculation () (test code = 2272395912) mL/min/1.73m2 NATANAEL (test code = NATANAEL) Association of Glomerular Filtration Rate (GFR) and Staging of Kidney Disease* + --+ --+ ------+| GFR (mL/min/1.73 m2) ?| With Kidney Damage ?| ?Without Kidney Damage+ --------+ --------+ +| ?>90 ?| ?Stage one ?| ? Normal ?+ ---+ ---+ -------+| ?60-89 ?| ?Stage two ?| ? Decreased GFR ? + --+ --+ ------+| ?30-59 ?| ?Stage three ?| ? Stage three ? + --+ --+ ------+| ?15-29 ?| ?Stage four ? | ? Stage four ?+ ---+ ---+ -------+| ?<15 (or dialysis) ? ?| ?Stage five ? | ? Stage five ?+ ---+ ---+ -------+ *Each stage assumes the associated GFR level has been in effect for at least three months. ?Stages 1 to 5, with or without kidney disease, indicate chronic kidney disease. Notes: Determination of stages one and two (with eGFR >59mL/min/1.73 m2) requires estimation of kidney damage for at least three months as defined by structural or functional abnormalities of the kidney, manifested by either:Pathological abnormalities or Markers of kidney damage (including abnormalities in the composition of the blood or urine or abnormalities in imaging tests). Lab Interpretation (test code = 31094-0) Abnormal [facility]PHOSPHORUS2020-02-24 12:08:00* Test Item Value Reference Range Interpretation Comme nts PHOSPHORUS (test code = 0785966639) 3.2 mg/dL 2.5-5 Lab Interpretation (test cod e = 33686-5) Normal [facility]MAGNESIUM2020-02-24 12:08:00* Test Item Value Reference Range Interpretation Comme nts MAGNESIUM (test code = 4943130335) 1.9 mg/dL 1.7-2.4 Lab Interpretation (test cod e = 70284-7) Normal [facility] HospitalCB WITH [id number] 11:48:00* Test Item Value Reference Range Interpretation Comme nts WBC (test code = 6690-2) See_Comment H [Automated [employer]] The system which generated this result transmitted reference range: 4.20 - 10.70 10*3/?L. The reference range was not used to interpret this result as normal/abnormal. RBC (test code = 789-8) See_Comment [Automated [employer]] The system which generated this result transmitted reference range: 4.26 - 5.52 10*6/?L. The reference range was not used to interpret this result as normal/abnormal. HGB (test code = 718-7) 14.5 g/dL 12.2-16.4 HCT (test code = 4544-3) 42.6 % 38.4-49.3 MCV (test code = 787-2) 88.4 fL 81.7-95.6 MCH (test code = 785-6) 30.1 pg 26.1-32.7 MCHC (test code = 786-4) 34.0 g/dL 31.2-35 RDW-SD (test code = 38197-8) 41.9 fL 38.5-51.6 RDW-CV (test code = 788-0) 12.9 % 12.1-15.4 PLT (test code = 777-3) See_Comment [Automated [employer]] The system which generated this result transmitted reference range: 150 - 328 10*3/?L. The reference range was not used to interpret this result as normal/abnormal. MPV (test code = 44388-5) 10.4 fL 9.8-13 NRBC/100 WBC (test code = 6520280506) See_Comment [Automated [employer]] The system which generated this result transmitted reference range: 0.0 - 10.0 /100 WBCs. The reference range was not used to interpret this result as normal/abnormal. NRBC x10^3 (test code = 7640667155) <0.01 See_Comment [Automated [employer]] The system which generated this result transmitted reference range: 10*3/?L. The reference range was not used to interpret this result as normal/abnormal. GRAN MAT (NEUT) % (test code = 770-8) 70.4 % IMM GRAN % (test code = 3890212312) 0.40 % LYMPH % (test code = 736-9) 20.1 % MONO % (test code = 5905-5) 6.5 % EOS % (test code = 713-8) 2.0 % BASO % (test code = 706-2) 0.6 % GRAN MAT x10^3(ANC) (test code = 3212823240) 9.74 10*3/uL 1.99-6.95 H IMM GRAN x10^3 (test code = 9788919467) 0.06 10*3/uL 0-0.06 LYMPH x10^3 (test code = 731-0) 2.78 10*3/uL 1.09-3.23 MONO x10^3 (test code = 742-7) 0.90 10*3/uL 0.36-1.02 EOS x10^3 (test code = 711-2) 0.28 10*3/uL 0.06-0.53 BASO x10^3 (test code = 704-7) 0.08 10*3/uL 0.01-0.09 Lab Interpretation (test code = 12077-0) [facility] Consult Notes Date/Time Note Provider Source 2023-12-25 03:22:12 Associated Order(s): [facility]. Please see H&P to follow. Eva Prather MD [employer] Justice, PGY-4 Associated attestation - Rosario Patel MD - 12/25/2023 3:31 PM CDT [facility] - Health History and Physical Notes Date/Time Note Provider Source 2023-12-25 04:15:34 [facility] Admit H&P PCP: PATIENT DOES NOT HAVE A PCP Date of Service: 12/25/2023 CHIEF COMPLAINT: chest pain/SOB HISTORY OF PRESENT ILLNESS Lance Portillo is a 63 year old male with a PMH of CAD s/p multiple PCI (last to OM2 in 2021, with residual D1), HFpEF, T2DM, HTN, HLD, obesity who presents for chest pain and shortness of breath. Reports that he has had leg swelling, shortness of breath, chest pain intermittently, trouble lying flat. SOB worse with exertion. Chest pain is exertional, rarely with rest, radiates to L shoulder and arm, relieved with rest and sublingual nitro. Has not had any CHF exacerbation sx like this in a few years. Reports compliance with home medications however notes that lasix was changed to PRN. Used to be on spironolactone as well but discontinued. Previously on insulin but now on glipizide + metformin. Also not taking previously prescribed crestor or zetia, says he was taken off all cholesterol medications because his cholesterol was well controlled. In ED AFVSS. Regarding labs troponins (-), NT-proBNP WNL, CXR without significant findings. Bedside echo with preserved EF. Past medical history: has a past medical history of Anxiety disorder, CAD (coronary artery disease), DJD (degenerative joint disease), multiple sites, HLD (hyperlipidemia), HTN (hypertension), and Prediabetes. Past surgical history: has a past surgical history that includes arthroscopic knee debridement; other; and discectomy. Social history: reports that he quit smoking about 17 years ago. His smoking use included cigarettes and cigars. He has a 30.00 pack-year smoking history. His smokeless tobacco use includes snuff. He reports that he does not currently use alcohol. He reports current drug use. Drug: Marijuana. Family history: family history includes Coronary Heart Disease in his father, maternal grandfather, and paternal grandfather; Diabetes in his father and mother. Allergies: Allergies Allergen Reactions Contrast [Iodine And Iodide Containing Products] Itching and Shortness of Breath Imdur [Isosorbide Mononitrate] Other - See comments headache Tylenol [Acetaminophen] Nausea and/or Vomiting MEDICATIONS reviewed REVIEW OF SYSTEMS (-)=Negative,(+)=Positive Per HPI PHYSICAL EXAMINATION Vitals: 12/25/23 0117 12/25/23 0300 BP: (!) 153/95 127/78 Pulse: 75 69 Resp: 16 17 Temp: 36.7 ?C (98 ?F) TempSrc: Oral SpO2: 96% 97% Weight: 106.6 kg (235 lb) Appearance: patient alert and in no acute distress HEENT: NCAT, MMM Cardiovascular: regular rate and rhythm, no murmur or gallops Respiratory: clear to auscultation bilaterally Abdomen: distended Extremities: 3+ pitting edema Skin: warm and dry Neurologic: AO x 3 Psych: cooperative, appropriate mood and affect LABS - reviewed pertinent labs as below: As above IMAGING - reviewed, pertinent results as below: XR CHEST 2 VW Result Date: 12/25/2023 No acute radiographic cardiopulmonary disease. RL: 5252 : no acute ischemic changes CHART REVIEW: pertinent information as below: TTE 10/2022 Findings Left Ventricle Left ventricle size is normal. Increased wall thickness. There is concentric remodeling. Normal wall motion. Normal systolic function with a visually estimated EF of greater than 65%. Normal diastolic function. Right Ventricle Right ventricle size is normal. Normal systolic function. Left Atrium Left atrium size is normal. Right Atrium Right atrium size is normal. IVC/SVC IVC was not well visualized. Mitral Valve Mild mitral annular calcification. Tricuspid Valve Tricuspid valve structure is normal. There is trivial tricuspid regurgitation.Insufficient regurgitant jet to estimate RVSP. Aortic Valve Aortic valve structure is normal. Pulmonic Valve Not well visualized. Ascending Aorta Normal sized sinus of Valsalva. Pericardium The pericardium is normal. No pericardial effusion. [facility] 10/2021 INTERVENTION IMPRESSION: 1. Significant bridging mid LAD 2. 60% ISR D1 followed by 70% distal stent edge lesion (FFR 0.81) 3. 60% ostial ramus (FFR 0.92) 4. 80% OM2 (s/p PCI) 5. Normal LVfilling pressures PLANS: l 1. NS 1 ml/kg/h for 4 hours l 2. Aspirin 81 daily lifelong l 3. Plavix 75 daily (would prefer 3 years) l 4. Aggressive medical Rx l 5. BB, CCB for bridging (avoid nitrates) l 6. If CP despite good medical Rx, would consider PCI of 70% D1 with borderline FFR (0.81) l 7. Findings and plan discussed with pt and primary team (Dr Lee) NM Stress Only 04/2021 IMPRESSION 1. No evidence of myocardial ischemia or infarction. 2. Normal left ventricular function and motion. Last hospitalization - [facility] 06/2023 Hospital Course: Mr. Andre Portillo is a 63 y.o. man who is being discharged in Hemodynamically stable condition. For a full hospital course, please review the EMR. In brief, he is a 63 y/o M w/ PMHx of CAD s/p multiple PCI (most recently OM2 and PDA 07/2021), HTN, HLD, T2DM, who presented for worsening dyspnea and chest pressure. He was admitted to the medicine cardiac teaching service for ongoing management of his angina and dyspnea. He is currently being medically managed with beta chely, aspirin, plavix, statin, lisinopril and his symptoms have resolved. The patient is hemodynamically stable and is to follow up with the outpatient cardiology service. Of note, the patient met with the family living educator to go over medication administration and general diabetes education. The patient verbalizes understanding of taking lantus daily. Dyspnea is likely from obesity from deconditioning The patient understands and is in agreeance with the treating team's discharge plan. He is being discharged on metoprolol, lisinopril, rosuvastatin, insulin, aspirin, and clopidogrel. Consults: Consults Procedures Cardiology (Gatzke) Service Consult Inpatient consult to adaptive physical educator Procedures: Echo-TTE complete Final Result CTA Chest Pulmonary Embolus w/IVcon Final Result 1. No findings of pulmonary embolus. 2. Mosaic attenuation of the lung bases suggesting small airways disease. 3. 4.5 cm subdermal cyst overlying the upper back likely representing an inclusion or sebaceous cyst. ACUITY LEVEL: 2. Non-Routine: Findings that are non-emergent, not unexpected, relatively minor, already known, not significantly changed or are unlikely to result in significant short-term morbidity. US Leg Venous Duplex Bilateral Final Result No evidence of an acute DVT in the lower extremities to the level of the popliteal vein. ACUITY LEVEL: 1. Routine: A normal examination or findings that are inconsequential. ASSESSMENT/PLAN Lance Portillo is a 63 year old male with PMH as listed above, admitted to the hospital with: Acute on chronic HFpEF (65%), ICM, NYHA III/C Chest pain, unstable angina vs 2/2 above CAD s/p multiple PCI T2DM HTN HLD Obesity Presenting with chest pain/SOB c/f angina however also grossly overloaded on exam. Would benefit from IV diuresis as well as possible ischemic w/u if sx do not improve with improvement of volume status. - admit to [facility] - start IV lasix 80 mg Q12H - s/p ASA load - on hep gtt - trend trop x3 - TTE - EKG PRN - add on A1c, TSH, lipid panel - UA/UDS - resume home DAPT, toprol XL, ANN-MARIE, amlodipine - consider restarting crestor - K>4, Mg>2 - I/Os, fluid restrictions - SSI for now, add basal insulin as warranted Chronic back pain 2/2 DJD Chronic - resume home oxycodone Pain Controlled home oxycodone Prophylaxis: DVT- enoxaparin Stress Ulcer: no indication for prophylaxis Code Status: addressed: Full Sanam Mckeon MD PGY-2 | Internal Medicine Associated attestation - Rosario Patel MD - 12/25/2023 3:30 PM CDT I personally saw and examined the patient on the day of service and agree with the resident's note as written. Unstable angina, discussed [facility] to evaluate the coronaries, but would like to think about it overnight Acute on chronic HFpEF: IV diuresis. Rosario Diaz MD, FACC, [facility] Cardiology Faculty [facility] Notes Date/Time Note Provider Source 2023-12-29 00:17:40 Problem: Discharge Planning Goal: Adequate for discharge Outcome: Progressing as expected Goal: Adequate to move to next level of care Outcome: Progressing as expected Problem: Cardiac Output - Decreased Goal: Absence of signs and symptoms of decreased cardiac output Outcome: Progressing as expected Goal: Cardiac output within specified parameters Outcome: Progressing as expected Problem: Falls, Risk of Goal: Absence of falls Outcome: Progressing as expected Problem: Fluid Volume Excess Goal: Absence of fluid overload signs and symptoms Outcome: Progressing as expected Problem: Pain Goal: Control of pain at or below patient's documented comfort goal Outcome: Progressing as expected Goal: Reduction in pain sensation Outcome: Progressing as expected Annalisa Benson RN [facility] 2023-12-28 18:38:29 Problem: Discharge Planning Goal: Adequate for discharge Outcome: Progressing as expected Goal: Adequate to move to next level of care Outcome: Progressing as expected Problem: Activity Intolerance Goal: Improved activity tolerance Outcome: Progressing as expected Problem: Cardiac Output - Decreased Goal: Absence of signs and symptoms of decreased cardiac output Outcome: Progressing as expected Goal: Cardiac output within specified parameters Outcome: Progressing as expected Problem: Falls, Risk of Goal: Absence of falls Outcome: Progressing as expected Problem: Fluid Volume Excess Goal: Absence of fluid overload signs and symptoms Outcome: Progressing as expected Problem: Pain Goal: Control of pain at or below patient's documented comfort goal Outcome: Progressing as expected Goal: Reduction in pain sensation Outcome: Progressing as expected Ira Salazar RN [facility] 2023-12-28 00:06:54 Problem: Discharge Planning Goal: Adequate for discharge Outcome: Progressing as expected Goal: Adequate to move to next level of care Outcome: Progressing as expected Problem: Activity Intolerance Goal: Improved activity tolerance Outcome: Progressing as expected Problem: Cardiac Output - Decreased Goal: Absence of signs and symptoms of decreased cardiac output Outcome: Progressing as expected Goal: Cardiac output within specified parameters Outcome: Progressing as expected Problem: Falls, Risk of Goal: Absence of falls Outcome: Progressing as expected Problem: Fluid Volume Excess Goal: Absence of fluid overload signs and symptoms Outcome: Progressing as expected Problem: Pain Goal: Control of pain at or below patient's documented comfort goal Outcome: Progressing as expected Goal: Reduction in pain sensation Outcome: Progressing as expected T [facility] 2023-12-25 05:20:41 Pt to 913 at this time via [facility] transport in ED stretcher. NAD noted, VSS, RR e/u. Patient remains in possession of all belongings at this time. T Miranda Hernandez RN [facility] 2023-12-25 05:01:21 Report given to August SNIDER on 9A. Patient name and confirmed. Patient chief complaint, current status and assessment findings, allergies, orders, infusion verify, and MAR reviewed. Patient given update on plan of care and admission status. Patient verbalizes understanding at this time. Patient in possession of all belongings. Transportation requested at this time. [facility] 2023-12-25 05:00:00 Patient currently resting in ED stretcher. Patient awaiting report to inpatient bed assignment. NAD noted, VSS, RR e/u, bed locked in lowest position with side rails elevated x 2. Patient denies additional needs at this time, will notify staff if needs anything. [facility] 2023-12-25 03:39:47 Internal medicine resident at bedside. [facility] 2023-12-25 03:29:59 Medications requested from pharmacy at this time. [facility] 2023-12-25 01:55:14 Patient to imaging, NAD noted. [facility] 2023-12-25 01:50:00 Patient given 4mg morphine and 4mg zofran at this time per verbal order by Dr. Mcfarlane. [facility] 2023-12-25 01:21:01 Lance Portillo is a 63 year old male co chest pain. Reports hx of 6 stints. States pain x couple of days and has self treated with nitro. Reports unable to get it to settle down. Reports chf hx also . States has had moments of diaphoresis. States his feet are swelling now. EKG done in triage. 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 Drummond is a 63 year old male patient with PMH of CAD s/p PCI x5 (most recent 2020), HLD, HTN who came to the ER by EMS with Hx of 2 days of chest pain, described as chest pressure in the left chest area radiated to the L arm, associated with SOB and bilateral lower extremity pitting edema. Denies palpitation, fever, cough, headache, dysuria, abdominal pain, nausea, vomiting. History provided by: Patient and medical records sample steamer used: No Past Medical History/Immunizations: Past Medical History: Diagnosis Date Anxiety disorder CAD (coronary artery disease) s/p PCI x 5 (most recent 2020) DJD (degenerative joint disease), multiple sites HLD (hyperlipidemia) HTN (hypertension) Prediabetes Tetanus received in last 5 years: Unknown Childhood immunizations: Other (comment) Allergies: Allergies Allergen Reactions Contrast [Iodine And Iodide Containing Products] Itching and Shortness of Breath Imdur [Isosorbide Mononitrate] Other - See comments headache Tylenol [Acetaminophen] Nausea and/or Vomiting Past Social History: Tobacco Use Former; Cigarettes: Quit 2006; 1.50 packs/day for 20.00 years; Types: Cigars Smokeless Tobacco: Current user of smokeless tobacco; Types: Snuff. Alcohol Use Not Currently. Comments: Quit 6 years ago (prior to this had about 18-20 drinks/week) Drug Use Yes; Marijuana. Comments: THC Past Surgical History: Past Surgical History: Procedure Laterality Date ARTHROSCOPIC KNEE DEBRIDEMENT right knee DISCECTOMY OTHER benign tumor removal below knee Review of Systems: Review of Systems Constitutional: Positive for fatigue. HENT: Positive for facial swelling. Eyes: Negative. Respiratory: Positive for chest tightness and shortness of breath. Breasts: Negative. Cardiovascular: Positive for chest pain. Gastrointestinal: Negative. Genitourinary: Negative. Musculoskeletal: Negative. Skin: Negative. Neurological: Negative. Psychiatric/Behavioral: The patient is nervous/anxious. Endocrine: Endocrine negative Physical Exam: ED Triage Vitals [12/25/23 0117] Weight 106.6 kg (235 lb) Actual or estimated Estimated by patient/family report Height BP (!) 153/95 Pulse 75 Resp 16 Temp 36.7 ?C (98 ?F) Temp source Oral SpO2 96 % Measured on Room air Physical Exam Constitutional: General: He is in acute distress. Appearance: He is obese. HENT: Head: Normocephalic and atraumatic. Nose: Nose normal. Mouth/Throat: Mouth: Mucous membranes are moist. Pharynx: Oropharynx is clear. Eyes: Extraocular Movements: Extraocular movements intact. Conjunctiva/sclera: Conjunctivae normal. Pupils: Pupils are equal, round, and reactive to light. Cardiovascular: Rate and Rhythm: Normal rate and regular rhythm. Pulses: Normal pulses. Heart sounds: Normal heart sounds. Pulmonary: Effort: Pulmonary effort is normal. Breath sounds: Normal breath sounds. Abdominal: General: Bowel sounds are normal. Palpations: Abdomen is soft. Musculoskeletal: General: Normal range of motion. Cervical back: Normal range of motion. Radiology: XR CHEST 2 VW Final Result ORDERING PHYSICIAN: PAPO MCFARLANE CLINICAL HISTORY: Chest pain TECHNIQUE: Two views of the chest COMPARISON: 12/17/2022 FINDINGS: The cardiac silhouette is within normal limits. Lungs are clear. Osseous structures are normal. IMPRESSION No acute radiographic cardiopulmonary disease. RL: [id number] Lab Results: Lab Results CBC WITH DIFF - Abnormal Result Value Ref Range WBC 8.20 4.20 - 10.70 10*3/?L RBC 4.53 4.26 - 5.52 10*6/?L HGB 13.5 12.2 - 16.4 g/dL HCT 38.3 (*) 38.4 - 49.3 % MCV 84.5 81.7 - 95.6 fL MCH 29.8 26.1 - 32.7 pg MCHC 35.2 (*) 31.2 - 35.0 g/dL RDW-SD 38.3 (*) 38.5 - 51.6 fL RDW-CV 12.7 12.1 - 15.4 % PLT 167 150 - 328 10*3/?L MPV 10.1 9.8 - 13.0 fL NRBC/100 WBC 0.0 0.0 - 10.0 /100 WBCs NRBC x10 3 <0.01 10*3/?L GRAN MAT (NEUT) % 53.1 % IMM GRAN % 0.20 % LYMPH % 35.1 % MONO % 8.3 % EOS % 2.4 % BASO % 0.9 % GRAN MAT x10 3 (ANC) 4.35 1.99 - 6.95 10*3/uL IMM GRAN x10 3 <0.03 0.00 - 0.06 10*3/uL LYMPH x10 3 2.88 1.09 - 3.23 10*3/uL MONO x10 3 0.68 0.36 - 1.02 10*3/uL EOS x10 3 0.20 0.06 - 0.53 10*3/uL BASO x10 3 0.07 0.01 - 0.09 10*3/uL COMP. METABOLIC PANEL (11877) - Abnormal NA 136 135 - 145 mmol/L K 3.8 3.5 - 5.0 mmol/L CL 103 98 - 108 mmol/L CO2 TOTAL 27 23 - 31 mmol/L AGAP 6 2 - 16 BUN 10 7 - 23 mg/dL GLUCOSE 138 (*) 70 - 110 mg/dL CREATININE 0.88 0.60 - 1.25 mg/dL TOTAL BILI 0.7 0.1 - 1.1 mg/dL CALCIUM 8.8 8.6 - 10.6 mg/dL T PROTEIN 6.6 6.3 - 8.2 g/dL ALBUMIN 4.0 3.5 - 5.0 g/dL ALK PHOS 67 34 - 122 U/L ALTv 18 5 - 50 U/L AST(SGOT) 22 13 - 40 U/L eGFR 97.2 mL/min/1.73m2 ACTIVATED PARTIAL THRMPLAS HENNY - Abnormal APTT Patient 21 (*) 26 - 36 Seconds TROPONIN I - Normal TROPONIN I 0.004 <=0.034 ng/mL N-TERMINAL PRO-BNP - Normal NT-proBNP <20 <=125 pg/mL PROTHROMBIN TIME / INR - Normal PROTIME PATIENT 11.0 10.1 - 12.6 Seconds INR 1.0 PROTHROMBIN TIME / INR ACTIVATED PARTIAL THRMPLAS HENNY GLYCOSYLATED HEMOGLOBIN (A1C) THYROID STIMULATING HORMONE LIPID PANEL (37693)(TOTAL CHOLESTEROL, TRIGLYCERIDES, HDL) MAGNESIUM TROPONIN I URINE DRUG (IMMUNOASSAY) - COMPREHENSIVE DRUG SCREEN URINALYSIS EKG: If EKG completed, see Procedure Note. Orders and Treatments: Orders Placed This Encounter Procedures XR CHEST 2 VW CBC WITH DIFF TROPONIN I COMP. METABOLIC PANEL (84136) N-TERMINAL PRO-BNP Prothrombin Time (PT) / INR aPTT Prothrombin Time / INR aPTT aPTT (for use with Heparin Infusion) CBC with Differential Basic Metabolic Panel (NA, K, CL, CO2, GLUCOSE, BUN, CREATININE, CA) Magnesium Serum Glycosylated Hemoglobin A1C Thyroid Stimulating Hormone Lipid Panel(56159)(Total Cholesterol, Triglycerides, HDL) Magnesium Troponin I DRUG PANEL 2 URINE Urinalysis Consult Cardiology NASAL CANNULA Orders Placed This Encounter Medications DISCONTD: aspirin tablet 325 mg DISCONTD: aspirin chewable tablet 324 mg morpHINE (2 mg/mL) injection 4 mg ondansetron (ZOFRAN (PF)) injection 4 mg nitroglycerin (NITROSTAT) sublingual tablet 0.4 mg furosemide (LASIX) injection 80 mg HEPARIN SODIUM (PORCINE) 1,000 UNIT/ML BOLUS ACS ORDER SET heparin (1,000 unit/mL, 10 mL vial) for Rebolusing heparin 25,000 Units/250 mL (Premixed Bag) in 0.45 % NS amLODIPine 5 mg tablet aspirin 81 mg chewable tablet clopidogreL 75 mg tablet furosemide 40 mg tablet glipiZIDE 5 mg tablet hydrOXYzine 25 mg tablet lisinopriL 10 mg tablet naloxone (NARCAN) 4 mg/actuation nasal spray methocarbamoL 750 mg tablet metoprolol succinate XL 50 mg 24 hr tablet amLODIPine (NORVASC) tablet 10 mg aspirin chewable tablet 81 mg clopidogreL (PLAVIX) 75 mg tablet 75 mg hydrOXYzine (ATARAX) tablet 25 mg lisinopriL (PRINIVIL,ZESTRIL) tablet 10 mg metoprolol succinate XL (TOPROL XL) tablet 25 mg oxyCODONE CR (oxyCONTIN CR) 12 hr tablet 10 mg enoxaparin (LOVENOX) injection 40 mg DISCONTD: acetaminophen (TYLENOL) tablet 650 mg dextrose 50 % in water (D50W) injection 25 mL glucagon (GLUCAGEN DIAGNOSTIC KIT) injection 1 mg Sliding Scale Insulin - Lispro (HumaLOG) furosemide (LASIX) injection 80 mg KCL (KLOR-CON M20) tablet 40 mEq First Provider Eval: ED Events None ED COURSE ED Course as of 12/25/232024 Sun Dec 25, 2023 0302 Cardiology has been consulted and planing to evaluate the patient in the ER. Patient's chest pain has is improving, but still present. [CLINT] ED Course User Index [CLINT] Lisest Gray MD Diagnosis/Impression as of 12/25/232024 Other chest pain Unstable angina Coronary artery disease due to lipid rich plaque H/O heart artery stent Procedures: EKG-12 Lead ROUTINE ONCE Date/Time: 12/25/2023 3:01 AM Performed by: Lisset Gray MD Authorized by: Papo Mcfarlane DO ECG interpreted by ED Physician in the absence of a women's activities adviser: yes Previous ECG: Previous ECG: Compared to current Similarity: No change Interpretation: Interpretation: normal Rate: ECG rate assessment: normal Rhythm: Rhythm: sinus rhythm Ectopy: Ectopy: none QRS: QRS axis: Normal ST segments: ST segments: Normal T waves: T waves: normal Q waves: Abnormal Q-waves: not present MDM: Medical Decision Making Patient was evaluated for the complaint of Chest Pain Diagnoses considered but not limited to: Aortic Dissection Chest Pain (acute) Congestive Heart Failure Dyspnea (acute) Myocardial Infarction (acute) Pericarditis Pneumothorax Pulmonary Embolism. Labs:were ordered, and resulted, any relevant abnormalities were considered. Imaging:Ordered, and resulted, any relevant abnormalities were considered. Procedures:were not performed. History, physical exam findings, results of visit, diagnosis, medication regimens and plan of future care have been considered. Additional MDM may be found in the ED course. Vital signs were rechecked before final disposition and determined to be stable. After discussion with Dr. Red, I examined this patient. I agree with resident's note as written. Problems Addressed: Coronary artery disease due to lipid rich plaque: chronic illness or injury H/O heart artery stent: chronic illness or injury Other chest pain: acute illness or injury Unstable angina: acute illness or injury Amount and/or Complexity of Data Reviewed Labs: ordered. Radiology: ordered. Risk OTC drugs. Prescription drug management. Parenteral controlled substances. Decision regarding hospitalization. Timothy Flowsheet Documentation: Scoring Tools: No data recorded Disposition/Condition: ED Disposition ED Disposition Admit - Inpatient Condition -- Comment -- Discharge Medications: Patient's Medications START taking these medications No medications on file CONTINUE taking these medications which have NOT CHANGED AMLODIPINE 5 MG TABLET Take 2 tablets by mouth every morning. ASPIRIN 81 MG CHEWABLE TABLET Take 1 tablet by mouth in the morning. CLOPIDOGREL 75 MG TABLET Take 1 tablet by mouth in the morning. FUROSEMIDE 40 MG TABLET Take 1 tablet by mouth 2 (two) times daily as needed (swelling). GLIPIZIDE 5 MG TABLET Take 0.5 tablets by mouth in the morning. HYDROXYZINE 25 MG TABLET Take 1 tablet by mouth at bedtime as needed for Anxiety (sleep). LISINOPRIL 10 MG TABLET Take 1 tablet by mouth in the morning. METHOCARBAMOL 750 MG TABLET Take 1 tablet by mouth 4 (four) times daily as needed for Pain (scale 1-3). METOPROLOL SUCCINATE XL 50 MG 24 HR TABLET Take 0.5 tablets by mouth in the morning. NALOXONE (NARCAN) 4 MG/ACTUATION NASAL SPRAY Use 1 [place] in each nostril as needed (opioid intoxication). NITROGLYCERIN 0.[address] 1 tablet under the tongue every 5 (five) minutes as needed for Chest pain. OXYCODONE 10 MG TAB TAKE 1 TABLET BY MOUTH EVERY 6 HOURS NEEDED START taking Modified Medications as Prescribed No medications on file STOP taking these medications No medications on file Follow-up: Electronically signed by: Lisset Gray MD 12/25/23439 Papo Mcfarlane DO 12/25/232024 T [facility]
[2024-06-21] MEDS ORDERED: ASPIRIN 81 MG CHEWABLE TABLET ONE (01:14)
[2024-06-21] MEDS ORDERED: FENTANYL CITR 100 MCG/2 ML ONE (01:15)
[2024-06-21 01:24] LABS: Absolute Basophils 0.1 K/uL (0-0.5); Absolute Eosinophils 0.3 K/uL (0-0.5); Absolute Lymphocytes (CBC) 2.6 K/uL (0.7-4.9); Absolute Monocytes 0.6 K/uL (0.1-1.3); Basophils % 1.1 % (0-1.3); Eosinophils % 3.1 % (0-4.4); Hematocrit 40.9 % (39.6-49.0); Hemoglobin 14.1 g/dL (13.6-17.9); Lymphocytes % 30.6 % (15.3-44.8); MCH 29.4 pg (27.0-35.0); MCHC 34.3 g/dL (32.0-36.0); MCV 85.7 fL (80-100); MPV 8.4 fL (7.6-11.3); Monocytes % 7.2 % (3.3-12.3); Nucleated Red Blood Cells % 0.1 % (0-0); Platelets 172 thou/uL (152-406); RBC Red Blood Cell Count 4.78 M/uL (4.33-5.43); Red Cell Distribution Width 13.5 % (12.1-15.2)
[2024-06-21 01:42] LABS: Anion Gap 8.7 mEq/L (5.0-15.0); Potassium 3.7 mEq/L (3.5-5.1)
[2024-06-21] MEDS ORDERED: ONDANSETRON 4 MG/2 ML VIAL ONE (01:47)
[2024-06-21] MEDS ORDERED: MORPHINE 4 MG/ML SYR ONE (01:47)
[2024-06-21] MEDS ORDERED: FUROSEMIDE 40 MG/4 ML VIAL ONE (01:47)
--- NOTE | 2024-06-21 02:56 | RAD REPORT ---
EXAM: XR Chest, 1 View CLINICAL HISTORY: Chest pain. TECHNIQUE: Frontal view of the chest. COMPARISON: XR Chest 09/14/2022. FINDINGS: Lungs: Unremarkable. No consolidation. Pleural space: Unremarkable. No pneumothorax. Heart: Unremarkable. No cardiomegaly. Mediastinum: Unremarkable. Normal mediastinal contour. Bones/joints: Unremarkable. No acute fracture. IMPRESSION: No acute disease. Electronically signed by: Davy Reyna MD 06/21/2024 02:16 AM CDT Due to temporary technical issues with the [employer] reporting system, reports are being suresh d by the in-house radiologist without review as a courtesy to ensure prompt reporting the interpreting radiologist is fully responsible for the content of the report. Transcribed Date/Time: 06/21/2024 2:55 AM
[2024-06-21 06:17] LABS: ALT/SGPT 22 U/L (16-61); AST/SGOT 16 U/L (15-37); Albumin 3.4 g/dL (3.4-5.0); Alkaline Phosphatase 78 U/L (45-117); Bilirubin Total 0.4 mg/dL (0.2-1.0); Globulin 3.4 g/dL (2.3-3.5); Lipase 12 U/L (13-75); NT PRO-BNP 25 pg/mL (<125); Protein, Total 6.8 g/dL (6.4-8.2)
[2024-06-21 06:31] LABS: Bilirubin Direct < 0.2 mg/dL (0-0.2); Bilirubin Indirect, Calculated 0.2 mg/dL (0.2-0.8)
--- NOTE | 2024-06-21 07:05 | EDPHYS ---
Physician Documentation [facility] Name: Lance Portillo Age: 64 yrs Sex: Male : 1960 Arrival Date: 06/21/2024 Time: 00:39 Bed 12 Private MD: ED Physician Todd Orozco HPI: 06/21 01:15 This 64 yrs old Male presents to ER via Wheelchair with complaints of Chest sp4 Pain. 01:50 64 - year-old male with history of coronary artery disease hypertension and congestive sp4 heart failure, Zentz with acute onset of exertional chest pain starting today with radiation down the left arm. Patient has history of 6 stents last stent done 2 years ago at [facility]. His medications include Lasix 40 mg as needed, amlodipine 10 mg daily, Plavix 75 mg daily, aspirin 81 mg daily. Historical: - Allergies: 01:00 contrast dye; jb4 - PMHx: 01:00 AR; CHF; HTN; jb4 - PSHx: 01:00 Hearts stents x6; right knee surgery; jb4 - Immunization history:: Adult Immunizations up to date. - Infectious Disease History:: Denies. - Social history:: Smoking status: Patient denies any tobacco usage or history of. - Family history:: not pertinent. ROS: 01:50 Constitutional: Negative for fever, chills, and weight loss, Eyes: Negative for injury, sp4 pain, redness, and discharge, Cardiovascular: Positive For chest pain with radiation down the left arm. 01:50 All other systems are negative, Exam: 01:50 Constitutional: This is a well developed, well nourished patient who is awake, alert, sp4 and in no acute distress. Head/Face: Normocephalic, atraumatic. Eyes: Pupils equal round and reactive to light, extra-ocular motions intact. Lids and lashes normal. Conjunctiva and sclera are not injected. Cornea within normal limits. Periorbital areas with no swelling, redness, or edema. ENT: Nares patent. No nasal discharge, no septal abnormalities noted. Tympanic membranes are normal and external auditory canals are clear. Oropharynx with no redness, swelling, or masses, exudates, or evidence of obstruction, uvula midline. Mucous membranes moist. Neck: Trachea midline, no thyromegaly or masses palpated, and no cervical lymphadenopathy. Supple, full range of motion without nuchal rigidity, or vertebral point tenderness. Chest/axilla: Normal chest wall appearance and motion. Nontender with no deformity. No lesions are appreciated. Cardiovascular: Regular rate and rhythm with a normal S1 and S2. No gallops, murmurs, or rubs. Normal PMI, no JVD. No pulse deficits. Respiratory: Lungs have equal breath sounds bilaterally, clear to auscultation and percussion. No rales, rhonchi or wheezes noted. No increased work of breathing, no retractions or nasal flaring. Abdomen/GI: Soft, with normal bowel sounds. No distension or tympany. No guarding or rebound. No evidence of tenderness throughout. Back: No spinal tenderness. No costovertebral tenderness. Skin: Warm, dry with normal turgor. Normal color with no rashes, no lesions, and no evidence of cellulitis. MS/ Extremity: Pulses equal, no cyanosis. Neurovascular intact. Full, normal range of motion. Neuro: Awake and alert, GCS 15, oriented to person, place, time, and situation. Cranial nerves II-XII grossly intact. Motor strength 5/5 in all extremities. Sensory grossly intact. Psych: Awake, alert, with orientation to person, place and time. Behavior, mood, and affect are within normal limits 01:50 ECG was reviewed by the Attending Physician. EKG at 0049 normal sinus rhythm rate 68, LVH otherwise normal Vital Signs: 00:56 BP 109 / 86; Pulse 70; Resp 16; Temp 97.8(TE); Pulse Ox 98% on R/A; Weight 102.06 kg jb4 (R); Height 5 ft. 8 in. (R); Pain 8/10; 02:51 BP 115 / 70; Pulse 50; Resp 16; Pulse Ox 96% on R/A; jb4 04:14 BP 116 / 76; Pulse 50; Resp 16 S; Pulse Ox 98% on R/A; lg3 06:37 BP 133 / 72; Pulse 51; Resp 15 S; Pulse Ox 97% on R/A; lg3 00:56 Body Mass Index 34.21 (102.06 kg, 172.72 cm) [facility] 00:56 Pain Scale: Adult [facility] [place] Coma Score: 01:50 Eye Response: spontaneous(4). Motor Response: obeys commands(6). Verbal Response: sp4 oriented(5). Total: 15. MDM: 01:15 Medical Screening Exam initiated sp4 07:13 Differential diagnosis: acute pericarditis, anxiety, chest wall pain, esophagitis, sp4 gastritis. Data reviewed: vital signs, nurses notes, lab test result(s), EKG, radiologic studies, plain films. 07:33 ED course: EXAM: XR Chest, 1 View CLINICAL HISTORY: Chest pain. TECHNIQUE: Frontal view sp4 of the chest. COMPARISON: XR Chest 09/14/2022. FINDINGS: Lungs: Unremarkable. No consolidation. Pleural space: Unremarkable. No pneumothorax. Heart: Unremarkable. No cardiomegaly. Mediastinum: Unremarkable. Normal mediastinal contour. Bones/joints: Unremarkable. No acute fracture. IMPRESSION: No acute disease. Electronically signed by: Davy Reyna MD 06/21/2024 02:16 AM. ED course: Troponin is negative. Patient stable for discharge home.. Patient was provided refills on his Plavix, amlodipine, and Lasix. 06/21 01:02 Order name: Basic Metabolic Panel; Complete Time: 04:07 jb4 06/21 01:02 Order name: CBC with Diff; Complete Time: 04:07 jb4 06/21 01:02 Order name: Troponin HS; Complete Time: 04:07 jb4 06/21 01:14 Order name: BNP; Complete Time: 06:55 cp 06/21 01:15 Order name: LFT's; Complete Time: 06:55 sp4 06/21 01:15 Order name: Lipase; Complete Time: 06:55 sp4 06/21 04:39 Order name: Troponin High Sensitivity; Complete Time: 05:51 sp4 06/21 01:02 Order name: XRAY Chest (1 view); Complete Time: 04:03 jb4 06/21 01:02 Order name: Cardiac monitoring; Complete Time: 01:02 4 06/21 01:02 Order name: EKG - Nurse/Tech; Complete Time: 01:02 jb4 06/21 01:02 Order name: IV Saline Lock; Complete Time: 01:18 jb4 06/21 01:02 Order name: Labs collected and sent; Complete Time: :18 jb4 06/21 01:02 Order name: O2 Per Protocol; Complete Time: 01:02 jb4 06/21 01:02 Order name: O2 Sat Monitoring; Complete Time: : jb4 EC:50 Rate is 68 beats/min. Rhythm is regular, Normal Sinus Rhythm. QRS Olla is Normal. VA sp4 interval is normal. QRS interval is normal. QT interval is normal. No Q waves. T waves are Normal. No ST changes noted. Clinical impression: No evidence of ischemia. Interpreted by me. Reviewed by me. Administered Medications: 01:18 Drug: fentaNYL (PF) IVP 50 mcg IVP once Route: IVP; Site: left forearm; jb4 01:36 Follow up: Response: No adverse reaction; Marked relief of symptoms; Pain is decreased jb4 01:18 Drug: Aspirin PO 162 mg PO once Route: PO; jb4 01:37 Follow up: Response: No adverse reaction jb4 01:57 Drug: morphine IVP or IV 8 mg IVP once over 4 mins Route: IVP; Infused Over: 4 mins; jb4 Site: left antecubital; 02:52 Follow up: Response: No adverse reaction; Marked relief of symptoms; Pain is decreased; jb4 RASS: Alert and Calm (0) 01:57 Drug: Furosemide IVP 40 mg IVP once; give over 2 minutes Route: IVP; Site: left jb4 antecubital; 02:53 Follow up: Response: No adverse reaction jb4 01:58 Drug: Ondansetron IVP 4 mg IVP once; over 2 minutes Route: IVP; Site: left forearm; jb4 02:52 Follow up: Response: No adverse reaction jb4 Disposition Summary: 06/21/24 07:04 Discharge Ordered Notes: Location: Home sp4 Problem: new sp4 Symptoms: have improved sp4 Condition: Stable sp4 Diagnosis - Chest pain, unspecified sp4 - Non cardiac chest pain sp4 Followup: sp4 - With: Phil Velázquez MD - When: 7 - 10 days - Reason: Recheck today's complaints Discharge Instructions: - Discharge Summary Sheet sp4 - Nonspecific Chest Pain, Adult sp4 Forms: - Patient Portal Instructions sp4 Prescriptions: - amlodipine 10 mg Oral tablet - take 1 tablet ORAL route daily; 90 tablet; Refills: 0, Product Selection sp4 Permitted - Plavix 75 mg Oral tablet - take 1 tablet ORAL route once daily; 90 tablet; Refills: 0, Product Selection sp4 Permitted - Lasix 40 mg Oral tablet - take 1 tablet ORAL route once daily for 30 days; 90 tablet; Refills: 0, Product sp4 Selection Permitted Signatures: Dispatcher [employer] EDMS Tanner Miranda PA PA cp Bryson, James RN RN jb4 Todd Orozco MD MD sp4 Corrections: (The following items were deleted from the chart) 01:03 01:03 Chest Single View+[email or web address] ordered. EDMS EDMS 04:39 04:39 Troponin High Sensitivity+C.LAB.[email or web address] ordered. EDMS EDMS
--- NOTE | 2024-06-21 07:05 | ER ---
Nurse's Notes [facility] Name: Lance Portillo Age: 64 yrs Sex: Male : 1960 Arrival Date: 06/21/2024 Time: 00:39 Bed 12 Private MD: Diagnosis: Chest pain, unspecified;Non cardiac chest pain Presentation: 06/21 00:56 Chief complaint: Patient states: I started having chest pain about 2 hours ago. It has jb4 been progressively getting worse. It radiates to my left arm and neck. It is a squeezing pain that is 8/10. Coronavirus screen: At this time, the client does not indicate any symptoms associated with coronavirus-19. Ebola Screen: No symptoms or risks identified at this time. Initial Sepsis Screen: Does the patient meet any 2 criteria? No. Patient's initial sepsis screen is negative. Does the patient have a suspected source of infection? No. Patient's initial sepsis screen is negative. Risk Assessment: Do you want to hurt yourself or someone else? Patient reports no desire to harm self or others. Onset of symptoms was June 21, 2024. Transition of care: patient was not received from another setting of care. 00:56 Method Of Arrival: Wheelchair jb4 00:56 Acuity: BRENDA 2 jb4 Triage Assessment: 01:00 General: Appears in no apparent distress. comfortable, Behavior is calm, cooperative, jb4 appropriate for age. Pain: Complains of pain in chest Pain radiates to left arm and neck Pain currently is 8 out of 10 on a pain scale. Quality of pain is described as Squeezing. EENT: No signs and/or symptoms were reported regarding the EENT system. Neuro: Level of Consciousness is awake, alert, obeys commands, Oriented to person, place, time, situation. Cardiovascular: Patient's skin is warm and dry. Edema is 1+ to left foot and right foot is 2+ to left midcalf and right midcalf. Respiratory: Airway is patent Respiratory effort is even, unlabored, Respiratory pattern is regular, symmetrical. GI: No signs and/or symptoms were reported involving the gastrointestinal system. : No signs and/or symptoms were reported regarding the genitourinary system. Derm: Skin is intact, Skin is pink, warm \T\ dry. Musculoskeletal: Circulation, motion, and sensation intact. Range of motion: intact in all extremities. Historical: - Allergies: 01:00 contrast dye; jb4 - PMHx: 01:00 IN; CHF; HTN; jb4 - PSHx: 01:00 Hearts stents x6; right knee surgery; jb4 - Immunization history:: Adult Immunizations up to date. - Infectious Disease History:: Denies. - Social history:: Smoking status: Patient denies any tobacco usage or history of. - Family history:: not pertinent. Screenin:21 [facility] ED Fall Risk Assessment (Adult) History of falling in the last 3 months, ss including since admission No falls in past 3 months (0 pts) Confusion or Disorientation No (0 pts) Intoxicated or Sedated No (0 pts) Impaired Gait No (0 pts) Mobility Assist Device Used No (0 pt) Altered Elimination No (0 pt) Score/Fall Risk Level 0 - 2 = Low Risk Oriented to surroundings. Abuse screen: Denies threats or abuse. Denies injuries from another. Nutritional screening: No deficits noted. Tuberculosis screening: Never had TB. Assessment: 01:39 Reassessment: see triage note. jb4 02:51 Reassessment: Patient appears in no apparent distress at this time. Patient and/or jb4 family updated on plan of care and expected duration. Pain level reassessed. Patient is alert, oriented x 3, equal unlabored respirations, skin warm/dry/pink. Patient states feeling better. 04:15 Reassessment: Patient appears in no apparent distress at this time. No changes from lg3 previously documented assessment. Patient and/or family updated on plan of care and expected duration. Pain level reassessed. Patient is alert, oriented x 3, equal unlabored respirations, skin warm/dry/pink. 06:38 Reassessment: Patient appears in no apparent distress at this time. No changes from lg3 previously documented assessment. Patient and/or family updated on plan of care and expected duration. Pain level reassessed. Patient is alert, oriented x 3, equal unlabored respirations, skin warm/dry/pink. Patient states feeling better. 07:21 General: Appears in no apparent distress. comfortable, Behavior is calm, cooperative. ss Pain: Denies pain. Neuro: Level of Consciousness is awake, alert, obeys commands. Respiratory: Airway is patent Respiratory effort is even, unlabored, Respiratory pattern is regular, symmetrical. Derm: Skin is pink, warm \T\ dry. normal, Pt ambulated with steady gait to ER lobby to wait for ride. Vital Signs: 00:56 BP 109 / 86; Pulse 70; Resp 16; Temp 97.8(TE); Pulse Ox 98% on R/A; Weight 102.06 kg jb4 (R); Height 5 ft. 8 in. (R); Pain 8/10; 02:51 BP 115 / 70; Pulse 50; Resp 16; Pulse Ox 96% on R/A; jb4 04:14 BP 116 / 76; Pulse 50; Resp 16 S; Pulse Ox 98% on R/A; lg3 06:37 BP 133 / 72; Pulse 51; Resp 15 S; Pulse Ox 97% on R/A; lg3 00:56 Body Mass Index 34.21 (102.06 kg, 172.72 cm) jb4 00:56 Pain Scale: Adult jb4 [place] Coma Score: 01:50 Eye Response: spontaneous(4). Motor Response: obeys commands(6). Verbal Response: sp4 oriented(5). Total: 15. ED Course: 00:42 Patient arrived in ED. lg3 01:00 Triage completed. jb4 01:00 Arm band placed on right wrist. jb4 01:14 Todd Orozco MD is Attending Physician. sp4 01:18 BNP Sent. jb4 01:18 Lipase Sent. jb4 01:18 LFT's Sent. jb4 01:18 Troponin HS Sent. jb4 01:18 CBC with Diff Sent. jb4 01:18 Basic Metabolic Panel Sent. jb4 01:32 XRAY Chest (1 view) In Process Unspecified. EDMS 04:14 Beatriz Son, AGATHA is Primary Nurse. lg3 07:00 Phil Velázquez MD is Referral Physician. sp4 07:21 Patient has correct armband on for positive identification. ss 07:21 No provider procedures requiring assistance completed. Patient did not have IV access ss during this emergency room visit. Administered Medications: 01:18 Drug: fentaNYL (PF) IVP 50 mcg IVP once Route: IVP; Site: left forearm; jb4 01:36 Follow up: Response: No adverse reaction; Marked relief of symptoms; Pain is decreased jb4 01:18 Drug: Aspirin PO 162 mg PO once Route: PO; jb4 01:37 Follow up: Response: No adverse reaction jb4 01:57 Drug: morphine IVP or IV 8 mg IVP once over 4 mins Route: IVP; Infused Over: 4 mins; jb4 Site: left antecubital; 02:52 Follow up: Response: No adverse reaction; Marked relief of symptoms; Pain is decreased; jb4 RASS: Alert and Calm (0) 01:57 Drug: Furosemide IVP 40 mg IVP once; give over 2 minutes Route: IVP; Site: left jb4 antecubital; 02:53 Follow up: Response: No adverse reaction jb4 01:58 Drug: Ondansetron IVP 4 mg IVP once; over 2 minutes Route: IVP; Site: left forearm; jb4 02:52 Follow up: Response: No adverse reaction jb4 Medication: 07:21 VIS not applicable for this client. ss Outcome: 07:04 Discharge ordered by . sp4 07:21 Discharged to home ambulatory, 07:21 Condition: good 07:21 Discharge instructions given to patient, Instructed on discharge instructions, follow up and referral plans. medication usage, Demonstrated understanding of instructions, follow-up care, medications, Prescriptions given X 3, 07:23 Patient left the ED. ss Signatures: Dispatcher [employer] EDCandy Newby RN RN ss Bryson, James RN AGATHA jb4 Beatriz Son RN RN lg3 Todd Orozco MD MD sp4 Corrections: (The following items were deleted from the chart) 02:53 01:00 Cardiovascular: Patient's skin is warm and dry. jb4 jb4
[2024-06-21 07:36] VITALS: TEMP 97.8
[2024-06-21 07:40] VITALS: BP 133/72; O2SAT 97
== END 2024-06-21 07:23 | disposition home or self-care (01) ==
LOC: ER 00:39
DX: R07.89 Other chest pain (principal); I10 Essential (primary) hypertension; I50.9 Heart failure, unspecified; I25.2 Old myocardial infarction; Z95.818 Presence of other cardiac implants and grafts; Z79.82 Long term (current) use of aspirin
CPT/HCPCS: 85025; 80048; 36415; 80076; 84484 ×2; 83690; 83880; 71045; 99284; J1940; J3010; J2405